=== PATIENT | male | born 1935 | race Caucasian/White ===

== ENCOUNTER 2016-03-24 11:12 | Inpatient (IN) | payer OTHER ==
[2016-03-24] VITALS (33 sets, daily range): BP systolic 100–160; BP diastolic 68–99; PULSE 50–93; TEMP 36.7–36.9; O2SAT 90–98; Ht 177.8 cm; Wt 81.5 kg
[~2016-03-24] VITALS: Ht 177.8 cm; Wt 81.5 kg
[~2016-03-24 11:12] MED LIST: CMD25 PO; CMD5 PO; DOXA2TAB PO; ESCI10TA17 PO; MULT-506 PO; PRAV40TA3 PO; PRLSR20 PO; TRAM-10 PO; [UNRECOGNIZED DRUG - CODE] OR
[2016-03-24] MEDS ORDERED: WARF2.5T8 PO ×2 (11:41)
[2016-03-24] MEDS ORDERED: MULTTAB58 PO (11:41)
[2016-03-24] MEDS ORDERED: ALEN70TA2 PO (11:41)
[2016-03-24] MEDS ORDERED: DULO60CA44 PO (11:41)
[2016-03-24] MEDS ORDERED: ASPCH81X PO (11:41)
[2016-03-24] MEDS ORDERED: PRAV40TA PO (11:41)
[2016-03-24] MEDS ORDERED: CRD4 PO (11:41)
[2016-03-24] MEDS ORDERED: FOLI1TAB7 PO (11:41)
[2016-03-24 11:55] LABS: HEMATOCRIT 43.6 % (42-52); MEAN CELL VOLUME 95.2 fL (80-100); MEAN CORPUSCULAR HEMOGLOBIN 31.9 pg (25-34); MEAN CORPUSCULAR HGB CONC 33.5 g/dl (32-36); MEAN PLATELET VOLUME 10.1 fL (7.4-10.4); PLATELET COUNT 179 K/uL (130-400); RED BLOOD COUNT 4.58 M/uL (4.7-6.1); WHITE BLOOD COUNT 5.68 K/uL (4.8-10.8)
[2016-03-24 12:02] LABS: BUN/CREATININE RATIO 22.6 (10-20); CALCIUM 9.3 mg/dl (8.5-10.1); POTASSIUM 4.4 mmol/L (3.5-5.1)
[2016-03-24 12:07] LABS: CKMB/CK RATIO 1.8 (0-3.0)
--- NOTE | 2016-03-24 12:09 | DIAGNOSTIC IMAGING REPORT ---
CHEST ONE VIEW PORTABLE HISTORY: Atypical chest pain. COMPARISON: Chest 06/24/2007. FINDINGS: There are low lung volumes. Small bilateral pleural effusions and bibasilar densities. The heart is enlarged. Mild mediastinal widening which could be due to the patient rotation. There is a tortuous thoracic aorta. There are low lung volumes. No pneumothorax. The upper lung zones are clear. No evidence for pulmonary edema. Old, healed right lower rib fractures. IMPRESSION: 1. Cardiomegaly. This appears to have progressed. 2. Low lung volumes. 3. Small bilateral pleural effusions. 4. Bibasilar patchy densities. This could represent atelectasis or pneumonia. 5. Progressive mediastinal widening. This may be due to the patient rotation. Electronically signed by: Jonathan Rosenthal M.D. 03/24/2016 12:07 PM Dictated Date/Time: 03/24/2016 12:04 PM
[2016-03-24 12:16] LABS: INR 2.2 (0.9-1.1); PARTIAL THROMBOPLASTIN RATIO 1.4; PROTHROMBIN TIME (PATIENT) 24.3 SECONDS (9.0-12.0)
[2016-03-24] MEDS ORDERED: SODIUM CHLORIDE 0.9% 1000ML 1,000 ML IV STA (13:15)
[2016-03-24] MEDS ORDERED: ONDANSETRON INJ 2 MG/ML 2 ML VIAL IV STA (13:15)
[2016-03-24] MEDS: MoRPHine SULFATE 4 MG/ML 1 ML CARP\\VIAL IV PRN ×2 (13:20→14:06)
--- NOTE | 2016-03-24 13:28 | EMERGENCY ROOM VISIT NOTE ---
History Report prepared by Radhika: Alberta Nolasco Under the Supervision of: Dr. Chase Patel M.D. First contact with patient: 13:10 Chief Complaint: CARDIAC ASSESSMENT Stated Complaint: chest pain History of Present Illness The patient is an 80 year old male who presents to the Emergency Room via ALS with complaints of persistent chest pain that began four hours ago. He currently rates his discomfort as an 8/10 in severity. Per EMS the patient was given 3 nitro, aspirin, and 100 of fentanyl that alleviated his initial chest pain. The patient states that at 0900 this morning he developed chest pain across his chest when he got up to answer the phone. He denies the pain radiating to his jaw or arm pain, and additionally denies any shortness of breath, diaphoresis, or nausea. The patient states that he called his PCP's office and was instructed to come to the emergency department for further work up. He states that prior to receiving his medications his pain was a 5-6/10 in severity. The patient states that since he has arrived to the emergency department, his pain has changed to radiating from his chest to his back. He denies ever having pain like this in the past. The patient denies any history of heart problems, but notes that he has had previous blood clots. He notes that he is on Coumadin. Source of History: patient Onset: four hours ago Position: chest Symptom Intensity: 8/10 Timing: other (persistent) Associated Symptoms: No SOB, No diaphoresis, No nausea Note: Associated Symptoms: chest pain radiating to his back. Review of Systems See HPI for pertinent positives & negatives. A total of 10 systems reviewed and were otherwise negative. Past Medical & Surgical Medical Problems: (1) BPH (benign prostatic hyperplasia) (2) DJD (degenerative joint disease) (3) DVT (deep venous thrombosis) (4) Hyperlipidemia Family History Cancer FH: heart disease Social History Smoking Status: Light Tobacco Smoker Alcohol Use: occasionally Marital Status: Housing Status: lives alone Occupation Status: retired Current/Historical Medications Scheduled Alendronate Sodium (Fosamax), 70 MG PO WK Aspirin (Aspirin Chewable), 81 MG PO DAILY Doxazosin Mesylate (Doxazosin Mesylate), 4 MG PO HS Duloxetine Hcl (Cymbalta), 60 MG PO DAILY Folic Acid (Folvite), 1 MG PO DAILY Multiple Vitamin (Multivitamin), 1 TAB PO DAILY Pravastatin Sodium (Pravachol), 40 MG PO DAILY Tramadol (Ultram), 50 MG PO Q6HR PRN Warfarin Sod (Jantoven), 5 MG PO 3XWK Warfarin Sod (Jantoven), 2.5 MG PO 4XWK Allergies Coded Allergies: Amoxicillin (Unverified Adverse Reaction, Unknown, UNKNOWN, 03/24/16) Clavulanic Acid (Unverified Adverse Reaction, Unknown, UNKNOWN, 03/24/16) Physical Exam Vital Signs Date Time Temp Pulse Resp B/P Pulse Ox O2 Delivery O2 Flow Rate FiO2 03/24/16 14:12 88 Room Air 03/24/16 13:55 70 03/24/16 13:21 59 18 163/110 93 Room Air 03/24/16 12:09 96 Nasal Cannula 2.0 03/24/16 11:30 96 Nasal Cannula 2.0 03/24/16 11:25 96 Room Air 2.0 03/24/16 11:21 82 03/24/16 11:19 37.0 81 18 152/90 92 Room Air Physical Exam GENERAL: Patient is in no acute distress. HEENT: No acute trauma, normocephalic atraumatic, mucous membranes moist, no nasal congestion, no scleral icterus. NECK: No stridor, no adenopathy, no meningismus, trachea is midline. LUNGS: Clear to auscultation bilaterally, no wheeze, no rhonchi, breath sounds equal. HEART: Without murmurs gallops or rubs, regular rate and rhythm. CHEST WALL: Nontender chest wall. ABDOMEN: Soft, nontender, bowel sounds positive, no hernias, no peritonitis. EXTREMITIES: No cyanosis or edema, full range of motion of all the joints without pain or difficulty, no signs for acute trauma. NEUROLOGIC: Oriented x 3, no acute motor or sensory deficits, no focal weakness. SKIN: No rash, no jaundice, no diaphoresis. Medical Decision & Procedures ER Provider Diagnostic Interpretation: X ray results and stated below per my interpretation and radiologist interpretation. Other radiology results and stated below per my review and radiologist interpretation: CHEST ONE VIEW PORTABLE HISTORY: Atypical chest pain. COMPARISON: Chest 06/24/2007. FINDINGS: There are low lung volumes. Small bilateral pleural effusions and bibasilar densities. The heart is enlarged. Mild mediastinal widening which could be due to the patient rotation. There is a tortuous thoracic aorta. There are low lung volumes. No pneumothorax. The upper lung zones are clear. No evidence for pulmonary edema. Old, healed right lower rib fractures. IMPRESSION: 1. Cardiomegaly. This appears to have progressed. 2. Low lung volumes. 3. Small bilateral pleural effusions. 4. Bibasilar patchy densities. This could represent atelectasis or pneumonia. 5. Progressive mediastinal widening. This may be due to the patient rotation. Electronically signed by: Jonathan Rosenthal M.D. 03/24/2016 12:07 PM Dictated Date/Time: 03/24/2016 12:04 PM CHEST, ABDOMEN, and PELVIS CTA for AORTIC DISSECTION CT DOSE: 2273.31 mGycm HISTORY: Atypical chest pain. TECHNIQUE: Multiaxial CT images of the chest, abdomen, and pelvis were performed both before and after the intravenous administration of contrast to evaluate the aorta. Maximal intensity projection images were also obtained. COMPARISON STUDY: None. FINDINGS: Noncontrast imaging demonstrates a hyperdense rind at the aortic arch originating at the level of the left subclavian artery. This hyperdense right and extends to the level of the right renal artery at the abdominal aorta. This is consistent with an intramural hematoma/partially thrombosed type B aortic dissection. This results in dilatation of the descending thoracic aorta which measures up to 5.1 cm in diameter. The major branches at the aortic arch, the celiac artery, superior mesenteric artery, inferior mesenteric artery, and renal arteries are patent without evidence for dissection. The heart is mildly enlarged. The trace pericardial and trace right pleural effusion. No evidence for mediastinal hematoma. The ascending thoracic aorta measures up to 4.7 cm in diameter. No pneumothorax. Groundglass densities within the left lower lobe likely represent mild dependent change. An 8 mm nodular density along the left major fissure is likely benign. There are few peripheral scarlike densities within the right lung. Old, healed bilateral rib fractures. A few small bilateral calcified pleural plaques. No suspicious lytic or blastic osseous lesions. No mediastinal or hilar lymphadenopathy. The central airways are patent. There is a 3.1 cm and 1.5 cm hypodense lesion within the liver. These may demonstrate discontinuous peripheral nodular enhancement. Therefore, these favor hemangiomas. The spleen, adrenal glands, pancreas, and gallbladder are unremarkable. There are few bilateral renal cysts. No hydronephrosis. Normal bladder. The prostate gland is enlarged. Left retroaortic renal vein. The abdominal aorta is normal in caliber with no evidence for dissection. The bilateral iliac arteries are patent but partially calcified. No bowel wall thickening or obstruction. IMPRESSION: 1. 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 2. The ascending thoracic aorta measures up to 4.7 cm diameter. 3. Additional findings as described above. 5. Findings were discussed with Dr. Patel at 2:10 PM on 03/24/2016 Electronically signed by: Jonathan Rosenthal M.D. 03/24/2016 2:20 PM Dictated Date/Time: 03/24/2016 1:57 PM Laboratory Results 03/24/16 11:10 03/24/16 11:10 Test 03/24/16 11:10 03/24/16 12:10 Red Blood Count 4.58 M/uL (4.7-6.1) Mean Corpuscular Volume 95.2 fL (80-100) Mean Corpuscular Hemoglobin 31.9 pg (25-34) Mean Corpuscular Hemoglobin Concent 33.5 g/dl (32-36) RDW Standard Deviation 49.8 fL (36.4-46.3) RDW Coefficient of Variation 14.3 % (11.5-14.5) Mean Platelet Volume 10.1 fL (7.4-10.4) Prothrombin Time 24.3 SECONDS (9.0-12.0) Prothromb Time International Ratio 2.2 (0.9-1.1) Activated Partial Thromboplast Time 35.5 SECONDS (21.0-31.0) Partial Thromboplastin Ratio 1.4 Anion Gap 9.0 mmol/L (3-11) Est Creatinine Clear Calc Drug Dose 58.8 ml/min Estimated GFR () 80.9 Estimated GFR (Non- 69.8 BUN/Creatinine Ratio 22.6 (10-20) Calcium Level 9.3 mg/dl (8.5-10.1) Total Bilirubin 0.6 mg/dl (0.2-1) Aspartate Amino Transf (AST/SGOT) 20 U/L (15-37) Alanine Aminotransferase (ALT/SGPT) 24 U/L (12-78) Alkaline Phosphatase 51 U/L (45-117) Total Creatine Kinase 45 U/L (39-308) Creatine Kinase MB 0.8 ng/ml (0.5-3.6) Creatine Kinase MB Ratio 1.8 (0-3.0) Total Protein 6.5 gm/dl (6.4-8.2) Albumin 3.3 gm/dl (3.4-5.0) Globulin 3.2 gm/dl (2.5-4.0) Albumin/Globulin Ratio 1.0 (0.9-2) Lipase 478 U/L (73-393) Bedside Troponin I 0.000 ng/ml (0-0.045) Laboratory results reviewed by me. Medications Administered Medications (Trade) Dose Ordered Sig/Charan Route Start Time Stop Time Status Last Admin Dose Admin Sodium Chloride (Nss 1000ml) 1,000 ml @ 125 mls/hr Q8H STAT IV 03/24/16 13:15 03/24/16 16:17 DC 03/24/16 13:15 125 MLS/HR Ondansetron HCl (Zofran Inj) 4 mg NOW STAT IV 03/24/16 13:15 03/24/16 13:17 DC 03/24/16 13:20 4 MG Morphine Sulfate (MoRPHine SULFATE INJ) 4 mg Q15M PRN IV 03/24/16 13:15 03/24/16 16:17 DC 03/24/16 14:06 4 MG Nitroglycerin (Nitroglycerin 2% Oint) 2 inch NOW STAT EXT 03/24/16 13:57 03/24/16 15:17 DC 03/24/16 14:06 2 INCH ECG Indication: chest pain Rate (beats per minute): 84 Rhythm: normal sinus Findings: no acute ischemic change, no ectopy Change: Repeat EKG: sinus bradycardia 58 beats per minute, no ischemia, no ectopy. ED Course 1310: The patient was evaluated in room A12A. A complete history and physical exam was performed. 1315: Ordered Morphine Sulfate 4 mg IV, Zofran Inj 4 mg IV, Sodium Chloride 1000 ml @ 125 mls/hr IV. 1357: Ordered Nitroglycerin 2 inch EXT. 1400: I reevaluated the patient and I discussed the CT findings. 1401: I discussed the patients case with Dr. Dugan, Vascular Surgeon. He states that the patient can stay here for further evaluation and treatment. 1418: I discussed the patients case with RAJIV Brown. She is going to evaluate the patient for further treatment. 1433: I discussed the patients case with Manuela Ulloa, Intensive Care [facility]. She will evaluate the patient in the unit. 1435: I reevaluated the patient and I updated him on the treatment plan. He verbalized complete understanding and agreement. He will be evaluated here for further treatment in the intensive care unit. Medical Decision The patient is an 80 year old male who presents to the ED with complaints of chest pain. Differential diagnoses considered include Cardiac ischemia, HI, aortic dissection, pneumothorax, pneumonia, musculoskeletal pain, pericarditis, pancreatitis. There is no leukocytosis or concerning anemia. No significant electrolyte abnormality, kidney failure or hepatitis. Pancreatic enzyme testing is slightly elevated but not high enough to diagnose pancreatitis. INR is therapeutic for someone using Coumadin. EKG shows a normal sinus rhythm, no acute ischemia. Repeat EKG showed the same findings. Cardiac enzyme testing 1 is not consistent with acute cardiac injury. Chest x-ray shows cardiomegaly and some mediastinal fullness. There was some lower lung atelectasis, no pneumothorax. Aortic CT demonstrates a type B aortic dissection stretching from the left subclavian to the superior mesenteric artery. The patient was hypertensive in the emergency room. He received IV morphine, IV Zofran and IV saline, he was placed on 2 inches of nitroglycerin paste. With this treatment, his blood pressure was better controlled. I discussed the case with the vascular surgeon reservoir engineering consultant, I talked with the flight tower dispatcher service here at the hospital. The patient's findings are nonoperable and the patient can be managed medically here at our hospital. I spoke with case management, I discussed things with the patient. The on-call hospitalist was consulted. Of note, I discussed reversing the patient's INR value with the vascular surgeon , he did not feel this was needed but suggested maybe holding the Coumadin for now. Consults Time Called: 1627 Consulting Physician: Dr. Dugan, Vascular Surgery Returned Call: [phone] I discussed the patients case with Dr. Dugan, Vascular Surgeon. He states that the patient can stay here for further evaluation and treatment. Additional Consults: Time Called: 1404 Consulted Physician: Hedy Brown Returned Call: 1410 Additional Comments: I discussed the patients case with RAJIV Brown. She is going to evaluate the patient for further treatment. Time Called: 1404 Consulted Physician: Manuela Ulloa [facility] Returned Call: [phone] Additional Comments: I discussed the patients case with Manuela Ulloa [facility]. She will evaluate the patient in the unit. Impression Primary Impression: Aortic dissection Critical Care I have personally spent greater than 35 minutes of critical care time in the direct management of this patient. This includes bedside care, interpretation of diagnostic studies, and testing, discussion with consultants, patient, and family members, and other required patient management activities. This 35 minutes is in excess of all separately billable procedures. Scribe Attestation The scribe's documentation has been prepared under my direction and personally reviewed by me in its entirety. I confirm that the note above accurately reflects all work, treatment, procedures, and medical decision making performed by me. Departure Information Dispostion Being Evaluated By Hospitalist Benjie Navarrete M.D. (PCP)
[2016-03-24] MEDS ORDERED: OPTIRAY 320 IV PRN (13:30)
[2016-03-24] MEDS ORDERED: NITROGLYCERIN OINT 2% 1GM PACKET EXT STA (13:57)
--- NOTE | 2016-03-24 14:22 | DIAGNOSTIC IMAGING REPORT ---
CHEST, ABDOMEN, and PELVIS CTA for AORTIC DISSECTION CT DOSE: 2273.31 mGycm HISTORY: Atypical chest pain. TECHNIQUE: Multiaxial CT images of the chest, abdomen, and pelvis were performed both before and after the intravenous administration of contrast to evaluate the aorta. Maximal intensity projection images were also obtained. COMPARISON STUDY: None. FINDINGS: Noncontrast imaging demonstrates a hyperdense rind at the aortic arch originating at the level of the left subclavian artery. This hyperdense right and extends to the level of the right renal artery at the abdominal aorta. This is consistent with an intramural hematoma/partially thrombosed type B aortic dissection. This results in dilatation of the descending thoracic aorta which measures up to 5.1 cm in diameter. The major branches at the aortic arch, the celiac artery, superior mesenteric artery, inferior mesenteric artery, and renal arteries are patent without evidence for dissection. The heart is mildly enlarged. The trace pericardial and trace right pleural effusion. No evidence for mediastinal hematoma. The ascending thoracic aorta measures up to 4.7 cm in diameter. No pneumothorax. Groundglass densities within the left lower lobe likely represent mild dependent change. An 8 mm nodular density along the left major fissure is likely benign. There are few peripheral scarlike densities within the right lung. Old, healed bilateral rib fractures. A few small bilateral calcified pleural plaques. No suspicious lytic or blastic osseous lesions. No mediastinal or hilar lymphadenopathy. The central airways are patent. There is a 3.1 cm and 1.5 cm hypodense lesion within the liver. These may demonstrate discontinuous peripheral nodular enhancement. Therefore, these favor hemangiomas. The spleen, adrenal glands, pancreas, and gallbladder are unremarkable. There are few bilateral renal cysts. No hydronephrosis. Normal bladder. The prostate gland is enlarged. Left retroaortic renal vein. The abdominal aorta is normal in caliber with no evidence for dissection. The bilateral iliac arteries are patent but partially calcified. No bowel wall thickening or obstruction. IMPRESSION: 1. 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 2. The ascending thoracic aorta measures up to 4.7 cm diameter. 3. Additional findings as described above. 5. Findings were discussed with Dr. Patel at 2:10 PM on 03/24/2016 Electronically signed by: Jonathan Rosenthal M.D. 03/24/2016 2:20 PM Dictated Date/Time: 03/24/2016 1:57 PM
[2016-03-24] MEDS ORDERED: ACETAMINOPHEN 325 MG TAB PO PRN (15:00)
[2016-03-24] MEDS ORDERED: ONDANSETRON INJ 2 MG/ML 2 ML VIAL IV PRN (15:00)
[2016-03-24] MEDS ORDERED: METOPROLOL TARTRATE 1 MG/ML VIAL IV STA (15:10)
[2016-03-24] MEDS ORDERED: NITROGLYCERIN/D5W 100 MCG/ML 250 ML IV PRN (15:15)
--- NOTE | 2016-03-24 15:21 | History and Physical ---
History & Physical Date & Time of Service: Mar 24, 2016 at 15:19 Chief Complaint: chest pain Primary Care Physician: Benjie Carey M.D. History of Present Illness Source: patient Patient is an 80 yd old male with PMH of BPH, DVT on anticoagulation, HLP, osteoporosis, DJD presents with history of chest pain. He states chest pain is sudden in onset, retrosternal in location, radiates to back, 5-8/10 intensity, initially dull but currently sharp in quality, constant, not associated with any aggravating/relieving factors. Denies similar symptoms in the past. Denies any associated SOB, nausea, vomiting, dizziness, headache, blurry vision, abd pain, change in bowel/bladder habits, fever, chills, cough, wheezing. Per EMS, patient was given 3 nitro, aspirin, and a dose of fentanyl that alleviated his initial chest pain. Past Medical/Surgical History Medical Problems: (1) BPH (benign prostatic hyperplasia) Status: Chronic (2) DJD (degenerative joint disease) Status: Chronic (3) DVT (deep venous thrombosis) Status: Chronic (4) Hyperlipidemia Status: Chronic Family History Cancer FH: heart disease Not relevant. Social History Smoking Status: Light Tobacco Smoker Alcohol Use: none Drug Use: none Marital Status: Occupational Status: retired Immunizations History of Influenza Vaccine: N/A History of Tetanus Vaccine?: Yes Tetanus Immunization Date: Jun 24, 2000 History of Pneumococcal: Yes Pneumococcal Date: Jan 24, 2007 History of Hepatitis B Vaccine: No Multi-Drug Resistant Organisms History of MDRO: No Allergies Coded Allergies: Amoxicillin (Unverified Adverse Reaction, Unknown, UNKNOWN, 03/24/16) Clavulanic Acid (Unverified Adverse Reaction, Unknown, UNKNOWN, 03/24/16) Home Medications Scheduled Alendronate Sodium (Fosamax), 70 MG PO WK Aspirin (Aspirin Chewable), 81 MG PO DAILY Doxazosin Mesylate (Doxazosin Mesylate), 4 MG PO HS Duloxetine Hcl (Cymbalta), 60 MG PO DAILY Folic Acid (Folvite), 1 MG PO DAILY Multiple Vitamin (Multivitamin), 1 TAB PO DAILY Pravastatin Sodium (Pravachol), 40 MG PO DAILY Tramadol (Ultram), 50 MG PO Q6HR PRN Warfarin Sod (Jantoven), 5 MG PO 3XWK Warfarin Sod (Jantoven), 2.5 MG PO 4XWK Review of Systems See HPI for pertinent positives & negatives. A total of 10 systems reviewed and were otherwise negative. Physical Exam Vital Signs Date Time Temp Pulse Resp B/P Pulse Ox O2 Delivery O2 Flow Rate FiO2 03/24/16 14:12 88 Room Air 03/24/16 13:55 70 03/24/16 13:21 59 18 163/110 93 Room Air 03/24/16 12:09 96 Nasal Cannula 2.0 03/24/16 11:30 96 Nasal Cannula 2.0 03/24/16 11:25 96 Room Air 2.0 03/24/16 11:21 82 03/24/16 11:19 37.0 81 18 152/90 92 Room Air General Appearance: WD/WN, no apparent distress Head: normocephalic, atraumatic Eyes: normal inspection, PERRL, EOMI, sclerae normal ENT: normal ENT inspection, TMs normal, pharynx normal, + pertinent finding ( Bilateral hearing loss) Neck: supple, no JVD, trachea midline Respiratory/Chest: chest non-tender, lungs clear, normal breath sounds, no respiratory distress Cardiovascular: regular rate, rhythm, no edema, no murmur Abdomen/GI: normal bowel sounds, non tender, soft, + pertinent finding ( Protuberant) Back: normal inspection Extremities/Musculoskelatal: normal inspection, no calf tenderness, no pedal edema Neurologic/Psych: 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 II-XII nml as tested, no motor/sensory deficits, alert, normal mood/affect, oriented x 3 Skin: normal color, warm/dry Lymphatic: no adenopathy Diagnostics Laboratory Results Results Past 24 Hours Test 03/24/16 11:10 03/24/16 12:10 Range/Units White Blood Count 5.68 4.8-10.8 K/uL Red Blood Count 4.58 4.7-6.1 M/uL Hemoglobin 14.6 14.0-18.0 g/dL Hematocrit 43.6 42-52 % Mean Corpuscular Volume 95.2 80-100 fL Mean Corpuscular Hemoglobin 31.9 25-34 pg Mean Corpuscular Hemoglobin Concent 33.5 32-36 g/dl RDW Standard Deviation 49.8 36.4-46.3 fL RDW Coefficient of Variation 14.3 11.5-14.5 % Platelet Count 179 130-400 K/uL Mean Platelet Volume 10.1 7.4-10.4 fL Prothrombin Time 24.3 9.0-12.0 SECONDS Prothromb Time International Ratio 2.2 0.9-1.1 Activated Partial Thromboplast Time 35.5 21.0-31.0 SECONDS Partial Thromboplastin Ratio 1.4 Sodium Level 140 136-145 mmol/L Potassium Level 4.4 3.5-5.1 mmol/L Chloride Level 104 98-107 mmol/L Carbon Dioxide Level 27 21-32 mmol/L Anion Gap 9.0 3-11 mmol/L Blood Urea Nitrogen 23 7-18 mg/dl Creatinine 1.00 0.60-1.40 mg/dl Est Creatinine Clear Calc Drug Dose 58.8 ml/min Estimated GFR () 80.9 Estimated GFR (Non- 69.8 BUN/Creatinine Ratio 22.6 10-20 Random Glucose 95 70-99 mg/dl Calcium Level 9.3 8.5-10.1 mg/dl Total Bilirubin 0.6 0.2-1 mg/dl Aspartate Amino Transf (AST/SGOT) 20 15-37 U/L Alanine Aminotransferase (ALT/SGPT) 24 12-78 U/L Alkaline Phosphatase 51 45-117 U/L Total Creatine Kinase 45 39-308 U/L Creatine Kinase MB 0.8 0.5-3.6 ng/ml Creatine Kinase MB Ratio 1.8 0-3.0 Total Protein 6.5 6.4-8.2 gm/dl Albumin 3.3 3.4-5.0 gm/dl Globulin 3.2 2.5-4.0 gm/dl Albumin/Globulin Ratio 1.0 0.9-2 Lipase 478 73-393 U/L Bedside Troponin I 0.000 0-0.045 ng/ml Diagnostic Radiology CXR: 1. Cardiomegaly. This appears to have progressed. 2. Low lung volumes. 3. Small bilateral pleural effusions. 4. Bibasilar patchy densities. This could represent atelectasis or pneumonia. 5. Progressive mediastinal widening. This may be due to the patient rotation. CTA: 1. 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 2. The ascending thoracic aorta measures up to 4.7 cm diameter. 3. Additional findings as described above. 5. Findings were discussed with Dr. Patel at 2:10 PM on 03/24/2016 EKG EKG: NSR, No signs of ischemia Impression Assessment and Plan 80 yr old male with PMH of BPH, DVT on anticoagulation, HLP, osteoporosis, DJD presents with sudden onset of chest pain radiating to back. Chest Pain: Secondary to type B aortic dissection Admit in ICU Bp currently uncontrolled On chronic anticoagulation for DVT Will start on nitro drip and Lopressor IV Q4H Discussed the case with (Poultry Culler) Monitor H&H Consult Vascular Hold all anticoagulation for now Trend cardiac enzymes, repeat EKG in AM CTA: 1. 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 2. The ascending thoracic aorta measures up to 4.7 cm diameter. BPH: Stable H/O DVT on chronic anticoagulation Hold anticoagulation Osteoporosis, DJD: Stable DVT Px: SCDs Code Status: Full code VTE Prophylaxis VTE Risk Assessment Done? Y/N: Yes Risk Level: Moderate
--- NOTE | 2016-03-24 17:50 | Critical Care Consultation ---
Critical Care Consultation Date of Consultation: Mar 24, 2016. Attending Physician: Dereck Don MD Reason for Consultation: aortic dissection type B History of Present Illness this is a 80 yo male with a hx of HLP, osteoporosis, DVT and maintained on coumadin. presented to the ED with sudden onset chest pain accompanied by mild sob, no abdominal pain or change ijn bowel movement reported, the pain was steady and lasted for over 30 minutes, he was doing well the night before according to him. in the ED work up revealed acute aortic dissection extending from the origin of the left subclav towards the diaphragm sparing the renal artery. no weakness or numbess in the lower ext , no pain in the lower ext. the pt is cigar smoker and denies cardiac hx nor PAD hx. Family History Cancer FH: heart disease Social History Smoking Status: Light Tobacco Smoker Smokeless Tobacco Use: Yes Alcohol Use: none Drug Use: none Marital Status: Housing Status: lives alone Occupation Status: retired Allergies Coded Allergies: Amoxicillin (Unverified Adverse Reaction, Unknown, UNKNOWN, 03/24/16) Clavulanic Acid (Unverified Adverse Reaction, Unknown, UNKNOWN, 03/24/16) Home Medications Scheduled Alendronate Sodium (Fosamax), 70 MG PO WK Aspirin (Aspirin Chewable), 81 MG PO DAILY Doxazosin Mesylate (Doxazosin Mesylate), 4 MG PO HS Duloxetine Hcl (Cymbalta), 60 MG PO DAILY Folic Acid (Folvite), 1 MG PO DAILY Multiple Vitamin (Multivitamin), 1 TAB PO DAILY Pravastatin Sodium (Pravachol), 40 MG PO DAILY Tramadol (Ultram), 50 MG PO Q6HR PRN Warfarin Sod (Jantoven), 5 MG PO 3XWK Warfarin Sod (Jantoven), 2.5 MG PO 4XWK Current Inpatient Medications Current Inpatient Medications Medications (Trade) Dose Ordered Sig/Charan Route Start Time Stop Time Status Last Admin Dose Admin Ioversol (Optiray 320) 100 ml UD PRN IV 03/24/16 13:30 03/28/16 13:29 Acetaminophen (Tylenol Tab) 650 mg Q4H PRN PO 03/24/16 15:00 04/23/16 14:59 Ondansetron HCl 4 mg 4 mg Q6H PRN IV 03/24/16 15:00 04/23/16 14:59 Nitroglycerin/ Dextrose (Nitroglycerin/ D5w 100 Mcg/Ml) 250 ml @ 0 mls/hr Q0M PRN IV 03/24/16 15:15 04/23/16 15:14 03/24/16 15:45 3 MLS/HR Metoprolol Tartrate (Lopressor Iv) 5 mg Q4 IV. 03/24/16 20:00 04/23/16 19:59 Duloxetine HCl (Cymbalta Cap) 60 mg DAILY PO 03/25/16 09:00 04/24/16 08:59 Review of Systems Respiratory: + shortness of breath Cardiovascular: + chest pain Physical Exam Date Time Temp Pulse Resp B/P Pulse Ox O2 Delivery O2 Flow Rate FiO2 03/24/16 15:48 68 19 138/90 94 Room Air 03/24/16 15:41 74 162/107 03/24/16 15:22 77 17 135/96 94 Room Air 03/24/16 14:12 88 Room Air 03/24/16 13:55 70 03/24/16 13:21 59 18 163/110 93 Room Air 03/24/16 12:09 96 Nasal Cannula 2.0 03/24/16 11:30 96 Nasal Cannula 2.0 03/24/16 11:25 96 Room Air 2.0 03/24/16 11:21 82 03/24/16 11:19 37.0 81 18 152/90 92 Room Air General Appearance: no apparent distress Head: normocephalic Eyes: normal inspection ENT: normal ENT inspection Neck: supple, no adenopathy, no carotid bruits Cardiovascular: regular rate, rhythm, no edema Abdomen/GI: normal bowel sounds, non tender, soft, no organomegaly Extremities/Musculoskelatal: normal inspection, no calf tenderness, normal capillary refill, no pedal edema Neurologic/Psych: slurry mixer II-XII nml as tested, no motor/sensory deficits Skin: normal color Lymphatic: no adenopathy Laboratory Results Last 24 Hours Test 03/24/16 11:10 03/24/16 12:10 White Blood Count 5.68 K/uL Red Blood Count 4.58 M/uL Hemoglobin 14.6 g/dL Hematocrit 43.6 % Mean Corpuscular Volume 95.2 fL Mean Corpuscular Hemoglobin 31.9 pg Mean Corpuscular Hemoglobin Concent 33.5 g/dl RDW Standard Deviation 49.8 fL RDW Coefficient of Variation 14.3 % Platelet Count 179 K/uL Mean Platelet Volume 10.1 fL Prothrombin Time 24.3 SECONDS Prothromb Time International Ratio 2.2 Activated Partial Thromboplast Time 35.5 SECONDS Partial Thromboplastin Ratio 1.4 Sodium Level 140 mmol/L Potassium Level 4.4 mmol/L Chloride Level 104 mmol/L Carbon Dioxide Level 27 mmol/L Anion Gap 9.0 mmol/L Blood Urea Nitrogen 23 mg/dl Creatinine 1.00 mg/dl Est Creatinine Clear Calc Drug Dose 58.8 ml/min Estimated GFR () 80.9 Estimated GFR (Non- 69.8 BUN/Creatinine Ratio 22.6 Random Glucose 95 mg/dl Calcium Level 9.3 mg/dl Total Bilirubin 0.6 mg/dl Aspartate Amino Transf (AST/SGOT) 20 U/L Alanine Aminotransferase (ALT/SGPT) 24 U/L Alkaline Phosphatase 51 U/L Total Creatine Kinase 45 U/L Creatine Kinase MB 0.8 ng/ml Creatine Kinase MB Ratio 1.8 Total Protein 6.5 gm/dl Albumin 3.3 gm/dl Globulin 3.2 gm/dl Albumin/Globulin Ratio 1.0 Lipase 478 U/L Bedside Troponin I 0.000 ng/ml Assessment & Plan #1 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 #2 HTN with BP 160. #3 no evidence of renal compromise , slight Lipase elevation. no melena. #4 coagulopathy , INR 2.2. #5 HLP. Plan: #1 continue B blockers, the pt HR is in the upper 50's. will hold off if the HR <50. #2 NTG drip to maintain SBP < 135. with respect to the MAP of 65. #3continue the rest of his meds except aspirin and coumadin. #4 no heparin sc. #5 unclear to me why the pt is on coumadin ( reported DVT 8 years ago, was it second incidence?). #6 vascular consult. #7add oxygen. minimal pleural effusion noted on the CXR, will decrease IVF. #8 Morphine for pain. #9 agree with medical management. oral intake. discussed with the pt and the staff in details. CCT 45 min.
[2016-03-24] MEDS ORDERED: SODIUM CHLORIDE 0.9% 1000ML 1,000 ML IV SCH (18:00)
[2016-03-24] MEDS ORDERED: MoRPHine SULFATE 4 MG/ML 1 ML CARP\\VIAL IV PRN (18:00)
[2016-03-24] MEDS: METOPROLOL TARTRATE 1 MG/ML VIAL IV. SCH (20:20)
[2016-03-25] VITALS (40 sets, daily range): BP systolic 91–140; BP diastolic 59–89; PULSE 51–85; TEMP 36.6–37.5; O2SAT 88–98
[2016-03-25] MEDS: METOPROLOL TARTRATE 1 MG/ML VIAL IV. SCH ×3 (03:49→08:03)
[2016-03-25 05:41] LABS: BASO % 0.1 %; BASO ABS # 0.01 K/uL (0-0.2); COMPLETE YES; EOS % 1.2 %; IG% 0.4 %; LYMPH % 15.6 %; MEAN CELL VOLUME 95.2 fL (80-100); MEAN CORPUSCULAR HEMOGLOBIN 30.8 pg (25-34); MEAN CORPUSCULAR HGB CONC 32.4 g/dl (32-36); MEAN PLATELET VOLUME 9.7 fL (7.4-10.4); NEUT % 69.7 %; PLATELET COUNT 140 K/uL (130-400); RED BLOOD COUNT 3.99 M/uL (4.7-6.1); WHITE BLOOD COUNT 7.71 K/uL (4.8-10.8)
[2016-03-25 06:06] LABS: INR 2.3 (0.9-1.1); PROTHROMBIN TIME (PATIENT) 25.5 SECONDS (9.0-12.0)
[2016-03-25 06:12] LABS: BUN/CREATININE RATIO 21.9 (10-20); CREATININE 0.8 mg/dl (0.60-1.40); POTASSIUM 4.2 mmol/L (3.5-5.1)
[2016-03-25 06:26] LABS: CALCIUM 7.9 mg/dl (8.5-10.1)
[2016-03-25] MEDS: DULOXETINE HCL 60 MG CAP PO SCH (07:58)
--- NOTE | 2016-03-25 09:46 | Surgery Consultation ---
Consultation Date of Service Mar 25, 2016. (Connie Alvarez, BRIGHT) Chief Complaint acute aortic dissection (Connie Alvarez, BRIGHT) History of Present Illness The patient is a 80 year old male with hx of HTN, HLP, DVT, seen in consultation today for acute aortic dissection noted on CT yesterday. Pt states he developed sudden onset chest pain/back pain which was excruciating and came to ED. No hx of recent trauma. BP elevated on admission. Pt states his BP at home usually in 110-120/60 range. States pain has subsided today, feeling much better. Denies MILLARD, fever, chills, chest pain presently, SOB, abd pain, N/V, rest pain, claudication, other complaints. No fam hx of aortic aneurysm or dissection. 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 (Connie Alvarez, BRIGHT) Vitals Vital Signs Past 12 Hours Date Time Temp Pulse Resp B/P Pulse Ox O2 Delivery O2 Flow Rate FiO2 03/25/16 08:03 82 106/67 03/25/16 07:40 Nasal Cannula 03/25/16 06:28 64 22 112/73 96 Nasal Cannula 3.0 03/25/16 05:58 63 21 104/71 94 Nasal Cannula 3.0 03/25/16 05:29 68 20 108/68 94 Nasal Cannula 3.0 03/25/16 04:33 65 21 109/63 89 Nasal Cannula 3.0 03/25/16 04:00 Nasal Cannula 3.0 03/25/16 03:58 36.9 63 22 116/73 95 Nasal Cannula 3.0 03/25/16 03:49 57 114/78 03/25/16 03:28 68 21 114/78 90 Nasal Cannula 3.0 03/25/16 02:58 66 20 116/72 94 Nasal Cannula 3.0 03/25/16 02:28 61 21 102/73 93 Nasal Cannula 3.0 03/25/16 01:58 63 23 104/75 94 Nasal Cannula 3.0 03/25/16 01:28 60 22 116/79 97 Nasal Cannula 3.0 03/25/16 00:58 56 21 111/74 95 Nasal Cannula 3.0 03/25/16 00:28 57 21 116/78 96 Nasal Cannula 3.0 03/25/16 00:01 Nasal Cannula 3.0 03/25/16 00:00 57 100/74 03/24/16 23:58 36.9 59 22 100/74 90 Nasal Cannula 2.0 03/24/16 23:29 67 22 131/76 92 Nasal Cannula 2.0 03/24/16 22:58 59 25 117/80 91 Nasal Cannula 2.0 03/24/16 22:28 59 26 114/77 90 Nasal Cannula 2.0 03/24/16 22:09 67 20 118/79 93 Nasal Cannula 2.0 03/24/16 22:04 62 27 101/81 98 Nasal Cannula 2.0 03/24/16 21:58 65 23 129/99 97 Nasal Cannula 2.0 03/24/16 21:54 59 22 110/76 91 Nasal Cannula 2.0 03/24/16 21:48 55 21 120/79 94 Nasal Cannula 2.0 03/24/16 21:43 57 20 118/81 93 Nasal Cannula 2.0 03/24/16 21:38 56 22 113/72 93 Nasal Cannula 2.0 03/24/16 21:33 58 22 114/71 94 Nasal Cannula 2.0 (Connie Alvaerz, RENALDOC) Allergies Coded Allergies: Amoxicillin (Unverified Adverse Reaction, Unknown, UNKNOWN, 03/24/16) Clavulanic Acid (Unverified Adverse Reaction, Unknown, UNKNOWN, 03/24/16) Home Medications Scheduled Alendronate Sodium (Fosamax), 70 MG PO WK Aspirin (Aspirin Chewable), 81 MG PO DAILY Doxazosin Mesylate (Doxazosin Mesylate), 4 MG PO HS Duloxetine Hcl (Cymbalta), 60 MG PO DAILY Folic Acid (Folvite), 1 MG PO DAILY Multiple Vitamin (Multivitamin), 1 TAB PO DAILY Pravastatin Sodium (Pravachol), 40 MG PO DAILY Tramadol (Ultram), 50 MG PO Q6HR PRN Warfarin Sod (Jantoven), 5 MG PO 3XWK Warfarin Sod (Jantoven), 2.5 MG PO 4XWK Problem List Medical Problems: (1) BPH (benign prostatic hyperplasia) (2) DJD (degenerative joint disease) (3) DVT (deep venous thrombosis) (4) Hyperlipidemia (Minarchick,Connie D., RENALDOC) Surgical / Medical History Hx Cardiac Surgery: No Hx Abdominal Surgery: No Hx Cancer Surgery: Yes (Benign neoplasm of colon removed ) Hx Thoracic Surgery: No Hx Orthopedic: No Hx Urinary Tract Surgery: No HX Other Surgery: No Past Medical/Surgical History: Hypertension (Connie Alvarez, RENALDOC) Family History Cancer FH: heart disease (Connie Alvarez PA-C) Cancer FH: heart disease (Dayton Dugan M.D.) Social History Smoking Status: Current Some Day Smoker Hx Tobacco Use In Past Year?: Yes (occasional cigar smoker ) Hx Alcohol Use - Type & Amnt: Yes (Wine 2 cups per month ) Hx Substance Use -Type & Amnt: No (Connie Alvarez, PANCHO-C) Review of Systems Constitutional: No chills, No fever, No malaise Skin: No change in color Eyes: No visual changes ENMT: No sore throat Respiratory: No SALGADO, No cough, No hemoptysis, No short of breath Cardiovascular: + chest pain, No diaphoresis, No edema, No intermittent claudication, No palpitations, No syncope Gastrointestinal: No abdominal pain, No diarrhea, No nausea, No vomiting Musculoskeletal: + back pain Neurologic: No dizziness, No headache, No lethargy, No numbness, No tingling ( Connie Alvarez, PA-C) Physical Exam Constitutional: General Apperance: heathly-appearing, well-nourished, well-developed Level of Distress: NAD Ambulation: ambulating normally Psychiatric: Mental Status: active & alert, normal mood, normal affect Orientation: oriented except where noted, to time, to place, to person Memory: recent memory normal, remote memory normal Head: normocephalic, atraumatic Eyes: EOM: EOMI ENMT: normal ENT inspection, hearing grossly normal Neck: supple, trachea midline Lungs: Respiratory effort: no dyspnea Auscultation: no wheezing, no rales/crackles, no rhonchi, decreased breath sounds Cardiovascular: Apical Impulse: not displaced Heart Auscultation: RRR, no rubs, no gallops Peripheral Pulses: Pulses: full and equal, in all extremities except if noted Bruits: none appreciated Carotid Pulse: normal on the left, normal on the right Brachial Pulses: normal on the left, normal on the right Radial Pulse: normal on the left, normal on the right Femoral Pulse: normal on the left, normal on the right Posterior Tibialis Pulse: decreased on the left, decreased on the right Dorsalis Pedis Pulse: decreased on the left, decreased on the right Abdomen: Bowel Sounds: normal Inspection & Palpation: soft, non-distended, no tenderness, guarding & rebound Musculoskeletal: normal strength (5/5 throughout), normal tone Extremities: Upper Right: no cyanosis, no edema Upper Left: no cyanosis, no edema, no varicosities Lower Right: no cyanosis, no edema, no varicosities Lower Left: no cyanosis, no edema, no varicosities Neurologic: Cranial Nerves: grossly intact Sensation: grossly intact (Connie Alvarez, PANCHO-C) Assessment and Plan ASSESSMENT and PLAN: Type B aneurysmal aortic dissection Pt appears stable presently, pain resolved. Recommend medical management with BP control. Recheck CT scan in 3 months with a participating vascular provider d/t insurance. Discussed with pt, he expresses understanding. (Connie Alvarez, PA-C) Patient was seen, examined, and chart reviewed. Agree with exam and treatment plan of the Vascular PA. Thank you very much for letting me participate in the care of this patient. (Dayton Dugan M.D.)
--- NOTE | 2016-03-25 10:53 | Critical Care Progress Note ---
Critical Care Progress Note Date of Service Mar 25, 2016. Attending Dr. Funez Subjective no complaints or acute events overnight Pain has subsided Objective General: Awake, alert and oriented x 3, no acute acute distress Heart: RRR, S1S2 present Lungs: CTAB, no wheezing, rales or ronchi abdomen: BS+'ve, soft, nontender, non distended Ext: Moves all extremities, DP pulses present Assessment & Plan Aneurysmal Aortic dissection type B - medically managed with HTN, but without evidence of organ involvement. Mild elevation in Lipase continue BB- switch to oral Continue Nitro- switch to nitro ointment Hold aspirin and coumadin(reportedly on it for DVT several years ago)- as per Vascular surgery HTN: Controlled with Nitro and beta blockers H/O of DVT INR at 2.2, hold anticoagulation Dispo: Patient stable for transfer later today. attending addendum, the p[t with type B Debakey aortic dissection, improving clinically, chest pain free today, BP controlled with meds. will stop NTG drip and start NTG paste 2 " q6hrs. will start lopressor po. stop lopressor IV. transfer to regular floor. discussed with vascular, will continue to hold coumadin, no reversal for now of the INR ( 2.3 ), no evidence of bleeding or end organ damage. discussed in details with the staff on rounds. CCt 35 min. Data Medications: Current Inpatient Medications Medications (Trade) Dose Ordered Sig/Charan Route Start Time Stop Time Status Last Admin Dose Admin Ioversol (Optiray 320) 100 ml UD PRN IV 03/24/16 13:30 03/28/16 13:29 Acetaminophen (Tylenol Tab) 650 mg Q4H PRN PO 03/24/16 15:00 04/23/16 14:59 Ondansetron HCl (Zofran Inj) 4 mg Q6H PRN IV 03/24/16 15:00 04/23/16 14:59 Duloxetine HCl (Cymbalta Cap) 60 mg DAILY PO 03/25/16 09:00 04/24/16 08:59 03/25/16 07:58 60 MG Morphine Sulfate (MoRPHine SULFATE INJ) 3 mg Q4 PRN IV 03/24/16 18:00 04/07/16 17:59 03/25/16 04:52 3 MG Metoprolol Tartrate (Lopressor Iv) 5 mg Q4 PRN IV. 1/24/17 12:00 04/24/16 11:59 UNV Nitroglycerin (Nitroglycerin 2% Oint) 2 inch Q6H EXT 03/25/16 10:30 04/24/16 10:29 UNV I & O: 24-Hour Column 03/25/16 08:00 Intake Total 1593 ml Output Total 1225 ml Balance 368 ml Vital Signs: Date Time Temp Pulse Resp B/P Pulse Ox O2 Delivery O2 Flow Rate FiO2 03/25/16 08:03 82 106/67 03/25/16 07:40 Nasal Cannula 03/25/16 06:28 64 22 112/73 96 Nasal Cannula 3.0 03/25/16 05:58 63 21 104/71 94 Nasal Cannula 3.0 03/25/16 05:29 68 20 108/68 94 Nasal Cannula 3.0 03/25/16 04:33 65 21 109/63 89 Nasal Cannula 3.0 03/25/16 04:00 Nasal Cannula 3.0 03/25/16 03:58 36.9 63 22 116/73 95 Nasal Cannula 3.0 03/25/16 03:49 57 114/78 03/25/16 03:28 68 21 114/78 90 Nasal Cannula 3.0 03/25/16 02:58 66 20 116/72 94 Nasal Cannula 3.0 03/25/16 02:28 61 21 102/73 93 Nasal Cannula 3.0 03/25/16 01:58 63 23 104/75 94 Nasal Cannula 3.0 03/25/16 01:28 60 22 116/79 97 Nasal Cannula 3.0 03/25/16 00:58 56 21 111/74 95 Nasal Cannula 3.0 03/25/16 00:28 57 21 116/78 96 Nasal Cannula 3.0 03/25/16 00:01 Nasal Cannula 3.0 03/25/16 00:00 57 100/74 03/24/16 23:58 36.9 59 22 100/74 90 Nasal Cannula 2.0 03/24/16 23:29 67 22 131/76 92 Nasal Cannula 2.0 03/24/16 22:58 59 25 117/80 91 Nasal Cannula 2.0 03/24/16 22:28 59 26 114/77 90 Nasal Cannula 2.0 03/24/16 22:09 67 20 118/79 93 Nasal Cannula 2.0 03/24/16 22:04 62 27 101/81 98 Nasal Cannula 2.0 03/24/16 21:58 65 23 129/99 97 Nasal Cannula 2.0 03/24/16 21:54 59 22 110/76 91 Nasal Cannula 2.0 03/24/16 21:48 55 21 120/79 94 Nasal Cannula 2.0 03/24/16 21:43 57 20 118/81 93 Nasal Cannula 2.0 03/24/16 21:38 56 22 113/72 93 Nasal Cannula 2.0 03/24/16 21:33 58 22 114/71 94 Nasal Cannula 2.0 03/24/16 21:24 56 21 112/80 93 Nasal Cannula 2.0 03/24/16 21:18 54 22 117/81 93 Nasal Cannula 2.0 03/24/16 21:13 56 22 117/81 93 Nasal Cannula 2.0 03/24/16 21:08 55 22 119/77 93 Nasal Cannula 2.0 03/24/16 21:03 54 21 115/76 94 Nasal Cannula 2.0 03/24/16 20:58 55 21 114/74 93 Nasal Cannula 2.0 03/24/16 20:53 58 20 116/70 93 Nasal Cannula 2.0 03/24/16 20:48 58 20 113/74 96 Nasal Cannula 2.0 03/24/16 20:44 62 14 110/71 97 Nasal Cannula 2.0 03/24/16 20:39 61 23 104/68 96 Nasal Cannula 2.0 03/24/16 20:33 50 23 105/72 95 Nasal Cannula 2.0 03/24/16 20:28 53 22 108/75 93 Nasal Cannula 2.0 03/24/16 20:26 58 22 107/74 92 Nasal Cannula 2.0 03/24/16 20:25 64 20 101/68 91 Nasal Cannula 2.0 03/24/16 20:24 69 23 109/70 92 Nasal Cannula 2.0 03/24/16 20:20 67 120/82 03/24/16 20:00 Nasal Cannula 2.0 03/24/16 20:00 36.7 74 23 120/82 95 Nasal Cannula 2.0 03/24/16 19:28 66 22 113/78 91 Nasal Cannula 2.0 03/24/16 18:00 71 22 107/75 92 Nasal Cannula 2.0 03/24/16 17:29 93 31 131/89 90 03/24/16 16:59 71 24 147/71 95 03/24/16 16:20 36.9 57 16 160/97 96 Nasal Cannula 2.0 03/24/16 15:48 68 19 138/90 94 Room Air 03/24/16 15:41 74 162/107 03/24/16 15:22 77 17 135/96 94 Room Air 03/24/16 14:12 88 Room Air 03/24/16 13:55 70 03/24/16 13:21 59 18 163/110 93 Room Air 03/24/16 12:09 96 Nasal Cannula 2.0 03/24/16 11:30 96 Nasal Cannula 2.0 03/24/16 11:25 96 Room Air 2.0 03/24/16 11:21 82 03/24/16 11:19 37.0 81 18 152/90 92 Room Air Laboratory Results: Last 24 Hours Test 03/24/16 11:10 03/24/16 12:10 03/24/16 17:55 03/25/16 00:00 White Blood Count 5.68 K/uL Red Blood Count 4.58 M/uL Hemoglobin 14.6 g/dL Hematocrit 43.6 % Mean Corpuscular Volume 95.2 fL Mean Corpuscular Hemoglobin 31.9 pg Mean Corpuscular Hemoglobin Concent 33.5 g/dl RDW Standard Deviation 49.8 fL RDW Coefficient of Variation 14.3 % Platelet Count 179 K/uL Mean Platelet Volume 10.1 fL Prothrombin Time 24.3 SECONDS Prothromb Time International Ratio 2.2 Activated Partial Thromboplast Time 35.5 SECONDS Partial Thromboplastin Ratio 1.4 Sodium Level 140 mmol/L Potassium Level 4.4 mmol/L Chloride Level 104 mmol/L Carbon Dioxide Level 27 mmol/L Anion Gap 9.0 mmol/L Blood Urea Nitrogen 23 mg/dl Creatinine 1.00 mg/dl Est Creatinine Clear Calc Drug Dose 58.8 ml/min Estimated GFR () 80.9 Estimated GFR (Non- 69.8 BUN/Creatinine Ratio 22.6 Random Glucose 95 mg/dl Calcium Level 9.3 mg/dl Total Bilirubin 0.6 mg/dl Aspartate Amino Transf (AST/SGOT) 20 U/L Alanine Aminotransferase (ALT/SGPT) 24 U/L Alkaline Phosphatase 51 U/L Total Creatine Kinase 45 U/L Creatine Kinase MB 0.8 ng/ml 0.8 ng/ml Creatine Kinase MB Ratio 1.8 Total Protein 6.5 gm/dl Albumin 3.3 gm/dl Globulin 3.2 gm/dl Albumin/Globulin Ratio 1.0 Lipase 478 U/L Bedside Troponin I 0.000 ng/ml Troponin I < 0.015 ng/ml Test 03/25/16 00:36 03/25/16 02:58 03/25/16 05:30 03/25/16 05:40 Creatine Kinase MB 0.5 ng/ml Troponin I < 0.015 ng/ml Bedside Glucose 129 mg/dl 117 mg/dl White Blood Count 7.71 K/uL Red Blood Count 3.99 M/uL Hemoglobin 12.3 g/dL Hematocrit 38.0 % Mean Corpuscular Volume 95.2 fL Mean Corpuscular Hemoglobin 30.8 pg Mean Corpuscular Hemoglobin Concent 32.4 g/dl Platelet Count 140 K/uL Mean Platelet Volume 9.7 fL Neutrophils (%) (Auto) 69.7 % Lymphocytes (%) (Auto) 15.6 % Monocytes (%) (Auto) 13.0 % Eosinophils (%) (Auto) 1.2 % Basophils (%) (Auto) 0.1 % Neutrophils # (Auto) 5.38 K/uL Lymphocytes # (Auto) 1.20 K/uL Monocytes # (Auto) 1.00 K/uL Eosinophils # (Auto) 0.09 K/uL Basophils # (Auto) 0.01 K/uL RDW Standard Deviation 49.9 fL RDW Coefficient of Variation 14.4 % Immature Granulocyte % (Auto) 0.4 % Immature Granulocyte # (Auto) 0.03 K/uL Prothrombin Time 25.5 SECONDS Prothromb Time International Ratio 2.3 Sodium Level 138 mmol/L Potassium Level 4.2 mmol/L Chloride Level 104 mmol/L Carbon Dioxide Level 27 mmol/L Anion Gap 7.0 mmol/L Blood Urea Nitrogen 18 mg/dl Creatinine 0.80 mg/dl Est Creatinine Clear Calc Drug Dose 73.5 ml/min Estimated GFR () 96.4 Estimated GFR (Non- 83.2 BUN/Creatinine Ratio 21.9 Random Glucose 124 mg/dl Calcium Level 7.9 mg/dl Total Bilirubin 0.8 mg/dl Aspartate Amino Transf (AST/SGOT) 15 U/L Alanine Aminotransferase (ALT/SGPT) 21 U/L Alkaline Phosphatase 43 U/L Total Protein 5.6 gm/dl Albumin 2.8 gm/dl Globulin 2.8 gm/dl Albumin/Globulin Ratio 1.0
[2016-03-25] MEDS: NITROGLYCERIN OINT 2% 1GM PACKET EXT SCH ×2 (11:44→17:30)
[2016-03-25] MEDS ORDERED: METOPROLOL TARTRATE 1 MG/ML VIAL IV PRN (12:00)
--- NOTE | 2016-03-25 18:11 | Progress Note ---
Medicine Progress Note Date & Time of Visit: Mar 25, 2016 at 17:58. Subjective 80 yoM with acute onset midback pain found to have a Type B Aortic dissection; medical management per vascular as he is stable and asymptomatic Pt feels well Tolerating PO Denies chest pain or back pain No shortness of breath Borderline need for oxygen via nasal canula today Objective Last 8 Hrs Date Time Temp Pulse Resp B/P Pulse Ox O2 Delivery O2 Flow Rate FiO2 03/25/16 17:29 80 142/95 03/25/16 15:45 Room Air 03/25/16 15:00 73 24 91 Room Air 03/25/16 14:58 72 23 140/89 92 03/25/16 14:00 82 26 91 03/25/16 13:58 85 25 115/77 89 03/25/16 13:00 71 31 92 03/25/16 12:14 Nasal Cannula 03/25/16 11:45 37.5 75 23 110/65 90 03/25/16 11:30 79 21 03/25/16 11:00 56 23 97 03/25/16 10:59 59 21 124/78 95 03/25/16 10:30 60 22 88 03/25/16 10:28 62 21 110/74 88 03/25/16 10:00 58 21 90 Physical Exam: GEN: WNWD, in no acute distress, alert and appropriate HEENT: NC/AT, PERRL, normal sclerae, mucous membranes are moist CARDIO: reg rate, S1/2 heard without m/g/r LUNGS: CTA bilaterally, no crackles, rales or wheezes, good diaphragmatic excursion ABD: soft, non-tender, non-distended, no rebound or guarding EXTREMITY: RP and DP palpable 2+ bilat, no LE swelling or edema, extremities are warm and well-perfused NEURO: CN 2-12 grossly intact, sensation intact throughout, no gross focal deficits MUSC: moves around bed with ease, good musculature SKIN: warm and dry Laboratory Results: Last 24 Hours Test 03/25/16 00:00 03/25/16 00:36 03/25/16 02:58 03/25/16 05:30 Creatine Kinase MB Ratio Creatine Kinase MB 0.5 ng/ml Troponin I < 0.015 ng/ml Bedside Glucose 129 mg/dl White Blood Count 7.71 K/uL Red Blood Count 3.99 M/uL Hemoglobin 12.3 g/dL Hematocrit 38.0 % Mean Corpuscular Volume 95.2 fL Mean Corpuscular Hemoglobin 30.8 pg Mean Corpuscular Hemoglobin Concent 32.4 g/dl Platelet Count 140 K/uL Mean Platelet Volume 9.7 fL Neutrophils (%) (Auto) 69.7 % Lymphocytes (%) (Auto) 15.6 % Monocytes (%) (Auto) 13.0 % Eosinophils (%) (Auto) 1.2 % Basophils (%) (Auto) 0.1 % Neutrophils # (Auto) 5.38 K/uL Lymphocytes # (Auto) 1.20 K/uL Monocytes # (Auto) 1.00 K/uL Eosinophils # (Auto) 0.09 K/uL Basophils # (Auto) 0.01 K/uL RDW Standard Deviation 49.9 fL RDW Coefficient of Variation 14.4 % Immature Granulocyte % (Auto) 0.4 % Immature Granulocyte # (Auto) 0.03 K/uL Prothrombin Time 25.5 SECONDS Prothromb Time International Ratio 2.3 Sodium Level 138 mmol/L Potassium Level 4.2 mmol/L Chloride Level 104 mmol/L Carbon Dioxide Level 27 mmol/L Anion Gap 7.0 mmol/L Blood Urea Nitrogen 18 mg/dl Creatinine 0.80 mg/dl Est Creatinine Clear Calc Drug Dose 73.5 ml/min Estimated GFR () 96.4 Estimated GFR (Non- 83.2 BUN/Creatinine Ratio 21.9 Random Glucose 124 mg/dl Calcium Level 7.9 mg/dl Total Bilirubin 0.8 mg/dl Aspartate Amino Transf (AST/SGOT) 15 U/L Alanine Aminotransferase (ALT/SGPT) 21 U/L Alkaline Phosphatase 43 U/L Total Protein 5.6 gm/dl Albumin 2.8 gm/dl Globulin 2.8 gm/dl Albumin/Globulin Ratio 1.0 Test 03/25/16 05:40 Bedside Glucose 117 mg/dl Assessment & Plan 80 yr old male with PMH of BPH, DVT on anticoagulation, HLP, osteoporosis, DJD presents with sudden onset of chest pain radiating to back. Chest Pain: Secondary to type B aortic dissection-resolved Admitted to ICU and placed on nitro drip for good BP control On chronic anticoagulation for recurrent DVT (poss mutation?) H/H slightly decreased but likely dilutional as 3L was given since admission Cont coumadin as not bleeding Medical management per Dr. Dugan (vascular surgeon) serial cardiac enzymes were negative overnight Switched Nitro paste and Lopressor to PO amlodipine and Imdur for goal SBP<140 Hypoxia?-intermittent need for O2 via nasal canula today. Pt is a smoker of cigars twice weekly. Uncertain cause of this-nurse reports he was satting 88% while sleeping but very responsive to oxygen at 2L via NC. Will monitor overnight and attempt to wean. Will investigate further if this continues tomorrow. 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 Receives regular outpatient steroid injections. DVT Prophy: coumadin Full code DO Hedy Powell Hospitalist Consultants: Vasc Surg, Rug Dyer Current Inpatient Medications: Current Inpatient Medications Medications (Trade) Dose Ordered Sig/Charan Route Start Time Stop Time Status Last Admin Dose Admin Ioversol (Optiray 320) 100 ml UD PRN IV 03/24/16 13:30 03/28/16 13:29 Acetaminophen (Tylenol Tab) 650 mg Q4H PRN PO 03/24/16 15:00 04/23/16 14:59 Ondansetron HCl (Zofran Inj) 4 mg Q6H PRN IV 03/24/16 15:00 04/23/16 14:59 Duloxetine HCl (Cymbalta Cap) 60 mg DAILY PO 03/25/16 09:00 04/24/16 08:59 03/25/16 07:58 60 MG Morphine Sulfate (MoRPHine SULFATE INJ) 3 mg Q4 PRN IV 03/24/16 18:00 04/07/16 17:59 03/25/16 04:52 3 MG Metoprolol Tartrate (Lopressor Iv) 5 mg Q4 PRN IV 03/25/16 12:00 04/24/16 11:59 03/25/16 17:29 5 MG Nitroglycerin (Nitroglycerin 2% Oint) 2 inch Q6 EXT 03/25/16 10:30 04/24/16 10:29 03/25/16 17:30 2 INCH Metoprolol Tartrate (Lopressor Tab) 25 mg BID PO 1/24/17 21:00 04/24/16 20:59 Isosorbide Mononitrate (Imdur Ext Rel Tab) 60 mg QAM PO 03/26/16 09:00 04/25/16 08:59 Amlodipine Besylate (Norvasc Tab) 5 mg QAM PO 03/26/16 09:00 04/25/16 08:59
[2016-03-25] MEDS: METOPROLOL TARTRATE 25 MG TAB PO SCH (19:58)
[2016-03-26] VITALS (17 sets, daily range): BP systolic 85–131; BP diastolic 50–83; PULSE 49–76; TEMP 36.6–37.2; O2SAT 91–98
[2016-03-26] MEDS: NITROGLYCERIN OINT 2% 1GM PACKET EXT SCH ×3 (00:53→11:45)
[2016-03-26 05:40] LABS: BASO % 0.2 %; BASO ABS # 0.02 K/uL (0-0.2); COMPLETE YES; EOS % 1.8 %; HEMATOCRIT 38.7 % (42-52); IG% 0.5 %; LYMPH % 15.4 %; LYMPH ABS # 1.29 K/uL (1.2-3.4); MEAN CELL VOLUME 95.1 fL (80-100); MEAN CORPUSCULAR HEMOGLOBIN 31.2 pg (25-34); MEAN CORPUSCULAR HGB CONC 32.8 g/dl (32-36); MEAN PLATELET VOLUME 10.1 fL (7.4-10.4); MONO % 20.1 %; PLATELET COUNT 121 K/uL (130-400); RED BLOOD COUNT 4.07 M/uL (4.7-6.1); WHITE BLOOD COUNT 8.36 K/uL (4.8-10.8)
[2016-03-26 05:54] LABS: INR 1.6 (0.9-1.1); PROTHROMBIN TIME (PATIENT) 17.8 SECONDS (9.0-12.0)
[2016-03-26 06:10] LABS: BUN/CREATININE RATIO 22.8 (10-20); CALCIUM 8.1 mg/dl (8.5-10.1); CREATININE 0.73 mg/dl (0.60-1.40); POTASSIUM 4.2 mmol/L (3.5-5.1)
[2016-03-26] MEDS: DULOXETINE HCL 60 MG CAP PO SCH (07:50)
[2016-03-26] MEDS: ISOSORBIDE MONONITRATE 60 MG TABCR PO SCH (07:51)
[2016-03-26] MEDS: AMLODIPINE BESYLATE 5 MG TAB PO SCH (07:51)
[2016-03-26] MEDS: METOPROLOL TARTRATE 25 MG TAB PO SCH ×2 (07:51→21:22)
[2016-03-26] MEDS ORDERED: NURSING VERBAL MED ORDER ONE (08:00)
[2016-03-26] MEDS: POLYETHYLENE (MIRALAX) 17 GM PACK PO PRN (08:41)
--- NOTE | 2016-03-26 09:46 | Critical Care Progress Note ---
Critical Care Progress Note Date of Service Mar 26, 2016. Attending Dr. Funez Subjective no events overnight. bp controlled. no evidence of end organ damage. Objective General: Awake, alert and oriented x 3, no acute acute distress Heart: RRR, S1S2 present Lungs: CTAB, no wheezing, rales or ronchi abdomen: BS+'ve, soft, nontender, non distended Ext: Moves all extremities, DP pulses present CC today on 03/26 is constipation. Assessment & Plan Aortic dissection type B. hx of DVT times two last in 2007. HTN . Constipation. Plan: 1- continue B blockers, Imdur and amlodipine . BP is well controlled. pt is asymptomatic. 2- add scheduled stool softener to avoid straining with BM. 3- keep coumadin on hold until ok by vascular. 4- follow up as op with vascular and his PCP. 5- disposition to regular floor. discussed in rounds, time spent coordinating the care for this pt was 35 min. Data Medications: Current Inpatient Medications Medications (Trade) Dose Ordered Sig/Charan Route Start Time Stop Time Status Last Admin Dose Admin Ioversol (Optiray 320) 100 ml UD PRN IV 03/24/16 13:30 03/28/16 13:29 Acetaminophen (Tylenol Tab) 650 mg Q4H PRN PO 03/24/16 15:00 04/23/16 14:59 Ondansetron HCl (Zofran Inj) 4 mg Q6H PRN IV 03/24/16 15:00 04/23/16 14:59 Duloxetine HCl (Cymbalta Cap) 60 mg DAILY PO 03/25/16 09:00 04/24/16 08:59 03/26/16 07:50 60 MG Morphine Sulfate (MoRPHine SULFATE INJ) 3 mg Q4 PRN IV 03/24/16 18:00 04/07/16 17:59 03/25/16 04:52 3 MG Metoprolol Tartrate (Lopressor Iv) 5 mg Q4 PRN IV 03/25/16 12:00 04/24/16 11:59 03/25/16 17:29 5 MG Nitroglycerin (Nitroglycerin 2% Oint) 2 inch Q6 EXT 03/25/16 10:30 04/24/16 10:29 03/26/16 06:35 2 INCH Metoprolol Tartrate (Lopressor Tab) 25 mg BID PO 03/25/16 21:00 04/24/16 20:59 03/26/16 07:51 25 MG Isosorbide Mononitrate (Imdur Ext Rel Tab) 60 mg QAM PO 03/26/16 09:00 04/25/16 08:59 03/26/16 07:51 60 MG Amlodipine Besylate (Norvasc Tab) 5 mg QAM PO 03/26/16 09:00 04/25/16 08:59 03/26/16 07:51 5 MG Polyethylene (Miralax Powder Packet) 17 gm DAILY PRN PO 03/26/16 08:15 04/25/16 08:14 03/26/16 08:41 17 GM I & O: 24-Hour Column 03/26/16 08:00 Intake Total 400 ml Output Total 1650 ml Balance -1250 ml Vital Signs: Date Time Temp Pulse Resp B/P Pulse Ox O2 Delivery O2 Flow Rate FiO2 03/26/16 08:00 94 Nasal Cannula 2.0 03/26/16 08:00 37.0 70 20 108/82 94 Nasal Cannula 2.0 03/26/16 04:48 59 23 124/82 96 03/26/16 04:28 55 22 131/78 97 03/26/16 04:00 98 Nasal Cannula 03/26/16 03:58 36.8 57 24 131/80 97 03/26/16 03:28 53 25 127/83 95 03/26/16 03:05 58 25 122/70 94 03/26/16 02:58 55 21 118/75 95 03/26/16 02:30 63 25 114/56 94 03/26/16 01:58 51 22 119/73 97 03/26/16 01:28 49 23 117/72 98 03/26/16 00:35 62 27 101/65 95 03/26/16 00:35 62 27 101/65 95 03/26/16 00:00 53 22 96 03/25/16 23:59 98 Nasal Cannula 03/25/16 23:59 51 22 96 03/25/16 21:34 36.6 58 16 128/80 97 Nasal Cannula 2.0 03/25/16 20:55 Nasal Cannula 2.0 03/25/16 20:00 36.7 57 23 97 Nasal Cannula 2.0 03/25/16 19:00 36.8 68 16 134/86 97 Nasal Cannula 2.0 03/25/16 17:29 80 142/95 03/25/16 15:45 Room Air 03/25/16 15:00 73 24 91 Room Air 03/25/16 14:58 72 23 140/89 92 03/25/16 14:00 82 26 91 03/25/16 13:58 85 25 115/77 89 03/25/16 13:00 71 31 92 03/25/16 12:14 Nasal Cannula 03/25/16 11:45 37.5 75 23 110/65 90 03/25/16 11:30 79 21 03/25/16 11:00 56 23 97 03/25/16 10:59 59 21 124/78 95 03/25/16 10:30 60 22 88 03/25/16 10:28 62 21 110/74 88 03/25/16 10:00 58 21 90 03/25/16 09:58 59 23 108/71 94 Nasal Cannula 2.0 clear lungs S1S2 RRR. abdomen is benign. peripheral pulses + . Laboratory Results: Last 24 Hours Test 03/26/16 05:18 White Blood Count 8.36 K/uL Red Blood Count 4.07 M/uL Hemoglobin 12.7 g/dL Hematocrit 38.7 % Mean Corpuscular Volume 95.1 fL Mean Corpuscular Hemoglobin 31.2 pg Mean Corpuscular Hemoglobin Concent 32.8 g/dl Platelet Count 121 K/uL Mean Platelet Volume 10.1 fL Neutrophils (%) (Auto) 62.0 % Lymphocytes (%) (Auto) 15.4 % Monocytes (%) (Auto) 20.1 % Eosinophils (%) (Auto) 1.8 % Basophils (%) (Auto) 0.2 % Neutrophils # (Auto) 5.18 K/uL Lymphocytes # (Auto) 1.29 K/uL Monocytes # (Auto) 1.68 K/uL Eosinophils # (Auto) 0.15 K/uL Basophils # (Auto) 0.02 K/uL RDW Standard Deviation 49.2 fL RDW Coefficient of Variation 14.3 % Immature Granulocyte % (Auto) 0.5 % Immature Granulocyte # (Auto) 0.04 K/uL Prothrombin Time 17.8 SECONDS Prothromb Time International Ratio 1.6 Sodium Level 139 mmol/L Potassium Level 4.2 mmol/L Chloride Level 105 mmol/L Carbon Dioxide Level 25 mmol/L Anion Gap 9.0 mmol/L Blood Urea Nitrogen 17 mg/dl Creatinine 0.73 mg/dl Est Creatinine Clear Calc Drug Dose 80.6 ml/min Estimated GFR () 100.1 Estimated GFR (Non- 86.4 BUN/Creatinine Ratio 22.8 Random Glucose 98 mg/dl Calcium Level 8.1 mg/dl
[2016-03-26] MEDS ORDERED: TRAMADOL HCL 50 MG TAB PO PRN (13:15)
--- NOTE | 2016-03-26 13:21 | Progress Note ---
Medicine Progress Note Date & Time of Visit: Mar 26, 2016 at 13:12. Subjective Tolerating PO Feels fatigued Nocturia overnight, kept him up Doxazosin was held at admission Denies back or chest pain overnight Denies any other symptoms at this time. Objective Last 8 Hrs Date Time Temp Pulse Resp B/P Pulse Ox O2 Delivery O2 Flow Rate FiO2 03/26/16 12:00 36.9 52 22 85/54 91 Room Air 03/26/16 12:00 91 Room Air 03/26/16 08:00 94 Nasal Cannula 2.0 03/26/16 08:00 37.0 70 20 108/82 94 Nasal Cannula 2.0 Physical Exam: GEN: WNWD, in no acute distress, alert and appropriate HEENT: NC/AT, normal sclerae, mucous membranes are moist CARDIO: reg rate, S1/2 heard without m/g/r LUNGS: CTA bilaterally, no crackles, rales or wheezes, good diaphragmatic excursion ABD: soft, non-tender, non-distended, no rebound or guarding EXTREMITY: RP and DP palpable 2+ bilat, no LE swelling or edema, extremities are warm and well-perfused NEURO: CN 2-12 grossly intact, sensation intact throughout, no gross focal deficits MUSC: moves around bed with ease, good musculature SKIN: warm and dry Laboratory Results: Last 24 Hours Test 03/26/16 05:18 White Blood Count 8.36 K/uL Red Blood Count 4.07 M/uL Hemoglobin 12.7 g/dL Hematocrit 38.7 % Mean Corpuscular Volume 95.1 fL Mean Corpuscular Hemoglobin 31.2 pg Mean Corpuscular Hemoglobin Concent 32.8 g/dl Platelet Count 121 K/uL Mean Platelet Volume 10.1 fL Neutrophils (%) (Auto) 62.0 % Lymphocytes (%) (Auto) 15.4 % Monocytes (%) (Auto) 20.1 % Eosinophils (%) (Auto) 1.8 % Basophils (%) (Auto) 0.2 % Neutrophils # (Auto) 5.18 K/uL Lymphocytes # (Auto) 1.29 K/uL Monocytes # (Auto) 1.68 K/uL Eosinophils # (Auto) 0.15 K/uL Basophils # (Auto) 0.02 K/uL RDW Standard Deviation 49.2 fL RDW Coefficient of Variation 14.3 % Immature Granulocyte % (Auto) 0.5 % Immature Granulocyte # (Auto) 0.04 K/uL Prothrombin Time 17.8 SECONDS Prothromb Time International Ratio 1.6 Sodium Level 139 mmol/L Potassium Level 4.2 mmol/L Chloride Level 105 mmol/L Carbon Dioxide Level 25 mmol/L Anion Gap 9.0 mmol/L Blood Urea Nitrogen 17 mg/dl Creatinine 0.73 mg/dl Est Creatinine Clear Calc Drug Dose 80.6 ml/min Estimated GFR () 100.1 Estimated GFR (Non- 86.4 BUN/Creatinine Ratio 22.8 Random Glucose 98 mg/dl Calcium Level 8.1 mg/dl Assessment & Plan 80 yr old male with PMH of BPH, DVT on anticoagulation, HLP, osteoporosis, DJD presents with sudden onset of chest pain radiating to back. Chest Pain: Secondary to type B aortic dissection-resolved Admitted to ICU and placed on nitro drip for good BP control On chronic anticoagulation for recurrent DVT (poss mutation?) Warfarin, ASA restarted today Medical management per Dr. 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 Receives regular outpatient steroid injections. DVT Prophy: coumadin Full code DO Hedy Powell Hospitalist Consultants: Vasc Surg, Office Auditor Current Inpatient Medications: Current Inpatient Medications Medications (Trade) Dose Ordered Sig/Charan Route Start Time Stop Time Status Last Admin Dose Admin Ioversol (Optiray 320) 100 ml UD PRN IV 03/24/16 13:30 03/28/16 13:29 Acetaminophen (Tylenol Tab) 650 mg Q4H PRN PO 03/24/16 15:00 04/23/16 14:59 Ondansetron HCl (Zofran Inj) 4 mg Q6H PRN IV 03/24/16 15:00 04/23/16 14:59 Duloxetine HCl (Cymbalta Cap) 60 mg DAILY PO 03/25/16 09:00 04/24/16 08:59 03/26/16 07:50 60 MG Morphine Sulfate (MoRPHine SULFATE INJ) 3 mg Q4 PRN IV 03/24/16 18:00 04/07/16 17:59 03/25/16 04:52 3 MG Metoprolol Tartrate (Lopressor Iv) 5 mg Q4 PRN IV 03/25/16 12:00 04/24/16 11:59 03/25/16 17:29 5 MG Nitroglycerin (Nitroglycerin 2% Oint) 2 inch Q6 EXT 03/25/16 10:30 04/24/16 10:29 03/26/16 06:35 2 INCH Metoprolol Tartrate (Lopressor Tab) 25 mg BID PO 03/25/16 21:00 04/24/16 20:59 03/26/16 07:51 25 MG Isosorbide Mononitrate (Imdur Ext Rel Tab) 60 mg QAM PO 03/26/16 09:00 04/25/16 08:59 03/26/16 07:51 60 MG Amlodipine Besylate (Norvasc Tab) 5 mg QAM PO 03/26/16 09:00 04/25/16 08:59 03/26/16 07:51 5 MG Polyethylene (Miralax Powder Packet) 17 gm DAILY PRN PO 03/26/16 08:15 04/25/16 08:14 03/26/16 08:41 17 GM Warfarin Sodium (Coumadin Tab) 2.5 mg MoWeFrSa@1600 PO 03/26/16 16:00 04/25/16 15:59 Warfarin Sodium (Coumadin Tab) 5 mg SuTuTh@1600 PO 03/27/16 16:00 04/26/16 15:59
[2016-03-26] MEDS ORDERED: WARFARIN SOD 2.5 MG TAB PO SCH (16:00)
[2016-03-26] MEDS ORDERED: DOXAZosin MESYLATE TAB 4 MG TAB PO SCH (21:00)
[2016-03-27] VITALS (8 sets, daily range): BP systolic 104–116; BP diastolic 55–75; PULSE 63–67; TEMP 36.8–37.3; O2SAT 91–93
[2016-03-27 07:18] LABS: INR 1.3 (0.9-1.1); PROTHROMBIN TIME (PATIENT) 13.7 SECONDS (9.0-12.0)
[2016-03-27] MEDS: METOPROLOL TARTRATE 25 MG TAB PO SCH (07:52)
[2016-03-27] MEDS: POLYETHYLENE (MIRALAX) 17 GM PACK PO PRN (07:52)
[2016-03-27] MEDS: AMLODIPINE BESYLATE 5 MG TAB PO SCH (07:53)
[2016-03-27] MEDS: ISOSORBIDE MONONITRATE 60 MG TABCR PO SCH (07:53)
[2016-03-27] MEDS: DULOXETINE HCL 60 MG CAP PO SCH (07:53)
[2016-03-27] MEDS ORDERED: PRAVASTATIN SOD 40 MG TAB PO SCH (09:00)
[2016-03-27] MEDS ORDERED: ASPIRIN 81 MG CHEW PO SCH (09:00)
[2016-03-27] MEDS ORDERED: MULTIVITAMIN TAB PO SCH (09:00)
[2016-03-27] MEDS ORDERED: IMDSR60 PO (11:54)
[2016-03-27] MEDS ORDERED: NRV5 PO (11:54)
[2016-03-27] MEDS ORDERED: LPR25 PO (11:54)
--- NOTE | 2016-03-27 12:31 | Discharge Instructions ---
Discharge Instructions Admission Reason for Admission: Aortic Dissection Discharge Discharge Diagnosis / Problem: Type B Aortic Dissection Discharge Goals Goal(s): Prevent Disease Progression Activity Recommendations Activity Limitations: as noted below Lifting Limitations: no more than 10 pounds (no straining) Driving or Machine Use: no limitations . Instructions / Follow-Up Instructions / Follow-Up Please take all medications as instructed. Your new medications have been electronically transmitted to your preferred pharmacy on file. Refills can happen through your primary care provider (PCP) at follow-up appointment Please cut down on caffeine intake by 50% as we discussed. You have a follow-up appointment with Dr. Carey on , 03/22 @ 1:10pm. Please bring all paperwork from this hospitalization. Per Dr. Dugan-Vascular Surgery, you will need repeat imaging of your aortic dissection in 3 months[address] Your PCP can place a referral for follow-up with this provider who can accommodate. It was a pleasure taking care of you! Call if you have any questions or problems. You can reach a [facility] hospitalist on duty at [facility] 24 hours a day by calling [phone]. Take care of yourself. Erica Amador, [facility] Hospitalist Current Hospital Diet Patient's current hospital diet: AHA Diet (Heart Healthy) Discharge Diet Recommended Diet: AHA Diet (Heart Healthy) Procedures Procedures Performed: None. Pending Studies Studies pending at discharge: no Medical Emergencies . Who to Call and When: Medical Emergencies: If at any time you feel your situation is an emergency, please call 911 immediately. . Non-Emergent Contact Non-Emergency issues call your: Primary Care Provider . . "Provider Documentation" section prepared by Erica Amador. VTE Core Measure Inpt VTE Proph given/why not?: Warfarin (Coumadin)
--- NOTE | 2016-03-27 12:35 | Discharge Summary ---
Discharge Summary Admission Date: Mar 24, 2016 at 14:59 Discharge Date: Mar 27, 2016 Discharge Disposition: Home Principal Diagnosis: Type B Aortic Dissection BPH Procedures: None. Vaccinations: None. Consultations: Vasc Surg, Punch Press Setter Pending Studies/Follow-Up: see below Medication Reconciliation New Medications: Amlodipine Besylate (Amlodipine Besylate) 5 Mg Tab 5 MG PO QAM for 30 Days, #30 TAB Isosorbide Mononitrate (Isosorbide Mononitrate ER) 60 Mg Tab 60 MG PO QAM for 30 Days, #30 TAB Metoprolol Tartrate (Lopressor) 25 Mg Tab 25 MG PO BID for 30 Days, #60 TAB Continued Medications: Alendronate Sodium (Fosamax) 70 Mg Tab 70 MG PO WK, TAB Aspirin (Aspirin Chewable) 81 Mg Chew 81 MG PO DAILY, TAB Doxazosin Mesylate (Doxazosin Mesylate) 4 Mg Tab 4 MG PO HS for 90 Days, TAB 3 Refills Duloxetine Hcl (Cymbalta) 60 Mg Cap 60 MG PO DAILY, CAP Folic Acid (Folvite) 1 Mg Tab 1 MG PO DAILY, TAB Multiple Vitamin (Multivitamin) 1 Tab Tab 1 TAB PO DAILY, TAB Pravastatin Sodium (Pravachol) 40 Mg Tab 40 MG PO DAILY for 90 Days, #90 TAB 3 Refills Tramadol (Ultram) 50 Mg Tab 50 MG PO Q6HR PRN, 0 Refills PRN PAIN Warfarin Sod (Jantoven) 2.5 Mg Tab 5 MG PO 3XWK, TAB Warfarin Sod (Jantoven) 2.5 Mg Tab 2.5 MG PO 4XWK, TAB Admission Information HPI (per Admitting provider): Patient is an 80 yd old male with PMH of BPH, DVT on anticoagulation, HLP, osteoporosis, DJD presents with history of chest pain. He states chest pain is sudden in onset, retrosternal in location, radiates to back, 5-8/10 intensity, initially dull but currently sharp in quality, constant, not associated with any aggravating/relieving factors. Denies similar symptoms in the past. Denies any associated SOB, nausea, vomiting, dizziness, headache, blurry vision, abd pain, change in bowel/bladder habits, fever, chills, cough, wheezing. Per EMS, patient was given 3 nitro, aspirin, and a dose of fentanyl that alleviated his initial chest pain. Physical Exam (per Admitting): General Appearance: WD/WN, no apparent distress Head: normocephalic, atraumatic Eyes: normal inspection, PERRL, EOMI, sclerae normal ENT: normal ENT inspection, TMs normal, pharynx normal, + pertinent finding (Bilateral hearing loss) Neck: supple, no JVD, trachea midline Respiratory/Chest: chest non-tender, lungs clear, normal breath sounds, no respiratory distress Cardiovascular: regular rate, rhythm, no edema, no murmur Abdomen/GI: normal bowel sounds, non tender, soft, + pertinent finding ( Protuberant) Back: normal inspection Extremities/Musculoskelatal: normal inspection, no calf tenderness, no pedal edema Neurologic/Psych: wreath machine operator II-XII nml as tested, no motor/sensory deficits, alert , normal mood/affect, oriented x 3 Skin: normal color, warm/dry Lymphatic: no adenopathy Hospital Course 80 yr old male with PMH of BPH, DVT on anticoagulation, HLP, osteoporosis, DJD presents with sudden onset of chest pain radiating to back. Chest Pain: Secondary to type B aortic dissection-chest pain resolved Admitted to ICU and placed on nitro drip for good BP control On chronic anticoagulation for recurrent DVT (poss mutation per history?) Warfarin, ASA restarted today Medical management per Dr. 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 Receives regular outpatient steroid injections. On day of discharge, he was afebrile and hemodynamically stable. Physical exam was unremarkable including 2+ bounding peripheral pulses in all extremities and patient denied any chest pain or trouble breathing. He was discharged in stable condition to home with recommendations for follow-up imaging per vascular surgery in 3 months. Total time spent on discharge = 60 minutes This includes examination of the patient, discharge planning, medication reconciliation, and communication with other providers. Discharge Instructions Discharge Instructions Admission Reason for Admission: Aortic Dissection Discharge Discharge Diagnosis / Problem: Type B Aortic Dissection Discharge Goals Goal(s): Prevent Disease Progression Activity Recommendations Activity Limitations: as noted below Lifting Limitations: no more than 10 pounds (no straining) Driving or Machine Use: no limitations . Instructions / Follow-Up Instructions / Follow-Up Please take all medications as instructed. Your new medications have been electronically transmitted to your preferred pharmacy on file. Refills can happen through your primary care provider (PCP) at follow-up appointment Please cut down on caffeine intake by 50% as we discussed. You have a follow-up appointment with Dr. Carey on , 03/22 @ 1:10pm. Please bring all paperwork from this hospitalization. Per Dr. Dugan-Vascular Surgery, you will need repeat imaging of your aortic dissection in 3 months[address] Your PCP can place a referral for follow-up with this provider who can accommodate. It was a pleasure taking care of you! Call if you have any questions or problems. You can reach a [facility] hospitalist on duty at [facility] 24 hours a day by calling [phone]. Take care of yourself. Erica Amador, DO [facility] Hospitalist Additional Copies To Benjie Carey M.D.
[2016-03-27] MEDS ORDERED: WARFARIN SOD 5 MG TAB PO SCH (16:00)
[2016-03-30] MEDS ORDERED: ALENDRONATE SODIUM 70 MG TAB PO SCH (07:00)
[2016-11-25] MEDS ORDERED: CLC6 PO (20:54)
== END 2016-03-27 14:15 | disposition home or self-care (01) | DRG 300 ==
LOC: ENRESERVTM → ENRESERVDT → EDBD 11:12 → C.EDA 11:12 → C.MSICU 14:59 → C.2T 03-26 19:13
PROVIDERS: ADMIT Internal Medicine; ATTEND Hospitalist
DX: I71.01 Dissection of thoracic aorta (principal); I74.11 Embolism and thrombosis of thoracic aorta; I95.9 Hypotension, unspecified; R09.02 Hypoxemia; K59.00 Constipation, unspecified; I10 Essential (primary) hypertension; N40.0 Benign prostatic hyperplasia without lower urinary tract symptoms; E78.5 Hyperlipidemia, unspecified; M81.0 Age-related osteoporosis without current pathological fracture; M15.9 Polyosteoarthritis, unspecified; F17.210 Nicotine dependence, cigarettes, uncomplicated; Z86.718 Personal history of other venous thrombosis and embolism; Z79.01 Long term (current) use of anticoagulants; Z79.82 Long term (current) use of aspirin; Z79.83 Long term (current) use of bisphosphonates; Z79.891 Long term (current) use of opiate analgesic; Z79.899 Other long term (current) drug therapy

== ENCOUNTER 2016-08-13 19:08 | Emergency (ER) | payer OTHER ==
[~2016-08-13] VITALS: Ht 170.2 cm; Wt 74.7 kg
[~2016-08-13 19:08] MED LIST changes: +ALEN70TA2 PO; +ASPCH81X PO; -CMD25 PO; -CMD5 PO; +CRD4 PO; -DOXA2TAB PO; +DULO60CA44 PO; -ESCI10TA17 PO; +FOLI1TAB7 PO; +IMDSR60 PO; +LPR25 PO; -MULT-506 PO; +MULTTAB58 PO; +NRV5 PO; +PRAV40TA PO; -PRAV40TA3 PO; -PRLSR20 PO; +WARF2.5T8 PO; -[UNRECOGNIZED DRUG - CODE] OR
[2016-08-13 19:12] VITALS: TEMP 36.6; Ht 170.2 cm; Wt 74.7 kg
[2016-08-13 20:45] LABS: BASO % 1.3 %; BASO ABS # 0.08 K/uL (0-0.2); COMPLETE YES; EOS % 7.2 %; HEMATOCRIT 40.9 % (42-52); IG% 0.3 %; LYMPH % 22.3 %; LYMPH ABS # 1.36 K/uL (1.2-3.4); MEAN CELL VOLUME 89.9 fL (80-100); MEAN CORPUSCULAR HEMOGLOBIN 28.8 pg (25-34); MEAN PLATELET VOLUME 8.8 fL (7.4-10.4); MONO % 14.7 %; NEUT % 54.2 %; PLATELET COUNT 164 K/uL (130-400); RED BLOOD COUNT 4.55 M/uL (4.7-6.1); WHITE BLOOD COUNT 6.11 K/uL (4.8-10.8)
[2016-08-13 21:03] LABS: BLOOD UREA NITROGEN 22 mg/dl (7-18); BUN/CREATININE RATIO 21.6 (10-20); CALCIUM 9.2 mg/dl (8.5-10.1); CARBON DIOXIDE 27 mmol/L (21-32); CHLORIDE 106 mmol/L (98-107); GLUCOSE 99 mg/dl (70-99); MAGNESIUM 2.4 mg/dl (1.8-2.4); POTASSIUM 4.6 mmol/L (3.5-5.1); SODIUM 140 mmol/L (136-145)
[2016-08-13 21:08] LABS: CKMB/CK RATIO 1.9 (0-3.0)
--- NOTE | 2016-08-13 21:21 | DIAGNOSTIC IMAGING REPORT ---
CHEST 2 VIEWS ROUTINE CLINICAL HISTORY: Shortness of breath dyspnea COMPARISON STUDY: 03/24/2016 FINDINGS: Aortic stent in good position. Chronic atelectasis left base. Trace pleural fluid right base unchanged. Lungs otherwise appear clear. IMPRESSION: Chronic and postoperative change. No acute process. Electronically signed by: Javi Byrd M.D. 08/13/2016 9:19 PM Dictated Date/Time: 08/13/2016 9:19 PM
--- NOTE | 2016-08-13 21:32 | EMERGENCY ROOM VISIT NOTE ---
History Report prepared by Radhika: Elizabeth Sosa Under the Supervision of: Dr. Elvin Tillman M.D. First contact with patient: 20:15 Chief Complaint: SHORTNESS OF BREATH Stated Complaint: SOB, DOESN'T FEEL RIGHT History of Present Illness The patient is an 80 year old male who presents to the Emergency Room with complaints of persistent SOB for the past 2 months. He had an AAA repair 2 months ago. Since then, he has been feeling SOB and weak. His symptoms have been steady since the surgery and not worsening. His SOB worsens when he walks. His feet feel heavy and he is unable to walk as fast as he would like. He has been coughing up some clear sputum recently. He denies any nausea, vomiting, chest pain, fever, black or bloody stools, or urinary symptoms. He has a history of DVT. He is currently on Coumadin. His INR has been ok. He denies any history of heart failure. Source of History: patient Onset: 2 months ago Position: other (global) Quality: other (SOB) Timing: other (persistent) Modifying Factors (Worsening): other (walking) Associated Symptoms: + cough, + weakness, No chest pain, No nausea, No vomiting, No melena, No hematochezia, No urinary symptoms Review of Systems See HPI for pertinent positives & negatives. A total of 10 systems reviewed and were otherwise negative. Past Medical & Surgical Medical Problems: (1) BPH (benign prostatic hyperplasia) (2) DJD (degenerative joint disease) (3) DVT (deep venous thrombosis) (4) Hyperlipidemia Surgical Problems: (1) S/P AAA repair Family History Cancer FH: heart disease Social History Smoking Status: Former Smoker Alcohol Use: occasionally Drug Use: none Marital Status: Housing Status: lives alone Occupation Status: retired Current/Historical Medications Scheduled Alendronate Sodium (Fosamax), 70 MG PO WK Amlodipine Besylate (Amlodipine Besylate), 5 MG PO QAM Aspirin (Aspirin Chewable), 81 MG PO DAILY Doxazosin Mesylate (Doxazosin Mesylate), 4 MG PO HS Duloxetine Hcl (Cymbalta), 60 MG PO DAILY Folic Acid (Folvite), 1 MG PO DAILY Isosorbide Mononitrate (Isosorbide Mononitrate ER), 60 MG PO QAM Metoprolol Tartrate (Lopressor), 25 MG PO BID Multiple Vitamin (Multivitamin), 1 TAB PO DAILY Pravastatin Sodium (Pravachol), 40 MG PO DAILY Tramadol (Ultram), 50 MG PO Q6HR PRN Warfarin Sod (Jantoven), 5 MG PO 3XWK Warfarin Sod (Jantoven), 2.5 MG PO 4XWK Allergies Coded Allergies: Amoxicillin (Unverified Adverse Reaction, Unknown, UNKNOWN, 03/24/16) Clavulanic Acid (Unverified Adverse Reaction, Unknown, UNKNOWN, 03/24/16) Physical Exam Vital Signs Date Time Temp Pulse Resp B/P (MAP) Pulse Ox O2 Delivery O2 Flow Rate FiO2 08/13/16 21:57 85 22 134/81 93 08/13/16 21:10 89 18 130/87 92 Room Air 08/13/16 20:45 93 20 94 Room Air 08/13/16 20:35 95 08/13/16 19:15 93 Room Air 08/13/16 19:12 36.6 97 18 135/99 93 Room Air Physical Exam GENERAL: Patient is well appearing and in no acute distress. HEENT: No acute trauma, normocephalic atraumatic, mucous membranes moist, no nasal congestion, no scleral icterus. NECK: No stridor, no adenopathy, no meningismus, trachea is midline. LUNGS: Decreased breath sounds to bilateral bases. No wheeze, no rhonchi. HEART: Regular rate and rhythm. No murmurs, rubs, gallops appreciated. ABDOMEN: Soft, nontender, bowel sounds positive, no masses appreciated, no peritonitis. BACK: No midline tenderness, no CVA tenderness EXTREMITIES: Normal motion all extremities, no cyanosis, no edema. NEUROLOGIC: Alert and oriented, no acute motor or sensory deficits, no focal weakness, cranial nerves grossly intact. SKIN: No rash, no jaundice, no diaphoresis. Medical Decision & Procedures ER Provider Diagnostic Interpretation: X ray results are stated below per my interpretation and the radiologist's interpretation. CHEST 2 VIEWS ROUTINE CLINICAL HISTORY: Shortness of breath dyspnea COMPARISON STUDY: 03/24/2016 FINDINGS: Aortic stent in good position. Chronic atelectasis left base. Trace pleural fluid right base unchanged. Lungs otherwise appear clear. IMPRESSION: Chronic and postoperative change. No acute process. Electronically signed by: Javi Byrd M.D. 08/13/2016 9:19 PM Dictated Date/Time: 08/13/2016 9:19 PM Laboratory Results 08/13/16 20:35 Red Blood Count 4.55, Mean Corpuscular Volume 89.9, Mean Corpuscular Hemoglobin 28.8, Mean Corpuscular Hemoglobin Concent 32.0, Mean Platelet Volume 8.8, Neutrophils (%) (Auto) 54.2, Lymphocytes (%) (Auto) 22.3, Monocytes (%) (Auto) 14.7, Eosinophils (%) (Auto) 7.2, Basophils (%) (Auto) 1.3, Neutrophils # (Auto ) 3.31, Lymphocytes # (Auto) 1.36, Monocytes # (Auto) 0.90, Eosinophils # (Auto ) 0.44, Basophils # (Auto) 0.08 08/13/16 20:35 Test 08/13/16 20:35 White Blood Count 6.11 K/uL (4.8-10.8) Red Blood Count 4.55 M/uL (4.7-6.1) Hemoglobin 13.1 g/dL (14.0-18.0) Hematocrit 40.9 % (42-52) Mean Corpuscular Volume 89.9 fL (80-100) Mean Corpuscular Hemoglobin 28.8 pg (25-34) Mean Corpuscular Hemoglobin Concent 32.0 g/dl (32-36) Platelet Count 164 K/uL (130-400) Mean Platelet Volume 8.8 fL (7.4-10.4) Neutrophils (%) (Auto) 54.2 % Lymphocytes (%) (Auto) 22.3 % Monocytes (%) (Auto) 14.7 % Eosinophils (%) (Auto) 7.2 % Basophils (%) (Auto) 1.3 % Neutrophils # (Auto) 3.31 K/uL (1.4-6.5) Lymphocytes # (Auto) 1.36 K/uL (1.2-3.4) Monocytes # (Auto) 0.90 K/uL (0.11-0.59) Eosinophils # (Auto) 0.44 K/uL (0-0.5) Basophils # (Auto) 0.08 K/uL (0-0.2) RDW Standard Deviation 52.8 fL (36.4-46.3) RDW Coefficient of Variation 16.1 % (11.5-14.5) Immature Granulocyte % (Auto) 0.3 % Immature Granulocyte # (Auto) 0.02 K/uL (0.00-0.02) Anion Gap 7.0 mmol/L (3-11) Est Creatinine Clear Calc Drug Dose 53.3 ml/min Estimated GFR () 80.9 Estimated GFR (Non- 69.8 BUN/Creatinine Ratio 21.6 (10-20) Calcium Level 9.2 mg/dl (8.5-10.1) Magnesium Level 2.4 mg/dl (1.8-2.4) Total Creatine Kinase 32 U/L (39-308) Creatine Kinase MB 0.6 ng/ml (0.5-3.6) Creatine Kinase MB Ratio 1.9 (0-3.0) Troponin I < 0.015 ng/ml (0-0.045) Pro-B-Type Natriuretic Peptide 300 pg/ml (0-1800) Laboratory results as reviewed by me. ECG Indication: SOB/dyspnea Rate (beats per minute): 94 Rhythm: normal sinus Findings: no acute ischemic change, no ectopy ED Course 2016: The patient was evaluated in room A2. A complete history and physical exam was performed. 2124: I reevaluated the patient. He is feeling well. I discussed results and discharge instructions: he verbalized understanding and agreement. The patient is ready for discharge. Medical Decision Differential: Infectious, Reactive Airway Disease, Pneumonia, Pneumothorax, COPD , CHF, ACS, Pulmonary Embolism, MSK, GI, Dissection, amongst other etiologies entertained. Medication Reconciliation: I attest that I have personally reviewed the patient 's current medication list. Blood Pressure Screening: Patient was found to have a slightly elevated blood pressure due to circumstances. I do not believe that the patient requires hypertension monitoring. 80 yr old male with recent aortic stenting who is on Coumadin arrives with complaint of shortness of breath after increased exertion today. Admits pretty sedentary last few weeks and that increased exertion is new. He feels this is cause of his SHOB. With stable cxr, normal labs and patient with good vitals I feel likely this is just post op exhaustion/deconditioning. Symptoms not consistent with PE nor further dissection. Lungs with some decreased sounds at bases consistent with imaging of chronic pleural effusion and elevated left pari -diaphragm. He is stable, no distress and breathing comfortably. He will discuss this further with his primary care provider. Impression Primary Impression: Shortness of breath Additional Impression: Fatigue Scribe Attestation The scribe's documentation has been prepared under my direction and personally reviewed by me in its entirety. I confirm that the note above accurately reflects all work, treatment, procedures, and medical decision making performed by me. Departure Information Dispostion Home / Self-Care Referrals Benjie Carey M.D. (PCP) Patient Instructions My [facility] Additional Instructions Return if worsening shortness of breath, fevers, chest pain, passing out, abdominal pain, or other concerns. We are always here to help. Follow up with your Primary Provider or surgeon for further evaluation. Problem Qualifiers
[2016-08-13 21:57] VITALS: BP 134/81; PULSE 85; O2SAT 93
[2016-11-25] MEDS ORDERED: CLC6 PO (20:54)
[2017-01-12] MEDS ORDERED: CLC6 PO (05:55)
[2017-01-13] MEDS ORDERED: PRT40 PO (09:54)
[2017-01-13] MEDS ORDERED: MTR600 PO ×2 (09:54→12:04)
[2017-01-13] MEDS ORDERED: CLC6 PO (12:04)
== END 2016-08-13 21:59 | disposition home or self-care (01) ==
LOC: C.EDB 19:09 → C.EDA 21:59
DX: R06.02 Shortness of breath (principal); R53.83 Other fatigue; R78.5 Finding of other psychotropic drug in blood; M19.90 Unspecified osteoarthritis, unspecified site; Z98.890 Other specified postprocedural states; Z87.891 Personal history of nicotine dependence; Z79.82 Long term (current) use of aspirin; Z79.01 Long term (current) use of anticoagulants; Z79.899 Other long term (current) drug therapy; Z88.1 Allergy status to other antibiotic agents; Z88.8 Allergy status to other drugs, medicaments and biological substances; Z80.9 Family history of malignant neoplasm, unspecified; Z82.49 Family history of ischemic heart disease and other diseases of the circulatory system

== ENCOUNTER 2016-11-12 10:42 | Emergency (ER) | payer OTHER ==
[~2016-11-12] VITALS: Ht 172.7 cm; Wt 77.0 kg
[2016-11-12 10:52] VITALS: TEMP 37; Ht 172.7 cm; Wt 77.0 kg
[2016-11-12] MEDS ORDERED: WARF5TAB7 PO (11:18)
[2016-11-12] MEDS ORDERED: WARF2.5T8 PO (11:18)
[2016-11-12] MEDS ORDERED: ISOS-11 PO (11:25)
[2016-11-12] MEDS ORDERED: OXYMETAZOLINE HCL 0.05% NA SPR 15 ML BTL ONE (12:15)
[2016-11-12] MEDS ORDERED: SILVER NITR/POTASSIUM NITRATE 10 APPLICATOR PACK ONE (12:17)
[2016-11-12 12:46] LABS: HEMATOCRIT 41.9 % (42-52); MEAN CELL VOLUME 88.2 fL (80-100); MEAN CORPUSCULAR HGB CONC 31.7 g/dl (32-36); MEAN PLATELET VOLUME 9.3 fL (7.4-10.4); PLATELET COUNT 128 K/uL (130-400); RED BLOOD COUNT 4.75 M/uL (4.7-6.1); WHITE BLOOD COUNT 6.76 K/uL (4.8-10.8)
[2016-11-12 12:57] LABS: PARTIAL THROMBOPLASTIN RATIO 1.7
[2016-11-12] MEDS ORDERED: LEVO-366 PO (14:36)
[2016-11-12] MEDS ORDERED: LEVOFLOXACIN 250 MG TAB PO ONE (14:45)
[2016-11-12 14:50] VITALS: BP 167/127; PULSE 84; O2SAT 94
--- NOTE | 2016-11-12 18:52 | EMERGENCY ROOM VISIT NOTE ---
History Report prepared by Radhika: Sridhar Bishop Under the Supervision of: Dr. Morales Rojas D.O. First contact with patient: 11:52 Chief Complaint: NOSE BLEED (MINOR) Stated Complaint: NOSE BLEED History of Present Illness The patient is a 81 year old male who presents to the Emergency Room with complaints of intermittent nose bleeds from his right nares starting around 0300 this morning while he was sleeping. The patient states that he currently is taking warfarin for blood clots in the past, though he has not had a clot recently. He states that his warfarin levels were checked a few days ago, and it was 2.4. Pt denies headache, change in vision, fevers, chest pain, shortness of breath, nausea, vomiting, diarrhea, pain with urination, and melena. Source of History: patient Onset: 0300 Position: nose (right nares) Quality: other (bleeding) Timing: intermittent Associated Symptoms: No fevers, No chest pain, No SOB, No nausea, No vomiting Review of Systems See HPI for pertinent positives & negatives. A total of 10 systems reviewed and were otherwise negative. Past Medical & Surgical Medical Problems: (1) BPH (benign prostatic hyperplasia) (2) DJD (degenerative joint disease) (3) DVT (deep venous thrombosis) (4) Hyperlipidemia Surgical Problems: (1) S/P AAA repair Family History Cancer FH: heart disease Social History Smoking Status: Never Smoker Alcohol Use: occasionally Drug Use: none Marital Status: Housing Status: lives alone Occupation Status: retired Current/Historical Medications Scheduled Aspirin (Aspirin Chewable), 81 MG PO QAM Duloxetine Hcl (Cymbalta), 60 MG PO HS Folic Acid (Folvite), 1 MG PO QAM Isosorbide Mononitrate (Isosorbide Mononitrate ER), 30 MG PO QAM Levofloxacin (Levaquin), 500 MG PO DAILY Multiple Vitamin (Multivitamin), 1 TAB PO QAM Pravastatin Sodium (Pravachol), 40 MG PO HS Tramadol (Ultram), 50 MG PO Q6HR PRN Warfarin Sod (Jantoven), 5 MG PO DAILY@1700 Warfarin Sod (Jantoven), 2.5 MG PO THURSDAY@1700 Allergies Coded Allergies: Amoxicillin (Unverified Adverse Reaction, Unknown, UNKNOWN, 11/12/16) Clavulanic Acid (Unverified Adverse Reaction, Unknown, UNKNOWN, 11/12/16) Physical Exam Vital Signs Date Time Temp Pulse Resp B/P (MAP) Pulse Ox O2 Delivery O2 Flow Rate FiO2 11/12/16 14:50 84 18 167/127 94 11/12/16 14:21 84 18 167/127 94 Room Air 11/12/16 12:23 84 18 141/107 93 Room Air 11/12/16 10:52 37.0 86 18 156/125 94 Room Air Physical Exam GENERAL: Sitting up in bed with a nasal clamp in place, no acute distress, non- toxic. EYE EXAM: normal conjunctiva OROPHARYNX: No blood dripping down the posterior oropharynx. NOSE: Several friable areas in the right nasal septal mucosa in the anterior portion. NECK: supple, no nuchal rigidity, no adenopathy, non-tender LUNGS: Clear to auscultation. Normal chest wall mechanics HEART: no murmurs, S1 normal and S2 normal ABDOMEN: abdomen soft, non-tender, normo-active bowel sounds, no masses, no rebound or guarding. UPPER EXTREMITIES: upper extremities are grossly normal. LOWER EXTREMITIES: No pitting edema. NEURO EXAM: Normal sensorium. Medical Decision & Procedures Laboratory Results 11/12/16 12:30 Test 11/12/16 12:30 Red Blood Count 4.75 M/uL (4.7-6.1) Mean Corpuscular Volume 88.2 fL (80-100) Mean Corpuscular Hemoglobin 28.0 pg (25-34) Mean Corpuscular Hemoglobin Concent 31.7 g/dl (32-36) RDW Standard Deviation 55.2 fL (36.4-46.3) RDW Coefficient of Variation 16.9 % (11.5-14.5) Mean Platelet Volume 9.3 fL (7.4-10.4) Activated Partial Thromboplast Time 43.0 SECONDS (21.0-31.0) Partial Thromboplastin Ratio 1.7 Laboratory results per my review. Medications Administered Medications (Trade) Dose Ordered Sig/Charan Route Start Time Stop Time Status Last Admin Dose Admin Levofloxacin (Levaquin Tab) 500 mg NOW ONCE PO 11/12/16 14:45 11/12/16 14:46 DC 11/12/16 14:45 500 MG Procedure Anterior Nasal Packing Indication: Nose bleed Verbal consent obtained. Risks and benefits were explained with the usual customary discussion. A time out was taken. Clots were removed with suction. The right naris was prepped with Afrin and lidocaine. A 5.5-cm nasal balloon was placed in a standard fashion. The patient tolerated this well. Hemostasis was achieved. No complications. ED Course ED COURSE: Vital signs were reviewed and showed situational hypertension The patients medical record was reviewed The above diagnostic studies were performed and reviewed. ED treatments and interventions as stated above. 1214: The patient was evaluated in room C3. A complete history and physical examination was performed. 1215: Afrin 0.05% Nasal [place] 1217: Silver Nitrate Applicators 2pkt 1309: I reevaluated the patient, and he was doing well with no bleeding. 1407: I switched out the 4.5cm Rhino Rocket with a 5.5 cm Rhino Rocket 1429: Upon reevaluation, the patient is feeling better, and the bleeding stopped.I discussed my findings with the patient and he understands and agrees with the treatment plan. Based on the patients age, coexisting illnesses, exam and lab findings the decision to treat as an outpatient was made. The patient remained stable while under my care. The patient appeared well at the time of discharge. 1445: Levaquin Tab 500mg PO Medical Decision Differential diagnosis: Etiologies such as anterior epistaxis, coagulopathy, traumatic injury, fracture , septal hematoma, posterior epistaxis as well as other pathologies were entertained. Patient is an 81-year-old male that presents to ER for epistaxis. He notes it started at 3 AM it has been intermittent throughout the day. Is on Coumadin for clots. Last INR was 2.5. Bleeding is only out of the right nostril. No trauma. Labs show hemoglobin of 13. INR was subtherapeutic at 1.7. Patient was initially cauterized. Then a 4.5 Rhino Rocket was placed which had to be removed and a 5.5 Rhino rocket was placed. Following the 5.5 cm Rhino rocket good hemostasis was obtained. Patient was discharged follow-up with PCP and updated in regards to his INR which was subtherapeutic. He was discharged on Levaquin as he had an allergy to Augmentin for prophylaxis of the packing. Discussed with Pt concerning signs and symptoms to watch out for. Pt was instructed to follow up with their PCP and discussed with the patient their option to return to the ED at anytime for persistent or worsening symptoms. The appropriate anticipatory guidance and out-patient management, including indications for return to the emergency department, were explained at length to the patient and understood. Medication Reconcilliation Current Medication List: was personally reviewed by me Blood Pressure Screening Patient's blood pressure: Elevated blood pressure Blood pressure disposition: Elevated BP felt to be situational Impression Primary Impression: Epistaxis Additional Impressions: Subtherapeutic international normalized ratio (INR) HTN (hypertension) Scribe Attestation The scribe's documentation has been prepared under my direction and personally reviewed by me in its entirety. I confirm that the note above accurately reflects all work, treatment, procedures, and medical decision making performed by me. Departure Information Dispostion Home / Self-Care Prescriptions Levofloxacin (Levaquin) 500 Mg Tab 500 MG PO DAILY for 3 Days, #3 TAB Prov: Morales Rojas, DO 11/12/16 Referrals Benjie Carey M.D. (PCP) Forms HOME CARE DOCUMENTATION FORM, IMPORTANT VISIT INFORMATION, WORK / SCHOOL INSTRUCTIONS Patient Instructions ED Nasal Packing Anterior Removable, My [facility] Additional Instructions Please follow up with your primary care doctor on Thursday or Thursday to have anterior packing removed. Any worsening of your symptoms, please return to the ED immediately. This includes any fevers greater than 100.4, worsening pain, persistent bleeding, or any other concerning signs or symptoms from your standpoint. Your INR was subtherapeutic at 1.7. Please discuss this with the physician managing your INR. Please take antibiotics as prescribed. Please follow up with ENT as listed below. You were found to have a blood pressure greater than 120 systolic over 90 diastolic. Due to the new Medicare guidelines, we are now recommending that you follow up with your primary care doctor in regards to this elevated blood pressure. Problem Qualifiers Additional Impressions: HTN (hypertension) Hypertension type: unspecified Qualified Codes: I10 - Essential (primary) hypertension
[2016-11-25] MEDS ORDERED: CLC6 PO (20:54)
== END 2016-11-12 14:54 | disposition home or self-care (01) ==
LOC: EDBD 10:42 → C.EDC 10:47
DX: R04.0 Epistaxis (principal); I10 Essential (primary) hypertension; R79.1 Abnormal coagulation profile; Z79.01 Long term (current) use of anticoagulants; E78.5 Hyperlipidemia, unspecified; N40.0 Benign prostatic hyperplasia without lower urinary tract symptoms; M19.90 Unspecified osteoarthritis, unspecified site; Z80.9 Family history of malignant neoplasm, unspecified; Z79.82 Long term (current) use of aspirin; Z79.899 Other long term (current) drug therapy; Z86.718 Personal history of other venous thrombosis and embolism

== ENCOUNTER 2016-11-25 09:33 | Observation (INO) | payer OTHER ==
[~2016-11-25] VITALS: Ht 175.3 cm; Wt 77.9 kg
[~2016-11-25 09:33] MED LIST changes: -ALEN70TA2 PO; -CRD4 PO; -IMDSR60 PO; +ISOS-11 PO; -LPR25 PO; -NRV5 PO; +WARF5TAB7 PO
[2016-11-25 09:53] LABS: BASO % 0.5 %; BASO ABS # 0.03 K/uL (0-0.2); COMPLETE YES; EOS % 3.3 %; HEMATOCRIT 35.5 % (42-52); IG% 0.3 %; LYMPH % 16.6 %; LYMPH ABS # 1.06 K/uL (1.2-3.4); MEAN CELL VOLUME 89.2 fL (80-100); MEAN CORPUSCULAR HEMOGLOBIN 27.9 pg (25-34); MEAN CORPUSCULAR HGB CONC 31.3 g/dl (32-36); MEAN PLATELET VOLUME 9.2 fL (7.4-10.4); MONO % 8.3 %; PLATELET COUNT 165 K/uL (130-400); RED BLOOD COUNT 3.98 M/uL (4.7-6.1); WHITE BLOOD COUNT 6.37 K/uL (4.8-10.8)
[2016-11-25] MEDS ORDERED: WARF5TAB7 PO (09:58)
[2016-11-25 10:12] LABS: ALT/SGPT 15 U/L (12-78); AST/SGOT 19 U/L (15-37); BLOOD UREA NITROGEN 20 mg/dl (7-18); BUN/CREATININE RATIO 24.6 (10-20); CALCIUM 8.2 mg/dl (8.5-10.1); CARBON DIOXIDE 27 mmol/L (21-32); CHLORIDE 108 mmol/L (98-107); CREATININE 0.83 mg/dl (0.60-1.40); GLUCOSE 144 mg/dl (70-99); POTASSIUM 4.1 mmol/L (3.5-5.1); SODIUM 140 mmol/L (136-145)
[2016-11-25 10:17] LABS: ALKALINE PHOSPHATASE 63 U/L (45-117)
--- NOTE | 2016-11-25 10:37 | DIAGNOSTIC IMAGING REPORT ---
CHEST ONE VIEW PORTABLE HISTORY: Atypical CHEST PAIN COMPARISON: Chest 08/13/2016. FINDINGS: Small bilateral pleural effusions and bibasilar densities persist. This favors atelectasis. A thoracic aortic stent within the ectatic thoracic aorta is again noted. The heart remains enlarged. No pneumothorax. A few linear scarlike densities within the periphery the right midlung zone. No new focal lung consolidations. No evidence for pulmonary edema. IMPRESSION: No change in the small bilateral pleural effusions and bibasilar densities suggesting atelectasis. Postoperative changes are again noted. Electronically signed by: Jonathan Rosenthal M.D. 11/25/2016 10:36 AM Dictated Date/Time: 11/25/2016 10:35 AM
[2016-11-25 12:45] VITALS: O2SAT 95; Ht 175.3 cm; Wt 77.9 kg
[2016-11-25] MEDS ORDERED: ONDANSETRON INJ 2 MG/ML 2 ML VIAL IV PRN (13:30)
[2016-11-25] MEDS ORDERED: TRAMADOL HCL 50 MG TAB PO PRN (13:30)
[2016-11-25] MEDS ORDERED: NITROGLYCERIN 0.4 MG SL PER TAB CHARGE SL PRN (13:30)
[2016-11-25] MEDS ORDERED: ACETAMINOPHEN 325 MG TAB PO PRN (13:30)
--- NOTE | 2016-11-25 14:08 | EMERGENCY ROOM VISIT NOTE ---
History Report prepared by Radhika: Sridhar Bishop Under the Supervision of: Dr. Matt Corey M.D. First contact with patient: 09:36 Chief Complaint: CHEST PAIN Stated Complaint: CHEST PAIN History of Present Illness The patient is a 81 year old male who presents to the Emergency Room with complaints of resolved precordial chest pain occurring prior to arrival after walking his dog. He additionally states that he got diaphoretic, shortness of breath, jaw pain, and nausea. He states that when he stopped walking the pain was better. He states that he has never had pain like this in the past. The patient states that he had a thoracic aortic aneurysm repaired in May, and he got it checked yesterday. They state that he has some sort of leak, and it will have to be repaired again. The patient additionally has a history of nose bleeds after being on warfarin for clots. He additionally states that he takes an aspirin daily. Pt denies LOC, headache, fevers, chills, visual changes, neck pain, vomiting, abdominal pain, back pain, melena, hematochezia, urinary symptoms, numbness, weakness, lymphadenopathy, rash, or other complaints. Source of History: patient Onset: prior to arrival Position: chest Timing: resolved Modifying Factors (Relieving): rest Associated Symptoms: + diaphoresis, + SOB, + nausea Review of Systems See HPI for pertinent positives and negatives. A total of ten systems were reviewed and were otherwise negative. Past Medical & Surgical Medical Problems: (1) BPH (benign prostatic hyperplasia) (2) Depression (3) DJD (degenerative joint disease) (4) DVT (deep venous thrombosis) (5) History of dissection of thoracic aorta (6) History of temporal arteritis (7) Hyperlipidemia (8) Hypertension (9) Mild reactive airways disease (10) Osteoporosis Surgical Problems: (1) Hx of repair of dissecting thoracic aortic aneurysm, Cow[place] type B (2) S/P AAA repair (3) S/P eye surgery (4) S/P knee surgery Family History Cancer FH: heart disease Social History Smoking Status: Current Every Day Smoker Alcohol Use: occasionally Drug Use: none Marital Status: Housing Status: lives alone Occupation Status: retired Current/Historical Medications Scheduled Aspirin (Aspirin Chewable), 81 MG PO QAM Duloxetine Hcl (Cymbalta), 60 MG PO DAILY Folic Acid (Folvite), 1 MG PO QAM Isosorbide Mononitrate (Isosorbide Mononitrate ER), 30 MG PO QAM Multiple Vitamin (Multivitamin), 1 TAB PO QAM Pravastatin Sodium (Pravachol), 80 MG PO HS Tramadol (Ultram), 50 MG PO Q6HR PRN Warfarin Sod (Jantoven), 5 MG PO 6XWK Warfarin Sod (Jantoven), 7.5 MG PO WK Allergies Coded Allergies: Amoxicillin (Verified Adverse Reaction, Unknown, UNKNOWN, 11/25/16) Clavulanic Acid (Verified Adverse Reaction, Unknown, UNKNOWN, 11/25/16) Physical Exam Vital Signs Date Time Temp Pulse Resp B/P (MAP) Pulse Ox O2 Delivery O2 Flow Rate FiO2 11/25/16 12:45 95 Room Air 11/25/16 12:00 81 20 123/90 95 Room Air 11/25/16 10:31 83 20 111/80 97 Room Air 11/25/16 09:44 83 11/25/16 09:40 96 Room Air 11/25/16 09:35 36.4 86 20 122/75 95 Room Air 11/25/16 09:35 96 Room Air Physical Exam GENERAL: Awake, alert, well-appearing, in no distress HENT: Normocephalic, atraumatic. Oropharynx unremarkable. EYES: Normal conjunctiva. Sclera non-icteric. NECK: Supple. No nuchal rigidity. FROM. No JVD. RESPIRATORY: Clear to auscultation. CARDIAC: Regular rate, normal rhythm. Extremities warm and well perfused. Pulses equal. ABDOMEN: Soft, non-distended. No tenderness to palpation. No rebound or guarding. No masses. RECTAL: Deferred. MUSCULOSKELETAL: Chest examination reveals no tenderness. The back is symmetrical on inspection without obvious abnormality. There is no CVA tenderness to palpation. No joint edema. LOWER EXTREMITIES: Trace pedal edema. Chronic venous discoloration. Calves are equal size bilaterally and non-tender. NEURO: Normal sensorium. No sensory or motor deficits noted. SKIN: No rash or jaundice noted. Medical Decision & Procedures ER Provider Diagnostic Interpretation: Radiology results as stated below per my review and radiologist interpretation: CHEST ONE VIEW PORTABLE HISTORY: Atypical CHEST PAIN COMPARISON: Chest 08/13/2016. FINDINGS: Small bilateral pleural effusions and bibasilar densities persist. This favors atelectasis. A thoracic aortic stent within the ectatic thoracic aorta is again noted. The heart remains enlarged. No pneumothorax. A few linear scarlike densities within the periphery the right midlung zone. No new focal lung consolidations. No evidence for pulmonary edema. IMPRESSION: No change in the small bilateral pleural effusions and bibasilar densities suggesting atelectasis. Postoperative changes are again noted. Electronically signed by: Jonathan Rosenthal M.D. 11/25/2016 10:36 AM Dictated Date/Time: 11/25/2016 10:35 AM Laboratory Results 11/25/16 09:20 Red Blood Count 3.98, Mean Corpuscular Volume 89.2, Mean Corpuscular Hemoglobin 27.9, Mean Corpuscular Hemoglobin Concent 31.3, Mean Platelet Volume 9.2, Neutrophils (%) (Auto) 71.0, Lymphocytes (%) (Auto) 16.6, Monocytes (%) (Auto) 8.3, Eosinophils (%) (Auto) 3.3, Basophils (%) (Auto) 0.5, Neutrophils # (Auto) 4.52, Lymphocytes # (Auto) 1.06, Monocytes # (Auto) 0.53, Eosinophils # (Auto) 0.21, Basophils # (Auto) 0.03 11/25/16 09:20 Test 11/25/16 09:20 White Blood Count 6.37 K/uL (4.8-10.8) Red Blood Count 3.98 M/uL (4.7-6.1) Hemoglobin 11.1 g/dL (14.0-18.0) Hematocrit 35.5 % (42-52) Mean Corpuscular Volume 89.2 fL (80-100) Mean Corpuscular Hemoglobin 27.9 pg (25-34) Mean Corpuscular Hemoglobin Concent 31.3 g/dl (32-36) Platelet Count 165 K/uL (130-400) Mean Platelet Volume 9.2 fL (7.4-10.4) Neutrophils (%) (Auto) 71.0 % Lymphocytes (%) (Auto) 16.6 % Monocytes (%) (Auto) 8.3 % Eosinophils (%) (Auto) 3.3 % Basophils (%) (Auto) 0.5 % Neutrophils # (Auto) 4.52 K/uL (1.4-6.5) Lymphocytes # (Auto) 1.06 K/uL (1.2-3.4) Monocytes # (Auto) 0.53 K/uL (0.11-0.59) Eosinophils # (Auto) 0.21 K/uL (0-0.5) Basophils # (Auto) 0.03 K/uL (0-0.2) RDW Standard Deviation 56.9 fL (36.4-46.3) RDW Coefficient of Variation 17.4 % (11.5-14.5) Immature Granulocyte % (Auto) 0.3 % Immature Granulocyte # (Auto) 0.02 K/uL (0.00-0.02) Anion Gap 5.0 mmol/L (3-11) Est Creatinine Clear Calc Drug Dose 67.5 ml/min Estimated GFR () 94.3 Estimated GFR (Non- 81.4 BUN/Creatinine Ratio 24.6 (10-20) Calcium Level 8.2 mg/dl (8.5-10.1) Total Bilirubin 0.8 mg/dl (0.2-1) Direct Bilirubin 0.1 mg/dl (0-0.2) Aspartate Amino Transf (AST/SGOT) 19 U/L (15-37) Alanine Aminotransferase (ALT/SGPT) 15 U/L (12-78) Alkaline Phosphatase 63 U/L (45-117) Total Protein 6.8 gm/dl (6.4-8.2) Albumin 2.7 gm/dl (3.4-5.0) Lipase 224 U/L (73-393) Laboratory results reviewed by me ECG Indication: chest pain Rate (beats per minute): 86 Rhythm: normal sinus Findings: LAFB, no acute ischemic change, no ectopy ED Course 0958: The patient was evaluated in room B6. A complete history and physical exam was performed. 1221: I reevaluated the patient, and I discussed the treatment plan with him. 1232: Discussed the patient's case with Nubia Riggs PA-C. The patient will be evaluated for further treatment and disposition. 1238: I reevaluated the patient and he was doing well. Medical Decision Triage Nursing notes reviewed. The patient's presentation and history were concerning for chest pain. Etiologies such as cardiac ischemia, aortic dissection, pulmonary embolism, pneumonia, pneumothorax, musculoskeletal, infections, gastrointestinal, as well as others were entertained. Patient was evaluated. His history was concerning for exertional chest pain. He was given aspirin by EMS. ECG was nonischemic. His pain was resolved with rest. The patient had an unremarkable CBC and chemistry panel. Cardiac markers negative. Chest x-ray as above. He will need further evaluation and management in the hospital given his symptoms. Consultation was made with internal medicine. The patient was evaluated in the Emergency Room for further management. Medication Reconcilliation Current Medication List: was personally reviewed by me Blood Pressure Screening Patient's blood pressure: Normal blood pressure Consults Time Called: 1223 Consulting Physician: Nubia Riggs PA-C Returned Call: 1232 Discussed the patient's case with Nubia Riggs. The patient will be evaluated for further treatment and disposition. Impression Primary Impression: Exertional chest pain Scribe Attestation The scribe's documentation has been prepared under my direction and personally reviewed by me in its entirety. I confirm that the note above accurately reflects all work, treatment, procedures, and medical decision making performed by me. Departure Information Dispostion Being Evaluated By Hospitalist Benjie Navarrete M.D. (PCP) Patient Instructions My [facility]
--- NOTE | 2016-11-25 14:35 | History and Physical ---
History & Physical Date & Time of Service: Nov 25, 2016 at 13:30 Chief Complaint: Chest Pain Primary Care Physician: Benjie Carey M.D. History of Present Illness Source: patient, clinic records, hospital records This is an 81 year old male with PMH of type B thoracic aortic dissection s/p TEVAR and left carotid to SCA bypass 06/23/[address] Boswell ([facility]) , s/p pseudoaneurysm injection of left brachial artery 06/27/[address] Boswell, hypertension per records, dyslipidemia, history of LLE DVT x 2 (10+ years ago) on Coumadin, and other problems listed below who presents to the ED with exertional chest pain. Patient states this morning while walking his dog uphill in his yard, he developed substernal pressure radiating to left jaw. He reports associated diaphoresis ("cold sweats") and mild shortness of breath. Patient stopped to rest and symptoms resolved within 1 minute. He then climbed stairs to his home and called 911. 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 Currently chest pain free. No radiation to his back. Patient states today's pain was different than his prior aortic dissection (felt back pain at that time). Typically he can climb 15 stairs without SALGADO. Pt admits to left calf tenderness he first noted yesterday. He is unsure if there is increased LE edema. He typically wears compression stockings. Pt reports episode of severe epistaxis approximately 2 weeks ago requiring packing removed by Dr. Epperson on 11/17/16. No further epistaxis. Has a f/u appointment with Dr. Epperson today. He denies dizziness, syncope, fever, chills, URI symptoms, cough, nausea, vomiting, acid reflux, bowel or bladder changes, GI bleeding, rash. No recent heavy lifting. Patient was seen yesterday 11/24/[address] [place] [facility] [address] 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 Patient was referred to IR (Dr. Franklin) for treatment. Pt states he is to be called for an appointment. CTA chest and abdomen/ pelvis were done yesterday- radiology read still pending. Carotid duplex yesterday 11/24/16 showed PEYMAN <50% stenosis, LICA <50% stenosis, left vertebral artery demonstrates abnormal to-fro flow, L common carotid artery to left subclavian artery bypass graft without significant stenosis. Denies hx of CAD. Had negative nuclear stress test for preop eval 06/11/2016. Past Medical/Surgical History Medical Problems: (1) BPH (benign prostatic hyperplasia) Status: Chronic (2) Depression Status: Chronic (3) DJD (degenerative joint disease) Status: Chronic (4) DVT (deep venous thrombosis) Status: Chronic (5) History of dissection of thoracic aorta Status: Chronic (6) History of temporal arteritis Status: Chronic (7) Hyperlipidemia Status: Chronic (8) Hypertension Status: Chronic (9) Mild reactive airways disease Status: Chronic (10) Osteoporosis Status: Chronic Surgical Problems: (1) Hx of repair of dissecting thoracic aortic aneurysm, Keven type B Permanent Comment: Left common carotid artery to left subclavian artery Dacron bypass graft 06/23/[address] Boswell Repair thoracic aortic aneurysm with aortic dissection using Medtronic Valiant thoracic aortic stent graft covering left subclavian artery and distal Medtronic Valiant thoracic aortic extension placement x2, -Main body graft: [id number]; Two distal extensions measuring 46 x 200 and 46 x 150, Amplanz plug of the left subclavian 06/24/[address] Boswell, Pseudoaneurysm injection of the left brachial artery 06/27/[address] Boswell Status: Chronic (2) S/P AAA repair Status: Resolved (3) S/P eye surgery Status: Chronic (4) S/P knee surgery Status: Chronic Family History Cancer FH: heart disease FATHER Hypertension FATHER MOTHER Stroke MOTHER Social History Smoking Status: Light Tobacco Smoker (occasional cigar smoker (1 cigar in past 9 months). advised cessation. ) Alcohol Use: occasionally (occasional glass of wine) Marital Status: Housing status: lives alone Occupational Status: retired Immunizations History of Influenza Vaccine: N/A History of Tetanus Vaccine?: Yes Tetanus Immunization Date: Jun 24, 2000 History of Pneumococcal: Yes Pneumococcal Date: Jan 24, 2007 History of Hepatitis B Vaccine: No Multi-Drug Resistant Organisms History of MDRO: No Allergies Coded Allergies: Amoxicillin (Verified Adverse Reaction, Unknown, UNKNOWN, 11/25/16) Clavulanic Acid (Verified Adverse Reaction, Unknown, UNKNOWN, 11/25/16) Home Medications Scheduled Aspirin (Aspirin Chewable), 81 MG PO QAM Colchicine (Colcrys), 0.6 MG PO BID Duloxetine Hcl (Cymbalta), 60 MG PO DAILY Folic Acid (Folvite), 1 MG PO QAM Isosorbide Mononitrate (Isosorbide Mononitrate ER), 30 MG PO QAM Multiple Vitamin (Multivitamin), 1 TAB PO QAM Pravastatin Sodium (Pravachol), 80 MG PO HS Tramadol (Ultram), 50 MG PO Q6HR PRN Warfarin Sod (Jantoven), 5 MG PO 6XWK Warfarin Sod (Jantoven), 7.5 MG PO WK Review of Systems Constitutional- no fever; no weight loss Eyes- no acute visual changes ENT- no sinus drainage; no pharyngitis Pulmonary- no cough, no wheezing, no shortness of breath Cardiac-(+) NOTED ABOVE GI- no nausea, no vomiting, no diarrhea, no melena, no hematochezia - no dysuria, no hematuria Musculoskeletal- no arthralgias, no myalgias Derm- no rashes, no new skin lesions, no changing skin lesions Hematologic- no unusual bruising, no unusual bleeding Lymphatics- no adenopathy Endocrine- no polyuria or polydipsia; no heat or cold intolerance Neuro- no headaches, no focal neurologic symptoms Psych- no anxiety, no depression Physical Exam Vital Signs Date Time Temp Pulse Resp B/P (MAP) Pulse Ox O2 Delivery O2 Flow Rate FiO2 11/25/16 12:45 95 Room Air 11/25/16 12:00 81 20 123/90 95 Room Air 11/25/16 10:31 83 20 111/80 97 Room Air 11/25/16 09:44 83 11/25/16 09:40 96 Room Air 11/25/16 09:35 36.4 86 20 122/75 95 Room Air 11/25/16 09:35 96 Room Air General Appearance: WD/WN, no apparent distress, + pertinent finding (pleasant alert elderly male) Head: normocephalic, atraumatic Eyes: normal inspection, sclerae normal ENT: pharynx normal, + pertinent finding (hard of hearing) Neck: supple, trachea midline Respiratory/Chest: chest non-tender, lungs clear, normal breath sounds, no respiratory distress, no accessory muscle use Cardiovascular: regular rate, rhythm, no murmur Abdomen/GI: normal bowel sounds, non tender, soft Extremities/Musculoskelatal: + calf tenderness (mild calf tenderness left mid calf), + pertinent finding (trace ankle swelling L>R) Neurologic/Psych: alert, normal mood/affect, oriented x 3 Skin: normal color, warm/dry, no rash (no rash on the chest) RUE BP 119/82, LUE BP 124/79 Diagnostics Laboratory Results Results Past 24 Hours Test 11/25/16 09:20 Range/Units White Blood Count 6.37 4.8-10.8 K/uL Red Blood Count 3.98 4.7-6.1 M/uL Hemoglobin 11.1 14.0-18.0 g/dL Hematocrit 35.5 42-52 % Mean Corpuscular Volume 89.2 80-100 fL Mean Corpuscular Hemoglobin 27.9 25-34 pg Mean Corpuscular Hemoglobin Concent 31.3 32-36 g/dl Platelet Count 165 130-400 K/uL Mean Platelet Volume 9.2 7.4-10.4 fL Neutrophils (%) (Auto) 71.0 % Lymphocytes (%) (Auto) 16.6 % Monocytes (%) (Auto) 8.3 % Eosinophils (%) (Auto) 3.3 % Basophils (%) (Auto) 0.5 % Neutrophils # (Auto) 4.52 1.4-6.5 K/uL Lymphocytes # (Auto) 1.06 1.2-3.4 K/uL Monocytes # (Auto) 0.53 0.11-0.59 K/uL Eosinophils # (Auto) 0.21 0-0.5 K/uL Basophils # (Auto) 0.03 0-0.2 K/uL RDW Standard Deviation 56.9 36.4-46.3 fL RDW Coefficient of Variation 17.4 11.5-14.5 % Immature Granulocyte % (Auto) 0.3 % Immature Granulocyte # (Auto) 0.02 0.00-0.02 K/uL Sodium Level 140 136-145 mmol/L Potassium Level 4.1 3.5-5.1 mmol/L Chloride Level 108 98-107 mmol/L Carbon Dioxide Level 27 21-32 mmol/L Anion Gap 5.0 3-11 mmol/L Blood Urea Nitrogen 20 7-18 mg/dl Creatinine 0.83 0.60-1.40 mg/dl Est Creatinine Clear Calc Drug Dose 67.5 ml/min Estimated GFR () 94.3 Estimated GFR (Non- 81.4 BUN/Creatinine Ratio 24.6 10-20 Random Glucose 144 70-99 mg/dl Calcium Level 8.2 8.5-10.1 mg/dl Total Bilirubin 0.8 0.2-1 mg/dl Direct Bilirubin 0.1 0-0.2 mg/dl Aspartate Amino Transf (AST/SGOT) 19 15-37 U/L Alanine Aminotransferase (ALT/SGPT) 15 12-78 U/L Alkaline Phosphatase 63 45-117 U/L Total Creatine Kinase 40 39-308 U/L Creatine Kinase MB 0.8 0.5-3.6 ng/ml Creatine Kinase MB Ratio 2.0 0-3.0 Troponin I < 0.015 0-0.045 ng/ml Total Protein 6.8 6.4-8.2 gm/dl Albumin 2.7 3.4-5.0 gm/dl Lipase 224 73-393 U/L Diagnostic Radiology CHEST ONE VIEW PORTABLE HISTORY: Atypical CHEST PAIN COMPARISON: Chest 08/13/2016. FINDINGS: Small bilateral pleural effusions and bibasilar densities persist. This favors atelectasis. A thoracic aortic stent within the ectatic thoracic aorta is again noted. The heart remains enlarged. No pneumothorax. A few linear scarlike densities within the periphery the right midlung zone. No new focal lung consolidations. No evidence for pulmonary edema. IMPRESSION: No change in the small bilateral pleural effusions and bibasilar densities suggesting atelectasis. Postoperative changes are again noted. EKG NSR with sinus arrhythmia, 86 bpm, nonspecific T wave abnormality in III and aVF (chronic- improved from prior EKG), ST abnormality Impression Assessment and Plan EXERTIONAL CHEST PAIN R/o ACS; risk factors include hypertension, dyslipidemia, age No hx of CAD; prior stress test 05/2016 negative Initial troponin negative EKG-no acute ischemic findings CXR- unchanged small bilateral pleural effusions and bibasilar densities suggesting atelectasis, postop changes again noted Incentive spirometry Trend serial cardiac enzymes Check echo Repeat EKG in am Continue aspirin, Imdur, statin Consult cardiology HISTORY OF DVT Hx LLE DVT x 2, 10+ years ago INR= 2.3 H/O TYPE B THORACIC AORTIC DISSECTION S/p TEVAR and left carotid to SCA bypass 06/23/[address] Boswell ([facility]), s/p pseudoaneurysm injection of left brachial artery 06/27/[address] Boswell Seen by Dr. 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 Franklin) for treatment, patient told he would be called for appointment CTA chest and a/p 11/24/16- results not viewable in [facility], called [facility] [facility]- images were not read by radiologist yet, will be available in [facility] once read H/O HYPERTENSION Per [facility] records, however patient states BP is well controlled, not on antihypertensives BP is stable DYSLIPIDEMIA Continue statin DEPRESSION Continue Cymbalta DVT PROPHYLAXIS Coumadin CODE STATUS Full code per my discussion with the patient DISPOSITION Observation telemetry Follows with Dr. Carey for primary care Patient seen in collaboration with Dr. Don. Please see his addendum. ATTENDING ADDENDUM delayed entry date of service as noted above care coordinated with PANCHO Riggs please refer to her notes for full details, I agree with her notes patient seen and examined, records reviewed by myself as well on exam, patient seen resting in bed, comfortable, in good spirits chest pain has resolved no other symptoms VS noted and reviewed oriented x 3, not in distress, speaks in sentences with no effort nor accessory muscle use normal rate, regular rhythm, no murmurs clear breath sounds bilaterally non distended, soft, nontender no bipedal edema, erythema, warmth no neuro deficits troponin negative INR 2.3 EKG no signs of ischemia ASSESSMENT/PLAN> CHEST PAIN - called by Dr. Greer as patient has possible hemopericardium coordinated care with [facility] [employer] Analyst Dr. Venus Bell, arranged for transfer after CT angio to r/o aortic dissection CHRONIC ANTICOAGULATION WITH COUMADIN FOR REMOTE DVT - INR 2.3 vitamin K ordered please refer to dc summary for further details other diagnoses and plan of care as per PANCHO Riggs's notes Dereck Don MD Advanced Directives Existing Living Will: No Existing Power of Methods Analyst: No VTE Prophylaxis VTE Risk Assessment Done? Y/N: Yes Risk Level: Moderate Given or contraindicated: Warfarin (Coumadin)
[2016-11-25] MEDS ORDERED: IV FLUIDS COMPLETED PRN (15:00)
[2016-11-25 15:56] LABS: INR 2.3 (0.9-1.1); PARTIAL THROMBOPLASTIN RATIO 1.5; PROTHROMBIN TIME (PATIENT) 25.4 SECONDS (9.0-12.0)
[2016-11-25 15:58] VITALS: O2SAT 95
[2016-11-25 16:00] VITALS: BP 123/90; PULSE 81; TEMP 36.4; O2SAT 95
[2016-11-25] MEDS ORDERED: WARFARIN SOD 5 MG TAB PO SCH (16:00)
[2016-11-25 16:02] LABS: CKMB/CK RATIO 2.4 (0-3.0)
[2016-11-25] MEDS ORDERED: COLCHICINE 0.6 MG TAB PO ONE (16:21)
[2016-11-25] MEDS ORDERED: PHYTONADIONE 5 MG TAB PO STA (16:21)
--- NOTE | 2016-11-25 16:51 | ECHOCARDIOGRAM REPORT ---
*NOTICE TO RECEIVING [employer] This information is strictly Confidential and protected under [place] law. [place] law prohibits you from making any further disclosure of this information unless further disclosure is expressly permitted by the written consent of the person to whom it pertains or is authorized by law. A general authorization for the release of medical or other information is not sufficient for this purpose. Hospital accepts no responsibility if the information is made available to any other person, INCLUDING THE PATIENT. Interpretation Summary * Name: BOBBI GIBBONS Study Date: 11/25/2016 02:11 PM BP: 120/86 mmHg * Patient Location: C.2E\S\E212\S\1 HR: 83 * : 1935 (M/d/yyyy) Gender: Male Height: 69 in * Age: 81 yrs Ethnicity: CA Weight: 171 lb * Ordering Physician: Nubia Riggs * Referring Physician: Self, Referred * Performed By: Bria Cortes RCS * * Reason For Study: CHEST PAIN * BSA: 1.9 m2 * The study was technically limited. * There is no comparison study available. * -- Conclusions -- * Small to moderate apical, anterior, and left lateral loculated pericardial effusion. * There are no echocardiographic indications of cardiac tamponade. * Normal inferior vena cava size and collapsability with sniff indicates a normal right atrial pressure of 3 mmHg * Ejection Fraction = >70 %. * There is moderate concentric left ventricular hypertrophy. Procedure Details * A complete two-dimensional transthoracic echocardiogram was performed (2D, M-mode, Doppler and color flow Doppler). Left Ventricle * The left ventricle is normal in size. * There is no thrombus. * There is moderate concentric left ventricular hypertrophy. * Ejection Fraction = >70 %. * No regional wall motion abnormalities noted. Right Ventricle * The right ventricle is normal size. * The right ventricular systolic function is normal as assessed by tricuspid annular plane systolic excursion (TAPSE) (normal >1.5 cm). Atria * The left atrial size is normal. * Right atrial size is normal. * There is no evidence of atrial septal defect, but resolution does not allow assessment for a patent foramen ovale. Mitral Valve * The mitral valve is normal. * There is no mitral valve stenosis. * Significant mitral regurgitation is absent. Tricuspid Valve * The tricuspid valve is not well visualized. * There is no tricuspid stenosis. * There is trace tricuspid regurgitation. Aortic Valve * The aortic valve is trileaflet. * Aortic stenosis is absent. * There is no significant aortic regurgitation. Pulmonic Valve * The pulmonary valve is not well seen, but the Doppler examination is normal without significant regurgitation or stenosis. Great Vessels * The aortic root is normal size. Pericardium/Pleural * Small to moderate apical, anterior, and left lateral loculated pericardial effusion. * There are no echocardiographic indications of cardiac tamponade. Great Vessels * Normal inferior vena cava size and collapsability with sniff indicates a normal right atrial pressure of 3 mmHg Left Ventricular Diastolic Function * Grade I diastolic dysfunction, (abnormal relaxation pattern). MMode 2D Measurements and Calculations IVSd 1.5 cm IVSs 1.8 cm LVIDd 3.2 cm LVIDs 2.4 cm LVPWd 1.5 cm LVPWs 1.4 cm IVS/LVPW 1.0 FS 25.2 % EDV(Teich) 42.2 ml ESV(Teich) 20.6 ml EF(Teich) 51.0 % EDV(cubed) 34.0 ml ESV(cubed) 14.2 ml EF(cubed) 58.1 % % IVS thick 20.9 % % LVPW thick -4.72 % LV mass(C)d 175.9 grams LV mass(C)dI 91.0 grams/m\S\2 LV mass(C)s 141.8 grams LV mass(C)sI 73.4 grams/m\S\2 SV(Teich) 21.5 ml SI(Teich) 11.1 ml/m\S\2 SV(cubed) 19.7 ml SI(cubed) 10.2 ml/m\S\2 LVOT diam 2.0 cm LVOT area 3.2 cm\S\2 Doppler Measurements and Calculations Ao V2 max 107.8 cm/sec Ao max PG 4.7 mmHg Ao max PG (full) 1.9 mmHg DOROTA(V,A) 2.5 cm\S\2 D[place]OTA(V,D) 2.5 cm\S\2 LV V1 max PG 2.8 mmHg LV V1 max 83.0 cm/sec PA V2 max 118.1 cm/sec PA max PG 5.6 mmHg
--- NOTE | 2016-11-25 18:21 | CARDIOLOGY CONSULTATION ---
DATE OF CONSULTATION: 11/25/2016 REFERRING PHYSICIAN: Dereck Don MD REASON FOR CONSULTATION: Chest pain. HISTORY OF PRESENT ILLNESS: Mr. Arredondo is an 81-year-old gentleman with a complex vascular history as listed below. The patient was walking his dog around his yard earlier today. The patient developed substernal chest tightness and heaviness with associated diaphoresis, shortness of breath as well as lightheadedness. These symptoms lasted for nearly 20 minutes and slowly resolved. He denies overt syncope. Currently, he is chest pain free. His first 2 sets of cardiac enzymes are negative. A 2D transthoracic echo was performed at the bedside, demonstrating small to moderate loculated apical, anterior, left lateral pericardial effusion without evidence of tamponade. There are no regional wall motion abnormalities. The patient was seen by vascular surgery at [place] yesterday, where a CT scan demonstrated a type 2 endoleak. The patient's blood pressure is stable and within normal limits. His INR is 2.3. He denies any recent change in functional capacity, orthopnea, PND, or lower extremity edema. His recent cardiac history is significant for Lexiscan nuclear stress test, which was negative for inducible ischemia in May 2016. REVIEW OF SYSTEMS: The pertinent positives noted above. Also significant for numbness and tingling of his left first, second, and third digits, which has been present for more than 1 month. Comprehensive 10-system review is otherwise negative. PAST MEDICAL HISTORY: 1. Asymptomatic 6-cm type B thoracic aortic dissection. 2. DVT. 3. Blood clotting disorder -- unspecified. 4. BPH. 5. Dyslipidemia. 6. Osteoporosis. 7. Actinic keratoses. 8. Hemangioma of the liver. 9. Osteoarthritis bilateral knees. 10. Abdominal aortic dissection. 11. Reactive airways disease. 12. Epistaxis. 13. Benign neoplasm of the duodenum. 14. Carpal tunnel. 15. Fractured radius. 16. Pneumonia. 17. Type [address] scan, 07/24/2016. PAST SURGICAL HISTORY: 1. Repair of asymptomatic 6-cm type B thoracic dissection with Medtronic thoracic aortic stent graft covering the left subclavian artery and distal Medtronic thoracic aortic extension placement x2. 2. Pseudoaneurysm injection of left brachial artery, 06/27/2016. 3. Left carotid to left subclavian artery bypass. 4. Carpal tunnel surgery. 5. Colonoscopy. FAMILY HISTORY: Negative for premature CAD or sudden cardiac . SOCIAL HISTORY: He is a light tobacco user. He smokes cigars occasionally. He is and lives alone. ALLERGIES: LISTED TO AMOXICILLIN AND CLAVULANIC ACID. HOME MEDICATIONS: 1. Aspirin 81 mg daily. 2. Cymbalta 60 mg daily. 3. Folic acid daily. 4. Imdur 30 mg daily. 5. Multivitamin daily. 6. Pravastatin 80 mg at bedtime. 7. Ultram 50 mg every 6 hours as needed. 8. Warfarin 5 mg 6 days per week and 7.5 mg 1 day per week. ECG on admission demonstrates normal sinus rhythm with left anterior fascicular block and poor R-wave progression. Resting 2D transthoracic echo demonstrates moderate concentric LVH with normal left ventricular systolic function, no regional wall motion abnormalities, small to moderate loculated effusion. No evidence of tamponade. LABORATORY DATA: Initial troponin is less than 0.015 and repeat troponin is 0.028. Sodium 140, potassium 4.1, chloride 108, CO2 is 28, BUN is 20, and creatinine is 0.83. White blood cell count 6.37, hemoglobin is 11.1, and platelet count is 165. Telemetry demonstrates sinus rhythm. PHYSICAL EXAMINATION: VITAL SIGNS: Temperature is 36.4 degrees centigrade, pulse 81 beats per minute and regular, respiratory rate is 20 breaths per minute, blood pressure 123/90 and SaO2 is 95% on room air. GENERAL: NAD, awake, alert and oriented x3. THROAT: His mucous membranes are moist. No scleral icterus. Conjunctivae pink. NECK: Supple. There is no JVD in upright position. No HJR. HEART: Regular with a normal S1 and S2. No murmur, rub or gallop is appreciated. There are no carotid bruits. LUNGS: Clear without rales, rhonchi or wheeze. ABDOMEN: Soft and nontender. There is no rebound or guarding. Normal bowel sounds. EXTREMITIES: Warm and dry. There is trace bilateral pedal edema. There are positive stasis changes. NEUROLOGIC: Demonstrates no focal motor deficit. The patient reports mild paresthesias and numbness of his first 3 digits of the left hand. FINAL IMPRESSION: 1. An 81-year-old gentleman with complex vascular history and known endoleak discovered on CT scan performed yesterday, presents today with an episode of chest discomfort, diaphoresis, and possible near syncope. Echocardiogram demonstrates small to moderate pericardial effusion without tamponade. Findings concerning for acute pericarditis (possibly hemorrhagic in setting of chronic anticoagulation) vs. aortic dissection. Patient currently pain free and hemodynamically stable. 2. Chronic anticoagulation due to remote history of deep venous thrombosis. 3. History of type B thoracic aortic dissection and 6-cm aneurysm, status post endovascular repair and known endoleak on CT scan performed at [facility] yesterday (11/24). 4. Hypertension -- controlled. 5. History of normal Lexiscan nuclear stress test performed earlier this year. PLAN AND RECOMMENDATIONS: The patient's anticoagulation will be reversed at this time due to presence of pericardial effusion. I have added colchicine 0.6 mg twice daily. I will also assess ESR, although the patient currently is chest pain free without ECG evidence of pericarditis. Case was discussed with the patient's vascular surgeon regarding concerns related to pericardial effusion and his known endoleak. Vascular surgery did not wish to evaluate the patient further at this time. The patient will be monitored in the medical ICU currently. Will transfer to [facility] for further evaluation and/or repeat CT angiogram of chest at this time. Addendum: CT of chest reviewed demonstrating hemopericardium. No report of acute dissection, however, findings consistent with hemopericardium. INR will be reversed with FFP. Will iniate treatment with NSAIDs and colchicine. Patient will be transferred to [facility] in [place] for further evaluation and treatment. 65 minutes of critical care time spent evaluating patient, formulating / coordinating plan of care, and discussion with consulting physicians. DOUG
[2016-11-25] MEDS ORDERED: OPTIRAY 320 IV PRN (18:30)
--- NOTE | 2016-11-25 20:01 | DIAGNOSTIC IMAGING REPORT ---
CHEST COMBO ANGIO DISSECTION CLINICAL HISTORY: 81 years-old Male presenting with chest pain earlier today. TECHNIQUE: Multidetector CT angiography of the chest was performed before and after the administration of intravenous contrast. 3-D volumetric and/or maximum intensity projection (MIP) images were subsequently reconstructed for review. IV contrast: 116 mL of Optiray 320. A dose lowering technique was used consistent with the principles of ALARA (as low as reasonably achievable). COMPARISON: CT from 03/24/2016. CT DOSE (mGy.cm): The estimated cumulative dose is 760.49 mGycm. FINDINGS: Tamper Operator topogram: Aortic endograft. There has been interval placement of an aortic endograft stent extending along the aortic arch immediately distal to the origin of the left common carotid artery. No evidence of an intramural hematoma or acute aortic injury on the current exam. Extensive thickening of the proximal descending thoracic aorta indicates occluded dissection flap. The aortic endograft stent extends to the aortic hiatus. Innominate and left common carotid arteries patent. The origin of the left subclavian artery demonstrates aneurysmal dilatation and partial opacification (series 5 image 22). An occlusion devices noted immediately distal to this. There is reconstitution of flow in the left subclavian beyond the occlusion device suggesting collateral flow, possibly from the left vertebral artery. Celiac and superior mesenteric arteries patent. Allowing for nongated technique, the ascending aorta measures 4.8 cm in diameter. The most dilated portion of the proximal descending thoracic aorta measures 6.7 cm. On soft tissue windows, thyroid and thoracic inlet normal. Scattered subcentimeter mediastinal lymph nodes. Mild multichamber enlargement of the heart. Small pericardial effusion is relatively higher density than simple fluid. Upper abdomen demonstrates few hypodensities, indeterminate but possibly hepatic cysts. On lung windows, extensive bandlike opacities noted bilaterally, most significantly along the paramediastinal left lower lobe, likely scarring and atelectasis. No other focal infiltrate. Airways patent. On bone windows, mild degenerative changes of the thoracic spine noted. IMPRESSION: 1. Postsurgical changes of aortic endograft stent placement along the distal arch and descending thoracic aorta occluding the type B dissection flap. Partial opacification of the origin of the left subclavian artery, which contains an occlusion device. Remaining branch vessels patent. 2. Small high density pericardial effusion. This raises concern for hemopericardium. This was not present on prior exam on 03/24/2016. 3. Ectasia of the ascending aorta measuring 4.8 cm, unchanged. Allowing for nongated technique, no evidence of a dissection flap involving the ascending aorta. 4. Extensive atelectasis or scarring. Electronically signed by: Ollie Van M.D. 11/25/2016 8:00 PM Dictated Date/Time: 11/25/2016 7:47 PM
[2016-11-25 20:20] VITALS: O2SAT 93
[2016-11-25 20:21] VITALS: BP 119/86; PULSE 85; TEMP 37; O2SAT 93
[2016-11-25] MEDS ORDERED: CLC6 PO (20:54)
[2016-11-25] MEDS ORDERED: PRAVASTATIN SOD 40 MG TAB PO SCH (21:00)
[2016-11-25] MEDS ORDERED: COLCHICINE 0.6 MG TAB PO SCH (21:00)
--- NOTE | 2016-11-25 21:02 | Discharge Instructions ---
Discharge Instructions Date of Service Nov 25, 2016. Admission Reason for Admission: Chest Pain Discharge Discharge Diagnosis / Problem: HEMOPERICARDIUM Discharge Goals Goal(s): Diagnostic testing, Therapeutic intervention Activity Recommendations Activity Level: Assistance Required . Additional Information Patient informed of condition: Yes Advance Directives: No DNR: No (PATIENT IS A FULL CODE) Level of Care: Other ([facility]) Communicable Disease: No Prognosis: Other (GUARDED) Instructions / Follow-Up Instructions / Follow-Up PLEASE REFER TO HOSPITAL DISCHARGE SUMMARY. Current Hospital Diet Patient's current hospital diet: AHA Diet (Heart Healthy) Discharge Diet Recommended Diet: AHA Diet (Heart Healthy) Procedures Procedures Performed: 2D ECHO, CT ANGIO Pending Studies Studies pending at discharge: yes List of pending studies: PER [facility] Medical Emergencies . Who to Call and When: Medical Emergencies: If at any time you feel your situation is an emergency, please call 911 immediately. . Non-Emergent Contact Non-Emergency issues call your: Primary Care Provider . . "Provider Documentation" section prepared by Dereck Don. . Core Measure Problem Core Measures: None
--- NOTE | 2016-11-25 21:29 | Discharge Summary ---
Discharge Summary Date of Service Nov 25, 2016. Discharge Summary Admission Date: Nov 25, 2016 at 13:21 Discharge Date: Nov 25, 2016 Discharge Disposition: Acute care facility Principal Diagnosis: POSSIBLE HEMOPERICARDIUM Secondary Diagnoses/Problems: PLEASE REFER TO HOSPITAL COURSE BELOW. Procedures: 2D ECHO: * -- Conclusions -- * Small to moderate apical, anterior, and left lateral loculated pericardial effusion. * There are no echocardiographic indications of cardiac tamponade. * Normal inferior vena cava size and collapsability with sniff indicates a normal right atrial pressure of 3 mmHg * Ejection Fraction = >70 %. * There is moderate concentric left ventricular hypertrophy. CHEST COMBO ANGIO DISSECTION CLINICAL HISTORY: 81 years-old Male presenting with chest pain earlier today. TECHNIQUE: Multidetector CT angiography of the chest was performed before and after the administration of intravenous contrast. 3-D volumetric and/or maximum intensity projection (MIP) images were subsequently reconstructed for review. IV contrast: 116 mL of Optiray 320. A dose lowering technique was used consistent with the principles of ALARA (as low as reasonably achievable). COMPARISON: CT from 03/24/2016. CT DOSE (mGy.cm): The estimated cumulative dose is 760.49 mGycm. FINDINGS: Glost Kiln Placer topogram: Aortic endograft. There has been interval placement of an aortic endograft stent extending along the aortic arch immediately distal to the origin of the left common carotid artery. No evidence of an intramural hematoma or acute aortic injury on the current exam. Extensive thickening of the proximal descending thoracic aorta indicates occluded dissection flap. The aortic endograft stent extends to the aortic hiatus. Innominate and left common carotid arteries patent. The origin of the left subclavian artery demonstrates aneurysmal dilatation and partial opacification (series 5 image 22). An occlusion devices noted immediately distal to this. There is reconstitution of flow in the left subclavian beyond the occlusion device suggesting collateral flow, possibly from the left vertebral artery. Celiac and superior mesenteric arteries patent. Allowing for nongated technique, the ascending aorta measures 4.8 cm in diameter. The most dilated portion of the proximal descending thoracic aorta measures 6.7 cm. On soft tissue windows, thyroid and thoracic inlet normal. Scattered subcentimeter mediastinal lymph nodes. Mild multichamber enlargement of the heart. Small pericardial effusion is relatively higher density than simple fluid. Upper abdomen demonstrates few hypodensities, indeterminate but possibly hepatic cysts. On lung windows, extensive bandlike opacities noted bilaterally, most significantly along the paramediastinal left lower lobe, likely scarring and atelectasis. No other focal infiltrate. Airways patent. On bone windows, mild degenerative changes of the thoracic spine noted. IMPRESSION: 1. Postsurgical changes of aortic endograft stent placement along the distal arch and descending thoracic aorta occluding the type B dissection flap. Partial opacification of the origin of the left subclavian artery, which contains an occlusion device. Remaining branch vessels patent. 2. Small high density pericardial effusion. This raises concern for hemopericardium. This was not present on prior exam on 03/24/2016. 3. Ectasia of the ascending aorta measuring 4.8 cm, unchanged. Allowing for nongated technique, no evidence of a dissection flap involving the ascending aorta. 4. Extensive atelectasis or scarring. Consultations: FUEL CELL DESIGNER DR. VILLALOBOS Pending Studies/Follow-Up: Please refer to hospital course below. 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 Boswell ([facility]) , s/p pseudoaneurysm injection of left brachial artery 06/27/[address] Boswell, hypertension per records, dyslipidemia, history of LLE DVT x 2 (10+ years ago) on Coumadin, and other problems listed below who presents to the ED with exertional chest pain. Patient states this morning while walking his dog uphill in his yard, he developed substernal pressure radiating to left jaw. He reports associated diaphoresis ("cold sweats") and mild shortness of breath. Patient stopped to rest and symptoms resolved within 1 minute. He then climbed stairs to his home and called 911. 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 Currently chest pain free. No radiation to his back. Patient states today's pain was different than his prior aortic dissection (felt back pain at that time). Typically he can climb 15 stairs without SALGADO. Pt admits to left calf tenderness he first noted yesterday. He is unsure if there is increased LE edema. He typically wears compression stockings. Pt reports episode of severe epistaxis approximately 2 weeks ago requiring packing removed by Dr. Epperson on 11/17/16. No further epistaxis. Has a f/u appointment with Dr. Epperson today. He denies dizziness, syncope, fever, chills, URI symptoms, cough, nausea, vomiting, acid reflux, bowel or bladder changes, GI bleeding, rash. No recent heavy lifting. Patient was seen yesterday 11/24/[address] [facility] [address] 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 Patient was referred to IR (Dr. Franklin) for treatment. Pt states he is to be called for an appointment. CTA chest and abdomen/ pelvis were done yesterday- radiology read still pending. Carotid duplex yesterday 11/24/16 showed PEYMAN <50% stenosis, LICA <50% stenosis, left vertebral artery demonstrates abnormal to-fro flow, L common carotid artery to left subclavian artery bypass graft without significant stenosis. Denies hx of CAD. Had negative nuclear stress test for preop eval 06/11/2016. Physical Exam (per Admitting): General Appearance: WD/WN, no apparent distress, + pertinent finding ( pleasant alert elderly male) Head: normocephalic, atraumatic Eyes: normal inspection, sclerae normal ENT: pharynx normal, + pertinent finding (hard of hearing) Neck: supple, trachea midline Respiratory/Chest: chest non-tender, lungs clear, normal breath sounds, no respiratory distress, no accessory muscle use Cardiovascular: regular rate, rhythm, no murmur Abdomen/GI: normal bowel sounds, non tender, soft Extremities/Musculoskelatal: + calf tenderness (mild calf tenderness left mid calf), + pertinent finding (trace ankle swelling L>R) Neurologic/Psych: alert, normal mood/affect, oriented x 3 Skin: normal color, warm/dry, no rash (no rash on the chest) Physical Exam (per Admitting): RUE BP 119/82, LUE BP 124/79 Hospital Course POSSIBLE HEMOPERICARDIUM - seen on Echo and CT angio - INR 2.3, given Vitamin K 5mg po and Colchicine - Dr. Villalobos discussed case with Dr. Pablo Bell in [facility]- Cardiology patient was accepted for transfer - discussed plan of care with patient at length and is comfortable/agreeable with plan of care EXERTIONAL CHEST PAIN R/o ACS; risk factors include hypertension, dyslipidemia, age No hx of CAD; prior stress test 05/2016 negative Initial troponin negative EKG-no acute ischemic findings CXR- unchanged small bilateral pleural effusions and bibasilar densities suggesting atelectasis, postop changes again noted -- possibly from hemopericardium? management as noted above HISTORY OF DVT Hx LLE DVT x 2, 10+ years ago INR= 2.3 given Vitamin K 5mg po H/O TYPE B THORACIC AORTIC DISSECTION S/p TEVAR and left carotid to SCA bypass 06/23/[address] Boswell ([facility]), s/p pseudoaneurysm injection of left brachial artery 06/27/[address] Boswell Seen by Dr. 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 Franklin) for treatment, patient told he would be called for appointment -- CTA chest as noted in procedure section H/O HYPERTENSION Per Epic records, however patient states BP is well controlled, not on antihypertensives BP is stable DYSLIPIDEMIA Continue statin DEPRESSION Continue Cymbalta CODE STATUS Full code per my discussion with the patient DISPOSITION transfer to [facility] Total time spent on discharge = This includes examination of the patient, discharge planning, medication reconciliation, and communication with other providers. Discharge Instructions Discharge Instructions Date of Service Nov 25, 2016. Admission Reason for Admission: Chest Pain Discharge Discharge Diagnosis / Problem: HEMOPERICARDIUM Discharge Goals Goal(s): Diagnostic testing, Therapeutic intervention Activity Recommendations Activity Level: Assistance Required . Additional Information Patient informed of condition: Yes Advance Directives: No DNR: No (PATIENT IS A FULL CODE) Level of Care: Other ([facility]) Communicable Disease: No Prognosis: Other ([facility]ARDED) Instructions / Follow-Up Instructions / Follow-Up PLEASE REFER TO HOSPITAL DISCHARGE SUMMARY. Current Hospital Diet Patient's current hospital diet: AHA Diet (Heart Healthy) Discharge Diet Recommended Diet: AHA Diet (Heart Healthy) Procedures Procedures Performed: 2D ECHO, CT ANGIO Pending Studies Studies pending at discharge: yes List of pending studies: PER [facility] Medical Emergencies . Who to Call and When: Medical Emergencies: If at any time you feel your situation is an emergency, please call 911 immediately. . Non-Emergent Contact Non-Emergency issues call your: Primary Care Provider . . "Provider Documentation" section prepared by Dereck Don. . Core Measure Problem Core Measures: None
[2016-11-26] MEDS ORDERED: ASPIRIN 81 MG ECTAB PO SCH (09:00)
[2016-11-26] MEDS ORDERED: MULTIVITAMIN TAB PO SCH (09:00)
[2016-11-26] MEDS ORDERED: DULOXETINE HCL 60 MG CAP PO SCH (09:00)
[2016-11-26] MEDS ORDERED: ISOSORBIDE MONONITRATE 30 MG TABCR PO SCH (09:00)
[2016-11-28] MEDS ORDERED: WARFARIN SOD 7.5 MG TAB PO SCH (16:00)
== END 2016-11-25 21:28 | disposition short-term general hospital (02) ==
LOC: EDBD 09:33 → C.EDB 09:34 → C.2E 13:21 → ENRESERV 13:41
PROVIDERS: ADMIT Internal Medicine; ATTEND Internal Medicine
DX: R07.9 Chest pain, unspecified (principal); T82.898A Other specified complication of vascular prosthetic devices, implants and grafts, initial encounter; Y83.2 Surgical operation with anastomosis, bypass or graft as the cause of abnormal reaction of the patient, or of later complication, without mention of misadventure at the time of the procedure; I10 Essential (primary) hypertension; E78.5 Hyperlipidemia, unspecified; F17.290 Nicotine dependence, other tobacco product, uncomplicated; M81.0 Age-related osteoporosis without current pathological fracture; M17.0 Bilateral primary osteoarthritis of knee; Z98.62 Peripheral vascular angioplasty status; F32.9 Major depressive disorder, single episode, unspecified; N40.0 Benign prostatic hyperplasia without lower urinary tract symptoms; Z86.718 Personal history of other venous thrombosis and embolism; Z79.01 Long term (current) use of anticoagulants; Z79.82 Long term (current) use of aspirin; Z82.49 Family history of ischemic heart disease and other diseases of the circulatory system; Z82.3 Family history of stroke

== ENCOUNTER 2017-01-12 01:49 | Observation (INO) | payer OTHER ==
[~2017-01-12] VITALS: Ht 175.3 cm; Wt 75.1 kg
[2017-01-12] VITALS (11 sets, daily range): BP systolic 99–125; BP diastolic 53–85; PULSE 71–83; TEMP 36.4–37.5; O2SAT 90–95; Ht 175.3 cm; Wt 75.1 kg
[~2017-01-12 01:49] MED LIST changes: +CLC6 PO; -WARF2.5T8 PO
--- NOTE | 2017-01-12 02:42 | EMERGENCY ROOM VISIT NOTE ---
History Report prepared by Radhika: Madina Kimbrough Under the Supervision of: Dr. Ashleigh Neri D.O. First contact with patient: 01:55 Chief Complaint: CHEST PAIN Stated Complaint: CHEST PAIN Nursing Triage Summary: c/o chest pain that started at 1700. pain worsens with deep breathing. denies N/V or SOB. hx HTN. pt took 4 asa prior to arrival. History of Present Illness The patient is a 81 year old male who presents to the Emergency Room with complaints of sudden central chest pain that began about 12 hours ago. He rates his pain as a 4/10. The patient states he wasn't doing anything when his pain began. He denies any sweating, nausea, vomiting, shortness of breath, or abdominal pain. He denies doing any strenuous activity yesterday. The patient has a history of Type B thoracic aortic dissection and surgery repair in May 2016. The patient came to the ED on October and was life flighted to [place] for hemopericardium. He has been following up with Dr. Boswell- cardiothoracic surgery and Dr. Guerra- cardiothoracic surgeon. The patient may have further elective repair surgery in April 2017. Source of History: patient Onset: 12 hours ago Position: chest Symptom Intensity: 4/10 Timing: other (sudden) Associated Symptoms: No diaphoresis, No SOB, No nausea, No vomiting, No abdominal pain Review of Systems See HPI for pertinent positives & negatives. A total of 10 systems reviewed and were otherwise negative. 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 (11) Osteoporosis Surgical Problems: (1) Hx of repair of dissecting thoracic aortic aneurysm, Keven type B (2) S/P AAA repair (3) S/P eye surgery (4) S/P knee surgery Family History Cancer FH: heart disease FATHER Hypertension FATHER MOTHER Stroke MOTHER Social History Smoking Status: Current Every Day Smoker Alcohol Use: occasionally Marital Status: Housing Status: lives alone Occupation Status: retired Current/Historical Medications Scheduled Aspirin (Aspirin Chewable), 81 MG PO QAM Colchicine (Colcrys), 0.6 MG PO DAILY Duloxetine Hcl (Cymbalta), 60 MG PO DAILY Folic Acid (Folvite), 1 MG PO QAM Ibuprofen (Ibuprofen), 600 MG PO TID Isosorbide Mononitrate (Isosorbide Mononitrate ER), 30 MG PO QAM Metoprolol Succinate (Toprol Xl), 12.5 MG PO DAILY Multiple Vitamin (Multivitamin), 1 TAB PO QAM Pantoprazole (Pantoprazole Sodium), 40 MG PO QAM Pravastatin Sodium (Pravachol), 80 MG PO HS Tramadol (Ultram), 50 MG PO Q6HR PRN Allergies Coded Allergies: Amoxicillin (Verified Adverse Reaction, Unknown, UNKNOWN, 01/12/17) Clavulanic Acid (Verified Adverse Reaction, Unknown, UNKNOWN, 01/12/17) Physical Exam Vital Signs Date Time Temp Pulse Resp B/P (MAP) Pulse Ox O2 Delivery O2 Flow Rate FiO2 01/12/17 05:49 78 20 120/85 98 01/12/17 05:11 77 01/12/17 04:43 84 20 103/69 94 Room Air 01/12/17 03:16 72 20 124/84 94 Room Air 01/12/17 01:59 76 01/12/17 01:50 Room Air 01/12/17 01:50 36.8 76 28 130/85 94 Room Air Physical Exam HEENT: Head - normocephalic and atraumatic Pupils are equal, round, and reactive to light. Extraocular eye muscles are intact, and sclera are anicteric. Nose - moist nasal mucosa without discharge. Mouth - moist buccal mucosa. Oropharynx is nonerythematous and there is no tonsillar exudate or edema noted. Neck: Supple; no JVD, nuchal rigidity, cervical lymphadenopathy, or auscultated bruits. Heart: Regular rate and rhythm. There is a normal S1 and S2 with no murmurs, clicks, or gallops appreciated. Lungs: Clear to auscultation bilaterally with no wheezes, rales, or rhonchi. Abdomen: Soft, completely nontender, nondistended, with good bowel sounds. There are no palpable pulsatile masses or hepatosplenomegaly. There is no guarding, rigidity, or rebound noted. Extremities: No evidence of cyanosis, clubbing, or edema. There are easily palpable peripheral pulses. Skin: warm and dry with good turgor and no rashes. Medical Decision & Procedures ER Provider Diagnostic Interpretation: Radiology results as stated below per my review and the radiologist's interpretation: CTA CHEST: Comparison 11/25/2016 Again seen is an aortic endograft extending along the aortic arch distal to the origin of the left common card artery. There is a mural thrombus noted within the proximal descending thoracic aorta likely excluded portion of the remote dissection. No significant change as compared to the prior. Stable mild amount of hyperdense fluid noted within the pericardium. Coronary artery calcifications. Trace bilateral pleural effusion. Dependant atelectasis. No definite parenchymal abnormality to suggest an inflammatory or infectious process. Upper abdomen demonstrates cysts within the left kidney and probable liver. No acute osseous abnormality. Radiologist: Morales Amor Laboratory Results 01/12/17 02:20 Red Blood Count 4.60, Mean Corpuscular Volume 88.3, Mean Corpuscular Hemoglobin 27.8, Mean Corpuscular Hemoglobin Concent 31.5, Mean Platelet Volume 10.4, Neutrophils (%) (Auto) 64.6, Lymphocytes (%) (Auto) 18.6, Monocytes (%) (Auto) 15.8, Eosinophils (%) (Auto) 0.4, Basophils (%) (Auto) 0.5, Neutrophils # (Auto ) 4.87, Lymphocytes # (Auto) 1.40, Monocytes # (Auto) 1.19, Eosinophils # (Auto ) 0.03, Basophils # (Auto) 0.04 01/12/17 02:20 Test 01/12/17 02:20 White Blood Count 7.54 K/uL (4.8-10.8) Red Blood Count 4.60 M/uL (4.7-6.1) Hemoglobin 12.8 g/dL (14.0-18.0) Hematocrit 40.6 % (42-52) Mean Corpuscular Volume 88.3 fL (80-100) Mean Corpuscular Hemoglobin 27.8 pg (25-34) Mean Corpuscular Hemoglobin Concent 31.5 g/dl (32-36) Platelet Count 138 K/uL (130-400) Mean Platelet Volume 10.4 fL (7.4-10.4) Neutrophils (%) (Auto) 64.6 % Lymphocytes (%) (Auto) 18.6 % Monocytes (%) (Auto) 15.8 % Eosinophils (%) (Auto) 0.4 % Basophils (%) (Auto) 0.5 % Neutrophils # (Auto) 4.87 K/uL (1.4-6.5) Lymphocytes # (Auto) 1.40 K/uL (1.2-3.4) Monocytes # (Auto) 1.19 K/uL (0.11-0.59) Eosinophils # (Auto) 0.03 K/uL (0-0.5) Basophils # (Auto) 0.04 K/uL (0-0.2) RDW Standard Deviation 49.1 fL (36.4-46.3) RDW Coefficient of Variation 15.2 % (11.5-14.5) Immature Granulocyte % (Auto) 0.1 % Immature Granulocyte # (Auto) 0.01 K/uL (0.00-0.02) Prothrombin Time 11.7 SECONDS (9.0-12.0) Prothromb Time International Ratio 1.1 (0.9-1.1) Activated Partial Thromboplast Time 30.4 SECONDS (21.0-31.0) Partial Thromboplastin Ratio 1.2 Anion Gap 11.0 mmol/L (3-11) Est Creatinine Clear Calc Drug Dose 51.1 ml/min Estimated GFR () 74.9 Estimated GFR (Non- 64.6 BUN/Creatinine Ratio 25.3 (10-20) Calcium Level 9.0 mg/dl (8.5-10.1) Total Creatine Kinase 43 U/L (39-308) Pro-B-Type Natriuretic Peptide 727 pg/ml (0-1800) Laboratory results per my review. ECG Indication: chest pain Rate (beats per minute): 78 Rhythm: normal sinus Findings: no acute ischemic change, no ectopy Comparison ECG Date: 11/25/16 Change: no significant change ED Course 0221: Past medical records reviewed. The patient was evaluated in room A10. A complete history and physical exam was performed. A twelve-lead EKG was obtained. An IV lock was initiated and labs are drawn as above. The patient was observed on the stamping operator and pulse oximeter. 0405: The patient states that his pain has some was completely resolved at this time. We did discuss further review of his past history with regards to the aortic dissection. I reviewed laboratory tests with the patient. 0500: The patient's pain is almost resolved. 0511: Discussed the patient's case with Dr. Andujar. The patient will be evaluated for further management. Medical Decision The patient is a 81 year old male who presents to the Emergency Room with complaints of sudden central chest pain that began about 12 hours ago. Differential diagnosis includes: worsening aortic dissection, recurrent hemopericardium, acute coronary syndrome, NSTEMI Lab results show: normal white count, slightly low hemoglobin at 12.8, BUN 27, creatinine 1, glucose 113, negative cardiac enzymes, BNP 727, normal coags. This is an 81-year-old male patient with history of type B aortic dissection with previous repair complicated by hemopericardium. The patient was feeling well over the past couple weeks but suddenly developed chest discomfort this evening. The patient does have a cardiac history. He denies any other associated symptoms. He has negative cardiac enzymes are normal EKG. In light of his complicated history, I felt he would require a complete rule out of acute coronary syndrome. I discussed the case with the [facility] Hospitalist and they will violate for further management. Medication Reconcilliation Current Medication List: was personally reviewed by me Blood Pressure Screening Patient's blood pressure: Normal blood pressure Blood pressure disposition: Referred to PCP (will be evaluated by hospitalist) Consults Time Called: 050 Consulting Physician: Dr. Andujar Returned Call: [id number] Discussed the patient's case. The patient will be evaluated for further management. Impression Primary Impression: Substernal chest pain Scribe Attestation The scribe's documentation has been prepared under my direction and personally reviewed by me in its entirety. I confirm that the note above accurately reflects all work, treatment, procedures, and medical decision making performed by me. Departure Information Dispostion Being Evaluated By Hospitalist Prescriptions Ibuprofen (Ibuprofen) 600 Mg Tab 600 MG PO TID for 30 Days, #90 TAB TAKE WITH FOOD Prov: Magdalene Moya M.D. 01/13/17 Colchicine (Colcrys) 0.6 Mg Tab 0.6 MG PO DAILY for 30 Days, #30 TAB 3 Refills Prov: Magdalene Moya M.D. 01/13/17 Pantoprazole (Pantoprazole Sodium) 40 Mg Tab 40 MG PO QAM for 30 Days, #30 TAB Prov: Magdalene Moya M.D. 01/13/17 Referrals Benjie Carey M.D. (PCP) Patient Instructions My [facility]
[2017-01-12] MEDS ORDERED: OPTIRAY 320 IV PRN (02:45)
[2017-01-12 02:50] LABS: BASO % 0.5 %; BASO ABS # 0.04 K/uL (0-0.2); COMPLETE YES; EOS % 0.4 %; HEMATOCRIT 40.6 % (42-52); IG% 0.1 %; LYMPH % 18.6 %; MEAN CELL VOLUME 88.3 fL (80-100); MEAN CORPUSCULAR HEMOGLOBIN 27.8 pg (25-34); MEAN CORPUSCULAR HGB CONC 31.5 g/dl (32-36); MEAN PLATELET VOLUME 10.4 fL (7.4-10.4); MONO % 15.8 %; NEUT % 64.6 %; PLATELET COUNT 138 K/uL (130-400); WHITE BLOOD COUNT 7.54 K/uL (4.8-10.8)
[2017-01-12 02:56] LABS: INR 1.1 (0.9-1.1); PARTIAL THROMBOPLASTIN RATIO 1.2; PROTHROMBIN TIME (PATIENT) 11.7 SECONDS (9.0-12.0)
[2017-01-12 02:57] LABS: BLOOD UREA NITROGEN 27 mg/dl (7-18); BUN/CREATININE RATIO 25.3 (10-20); CARBON DIOXIDE 25 mmol/L (21-32); CHLORIDE 104 mmol/L (98-107); CREATININE 1.06 mg/dl (0.60-1.40); GLUCOSE 113 mg/dl (70-99); POTASSIUM 4.3 mmol/L (3.5-5.1); SODIUM 140 mmol/L (136-145)
[2017-01-12 03:02] LABS: CKMB/CK RATIO 2.3 (0-3.0)
[2017-01-12] MEDS ORDERED: CLC6 PO (05:55)
[2017-01-12] MEDS ORDERED: METO-478 PO (05:55)
--- NOTE | 2017-01-12 06:50 | History and Physical ---
History & Physical Date & Time of Service: Jan 12, 2017 at 06:00 Chief Complaint: Chest Pain Primary Care Physician: Benjie Carey M.D. History of Present Illness Source: patient, clinic records, hospital records 81 yo Male with PMH DVT, hypercoagulable state (MTHFR) off Coumadin due to concern for hemopericardium, OA, pericarditis, pericardial effusion, Dyslipidemia, type B thoracoabdominal aortic aneurysm, s/p TEVAR covering left subclavian and left carotid to SCA bypass and left subclavian amplatz plug on by Dr. Boswell. Also underwent pseudoaneurysm injection of left brachial artery with thrombin on 06/27/16, and type 2 Endovascular leak present to the ER for pressure like chest pain. Pt was admitted back in 11/16 he was found to have pericardial effusion on echo. Due to concern for hemopericardium at that time he was life flighted to [facility]. He was treated there for acute pericarditis with high dose aspirin and colchicine. His coumadin has been on hold since then. Pt said that chest pain woke him up in the middle of the night. Describes it as pressure like chest pain, very severe, non radiated, worsening with deep breathing. Pt said that this chest pain is different compare to the previous chest pain he had back in Oct because this one is more severe in intensity. He said that he has been doing well since discharge from [place] back in October. Denies any diaphoresis, palpitation, dizziness, SOB , chills and fever. Past Medical/Surgical History Medical Problems: (1) BPH (benign prostatic hyperplasia) Status: Chronic (2) Depression Status: Chronic (3) DJD (degenerative joint disease) Status: Chronic (4) DVT (deep venous thrombosis) Status: Chronic (5) History of dissection of thoracic aorta Status: Chronic (6) History of temporal arteritis Status: Chronic (7) Hyperlipidemia Status: Chronic (8) Hypertension Status: Chronic (9) Mild reactive airways disease Status: Chronic (10) Osteoporosis Status: Chronic Surgical Problems: (1) Hx of repair of dissecting thoracic aortic aneurysm, Keven type B Permanent Comment: Left common carotid artery to left subclavian artery Dacron bypass graft 06/23/[address] Boswell Repair thoracic aortic aneurysm with aortic dissection using Medtronic Valiant thoracic aortic stent graft covering left subclavian artery and distal Medtronic Valiant thoracic aortic extension placement x2, -Main body graft: [id number]; Two distal extensions measuring 46 x 200 and 46 x 150, Amplanz plug of the left subclavian 06/24/[address] Boswell, Pseudoaneurysm injection of the left brachial artery 06/27/[address] Boswell Status: Chronic (2) S/P AAA repair Status: Resolved (3) S/P eye surgery Status: Chronic (4) S/P knee surgery Status: Chronic Family History Cancer FH: heart disease FATHER Hypertension FATHER MOTHER Stroke MOTHER Social History Smoking Status: Current Every Day Smoker Marital Status: Housing status: lives alone Occupational Status: retired Immunizations History of Influenza Vaccine: N/A History of Tetanus Vaccine?: Yes Tetanus Immunization Date: Jun 24, 2000 History of Pneumococcal: Yes Pneumococcal Date: Jan 24, 2007 History of Hepatitis B Vaccine: No Multi-Drug Resistant Organisms History of MDRO: No Allergies Coded Allergies: Amoxicillin (Verified Adverse Reaction, Unknown, UNKNOWN, 01/12/17) Clavulanic Acid (Verified Adverse Reaction, Unknown, UNKNOWN, 01/12/17) Home Medications Scheduled Aspirin (Aspirin Chewable), 81 MG PO QAM Colchicine (Colcrys), 0.6 MG PO DAILY Duloxetine Hcl (Cymbalta), 60 MG PO DAILY Folic Acid (Folvite), 1 MG PO QAM Isosorbide Mononitrate (Isosorbide Mononitrate ER), 30 MG PO QAM Metoprolol Succinate (Toprol Xl), 12.5 MG PO DAILY Multiple Vitamin (Multivitamin), 1 TAB PO QAM Pravastatin Sodium (Pravachol), 80 MG PO HS Tramadol (Ultram), 50 MG PO Q6HR PRN Review of Systems Constitutional: No fever, No chills ENT: No nasal symptoms, No sore throat Respiratory: No cough, No sputum, No shortness of breath Cardiovascular: + chest pain, No claudication, No palpitations Abdomen: No pain, No nausea, No vomiting Musculoskeletal: No swelling, No calf pain Genitourinary - Male: No hematuria, No dysuria Neurologic: No memory loss, No paralysis Psychiatric: No substance abuse Endocrine: No excessive thirst Hematologic / Lymphatic: No abnormal bleeding/bruising Integumentary: No rash, No itch Physical Exam Vital Signs Date Time Temp Pulse Resp B/P (MAP) Pulse Ox O2 Delivery O2 Flow Rate FiO2 01/12/17 05:11 77 01/12/17 04:43 84 20 103/69 94 Room Air 01/12/17 03:16 72 20 124/84 94 Room Air 01/12/17 01:59 76 01/12/17 01:50 Room Air 01/12/17 01:50 36.8 76 28 130/85 94 Room Air General Appearance: WD/WN, no apparent distress Head: normocephalic, atraumatic Eyes: PERRL, EOMI ENT: + pertinent finding (hearing aids ) Neck: no JVD, trachea midline Respiratory/Chest: normal breath sounds, no respiratory distress, no accessory muscle use Cardiovascular: regular rate, rhythm, no edema, no JVD Abdomen/GI: normal bowel sounds, non tender, soft Back: no CVA tenderness Extremities/Musculoskelatal: no calf tenderness Neurologic/Psych: no motor/sensory deficits, alert, oriented x 3 Skin: warm/dry, no rash Diagnostics Laboratory Results Results Past 24 Hours Test 01/12/17 02:20 Range/Units White Blood Count 7.54 4.8-10.8 K/uL Red Blood Count 4.60 4.7-6.1 M/uL Hemoglobin 12.8 14.0-18.0 g/dL Hematocrit 40.6 42-52 % Mean Corpuscular Volume 88.3 80-100 fL Mean Corpuscular Hemoglobin 27.8 25-34 pg Mean Corpuscular Hemoglobin Concent 31.5 32-36 g/dl Platelet Count 138 130-400 K/uL Mean Platelet Volume 10.4 7.4-10.4 fL Neutrophils (%) (Auto) 64.6 % Lymphocytes (%) (Auto) 18.6 % Monocytes (%) (Auto) 15.8 % Eosinophils (%) (Auto) 0.4 % Basophils (%) (Auto) 0.5 % Neutrophils # (Auto) 4.87 1.4-6.5 K/uL Lymphocytes # (Auto) 1.40 1.2-3.4 K/uL Monocytes # (Auto) 1.19 0.11-0.59 K/uL Eosinophils # (Auto) 0.03 0-0.5 K/uL Basophils # (Auto) 0.04 0-0.2 K/uL RDW Standard Deviation 49.1 36.4-46.3 fL RDW Coefficient of Variation 15.2 11.5-14.5 % Immature Granulocyte % (Auto) 0.1 % Immature Granulocyte # (Auto) 0.01 0.00-0.02 K/uL Prothrombin Time 11.7 9.0-12.0 SECONDS Prothromb Time International Ratio 1.1 0.9-1.1 Activated Partial Thromboplast Time 30.4 21.0-31.0 SECONDS Partial Thromboplastin Ratio 1.2 Sodium Level 140 136-145 mmol/L Potassium Level 4.3 3.5-5.1 mmol/L Chloride Level 104 98-107 mmol/L Carbon Dioxide Level 25 21-32 mmol/L Anion Gap 11.0 3-11 mmol/L Blood Urea Nitrogen 27 7-18 mg/dl Creatinine 1.06 0.60-1.40 mg/dl Est Creatinine Clear Calc Drug Dose 51.1 ml/min Estimated GFR () 74.9 Estimated GFR (Non- 64.6 BUN/Creatinine Ratio 25.3 10-20 Random Glucose 113 70-99 mg/dl Calcium Level 9.0 8.5-10.1 mg/dl Total Creatine Kinase 43 39-308 U/L Creatine Kinase MB 1.0 0.5-3.6 ng/ml Creatine Kinase MB Ratio 2.3 0-3.0 Troponin I < 0.015 0-0.045 ng/ml Pro-B-Type Natriuretic Peptide 727 0-1800 pg/ml Diagnostic Radiology CTA CHEST: Comparison 11/25/2016 Again seen is an aortic endograft extending along the aortic arch distal to the origin of the left common card artery. There is a mural thrombus noted within the proximal descending thoracic aorta likely excluded portion of the remote dissection. No significant change as compared to the prior. Stable mild amount of hyperdense fluid noted within the pericardium. Coronary artery calcifications. Trace bilateral pleural effusion. Dependant atelectasis. No definite parenchymal abnormality to suggest an inflammatory or infectious process. Upper abdomen demonstrates cysts within the left kidney and probable liver. No acute osseous abnormality. Radiologist: Morales Amor Impression Assessment and Plan Pleuritic Chest pain Possible related to Pericarditis Need to R/O cardiac Tamponade and ACS 1st troponin negative EKG showed no significant ST changes Preliminary CTA chest report There is a mural thrombus noted within the proximal descending thoracic aorta likely excluded portion of the remote dissection. No significant change as compared to the prior. Stable mild amount of hyperdense fluid noted within the pericardium. Coronary artery calcifications. Trace bilateral pleural effusion. Limited Echo on 01/16 showed Small apical,anterior and left loculated pericardial effusion with no echocardiographic indications of cardiac tamponade. Lexiscan nuclear cardiac stress test negative for ischemia on 06/16 Will consult cardiology Repeat echo Continue asa and colchicine and metoprolol and statin Follow cardiac marker Continue monitor in telemetry Hx DVT Hypercoagulable state Coumadin was discontinue due to concern of hemopericardium Pericarditis Continue colchicine/asa OA has been stable since starting on colchicine as per pt has not been taking tramadol Type B Thoracoabdominal Aortic Aneurysm Has been follow with vascular in [place] Stable DVT px high risk due to MTHFR mutation SCDs for now will start on heparin subq if Echo showed no tamponade CODE status Full No Mech Ventilation as per patient Level of Care Telemetry Resuscitation Status FULL NO MECH VENTILATION VTE Prophylaxis VTE Risk Assessment Done? Y/N: Yes Risk Level: High
--- NOTE | 2017-01-12 07:12 | DIAGNOSTIC IMAGING REPORT ---
CT CHEST COMBO ANGIO DISSECTION CLINICAL HISTORY: Chest pain with history of aortic dissection and repair. COMPARISON STUDY: 11/25/2016 FINDINGS: Unenhanced images were obtained through the thorax. The patient was then scanned in a dynamic helical fashion during intravenous administration of 92 cc of Optiray 320. MIP imaging was performed. Noncontrast images reveal no evidence of acute aortic hematoma. Postcontrast images reveal a thoracic aortic stent graft extending from the proximal aortic arch to the upper abdominal aorta. Again evident is a small endoleak posterior to the arch. The innominate and left common carotid arteries are patent. There is an apparent occlusion device at the left subclavian origin. There is reconstitution of this vessel immediately distal to the occlusion device. At the distal aspect of the stent graft, a dissection flap is again visualized. There is thrombus external to the stent graft, likely secondary to a thrombosed false lumen. The ascending thoracic aorta measures 5 cm. No dissection flap is visualized within the ascending thoracic aorta. There are coronary artery calcifications. There is an equivocal 1 cm left lobe thyroid nodule. Mediastinal lymph nodes are the upper limits of normal in size. There is no pathologic axillary or hilar adenopathy. There is a small to moderate pericardial effusion similar to the preceding study. There are persistent right-sided pleural calcifications. There are areas of pleural thickening. There is no pneumothorax. There are left lower lobe atelectatic changes. IMPRESSION: 1. Again evident is a thoracic aortic stent graft. 2. Dilatation of the ascending thoracic aorta which measures 5 cm 3. Persistent mild to moderate pericardial effusion 4. Persistent small endoleak 5. Pleural calcifications and areas of atelectasis Electronically signed by: Raoul Carr M.D. 01/12/2017 7:11 AM Dictated Date/Time: 01/12/2017 6:59 AM
[2017-01-12] MEDS: COLCHICINE 0.6 MG TAB PO SCH (07:39)
[2017-01-12] MEDS: ISOSORBIDE MONONITRATE 30 MG TABCR PO SCH (07:39)
[2017-01-12] MEDS: METOPROLOL SUCC 25MG EXT REL TAB PO SCH (07:39)
[2017-01-12] MEDS: ASPIRIN 81 MG ECTAB PO SCH (07:40)
[2017-01-12] MEDS: DULOXETINE HCL 60 MG CAP PO SCH (07:40)
[2017-01-12] MEDS ORDERED: IV FLUIDS COMPLETED PRN (09:00)
--- NOTE | 2017-01-12 09:30 | ECHOCARDIOGRAM REPORT ---
*NOTICE TO RECEIVING CONSTITUTION PARTY AGENCY This information is strictly Confidential and protected under [place] law. [place] law prohibits you from making any further disclosure of this information unless further disclosure is expressly permitted by the written consent of the person to whom it pertains or is authorized by law. A general authorization for the release of medical or other information is not sufficient for this purpose. Hospital accepts no responsibility if the information is made available to any other person, INCLUDING THE PATIENT. Interpretation Summary * Name: BOBBI GIBBONS Study Date: 01/12/2017 08:19 AM BP: 122/80 mmHg * Patient Location: C.2T\S\S240\S\2 HR: 74 * : 1935 (M/d/yyyy) Gender: Male Height: 69 in * Age: 81 yrs Ethnicity: CA Weight: 166 lb * Ordering Physician: Alex Cormier * Referring Physician: ZHEN * Performed By: Alberta Tavares RDCS * * Reason For Study: R/O TAMPONADE * BSA: 1.9 m2 * -- Conclusions -- * Small apical, anterior, and left lateral loculated pericardial effusion. Not significantly changed compared to previous study of 11/25/16 * Normal LV chamber size and wall thickness. * Normal LV systolic function, EF 55-60%. * No segmental left ventricular wall motion abnormalities are noted. * Grade I diastolic dysfunction. * No significant valvular pathology. * . Procedure Details * A contrast injection of Definity was performed to improve assessment of LV function. * Contrast was injected into an intravenous site in the left arm. * One vial of Definity ultrasound contrast was diluted in normal saline to a total volume of 10 ml. A total of '2' ml of solution was administered during imaging. * Lot # [id number] of Definity utilized for procedure. * Expiration date FEB 16. * The attending nurse who injected the contrast agent was TACHO RODRIGUEZ RN. Left Ventricle * The left ventricle is normal in size. * There is normal left ventricular wall thickness. * Ejection Fraction = 65-70%. * Left ventricular systolic function is normal. * No segmental left ventricular wall motion abnormalities are noted. * The left ventricular wall motion is normal. Right Ventricle * The right ventricular cavity size is normal (basal dimension <4.2 cm in right ventricular apical 4-chamber view). * The right ventricular systolic function is normal as assessed by tricuspid annular plane systolic excursion (TAPSE) (normal >1.5 cm). Atria * The left atrial size is normal. * Right atrial size is normal. * No ASD detected; PFO is not assessed. Mitral Valve * The mitral valve is normal in structure and function. Tricuspid Valve * The tricuspid valve is normal in structure and function. Aortic Valve * The aortic valve is not well visualized. * No hemodynamically significant valvular aortic stenosis. * There is no significant aortic regurgitation. Pulmonic Valve * The pulmonary valve is not well seen, but the Doppler examination is normal without significant regurgitation or stenosis. Great Vessels * The aortic root is not well visualized. Pericardium/Pleural * Small pericardial effusion. * Small apical, anterior, and left lateral loculated pericardial effusion. Not significantly changed compared to previous study of 11/25/16. Left Ventricular Diastolic Function * Grade I diastolic dysfunction, (abnormal relaxation pattern). MMode 2D Measurements and Calculations IVSd 0.98 cm IVSs 1.2 cm LVIDd 3.6 cm LVIDs 2.3 cm LVPWd 1.1 cm LVPWs 1.5 cm IVS/LVPW 0.89 FS 37.0 % EDV(Teich) 56.2 ml ESV(Teich) 18.1 ml EF(Teich) 67.8 % EDV(cubed) 48.6 ml ESV(cubed) 12.1 ml EF(cubed) 75.0 % % IVS thick 27.1 % % LVPW thick 40.5 % LV mass(C)d 116.3 grams LV mass(C)dI 61.0 grams/m\S\2 LV mass(C)s 99.9 grams LV mass(C)sI 52.3 grams/m\S\2 SV(Teich) 38.2 ml SI(Teich) 20.0 ml/m\S\2 SV(cubed) 36.5 ml SI(cubed) 19.1 ml/m\S\2 LVAd ap4 20.0 cm\S\2 LVLd ap4 7.4 cm EDV(MOD-sp4) 45.7 ml EDV(sp4-el) 46.2 ml LVAs ap4 10.7 cm\S\2 LVLs ap4 6.8 cm ESV(MOD-sp4) 17.4 ml ESV(sp4-el) 14.3 ml EF(MOD-sp4) 61.9 % EF(sp4-el) 69.1 % LVAd ap2 19.6 cm\S\2 LVLd ap2 7.7 cm EDV(MOD-sp2) 42.0 ml EDV(sp2-el) 42.4 ml LVAs ap2 11.3 cm\S\2 LVLs ap2 6.9 cm ESV(MOD-sp2) 19.2 ml ESV(sp2-el) 15.9 ml EF(MOD-sp2) 54.2 % EF(sp2-el) 62.6 % LVLd %diff 3.7 % EDV(MOD-bp) 44.9 ml LVLs %diff 1.5 % ESV(MOD-bp) 18.3 ml EF(MOD-bp) 59.2 % SV(MOD-sp4) 28.3 ml SI(MOD-sp4) 14.8 ml/m\S\2 SV(MOD-sp2) 22.7 ml SI(MOD-sp2) 11.9 ml/m\S\2 SV(MOD-bp) 26.6 ml SI(MOD-bp) 13.9 ml/m\S\2 SV(sp4-el) 31.9 ml SI(sp4-el) 16.7 ml/m\S\2 SV(sp2-el) 26.5 ml SI(sp2-el) 13.9 ml/m\S\2 Doppler Measurements and Calculations MV E max jasmyne 72.3 cm/sec MV A max jasmyne 94.1 cm/sec MV E/A 0.77 MV dec time 0.32 sec Ao V2 max 122.6 cm/sec Ao max PG 6.0 mmHg Ao max PG (full) 1.6 mmHg LV V1 max PG 4.4 mmHg LV V1 max 105.1 cm/sec
[2017-01-12] MEDS ORDERED: MoRPHine SULFATE 2 MG/ML CARP IV PRN (12:15)
[2017-01-12] MEDS ORDERED: NITROGLYCERIN 0.4 MG SL PER TAB CHARGE SL PRN (12:15)
--- NOTE | 2017-01-12 12:16 | Progress Note ---
Internal Med Progress Note Date of Service: Jan 12, 2017. Provider Documentation: SUBJECTIVE: pt seen in room 240-2 lying in bed , no sign of discomfort , mentions chest pain still persists but much better than yesterday experiencing chest heaviness in mid chest /mid sternum ; minimum at rest , gets worse when sitting up or attempt to take deep breath no evidence of hypoxia, adequate oxygenation in RA no complain of palpitation or dizzy spell no fever or chills, no SOB or cough no arrhythmia noted on Tele OBJECTIVE: Vital Signs-as noted below Exam: General-very pleasant , no sign of distress, conversing Eyes-sclera non icteric , PERRLA, EOMI ENT-Ear -normal inspection , no deformity or scar noted , normal hearing Nose : normal exam , Oropharynx : normal finding, no erythema or exudate Neck-normal exam -no mass or lymphadenopathy , trachea midline, no thyromegaly Lungs-clear to auscultate , no wheeze or rales Heart-regular S1/S2 Abdomen-soft, non tender , no organomegaly , bowel sound active Extremities-no lower ext edema, no cyanosis , no clubbing , no rash or deformity Neuro-AAo x3 , no focal neurological deficit Lab data as noted below. ASSESSMENT & PLAN: PLEURITIC CHEST PAIN /DUE TO PERICARDITIS : not suggestive of any acute coronary event chest pain pleuritic in nature /associated with change in position symptom has improved but still persisting at a moderate rate 6-8/10 at worst EKG no ischemic , serial cardiac markers negative appreciate input form Cardiology -possible due to pericarditis ECHO shows small apical , anterior , and left lateral loculated pericardial effusion , not significantly changed compared to previous study of 11/25/16 normal LV chamber size and wall thickness , normal LV systolic function EF 55- 60 % no segmental wall motion abnormality noted Pt already been on Colchicine added Motrin 600 mg TID to be given after meal no further cardiac testing or intervention needed TYPE 2 THORACIC AORTIC DISSECTION : Follows with Vascular surgery in [facility] s/p TEVAR repair of asymptomatic 6 cm Type thoracic aortic dissection with Dacron bypass graft on 06/23/[address] Boswell pt developed 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 -possibly via intercostal or lumber artery pt has been followed with Vascular surgery in [place] closely CTA of chest on 11/24/16 showed : descending thoracic aorta measures 7.3 Cm in greatest transverse dimension with type II endoleak , AAA measures 5 cm at Celiac artery pt was scheduled for repair of Endoleak on 12/30/16 ,was cancelled by [facility] as serial CTA of aneurysm showed no increase in size of aneurysm sac pt was scheduled for a 6 months follow up and possible endo leak repair on 2017 CTA of thoracic aneurysm done this admission on 01/12/17 ( compared with study on 11/25/16 ) shows : stable dilatation of ascending thoracic aorta measures 5 cm persisted small endoleak posterior to the arch persisted mild to moderate pericardial effusion given pt's chest pain and known hx of AAA and endoleak Contacted [facility], Vascular surgery Dr Boswell updated regarding pt's current clinical symptom and and CTA of chest finding Dr Boswell does not feel the AAA sac has gotten bigger due to progression of the Endoleak from CTA size of the sac appears to be stable as pt does not have any hemodynamic instability-active dissection highly unlikely recommend to continued pain management with NSAID's /Colchicine for pericarditis -triggering the pleuritic chest pain no indication for tx to [facility] pt will be followed with Vascular surgery as out 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 Dr Wright updated regarding Vascular surgery recommendation , in agreement with the plan HX OF MTHFR MUTATION /HX OF DVT : has been off form Coumadin since last admission with concern for endoleak and possible hemopericardium INR remains sub therapeutic cont to hold anticoagulation avoid active anticoagulation with Coumadin till Endoleak is repaired , cardiac pleural effusion resolved FULL CODE DVT PROPHYLAXIS low to moderate risk sub q heparin pt is encouraged to ambulate DISPOSITION expected to be discharged home in next 1-2 days as chest pain improves / resolves no further cardiac imaging or testing needed Medicine follow up with Dr Carey vascular surgery follow up at [facility] with Dr Boswell Vital Signs: Date Time Temp Pulse Resp B/P (MAP) Pulse Ox O2 Delivery O2 Flow Rate FiO2 01/12/17 12:25 36.8 83 18 99/53 (68) 92 Room Air 01/12/17 12:00 92 Room Air 01/12/17 08:00 92 Room Air 01/12/17 07:54 37.5 74 16 122/80 (94) 92 Room Air 01/12/17 06:05 36.7 76 16 125/85 95 Room Air 01/12/17 05:49 78 20 120/85 98 01/12/17 05:11 77 01/12/17 04:43 84 20 103/69 94 Room Air 01/12/17 03:16 72 20 124/84 94 Room Air 01/12/17 01:59 76 01/12/17 01:50 Room Air 01/12/17 01:50 36.8 76 28 130/85 94 Room Air Lab Results: Results Past 24 Hours Test 01/12/17 02:20 01/12/17 08:19 Range/Units White Blood Count 7.54 4.8-10.8 K/uL Red Blood Count 4.60 4.7-6.1 M/uL Hemoglobin 12.8 14.0-18.0 g/dL Hematocrit 40.6 42-52 % Mean Corpuscular Volume 88.3 80-100 fL Mean Corpuscular Hemoglobin 27.8 25-34 pg Mean Corpuscular Hemoglobin Concent 31.5 32-36 g/dl Platelet Count 138 130-400 K/uL Mean Platelet Volume 10.4 7.4-10.4 fL Neutrophils (%) (Auto) 64.6 % Lymphocytes (%) (Auto) 18.6 % Monocytes (%) (Auto) 15.8 % Eosinophils (%) (Auto) 0.4 % Basophils (%) (Auto) 0.5 % Neutrophils # (Auto) 4.87 1.4-6.5 K/uL Lymphocytes # (Auto) 1.40 1.2-3.4 K/uL Monocytes # (Auto) 1.19 0.11-0.59 K/uL Eosinophils # (Auto) 0.03 0-0.5 K/uL Basophils # (Auto) 0.04 0-0.2 K/uL RDW Standard Deviation 49.1 36.4-46.3 fL RDW Coefficient of Variation 15.2 11.5-14.5 % Immature Granulocyte % (Auto) 0.1 % Immature Granulocyte # (Auto) 0.01 0.00-0.02 K/uL Prothrombin Time 11.7 9.0-12.0 SECONDS Prothromb Time International Ratio 1.1 0.9-1.1 Activated Partial Thromboplast Time 30.4 21.0-31.0 SECONDS Partial Thromboplastin Ratio 1.2 Sodium Level 140 136-145 mmol/L Potassium Level 4.3 3.5-5.1 mmol/L Chloride Level 104 98-107 mmol/L Carbon Dioxide Level 25 21-32 mmol/L Anion Gap 11.0 3-11 mmol/L Blood Urea Nitrogen 27 7-18 mg/dl Creatinine 1.06 0.60-1.40 mg/dl Est Creatinine Clear Calc Drug Dose 51.1 ml/min Estimated GFR () 74.9 Estimated GFR (Non- 64.6 BUN/Creatinine Ratio 25.3 10-20 Random Glucose 113 70-99 mg/dl Calcium Level 9.0 8.5-10.1 mg/dl Total Creatine Kinase 43 39-308 U/L Creatine Kinase MB 1.0 0.8 0.5-3.6 ng/ml Creatine Kinase MB Ratio 2.3 0-3.0 Troponin I < 0.015 < 0.015 0-0.045 ng/ml Pro-B-Type Natriuretic Peptide 727 0-1800 pg/ml
[2017-01-12] MEDS ORDERED: PANTOprazole SOD 40 MG TAB PO STA (12:20)
--- NOTE | 2017-01-12 12:32 | CARDIOLOGY CONSULTATION ---
DATE OF CONSULTATION: 01/12/2017 CONSULTATION REQUESTED BY: Alex Cormier MD. REASON FOR CONSULTATION: Chest pain. HISTORY OF PRESENT ILLNESS: Mr. Arredondo is a very pleasant 81-year-old gentleman who presented to [facility] Emergency Department on 01/12/2017 with a complaint of chest pain. The patient states that he was simply riding his car yesterday with his dog when he suddenly developed chest discomfort. He described it as a substernal pressure sensation that occurred in the center of his chest, it did not radiate anywhere and there were no associated symptoms. He specifically denied any associated shortness of breath, diaphoresis, nausea, palpitations, lightheadedness, dizziness or syncope. He states the pain was very severe, he ranked it as 10/10 and states that it was different than the pain he had first hospital admission in October. The pain lasted about an hour, EMS was called and he was given medication in the rig. He is not sure what he was given, but he states that it seemed to resolve the discomfort. He has not had any since. Currently, he is without complaint at rest and feeling back to normal. Of note, the patient had a recent significant history for possible endovascular leak resulting in a pericardial effusion around an endovascularly repaired aorta. He was admitted to [facility] in October for this where this was originally found. He was then emergently transported to [facility] [place] where his INR was reversed and he was scheduled for outpatient interventional radiology procedure. Unfortunately, the patient was scheduled on 12/30/2016 for the procedure and that visit was canceled and he has not been seen in followup by interventional radiology or vascular surgery since. PAST SURGICAL HISTORY: 1. TEVAR for type B aortic dissection May 2016. 2. Subclavian artery embolization. 3. Left carotid artery subclavian artery bypass. 4. Pseudoaneurysm injection left brachial artery. 5. Carpal tunnel surgery. 6. Colonoscopy. MEDICAL ILLNESSES: 1. Asymptomatic 6 cm type B thoracic aortic dissection. 2. History of DVT, previously on chronic Coumadin therapy. 3. Blood clotting disorder, unspecified. 4. Dyslipidemia. 5. Hemangioma of the liver. 6. Osteoarthritis. 7. Abdominal aortic dissection. 8. Reactive airway disease. 9. 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 FAMILY HISTORY: Denies any premature coronary artery disease or sudden cardiac . SOCIAL HISTORY: The patient smokes cigars. Denies cigarette use. Denies any alcohol or recreational drug use. He is . He lives at home by himself. REVIEW OF SYSTEMS: As per HPI, all other review of systems reviewed and negative at this time. ALLERGIES: AUGMENTIN. MEDICATIONS AN OUTPATIENT: 1. Aspirin 81 mg daily. 2. Pravastatin 80 mg at bedtime. 3. Imdur 30 mg daily. 4. Metoprolol succinate 12.5 mg daily. 5. Colchicine 0.6 mg daily. PHYSICAL EXAMINATION: VITALS: Temperature 37.5, pulse 74, respiratory rate 12, blood pressure 122/80. GENERAL: Awake, alert, oriented x3 in no acute distress. HEENT: Normocephalic, atraumatic. Pupils equal, round, and reactive to light and accommodation. Extraocular muscles intact. Anicteric sclerae. Moist mucous membranes. NECK: No JVD, no bruit. CARDIOVASCULAR: Regular. Positive S4. Normal S1 and S2. No S3. Systolic rub is present. PULMONARY: Clear to auscultation bilaterally. No rales, rhonchi, or wheezing. ABDOMEN: Bowel sounds x4, soft. No rebound, guarding, tenderness. No organomegaly. EXTREMITIES: No clubbing, cyanosis or edema. +2 pedal pulses bilaterally. SKIN: Warm and dry. TEST RESULTS: 2D echocardiogram performed 11/25/2016 showed a 1 cm pericardial effusion encompassing the apical anterior and left lateral position that was loculated. Followup echocardiograms as an outpatient showed near resolution of the pericardial effusion. Repeat echocardiogram performed 01/12/2017 shows pericardial effusion is again present, unchanged compared to the study of 11/25/2016. IMPRESSION: 1. Chest pain likely secondary to pericarditis. 2. 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 3. Asymptomatic type B aortic dissection status post thoracic endovascular aortic repair. 4. Peripheral arterial disease. RECOMMENDATIONS: It was my pleasure to see Mr. Arredondo in consultation today. From a cardiac standpoint, I believe the chest discomfort is coming from his pericardial effusion and my concern is the fact that it is now reaccumulated despite being off anticoagulation, so we will contact the vascular surgeon, Dr. Boswell to determine further treatment. No other cardiac testing or intervention will be necessary at this time. Consideration can be given to adding ibuprofen 600 mg 3 times a day on top of the colchicine for his pericardial pain but again I would prefer the patient be evaluated by vascular surgery first. Thank you very much for allowing me to participate in the care of your patient.
[2017-01-12] MEDS: IBUPROFEN 600 MG TAB PO SCH ×2 (13:19→20:24)
[2017-01-12] MEDS: HEPARIN SOD 5000 UNIT/0.5 ML CARP SQ SCH (20:25)
[2017-01-12] MEDS ORDERED: PRAVASTATIN SOD 40 MG TAB PO SCH (21:00)
[2017-01-13 03:30] VITALS: BP 120/78; PULSE 73; TEMP 36.5; O2SAT 93
[2017-01-13 08:00] VITALS: O2SAT 96
[2017-01-13 08:11] VITALS: BP 142/89; PULSE 81; TEMP 37; O2SAT 96
[2017-01-13] MEDS: IBUPROFEN 600 MG TAB PO SCH ×2 (08:17→12:38)
[2017-01-13] MEDS: ASPIRIN 81 MG ECTAB PO SCH (08:18)
[2017-01-13] MEDS: ISOSORBIDE MONONITRATE 30 MG TABCR PO SCH (08:18)
[2017-01-13] MEDS: DULOXETINE HCL 60 MG CAP PO SCH (08:18)
[2017-01-13] MEDS: COLCHICINE 0.6 MG TAB PO SCH (08:19)
[2017-01-13] MEDS: METOPROLOL SUCC 25MG EXT REL TAB PO SCH (08:19)
[2017-01-13] MEDS: HEPARIN SOD 5000 UNIT/0.5 ML CARP SQ SCH (08:23)
[2017-01-13] MEDS ORDERED: PANTOprazole SOD 40 MG TAB PO SCH (09:00)
--- NOTE | 2017-01-13 09:11 | Cardiology Follow-Up ---
Subjective Subjective Date of Service: Jan 13, 2017. Pt evaluation today including: conversation w/ patient, physical exam, chart review, lab review, review of studies, review of inpatient medication list Additional Details: Pt seen and examined, states that he feels great. No further chest pain since receiving first dose of ibuprofen. Denies cp, sob, palpitations, lightheadedness or dizziness. Tele reviewed: sinus rhythm without arrhythmia or significant ectopy Problem List Medical Problems: (1) Aortic dissection Status: Acute (2) Epistaxis Status: Acute (3) Exertional chest pain Status: Acute (4) Fatigue Status: Acute (5) HTN (hypertension) Status: Acute (6) Shortness of breath Status: Acute (7) Substernal chest pain Status: Acute (8) Subtherapeutic international normalized ratio (INR) Status: Acute Review of Systems Respiratory: No see HPI, No cough, No sputum, No wheezing, No shortness of breath, No dyspnea on exertion, No dyspnea at rest, No hemoptysis, No problem reported Cardiac: + chest pain, No see HPI, No orthopnea, No PND, No edema, No claudication, No palpitations, No problem reported Objective Vital Signs Last Vital Signs Documentation Date Time Temp Pulse Resp B/P (MAP) Pulse Ox O2 Delivery O2 Flow Rate FiO2 01/13/17 08:11 37.0 81 18 142/89 (106) 96 01/13/17 04:00 Room Air Physical Exam: General Appearance: WD/WN, no apparent distress Eyes: bilateral eyes normal inspection, bilateral eyes PERRL, bilateral eyes EOMI ENT: normal ENT inspection, hearing grossly normal, pharynx normal Neck: supple, no adenopathy, thyroid normal, no JVD, no carotid bruits, trachea midline Respiratory/Chest: chest non-tender, lungs clear, normal breath sounds, no respiratory distress, no accessory muscle use Cardiovascular: regular rate, rhythm, no murmur, + gallop/S4 Abdomen: normal bowel sounds, non tender, soft, no organomegaly Extremities: normal range of motion, non-tender, normal inspection, no pedal edema, no calf tenderness Neurologic/Psychiatric: bench hand machine II-XII nml as tested, no motor/sensory deficits, alert, normal mood/affect, oriented x 3 Skin: normal color, warm/dry, no rash Lymphatic: no adenopathy Assessment and Plan 1. pericarditis now symptom free with addition of ibuprofen will cont ibuprofen 600mg tid and colchicine 0.6mg daily recommend taking ibuprofen with food to prevent pud may also consider further GI protection with PPI or H2 cesia 2. Type B aortic dissection s/p TEVAR questionable leak f/u with vascular surgery/Interventional radiology as recommended ok to d/c to home from cardiac standpoint.
[2017-01-13] MEDS ORDERED: MTR600 PO ×2 (09:54→12:04)
[2017-01-13] MEDS ORDERED: PRT40 PO (09:54)
--- NOTE | 2017-01-13 09:58 | Discharge Instructions ---
Discharge Instructions Date of Service Jan 13, 2017. Admission Reason for Admission: Chest Pain Discharge Discharge Diagnosis / Problem: PLURITIC CHEST PAIN /PERICARDITIS/TYPE 2THORACIC AORTIC DISSECTION/ENDOLEAK Discharge Goals Goal(s): Decrease discomfort, Improve disease control, Diagnostic testing, Therapeutic intervention Activity Recommendations Activity Limitations: resume your previous activity . Instructions / Follow-Up Instructions / Follow-Up HOSPITAL FOLLOW UP : 01/20/2017 1:00 PM Benjie Carey MD Internal Medicine [facility] CARDIOLOGY FOLLOW UP : 01/19/2017 11:05 AM Everton Greer DO Cardiology, [facility] TAKE MOTRIN 600 MG THREE TIMES DAILY FOR 30 DAYS COLCHICINE 0.6 MG DAILY FOR TOTAL 3 MONTHS PLEASE HAVE FOOD /MEALS BEFORE TAKING THE MOTRIN AVOID TAKING IT IN EMPTY STOMACH -CAN CAUSE SEVERE GASTRITIS /INFLAMMATION IN STOMACH /RISK FOR BLEEDING PLEASE NOTIFY YOUR PHYSICIAN IF YOU NOTICE DARK /TARRY STOOL -SIGN OF BLEEDING IN STOMACH Current Hospital Diet Patient's current hospital diet: AHA Diet (Heart Healthy) Discharge Diet Recommended Diet: AHA Diet (Heart Healthy) Pending Studies Studies pending at discharge: no Medical Emergencies . Who to Call and When: Medical Emergencies: If at any time you feel your situation is an emergency, please call 911 immediately. . Non-Emergent Contact Non-Emergency issues call your: Primary Care Provider . . "Provider Documentation" section prepared by Magdalene Moya. . VTE Core Measure Inpt VTE Proph given/why not?: Unfractionated heparin SQ
[2017-01-13 11:53] VITALS: BP_SYST 142; BP_SYST 146; BP_DIAS 79; BP_DIAS 89; PULSE 80; TEMP 37; O2SAT 98
[2017-01-13] MEDS ORDERED: CLC6 PO (12:04)
[2017-01-13 12:53] VITALS: BP 146/79; PULSE 80; TEMP 37; O2SAT 98
--- NOTE | 2017-01-13 14:26 | Progress Note ---
Internal Med Progress Note Date of Service: Jan 13, 2017. Provider Documentation: SUBJECTIVE: no complain of chest pain or SOB symptom resolved after starting on Motrin 600 mg since yesterday feels fine stable to be discharged home today OBJECTIVE: Vital Signs-as noted below Exam: General-very pleasant , no sign of distress, conversing Eyes-sclera non icteric , PERRLA, EOMI ENT-Ear -normal inspection , no deformity or scar noted , normal hearing Nose : normal exam , Oropharynx : normal finding, no erythema or exudate Neck-normal exam -no mass or lymphadenopathy , trachea midline, no thyromegaly Lungs-clear to auscultate , no wheeze or rales Heart-regular S1/S2 Abdomen-soft, non tender , no organomegaly , bowel sound active Extremities-no lower ext edema, no cyanosis , no clubbing , no rash or deformity Neuro-AAo x3 , no focal neurological deficit Lab data as noted below. ASSESSMENT & PLAN: PLEURITIC CHEST PAIN /DUE TO PERICARDITIS : symptom resolved after starting on Motrin 600 mg TID chest pain pleuritic in nature /associated with change in position evaluated by Cardiology recommend cont NSAID -Mortin 600 mg TID for 1 months pt will continue with Colchicine for 6 weeks out pt follow up with Cardiology in 2 weeks ECHO shows small apical , anterior , and left lateral loculated pericardial effusion , not significantly changed compared to previous study of 11/25/16 normal LV chamber size and wall thickness , normal LV systolic function EF 55- 60 % no segmental wall motion abnormality noted as pt shows significant improvement of his symptom today will be discharged home with above regimen of NSAID's and Colchicine TYPE 2 THORACIC AORTIC DISSECTION : Follows with Vascular surgery in [facility] s/p TEVAR repair of asymptomatic 6 cm Type thoracic aortic dissection with Dacron bypass graft on 06/23/[address] Boswell pt developed 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 -possibly via intercostal or lumber artery pt has been followed with Vascular surgery in [place] closely CTA of chest on 11/24/16 showed : descending thoracic aorta measures 7.3 Cm in greatest transverse dimension with type II endoleak , AAA measures 5 cm at Celiac artery pt was scheduled for repair of Endoleak on 12/30/16 ,[place] [facility] [place]A of aneurysm showed no increase in size of aneurysm sac pt was scheduled for a 6 months follow up and possible endo leak repair on 2017 CTA of thoracic aneurysm done this admission on 01/12/17 ( compared with study on 11/25/16 ) shows : stable dilatation of ascending thoracic aorta measures 5 cm persisted small endoleak posterior to the arch persisted mild to moderate pericardial effusion case D[place] [facility] V[place] surgery Dr Boswell updated regarding pt's current clinical symptom and and CTA of chest finding Dr Boswell does not feel the AAA sac has gotten bigger due to progression of the Endoleak from CTA size of the sac appears to be stable recommend to continued pain management with NSAID's /Colchicine for pericarditis -triggering the pleuritic chest pain pt will be followed with Vascular surgery as out pt as per scheduled HX OF MTHFR MUTATION /HX OF DVT : has been off form Coumadin since last admission with concern for endoleak and possible hemopericardium INR remains sub therapeutic cont to hold anticoagulation avoid active anticoagulation with Coumadin till Endoleak is repaired , cardiac pleural effusion resolved FULL CODE DVT PROPHYLAXIS low to moderate risk sub q heparin pt is encouraged to ambulate DISPOSITION discharged home today Medicine follow up with Dr Carey vascular surgery follow [place] [facility] [place] with Dr Boswell Vital Signs: Date Time Temp Pulse Resp B/P (MAP) Pulse Ox O2 Delivery O2 Flow Rate FiO2 01/13/17 12:53 37.0 80 18 98 Room Air 01/13/17 11:53 37.0 80 18 146/79 (101) 98 01/13/17 08:11 37.0 81 18 142/89 (106) 96 01/13/17 08:00 96 Room Air 01/13/17 04:00 Room Air 01/13/17 03:30 36.5 73 20 120/78 (92) 93 Room Air 01/13/17 00:01 Room Air 01/12/17 23:24 36.4 71 18 118/72 (87) 92 Room Air 01/12/17 20:05 Room Air 01/12/17 19:30 36.6 78 18 120/76 (91) 90 Room Air 01/12/17 18:12 93 Room Air 01/12/17 18:08 36.5 18 115/67 (83) 93 Room Air 01/12/17 16:00 92 Room Air 01/12/17 15:46 36.6 81 20 109/78 (12) 69 Room Air
--- NOTE | 2017-01-13 14:27 | Discharge Summary ---
Discharge Summary Date of Service Jan 13, 2017. Discharge Summary Admission Date: Jan 12, 2017 at 05:50 Discharge Date: Jan 13, 2017 Discharge Disposition: Home Principal Diagnosis: PLEURITIC CHEST PAIN /PERICARDITIS/TYPE 2THORACIC AORTIC DISSECTION/ENDOLEAK Procedures: CTA OF CHEST : IMPRESSION: 1. Again evident is a thoracic aortic stent graft. 2. Dilatation of the ascending thoracic aorta which measures 5 cm 3. Persistent mild to moderate pericardial effusion 4. Persistent small endoleak 5. Pleural calcifications and areas of atelectasis ECHO : Small apical, anterior, and left lateral loculated pericardial effusion. Not significantly changed compared to previous study of 11/25/16 Normal LV chamber size and wall thickness. Normal LV systolic function, EF 55-60%. No segmental left ventricular wall motion abnormalities are noted. Grade I diastolic dysfunction. No significant valvular pathology. Consultations: [facility] CARDIOLOGY Medication Reconciliation New Medications: Ibuprofen (Ibuprofen) 600 Mg Tab 600 MG PO TID for 30 Days, #90 TAB TAKE WITH FOOD Pantoprazole (Pantoprazole Sodium) 40 Mg Tab 40 MG PO QAM for 30 Days, #30 TAB Continued Medications: Aspirin (Aspirin Chewable) 81 Mg Chew 81 MG PO QAM Colchicine (Colcrys) 0.6 Mg Tab 0.6 MG PO DAILY for 30 Days, #30 TAB 3 Refills (This prescription has been renewed) Duloxetine Hcl (Cymbalta) 60 Mg Cap 60 MG PO DAILY Folic Acid (Folvite) 1 Mg Tab 1 MG PO QAM Isosorbide Mononitrate (Isosorbide Mononitrate ER) 30 Mg Tabcr 30 MG PO QAM Metoprolol Succinate (Toprol Xl) 25 Mg Tab 12.5 MG PO DAILY, TAB Multiple Vitamin (Multivitamin) 1 Tab Tab 1 TAB PO QAM Pravastatin Sodium (Pravachol) 40 Mg Tab 80 MG PO HS Tramadol (Ultram) 50 Mg Tab 50 MG PO Q6HR PRN, 0 Refills PRN PAIN Referrals At Discharge Follow up Referrals: Doll Surgeon Referral - 01/19/17 with Everton Greer DO Physician Referral - 01/20/17 with Benjie Caery M.D. Admission Information HPI (per Admitting provider): 81 yo Male with PMH DVT, hypercoagulable state (MTHFR) off Coumadin due to concern for hemopericardium, OA, pericarditis, pericardial effusion, Dyslipidemia, type B thoracoabdominal aortic aneurysm, s/p TEVAR covering left subclavian and left carotid to SCA bypass and left subclavian amplatz plug on by Dr. Boswell. Also underwent pseudoaneurysm injection of left brachial artery with thrombin on 06/27/16, and type 2 Endovascular leak present to the ER for pressure like chest pain. Pt was admitted back in 11/16 he was found to have pericardial effusion on echo. Due to concern for hemopericardium at that time he was life flighted to [facility]. He was treated there for acute pericarditis with high dose aspirin and colchicine. His coumadin has been on hold since then. Pt said that chest pain woke him up in the middle of the night. Describes it as pressure like chest pain, very severe, non radiated, worsening with deep breathing. Pt said that this chest pain is different compare to the previous chest pain he had back in Oct because this one is more severe in intensity. He said that he has been doing well since discharge from [place] back in October. Denies any diaphoresis, palpitation, dizziness, SOB , chills and fever. Physical Exam (per Admitting): General Appearance: WD/WN, no apparent distress Head: normocephalic, atraumatic Eyes: PERRL, EOMI ENT: + pertinent finding (hearing aids ) Neck: no JVD, trachea midline Respiratory/Chest: normal breath sounds, no respiratory distress, no accessory muscle use Cardiovascular: regular rate, rhythm, no edema, no JVD Abdomen/GI: normal bowel sounds, non tender, soft Back: no CVA tenderness Extremities/Musculoskelatal: no calf tenderness Neurologic/Psych: no motor/sensory deficits, alert, oriented x 3 Skin: warm/dry, no rash Hospital Course PLEURITIC CHEST PAIN /DUE TO PERICARDITIS : symptom resolved after starting on Motrin 600 mg TID chest pain pleuritic in nature /associated with change in position evaluated by Cardiology recommend cont NSAID -Mortin 600 mg TID for 1 months pt will continue with Colchicine for 6 weeks out pt follow up with Cardiology in 2 weeks ECHO shows small apical , anterior , and left lateral loculated pericardial effusion , not significantly changed compared to previous study of 11/25/16 normal LV chamber size and wall thickness , normal LV systolic function EF 55- 60 % no segmental wall motion abnormality noted as pt shows significant improvement of his symptom today will be discharged home with above regimen of NSAID's and Colchicine TYPE 2 THORACIC AORTIC DISSECTION : Follows with Vascular surgery in [facility] s/p TEVAR repair of asymptomatic 6 cm Type thoracic aortic dissection with Dacron bypass graft on 06/23/[address] Boswell pt developed 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 -possibly via intercostal or lumber artery pt has been followed with Vascular surgery in [place] closely CTA of chest on 11/24/16 showed : descending thoracic aorta measures 7.3 Cm in greatest transverse dimension with type II endoleak , AAA measures 5 cm at Celiac artery pt was scheduled for repair of Endoleak on 12/30/16 ,[place] [facility] [place]A of aneurysm showed no increase in size of aneurysm sac pt was scheduled for a 6 months follow up and possible endo leak repair on 2017 CTA of thoracic aneurysm done this admission on 01/12/17 ( compared with study on 11/25/16 ) shows : stable dilatation of ascending thoracic aorta measures 5 cm persisted small endoleak posterior to the arch persisted mild to moderate pericardial effusion case D/w [facility], Vascular surgery Dr Boswell updated regarding pt's current clinical symptom and and CTA of chest finding Dr Boswell does not feel the AAA sac has gotten bigger due to progression of the Endoleak from CTA size of the sac appears to be stable recommend to continued pain management with NSAID's /Colchicine for pericarditis -triggering the pleuritic chest pain pt will be followed with Vascular surgery as out pt as per scheduled HX OF MTHFR MUTATION /HX OF DVT : has been off form Coumadin since last admission with concern for endoleak and possible hemopericardium INR remains sub therapeutic cont to hold anticoagulation avoid active anticoagulation with Coumadin till Endoleak is repaired , cardiac pleural effusion resolved FULL CODE DVT PROPHYLAXIS low to moderate risk sub q heparin pt is encouraged to ambulate DISPOSITION discharged home today Medicine follow up with Dr Carey vascular surgery follow up at [facility] with Dr Boswell Discharge Instructions Discharge Instructions Date of Service Jan 13, 2017. Admission Reason for Admission: Chest Pain Discharge Discharge Diagnosis / Problem: PLEURITIC CHEST PAIN /PERICARDITIS/TYPE 2THORACIC AORTIC DISSECTION/ENDOLEAK Discharge Goals Goal(s): Decrease discomfort, Improve disease control, Diagnostic testing, Therapeutic intervention Activity Recommendations Activity Limitations: resume your previous activity . Instructions / Follow-Up Instructions / Follow-Up HOSPITAL FOLLOW UP : 01/20/2017 1:00 PM Benjie Carey MD Internal Medicine [facility] CARDIOLOGY FOLLOW UP : 01/19/2017 11:05 AM Everton Greer DO Cardiology, [facility] TAKE MOTRIN 600 MG THREE TIMES DAILY FOR 30 DAYS COLCHICINE 0.6 MG DAILY FOR TOTAL 3 MONTHS PLEASE HAVE FOOD /MEALS BEFORE TAKING THE MOTRIN AVOID TAKING IT IN EMPTY STOMACH -CAN CAUSE SEVERE GASTRITIS /INFLAMMATION IN STOMACH /RISK FOR BLEEDING PLEASE NOTIFY YOUR PHYSICIAN IF YOU NOTICE DARK /TARRY STOOL -SIGN OF BLEEDING IN STOMACH Current Hospital Diet Patient's current hospital diet: AHA Diet (Heart Healthy) Discharge Diet Recommended Diet: AHA Diet (Heart Healthy) Pending Studies Studies pending at discharge: no Medical Emergencies . Who to Call and When: Medical Emergencies: If at any time you feel your situation is an emergency, please call 911 immediately. . Non-Emergent Contact Non-Emergency issues call your: Primary Care Provider . . "Provider Documentation" section prepared by Magdalene Moya. . VTE Core Measure Inpt VTE Proph given/why not?: Unfractionated heparin SQ Additional Copies To Everton Greer, Benjie Armstrong M.D.
== END 2017-01-13 13:00 | disposition home or self-care (01) ==
LOC: EDBD 01:49 → C.EDA 01:49 → ENRESERV 05:36 → C.2T 05:50
PROVIDERS: ADMIT Internal Medicine; ATTEND Hospitalist
DX: R07.9 Chest pain, unspecified (principal); T82.898A Other specified complication of vascular prosthetic devices, implants and grafts, initial encounter; Y83.2 Surgical operation with anastomosis, bypass or graft as the cause of abnormal reaction of the patient, or of later complication, without mention of misadventure at the time of the procedure; I31.3 Pericardial effusion (noninflammatory); F32.9 Major depressive disorder, single episode, unspecified; Z79.82 Long term (current) use of aspirin; N40.0 Benign prostatic hyperplasia without lower urinary tract symptoms; Z79.899 Other long term (current) drug therapy; F17.200 Nicotine dependence, unspecified, uncomplicated; Z82.49 Family history of ischemic heart disease and other diseases of the circulatory system

== ENCOUNTER 2017-05-02 14:33 | Emergency (ER) | payer OTHER ==
[~2017-05-02] VITALS: Ht 172.7 cm; Wt 75.4 kg
[~2017-05-02 14:33] MED LIST changes: -FOLI1TAB7 PO; +FOLI1TAB8 PO; +METO-478 PO; +MTR600 PO; +PRT40 PO; -WARF5TAB7 PO
[2017-05-02 14:34] VITALS: TEMP 36.3; Ht 172.7 cm; Wt 75.4 kg
[2017-05-02] MEDS ORDERED: GELATIN SPONGE 12-7MM EXT ONE (15:00)
[2017-05-02] MEDS ORDERED: CLIN150C PO (16:08)
[2017-05-02] MEDS ORDERED: IBUP-1450 PO (16:08)
[2017-05-02 16:43] VITALS: BP 150/90; PULSE 83; O2SAT 96
--- NOTE | 2017-05-02 16:48 | EMERGENCY ROOM VISIT NOTE ---
History First contact with patient: 14:41 Chief Complaint: BLEEDING Stated Complaint: BLEDING TOOTH, WONT STOP BLEEDING Nursing Triage Summary: Pt states had a right upper tooth extracted on . and has a bleeding socket. Pt states previously on blood thinners, has not taken any in a couple months. Called dentist and sent here. History of Present Illness The patient is a 81 year old male who presents to the Emergency Room with complaints of persistent bleeding from a dental extraction site. The patient reports that the tooth was extracted morning by Dr. Malave. By evening, he reported that it started to ooze. The patient reports that should have come in yesterday, but waited until this morning to call Dr. Malave who suggested that he come to the emergency department for further reevaluation. The patient takes a baby aspirin daily. He denies any pain, dizziness or lightheadedness. The patient has not swallowed a significant amount of blood, and has tried to spit out as much of the blood as possible. Review of Systems 6 system review was performed and was negative except for pertinent positives and negatives as indicated in history of present illness Past Medical/Surgical History Medical Problems: (1) BPH (benign prostatic hyperplasia) (2) Chest pain (3) Depression (4) DJD (degenerative joint disease) (5) DVT (deep venous thrombosis) (6) History of dissection of thoracic aorta (7) History of temporal arteritis (8) Hyperlipidemia (9) Hypertension (10) Mild reactive airways disease (11) Osteoporosis Surgical Problems: (1) Hx of repair of dissecting thoracic aortic aneurysm, K[place] type B (2) S/P AAA repair (3) S/P eye surgery (4) S/P knee surgery Family History Cancer FH: heart disease FATHER Hypertension FATHER MOTHER Stroke MOTHER Social History Smoking Status: Never Smoker Alcohol Use: occasionally Marital Status: Housing Status: lives alone Occupation Status: retired Current/Historical Medications Scheduled Aspirin (Aspirin Chewable), 81 MG PO QAM Clindamycin Hcl (Cleocin), 1 CAP PO QID Duloxetine Hcl (Cymbalta), 60 MG PO DAILY Folic Acid (Folvite), 1 MG PO QAM Isosorbide Mononitrate (Isosorbide Mononitrate ER), 30 MG PO QAM Metoprolol Succinate (Toprol Xl), 12.5 MG PO DAILY Multiple Vitamin (Multivitamin), 1 TAB PO QAM Pravastatin Sodium (Pravachol), 80 MG PO HS Tramadol (Ultram), 50 MG PO Q6HR PRN Scheduled PRN Ibuprofen (Motrin), 600 MG PO TID PRN for Pain Physical Exam Vital Signs Date Time Temp Pulse Resp B/P (MAP) Pulse Ox O2 Delivery O2 Flow Rate FiO2 05/02/17 14:34 36.3 68 18 176/112 96 Room Air Physical Exam CONSTITUTIONAL: Healthy and well nourished. Alert and oriented X 3 with positive affect. HEENT: Normocephalic, atraumatic. Pupils equal, round and reactive. OROPHARYNX: Examination shows a right maxillary molar extraction site with a large blood clot and mild bleeding. No gingival erythema noted. NECK: Full active range of motion without discomfort. RESPIRATORY: Clear to auscultation bilaterally with no wheezing, crackles, rhonchi or stridor. CARDIOVASCULAR: Regular rate and rhythm with no murmurs, rubs or gallops. GASTROINTESTINAL: Bowel sounds present in all quadrants. No epigastric tenderness to palpation. NEUROLOGIC: No focal neurologic deficits noted. Medical Decision & Procedures Procedure Gelfoam was inserted into the pocket with overlying pressure utilizing a 2 x 2 gauze pad. The patient was observed for 30 minutes. When I went back to check for hemostasis, the patient reports that it fell out when he spit blood out of his mouth. At this point, I then switched to hemostatic fibrillar, which is also placed into the socket with a pressure dressing. The patient was observed for an additional 30 minutes. With reassessment, the patient had no active bleeding. ED Course Patient history and physical exam were performed. Nurse's notes were reviewed. Vital signs were reviewed, showing a blood pressure of 176/112. The patient does not appear in any acute distress. Gelatin foam was first placed in the socket, and direct pressure with a 4 x 4 gauze was applied by having the patient clenched down on the dressing. The patient was left in place for 20-30 minutes. Recheck showed that the patient spit the gauze out while spitting blood from the mouth. At this point, hemostatic fibrillar was utilized with good hemostasis. The patient was provided additional 4 x 4 gauze, and encouraged to try to keep as much direct pressure on the site as tolerated. He may return to the emergency department with any further active bleeding, or if the fibrillar falls out. He was also given instructions on a soft/liquid diet for now. He was instructed to follow-up with his dentist on Thursday for recheck. The patient was happy with plan of care, denied any pain, and discharged with his son. Recheck of the patient's blood pressure at the time of discharge was 150/ 90. The patient was encouraged to follow-up with his PCP for blood pressure recheck. Case was also discussed with Dr. Baldwin, attending physician. Medical Decision Blood Pressure Screening Patient's blood pressure: Elevated blood pressure Blood pressure disposition: Referred to PCP Impression Primary Impression: Post extraction dental bleed Additional Impression: Elevated blood pressure reading Departure Information Referrals Benjie Carey M.D. (PCP) Patient Instructions [facility] Problem Qualifiers
== END 2017-05-02 16:45 | disposition home or self-care (01) ==
LOC: C.EDB 14:34 → C.EDD 16:45
DX: K91.840 Postprocedural hemorrhage of a digestive system organ or structure following a digestive system procedure (principal); I10 Essential (primary) hypertension; N40.0 Benign prostatic hyperplasia without lower urinary tract symptoms; F32.9 Major depressive disorder, single episode, unspecified; E78.5 Hyperlipidemia, unspecified; J45.909 Unspecified asthma, uncomplicated; M81.0 Age-related osteoporosis without current pathological fracture; Z86.718 Personal history of other venous thrombosis and embolism; Z80.9 Family history of malignant neoplasm, unspecified; Z82.49 Family history of ischemic heart disease and other diseases of the circulatory system; Z82.3 Family history of stroke; Z79.82 Long term (current) use of aspirin; Z79.899 Other long term (current) drug therapy

== ENCOUNTER 2018-03-24 11:38 | Observation (INO) ==
[2018-03-24] MEDS ORDERED: SODIUM CHLORIDE 0.9% 1000ML 1,000 ML IV ONE (12:36)
--- NOTE | 2018-03-24 12:41 | XRay Report ---
XR chest 1V portable CLINICAL HISTORY: 82 years-old Male presenting with Chest Pain. TECHNIQUE: Portable upright AP view of the chest was obtained. COMPARISON: 11/25/2016 and CTA from 01/12/2017. FINDINGS: Median sternotomy wires and mediastinal surgical clips. Thoracic aortic endograft stent unchanged in appearance. Tortuosity of the descending thoracic aorta, which is mildly dilated as on prior exam. Ca rdiac silhouette mildly enlarged. Persistent bandlike opacity at the left lung base. Persistent small right pleural effusion. Persistent bandlike opacity in the periphery of the right midlung. No new fo koby lung opacity. Osseous structures normal. Upper abdomen normal. IMPRESSION: 1. Stable postsurgical and postprocedural findings of the thoracic aortic aneurysm with endograft. 2. Chronic small right pleural effusion. Electronically signed by: Ollie Van M.D. 03/24/2018 12:40 PM
[2018-03-24 12:48] LABS: Basophils # (auto) 0.03 K/uL (0-0.2); Basophils % (auto) 0.5 %; Eosinophils # (auto) 0.01 K/uL (0-0.5); Eosinophils % (auto) 0.2 %; Hematocrit (blood only) 34.5 % (42-52); Hemoglobin 10.7 g/dL (14.0-18.0); Immature Granulocytes # (auto) 0.02 K/uL (0.00-0.02); Immature Granulocytes % (auto) 0.3 %; Lymphocytes # (auto) 0.95 K/uL (1.2-3.4); Lymphocytes % (auto) 15.9 %; Mean Corpuscular Volume 97.7 fL (80-100); Mean Platelet Volume 9.3 fL (7.4-10.4); Monocytes # (auto) 0.85 K/uL (0.11-0.59); Monocytes % (auto) 14.2 %; Neutrophils # (auto) 4.13 K/uL (1.4-6.5); Neutrophils % (auto) 68.9 %; Platelet Count 104 K/uL (130-400); RDW Coefficient of Variation 15.6 % (11.5-14.5); RDW Standard Deviation 53.8 fL (36.4-46.3); Red Blood Count 3.53 M/uL (4.7-6.1); White Blood Count 5.99 K/uL (4.8-10.8)
[2018-03-24 13:05] LABS: Alanine Aminotransferase 17 U/L (12-78); Albumin Level 3.2 gm/dl (3.4-5.0); Aspartate Aminotransferase 20 U/L (15-37); BUN Creatinine Ratio 19.8 (10-20); Blood Urea Nitrogen 26 mg/dl (7-18); Calcium 8.6 mg/dl (8.5-10.1); Carbon Dioxide 24 mmol/L (21-32); Chloride 103 mmol/L (98-107); Creatinine Clr Calc Pharmacy 40.9 ml/min; Est GFR (African American) 58.1; Est GFR (Non-African American) 50.1; Glucose 121 mg/dl (70-99); Magnesium 2.4 mg/dl (1.8-2.4); Potassium 4.6 mmol/L (3.5-5.1); Sodium 136 mmol/L (136-145)
[2018-03-24 13:10] LABS: Albumin Globulin Ratio 0.9 (0.9-2); Alkaline Phosphatase 59 U/L (45-117); Globulin 3.6 gm/dl (2.5-4.0); Total Protein 6.8 gm/dl (6.4-8.2); Troponin I < 0.015 ng/ml (0-0.045)
--- NOTE | 2018-03-24 13:14 | XRay Report ---
XR elbow LT min 3V routine CLINICAL HISTORY: Left elbow pain and swelling COMPARISON: None. DISCUSSION: The fat pads are not displaced. No fractures are visualized. There are no erosive or dest ructive changes. There is mild soft tissue swelling, most pronounced posterior medially. IMPRESSION: 1. Soft tissue swelling 2. No evidence of fracture 3. No destructive lesions identified Electronically signed by: Raoul Carr M.D. 03/24/2018 1:12 PM
--- NOTE | 2018-03-24 13:15 | XRay Report ---
XR forearm LT 2V CLINICAL HISTORY: 82 years-old Male presenting with pain swelling. TECHNIQUE: Frontal and lateral views of the left forearm are obtained. COMPARISON: None. FINDINGS: Irregularity of the distal metaphysis of the left femur may be posttraumatic in etiology. Osteopenia. No convincing evidence of acute fracture or malalignment. Joint space loss at the radiocarpal articu lations with additional degenerative changes evident at the first and second carpometacarpal articula tions. Soft tissue swelling suggested along the proximal forearm and at the level of the elbow. No gr oss evidence of osteolysis or periosteal erosion. IMPRESSION: 1. Significant soft tissue swelling may suggest cellulitis. 2. Allowing for osteopenia, no acute osseous injury. 3. 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 4. Degenerative changes of the first and second CMC joints as well as the radiocarpal joints. Electronically signed by: Ollie Van M.D. 03/24/2018 1:13 PM
[2018-03-24] MEDS ORDERED: OPTIRAY 320 125ml IV PRN (13:34)
[2018-03-24 13:37] LABS: Influenza A virus by PCR Neg for Influ A (Neg); Influenza B virus by PCR Neg for Influ B (Neg)
--- NOTE | 2018-03-24 13:51 | CT Scan Report ---
CT OF THE CHEST WITH IV CONTRAST CLINICAL HISTORY: Syncope, hypotension. History of aortic dissection repair. COMPARISON STUDY: 01/12/2017 TECHNIQUE: Unenhanced images were obtained to the thorax. Following the IV administration of 121 mL of Optiray-320, CT of the thorax was performed from the thoracic inlet to the lung bases. Images are reviewed in the axial, sagittal, and coronal planes. IV contrast was administered without complicatio n. MIP images were acquired A dose lowering technique was utilized adhering to the principles of MARQUITA Arguelles. CT DOSE: 1082.57 mGy.cm FINDINGS: Thyroid: Imaged portions of the thyroid gland are normal in appearance. Thoracic aorta: Precontrast images reveal no evidence of acute aortic hematoma. The patient is status post a stent graft repair of a prior aortic dissection. There is no evidence of recurrent dissection . The [place] aneurysmal sac measures 6.5 cm. There is evidence for reimplantation of the left and rig ht brachiocephalic arteries. Pulmonary vasculature: The pulmonary trunk is normal in caliber. There are no central filling defects identified to suggest pulmonary embolus. Note that this examination was not protocoled for the evalu ation of pulmonary emboli. HEART: There are coronary artery calcifications present. There is no significant pericardial effusion Lungs and pleural spaces: There are dependent atelectatic changes. Right upper lobe nodularity is fel t to be secondary to rounded atelectasis. This remain similar to the prior study. There are no areas of parenchymal consolidation to indicate a pneumonia. There are no significant pleural effusions. The re are persistent right-sided pleural calcifications. Mediastinum: There is no evidence of pathologic mediastinal lymphadenopathy Carmen: There is no evidence of pathologic hilar lymphadenopathy Axilla: There is no evidence of pathologic axillary lymphadenopathy Upper abdomen: There is a 15 mm left lobe hepatic cyst. There is a very subtle 16mm right lobe hepat ic lesion which remains unchanged from the prior study. Skeletal structures: There are no lytic or blastic osseous lesions. IMPRESSION: 1. Postsurgical changes of a thoracic aortic endograft repair of a prior type B dissection. 2. No evidence of a ascending thoracic aortic dissection 3. No evidence of pneumonia. 4. Persistent areas of rounded atelectasis. Electronically signed by: Raoul Carr M.D. 03/24/2018 1:49 PM
--- NOTE | 2018-03-24 14:06 | CT Scan Report ---
CT angio abd pelvis wo/w con CLINICAL HISTORY: 82 years-old Male presenting with syncope, hypotension, s/p ao dissection repair. TECHNIQUE: Multidetector CT angiography of the abdomen and pelvis was performed before and after the administration of intravenous contrast. 3-D volumetric and/or maximum intensity projection (MIP) imag es were subsequently reconstructed for review. IV contrast: 121 mL of Optiray 320. A dose lowering te chnique was used consistent with the principles of ALARA (as low as reasonably achievable). Stenosis measurements were based on NASCET-like criteria. COMPARISON: 03/24/2016. CT DOSE (mGy.cm): The estimated cumulative dose is 1082.57. 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 Vasculature: Thoracic aortic endograft stent for the thoracic aortic dissection. The stent extends to the level of the aortic hiatus. Postcontrast imaging demonstrates patency of the visualized portion of the stent. There is contrast noted along the external portion of the stent at the distal margin along the poste rior left lateral aspect. This does not significantly result in rupture of filling of the false lumen . Interval increase in tortuosity and ectasia of the abdominal aorta with new prominent mural thrombus along the right lateral aspect. Maximal aortic diameter measures 4 cm at the level of the superior me senteric artery and maximal tortuosity and aneurysmal morphology and the infrarenal portion though th e diameter only measures 3.5 cm at this level. Bilateral external and internal iliac arteries patent. Major branch vessels of the abdominal aorta including the celiac, superior mesenteric, right renal, and intramesenteric arteries patent. Atherosclerosis with less than 25% stenosis of the origin of the single left renal artery. Remaining abdomen and pelvis: Lung bases: Extensive dependent bandlike opacities in the lung bases greater on the right. There is o verlying pleural thickening. Finding is unchanged from prior and consistent with scarring. Calcified pleural plaque also noted on the right. Multichamber enlargement of the heart. No pericardial or pleu ral effusion. Liver: Normal morphology. Few well-defined hypodensities indeterminate though likely hepatic cysts. R eplaced right hepatic artery arising from the superior mesenteric artery. Biliary: No intrahepatic or extrahepatic biliary ductal dilatation. Biliary sludge suggested. Pancreas: Moderate parenchymal atrophy. Spleen: Normal. Adrenal glands: Normal. Kidneys and ureters: Few well-defined hypodensities in the kidneys likely simple cyst. Parenchymal at rophy is suggested. No hydronephrosis or nephrolithiasis. Ureters nondistended. Retroaortic left marilou l vein. Bladder: Incompletely evaluated secondary to underdistention. Pelvic organs: Prostate enlargement likely secondary to benign prostatic hyperplasia. Bowel: Moderate stool burden in the right colon. The appendix is normal. No bowel obstruction. Peritoneal cavity: No free fluid or intraperitoneal gas. Lymph nodes: No enlarged lymph nodes in the abdomen or pelvis. Abdominal wall: Normal. Musculoskeletal: Degenerative changes of the spine. IMPRESSION: 1. Interval development of an abdominal aortic aneurysm in the infrarenal portion with significant m ural thrombus/noncalcified atherosclerotic plaque. The aorta measures 3.5 cm at this level. Greater e ctasia is noted at the level of the renal arteries, where the aorta measures 4 cm, also new from prio r. 2. Evidence of minimal opacification of the thoracic aorta at the level of the aortic hiatus externa l to the distal portion of the stent suggesting a minimal endoleak. 3. Posttreatment changes of thoracic aortic endograft stent placement for the thoracic aortic dissec tion. 4. Cardiomegaly. Electronically signed by: Ollie Van M.D. 03/24/2018 2:05 PM
[2018-03-24 14:23] LABS: Appearance Urine Clear (Clear); Bacteria Urine Automated Negative (Negative); Bilirubin Urine Negative (Negative); Color Urine Yellow; Glucose Urine UA Negative (Negative); Ketones Urine Negative (Negative); Leukocyte Esterase Urine Negative (Negative); Nitrite Urine Negative (Negative); Protein Urine Negative (Negative); Specific Gravity Urine > 1.045 (1.000-1.030); Urobilinogen Urine Negative (Negative)
--- NOTE | 2018-03-24 18:05 | History & Physical Report ---
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 -Initially hypotensive at 64/47 but resolved with IV fluids. BP now 133/80 -In setting of poor PO intake, LUE wound with hematoma, antihypertensives -Has complex history of aortic disease s/p multiple repairs. Sent today's CTA abd/pelvis to [facility] vascular service to review -Hgb of 10.31 (baseline fluctuates from 10-14, per review) -Continue Lopressor at 25mg Lopressor BID with hold parameters -Hold Imdur -Monitor on telemetry (3) Wound of left upper extremity: S/p fall last week -LUE with diffuse ecchymosis and significant soft tissue swelling on XR -Monitor H/H for blood loss -Wound care for skin tear (4) Herpes zoster: Rash present in T11-T12 dermatomal distribution on R side from umbilicus wrapping around to spine -Minimal burning pain on palpation -Valtrex 1000 mg BID -Contact precautions (5) Aortic disease: (6) Hx of repair of dissecting thoracic aortic aneurysm, [place] type B: (7) Hx of ascending aortic replacement: Follows closely with vascular service in [place] -S/p multiple interventions by Dr. Boswell -Was recently seen on 03/09/[address] Jacob in clinic for monitoring of aneurysmal repairs and they were determined to be stable. Patient was instructed to follow up for repeat CTA chest/abd/pelvis in 6 months -Today's CTA abd/pelvis with * 1. Interval development of an abdominal aortic aneurysm in the infrarenal portion with significant mural thrombus/noncalcified atherosclerotic plaque. The aorta measures 3.5 cm at this level. Greater ectasia is noted at the level of the renal arteries, where the aorta measures 4 cm, also new from prior. * 2. Evidence of minimal opacification of the thoracic aorta at the level of the aortic hiatus external to the distal portion of the stent suggesting a minimal endoleak. -ED physician discussed with vascular service over the phone and they feel that findings are stable but requested that imaging be sent over for further evaluation -Continue baby aspirin, statin DVT Ppx: SCDs for now Code status: DNR per discussion with patient PCP: Aurelio Dispo: Observation telemetry. Patient seen in collaboration with Dr. Pinzon. Please see addendum. 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 Patient has been feeling lightheaded, fatigued and dizzy over the past week. States he has been eating and drinking slightly less than usual but taking medications regularly, including Imdur and Lopressor. Had a fall a week ago today when he lost his balance walking down his front stairs and injured his left upper extremity. Was seen at [facility] urgent care 03/17- for evaluation of bruising and swelling of arm as well as skin tear. Received wound care and was instructed to keep arm elevated. Went to see PCP today due to feeling lightheaded and generally weak and was found to have a BP of 64/47 and was brought to ED by EMS for further evaluation. After receiving IV fluids, BP improved to 134/87 and symptoms resolved. Allergies Allergy/AdvReac Type Severity Reaction Status Date / Time amoxicillin AdvReac Unknown UNKNOWN Verified 03/24/18 12:36 clavulanic acid AdvReac Unknown UNKNOWN Verified 03/24/18 12:36 Home Medications Home Medications Medication Instructions Recorded Confirmed Type aspirin [Aspir-81] 81 mg PO QAM 01/17/18 03/24/18 History duloxetine 60 mg PO HS 01/17/18 03/24/18 History folic acid 1 mg PO QAM 01/17/18 03/24/18 History isosorbide mononitrate 30 mg PO QAM 01/17/18 03/24/18 History metoprolol tartrate 50 mg PO BID 01/17/18 03/24/18 History multivitamin 1 tab PO QAM 01/17/18 03/24/18 History pravastatin 80 mg PO HS 01/17/18 03/24/18 History acetaminophen [Tylenol Arthritis 650 mg PO Q12H PRN 03/24/18 03/24/18 History Pain] Past Med/Surg History Medical History BPH (benign prostatic hyperplasia) (Chronic) Hyperlipidemia (Chronic) DJD (degenerative joint disease) (Chronic) Depression (Chronic) Osteoporosis (Chronic) Mild reactive airways disease (Chronic) History of temporal arteritis (Chronic) Hypertension (Chronic) Surgical History Hx of ascending aortic replacement (Chronic) On 06/10/17 at [facility] Dr. Boswell Hx of repair of dissecting thoracic aortic aneurysm, [place] type B (Chronic) "Left common carotid artery to left subclavian artery Dacron bypass graft by Dr. Boswell Repair thoracic aortic aneurysm with aortic dissection using Medtronic Valiant thoracic aortic stent graft covering left subclavian artery and distal Medtronic Valiant thoracic aortic extension placement x2, -Main body graft: [id number]; Two distal extensions measuring 46 x 200 and 46 x 150, Amplanz plug of the left subclavian 06/24/[address] Boswell, Pseudoaneurysm injection of the left brachial artery 06/27/[address] Boswell" S/P eye surgery (Chronic) S/P knee surgery (Chronic) Family History Father Stroke HTN (hypertension) Heart disease Social History Current Living Situation: Alone Current Living Situation Comment: Patient Lives alone with his dog Other Information That Helps Us Care for You: No Feels Safe at Home: Yes Safety Concerns: Feels Safe At This Time Smoking Status: Light tobacco smoker Tobacco Type: cigars Cigarettes per Day: Patient reports Do You Dip or Chew Tobacco: No Hx Alcohol Use: Yes Alcohol type: wine Alcohol Intake Frequency: a few times a week Hx Substance Use: No Beliefs That Will Affect Care: None Preferred Language: [place] Islander Communication Ability: Effective Inner Layer Scrubber Tender Required: No Review of Systems Constitutional: no fever, no chills and no weakness Eyes: no diplopia and no worsening vision Ear, Nose, Mouth, Throat: no nasal congestion and no sore throat Respiratory: no cough, no dyspnea and no dyspnea on exertion Cardiovascular: + lightheadedness; no chest pain, no radiating jaw, neck or arm pain, no dyspnea on exertion, no palpitations, no syncope and no edema Gastrointestinal: no abdominal pain, no nausea, no vomiting and no change in stools Genitourinary (Male): no dysuria Musculoskeletal: no joint pain and no stiffness Integumentary: + rash (Right abdomen and back, present x 1 week ) and + problem reported Left extremity with ecchymosis, edema. Neurologic: + unsteadiness, + falls (last week ) and + generalized weakness; no loss of sensation, no numbness, no syncope, no headache(s) and no confusion Physical Exam 2 Vital Signs (Past 24 Hours): Last Vital Signs Temp 37.2 C 03/24/18 11:31 Pulse 69 03/24/18 14:06 Resp 22 03/24/18 14:06 BP 134/87 03/24/18 14:06 Pulse Ox 95 03/24/18 14:06 Physical Exam: General Appearance: WD/WN, no apparent distress, resting comfortably Head: normocephalic, atraumatic Eyes: normal inspection, PERRL, EOMI ENT: hearing grossly normal, pharynx normal (moist mucous membranes) Neck: supple, no JVD, no adenopathy Respiratory/Chest: lungs clear to auscultation. No wheezes, rales or rhonci. No respiratory distress or accessory muscle use Cardiovascular: regular rate, rhythm, systolic murmur, normal peripheral pulses Abdomen/GI: normal bowel sounds, soft, non-tender to palpation Extremities/Musculoskelatal: + LUE with ecchymosis and edema. Skin tear on lateral forearm with bandage in place. No drainage normal inspection, no calf tenderness, normal capillary refill, no pedal edema Neurologic/Psych: alert, normal mood/affect, oriented x 3 Skin: Maculopapular vesicular rash on an erythematous base in right T11-12 dermatomal distribution wrapping from umbilicus to spine Results & Data Laboratory Results Short CBC 03/24/18 Range/Units 12:40 WBC 5.99 (4.8-10.8) K/uL Hgb 10.7 L (14.0-18.0) g/dL Hct 34.5 L (42-52) % Plt Count 104 L (130-400) K/uL BMP 03/24/18 12:40 Sodium 136 Potassium 4.6 Chloride 103 Carbon Dioxide 24 BUN 26 H Creatinine 1.30 Glucose 121 H Calcium 8.6 Cardiac Enzymes 03/24/18 Range/Units 12:40 Troponin I < 0.015 (0-0.045) ng/ml Liver Function 03/24/18 Range/Units 12:40 Total Bilirubin 1.0 (0.2-1) mg/dl AST 20 (15-37) U/L ALT 17 (12-78) U/L Alkaline Phosphatase 59 (45-117) U/L Albumin 3.2 L (3.4-5.0) gm/dl Urine 03/24/18 Range/Units 14:00 Urine Color Yellow Urine Appearance Clear (Clear) Urine pH 7.0 (4.5-7.5) Ur Specific [place] > 1.045 H (1.000-1.030) Urine Protein Negative (Negative) Urine Glucose (UA) Negative (Negative) Code Status & VTE Plan Code Status DNR Supervising Physician Co-Signing Physician Notes HISTORY: Record reviewed. Patient interviewed and examined. Care coordinated with Pretty Ochoa PA-C. Please refer to her documentation for patient's history. Briefly, 82 YO male who fell a few days ago and injured his left arm. Near-syncope this morning; found to have a blood pressure of 64/47. Received fluid resuscitation with improvement of his hemodynamics. EXAM: General- no distress Lungs- clear to auscultation; no respiratory distress Cardiovascular- RRR; no murmur; no gallop; no JVD; no pretibial edema Abdomen- + bowel sounds, soft, nontender Extremities- ecchymoses and swelling LUE; no cyanosis; no calf tenderness Neuro- alert, oriented Skin- vesicular rash radiating from right low back to right lower abdomen DATA: Hemoglobin 10.7. White count 5990. BUN 26, creatinine 1.3. Other lab studies as noted. Chest x-ray demonstrated postsurgical changes, no acute findings. CTA chest showed postsurgical changes of thoracic aortic endograft repair, no acute dissection. CTA abdomen and pelvis demonstrated an infrarenal abdominal aortic aneurysm measuring 4 cm in greatest diameter. ASSESSMENT AND PLAN: Near syncope associated with hypotension. Does not appear to be septic. LUE injury with significant ecchymoses and swelling- probable hematoma. ? hypovolemia / orthostasis secondary to blood loss. Extensive history of vascular disease. CTA findings as noted. Doubt acute vascular event. Images sent to [facility] for review by Vascular Surgery. Rash right back / flank / abdomen consistent with Varicella zoster. Rx with valacyclovir. Please refer to PANCHO Ochoa's documentation for discussion of other issues. _ (1) Hypotension Hypotension type: unspecified hypotension type Trimester: Qualified Code(s) : I95.9 - Hypotension, unspecified
--- NOTE | 2018-03-24 20:00 | Emergency Department Note ---
Entered by Michael Jama acting as a scribe for Jose J Chambers MD History of Present Illness General Chief complaint: Hypotension Time Seen by Provider: 03/24/18 12:09 Source: patient History of Present Illness Onset (ago): hour(s) (prior to arrival) Location: head (global) Pain Consistency: + other (currently feels fine aside from fatigue) Quality: + other (hypotension) Associated symptoms: + other (lightheadedness); no cough, no fever/chills and no nausea/vomiting The patient is an 82 year old male who presents to the Emergency Room via EMS after being sent from his PCP�s office for hypotension prior to arrival. The patient reports that he drove himself to the office today for lightheadedness. He states that he was given over a bag of fluid in the ambulance. He states that he currently feels fine aside from fatigue, which is normal for him at this time of day at baseline. He notes that he has been drinking plenty of fluids. He denies fevers, chills, cough, congestion, nausea, vomiting, or diarrhea. He reports that for the past week he has felt �fair,� noting general weakness and loss of appetite, although he also states �I didn�t feel like cooking.� He reports a mechanical fall one week ago when he injured his left arm , noting some current discomfort with movement and stating that he was not evaluated for this. He reports that he has had three surgeries in the past two years for aortic dissection repair performed by Dr. Boswell � Vascular Surgery. He states that he is on baby aspirin, and he used to take Plavix six months ago for his surgeries. Home Medications Home Medications Medication Instructions Recorded Confirmed Type aspirin [Aspir-81] 81 mg PO QAM 01/17/18 03/24/18 History duloxetine 60 mg PO HS 01/17/18 03/24/18 History folic acid 1 mg PO QAM 01/17/18 03/24/18 History isosorbide mononitrate 30 mg PO QAM 01/17/18 03/24/18 History metoprolol tartrate 50 mg PO BID 01/17/18 03/24/18 History multivitamin 1 tab PO QAM 01/17/18 03/24/18 History pravastatin 80 mg PO HS 11/18/18 01/23/19 History acetaminophen [Tylenol Arthritis 650 mg PO Q12H PRN 03/24/18 03/24/18 History Pain] Allergies Allergy/AdvReac Type Severity Reaction Status Date / Time amoxicillin AdvReac Unknown UNKNOWN Verified 03/24/18 12:36 clavulanic acid AdvReac Unknown UNKNOWN Verified 03/24/18 12:36 Past Med/Surg History Medical History BPH (benign prostatic hyperplasia) (Chronic) Hyperlipidemia (Chronic) DJD (degenerative joint disease) (Chronic) Depression (Chronic) Osteoporosis (Chronic) 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 Hx of repair of dissecting thoracic aortic aneurysm, Keven type B (Chronic) "Left common carotid artery to left subclavian artery Dacron bypass graft by Dr. Boswell Repair thoracic aortic aneurysm with aortic dissection using Medtronic Valiant thoracic aortic stent graft covering left subclavian artery and distal Medtronic Valiant thoracic aortic extension placement x2, -Main body graft: [id number]; Two distal extensions measuring 46 x 200 and 46 x 150, Amplanz plug of the left subclavian 06/24/[address] Boswell, Pseudoaneurysm injection of the left brachial artery 06/27/[address] Boswell" S/P eye surgery (Chronic) S/P knee surgery (Chronic) Family History Father Stroke HTN (hypertension) Heart disease Social History Current Living Situation: Alone Current Living Situation Comment: Patient Lives alone with his dog Other Information That Helps Us Care for You: No Feels Safe at Home: Yes Safety Concerns: Feels Safe At This Time Smoking Status: Light tobacco smoker Tobacco Type: cigars Cigarettes per Day: Patient reports Do You Dip or Chew Tobacco: No Hx Alcohol Use: Yes Alcohol type: wine Alcohol Intake Frequency: a few times a week Hx Substance Use: No Beliefs That Will Affect Care: None Communication Ability: Effective Review of Systems See HPI for pertinent positives & negatives. and A total of 10 systems reviewed and were otherwise negative Physical Exam Vital Signs Vital Signs - 24 hr 03/24/18 19:21 03/24/18 20:23 03/24/18 20:44 Temperature 37.3 C Temperature Source Oral Pulse Rate - Lying Pulse Rate - Sitting Pulse Rate - Standing Pulse Rate 80 Pulse Rate [Finger] 74 74 Respiratory Rate 27 H 20 Blood Pressure - Lying Blood Pressure - Sitting Blood Pressure- Standing Blood Pressure [Right Arm] 124/86 133/80 Blood Pressure Mean [Right Arm] 98 97 Blood Pressure Position [Right Arm] Sitting Pulse Oximetry 95 97 Oxygen Delivery Method Room Air Room Air 03/24/18 23:20 03/25/18 00:00 03/25/18 05:05 Temperature 37.4 C 37.7 C H Temperature Source Oral Oral Pulse Rate - Lying Pulse Rate - Sitting Pulse Rate - Standing Pulse Rate 80 Pulse Rate [Finger] 75 75 Respiratory Rate 19 17 Blood Pressure - Lying Blood Pressure - Sitting Blood Pressure- Standing Blood Pressure [Right Arm] 115/70 126/73 Blood Pressure Mean [Right Arm] 85 90 Blood Pressure Position [Right Arm] Lying Lying Pulse Oximetry 94 94 Oxygen Delivery Method Room Air Room Air 03/25/18 07:03 03/25/18 11:28 03/25/18 14:44 Temperature 36.6 C 37.0 C Temperature Source Oral Oral Pulse Rate - Lying 73 Pulse Rate - Sitting 81 Pulse Rate - Standing 84 Pulse Rate Pulse Rate [Finger] 82 67 Respiratory Rate 16 20 Blood Pressure - Lying 112/74 Blood Pressure - Sitting 105/70 Blood Pressure- Standing 109/73 Blood Pressure [Right Arm] 125/74 119/70 Blood Pressure Mean [Right Arm] 91 86 Blood Pressure Position [Right Arm] Lying Pulse Oximetry 94 97 Oxygen Delivery Method Room Air Room Air 03/25/18 15:25 Temperature 36.5 C Temperature Source Oral Pulse Rate - Lying Pulse Rate - Sitting Pulse Rate - Standing Pulse Rate Pulse Rate [Finger] 73 Respiratory Rate 18 Blood Pressure - Lying Blood Pressure - Sitting Blood Pressure- Standing Blood Pressure [Right Arm] 109/73 Blood Pressure Mean [Right Arm] 85 Blood Pressure Position [Right Arm] Lying Pulse Oximetry 96 Oxygen Delivery Method Room Air GENERAL: Awake, alert, well-appearing, in no distress HENT: Normocephalic, atraumatic. Oropharynx with dry mucous membranes and otherwise unremarkable. EYES: Normal conjunctiva. Sclera non-icteric. NECK: Supple. No nuchal rigidity. FROM. No JVD. RESPIRATORY: Clear to auscultation. CARDIAC: Regular rate, normal rhythm. Extremities warm and well perfused. Pulses equal. ABDOMEN: Soft, non-distended. No tenderness to palpation. No rebound or guarding. No masses. RECTAL: Deferred. MUSCULOSKELETAL: Chest examination reveals no tenderness. The back is symmetrical on inspection without obvious abnormality. There is no CVA tenderness to palpation. Resolving ecchymosis, swelling, and skin tear to his right elbow and forearm. FROM at shoulder, elbow, and wrist. LOWER EXTREMITIES: Calves are equal size bilaterally and non-tender. No discoloration. NEURO: Normal sensorium. No sensory or motor deficits noted. 5/5 strength and SILT in all four extremities. Normal cerebellar function, including finger to nose, alternating palms, and heel to linares. SKIN:Warm,dry. No jaundice noted. Raised erythematous vessicular rash extending from right lumbar region to right lower abdomen in dermatomal distribution. Nontender. Course 1226: Past medical records reviewed. The patient was evaluated in room C1B, and a complete history and physical examination were performed. 1556: I consulted Dr. Lawson - Vascular Surgery, who recommended hospitalization. 1614: I consulted Pretty Ochoa PA-C: [facility] Hospitalist. She will reevaluate the patient for hospitalization. Consultations Time: 15:56 Consultation #2: I consulted Pretty Ochoa PA-C: [facility] Hospitalist. She will reevaluate the patient for hospitalization. Time: 16:14 Administered Medications Aspirin (Ecotrin Ectab) 81 mg PO QAM [facility] Stop: 04/24/18 08:59 Last Admin: 03/25/18 07:25 Dose: 81 mg Duloxetine HCl (Cymbalta) 60 mg PO HS [facility] Stop: 04/23/18 21:30 Last Admin: 03/24/18 22:46 Dose: 60 mg Folic Acid (Folvite) 1 mg PO QAM [facility] Stop: 04/24/18 08:59 Last Admin: 03/25/18 07:25 Dose: 1 mg Metoprolol Tartrate (Lopressor) 25 mg PO BID [facility] Stop: 04/23/18 21:30 Last Admin: 03/25/18 07:24 Dose: 25 mg Admin: 03/24/18 22:46 Dose: 25 mg Multivitamins (Multivitamin Tab) 1 tab PO QAM CANDACE Stop: 04/24/18 08:59 Last Admin: 03/25/18 07:25 Dose: 1 tab Polyethylene Glycol (Miralax Powder Packet) 17 gm PO DAILY PRN PRN Reason: Constipation Stop: 04/23/18 21:30 Last Admin: 03/25/18 07:30 Dose: 17 gm Pravastatin Sodium (Pravachol) 80 mg PO HS CANDACE Stop: 04/23/18 21:30 Last Admin: 03/24/18 22:48 Dose: 80 mg Valacyclovir HCl (Valtrex) 1,000 mg PO BID CANDACE Stop: 04/03/18 21:30 Last Admin: 03/25/18 07:24 Dose: 1,000 mg Admin: 03/24/18 22:47 Dose: 1,000 mg Discontinued Medications Sodium Chloride (Nss 1000ml) 1,000 mls @ 999 mls/hr IV .Q1H1M ONE Stop: 03/24/18 13:36 Last Infusion: 03/24/18 14:08 Dose: 0 mls/hr Admin: 03/24/18 13:00 Dose: 999 mls/hr Ioversol (Optiray 320 125ml) 121 ml IV ONCE PRN PRN Reason: Interaction Checking Stop: 03/28/18 13:33 Last Admin: 03/24/18 13:34 Dose: 121 ml Medical Decision Making Differential Diagnosis Differential diagnosis: Etiologies such as vasovagal event, infection, hypoglycemia, electrolyte abnormalities, cardiac sources, intracerebral event, toxicologic, neurologic, as well as others were entertained. Medical Records Attestation: I reviewed the patient's medical records. Home Medications Current Medication List: was personally reviewed by me Laboratory Data Attestation: I reviewed the patient's lab results. Result diagrams: 03/25/18 06:29 03/25/18 06:29 Lab Results 03/24/18 03/24/18 03/24/18 Range/Units 12:40 12:40 12:55 WBC 5.99 (4.8-10.8) K/uL RBC 3.53 L (4.7-6.1) M/uL Hgb 10.7 L (14.0-18.0) g/dL Hct 34.5 L (42-52) % MCV 97.7 (80-100) fL MCH 30.3 (25-34) pg MCHC 31.0 L (32-36) g/dL RDW Std Deviation 53.8 H (36.4-46.3) fL RDW Coeff of Antonio 15.6 H (11.5-14.5) % Plt Count 104 L (130-400) K/uL MPV 9.3 (7.4-10.4) fL Immature Gran % (Auto) 0.3 % Neut % (Auto) 68.9 % Lymph % (Auto) 15.9 % Blair % (Auto) 14.2 % Eos % (Auto) 0.2 % Baso % (Auto) 0.5 % Immature Gran # (Auto) 0.02 (0.00-0.02) K/uL Neut # (Auto) 4.13 (1.4-6.5) K/uL Lymph # (Auto) 0.95 L (1.2-3.4) K/uL Blair # (Auto) 0.85 H (0.11-0.59) K/uL Eos # (Auto) 0.01 (0-0.5) K/uL Baso # (Auto) 0.03 (0-0.2) K/uL Sodium 136 (136-145) mmol/L Potassium 4.6 (3.5-5.1) mmol/L Chloride 103 (98-107) mmol/L Carbon Dioxide 24 (21-32) mmol/L Anion Gap 8.0 (3-11) BUN 26 H (7-18) mg/dl Creatinine 1.30 (0.6-1.4) mg/dl Est Cr Clr Drug Dosing 40.9 ml/min Est GFR ( Amer) 58.1 Est GFR (Non-Af Amer) 50.1 BUN/Creatinine Ratio 19.8 (10-20) Glucose 121 H (70-99) mg/dl Calcium 8.6 (8.5-10.1) mg/dl Phosphorus 3.0 (2.5-4.9) mg/dl Magnesium 2.4 (1.8-2.4) mg/dl Total Bilirubin 1.0 (0.2-1) mg/dl AST 20 (15-37) U/L ALT 17 (12-78) U/L Alkaline Phosphatase 59 (45-117) U/L Troponin I < 0.015 (0-0.045) ng/ml Total Protein 6.8 (6.4-8.2) gm/dl Albumin 3.2 L (3.4-5.0) gm/dl Globulin 3.6 (2.5-4.0) gm/dl Albumin/Globulin Ratio 0.9 (0.9-2) Lipase 60 L (73-393) U/L Urine Color Urine Appearance (Clear) Urine pH (4.5-7.5) Ur Specific Linwood (1.000-1.030) Urine Protein (Negative) Urine Glucose (UA) (Negative) Urine Ketones (Negative) Urine Blood (Negative) Urine Nitrite (Negative) Urine Bilirubin (Negative) Urine Urobilinogen (Negative) Ur Leukocyte Esterase (Negative) Urine WBC (Auto) (0-5) /hpf Urine RBC (Auto) (0-4) /hpf U Hyaline Cast (Auto) (0-5) /lpf U Epithel Cells (Auto) (0-5) /lpf Urine Bacteria (Auto) (Negative) Influenza Type A (PCR) Neg for Influ A (Neg) Influenza Type B (PCR) Neg for Influ B (Neg) 03/24/18 03/25/18 03/25/18 Range/Units 14:00 06:29 06:29 WBC 5.02 (4.8-10.8) K/uL RBC 3.41 L (4.7-6.1) M/uL Hgb 10.3 L (14.0-18.0) g/dL Hct 33.1 L (42-52) % MCV 97.1 (80-100) fL MCH 30.2 (25-34) pg MCHC 31.1 L (32-36) g/dL RDW Std Deviation 54.5 H (36.4-46.3) fL RDW Coeff of Antonio 15.7 H (11.5-14.5) % Plt Count 116 L (130-400) K/uL MPV 9.4 (7.4-10.4) fL Immature Gran % (Auto) % Neut % (Auto) % Lymph % (Auto) % Blair % (Auto) % Eos % (Auto) % Baso % (Auto) % Immature Gran # (Auto) (0.00-0.02) K/uL Neut # (Auto) (1.4-6.5) K/uL Lymph # (Auto) (1.2-3.4) K/uL Blair # (Auto) (0.11-0.59) K/uL Eos # (Auto) (0-0.5) K/uL Baso # (Auto) (0-0.2) K/uL Sodium 135 L (136-145) mmol/L Potassium 4.3 (3.5-5.1) mmol/L Chloride 108 H (98-107) mmol/L Carbon Dioxide 23 (21-32) mmol/L Anion Gap 4.0 (3-11) BUN 22 H (7-18) mg/dl Creatinine 0.93 D (0.6-1.4) mg/dl Est Cr Clr Drug Dosing 57.2 ml/min Est GFR ( Amer) 87.1 Est GFR (Non-Af Amer) 75.1 BUN/Creatinine Ratio 23.5 H (10-20) Glucose 105 H (70-99) mg/dl Calcium 8.3 L (8.5-10.1) mg/dl Phosphorus (2.5-4.9) mg/dl Magnesium (1.8-2.4) mg/dl Total Bilirubin (0.2-1) mg/dl AST (15-37) U/L ALT (12-78) U/L Alkaline Phosphatase (45-117) U/L Troponin I (0-0.045) ng/ml Total Protein (6.4-8.2) gm/dl Albumin (3.4-5.0) gm/dl Globulin (2.5-4.0) gm/dl Albumin/Globulin Ratio (0.9-2) Lipase (73-393) U/L Urine Color Yellow Urine Appearance Clear (Clear) Urine pH 7.0 (4.5-7.5) Ur Specific Linwood > 1.045 H (1.000-1.030) Urine Protein Negative (Negative) Urine Glucose (UA) Negative (Negative) Urine Ketones Negative (Negative) Urine Blood 2+ H (Negative) Urine Nitrite Negative (Negative) Urine Bilirubin Negative (Negative) Urine Urobilinogen Negative (Negative) Ur Leukocyte Esterase Negative (Negative) Urine WBC (Auto) 1-5 (0-5) /hpf Urine RBC (Auto) 10-30 H (0-4) /hpf U Hyaline Cast (Auto) 1-5 (0-5) /lpf U Epithel Cells (Auto) 5-10 H (0-5) /lpf Urine Bacteria (Auto) Negative (Negative) Influenza Type A (PCR) (Neg) Influenza Type B (PCR) (Neg) Imaging Data Radiologist's Impression: Radiology results as stated below per my review and the radiologist's interpretation: CT angio abd pelvis wo/w con CLINICAL HISTORY: 82 years-old Male presenting with syncope, hypotension, s/p ao dissection repair. TECHNIQUE: Multidetector CT angiography of the abdomen and pelvis was performed before and after the administration of intravenous contrast. 3-D volumetric and/ or maximum intensity projection (MIP) images were subsequently reconstructed for review. IV contrast: 121 mL of Optiray 320. A dose lowering technique was used consistent with the principles of ALARA (as low as reasonably achievable). Stenosis measurements were based on NASCET-like criteria. COMPARISON: 03/24/2016. CT DOSE (mGy.cm): The estimated cumulative dose is 1082.57. FINDINGS: Customer Program Manager topogram: Median sternotomy wires and extensive thoracic endograft stent. Vasculature: Thoracic aortic endograft stent for the thoracic aortic dissection. The stent extends to the level of the aortic hiatus. Postcontrast imaging demonstrates patency of the visualized portion of the stent. There is contrast noted along the external portion of the stent at the distal margin along the posterior left lateral aspect. This does not significantly result in rupture of filling of the false lumen. Interval increase in tortuosity and ectasia of the abdominal aorta with new prominent mural thrombus along the right lateral aspect. Maximal aortic diameter measures 4 cm at the level of the superior mesenteric artery and maximal tortuosity and aneurysmal morphology and the infrarenal portion though the diameter only measures 3.5 cm at this level. Bilateral external and internal iliac arteries patent. Major branch vessels of the abdominal aorta including the celiac, superior mesenteric, right renal, and intramesenteric arteries patent. Atherosclerosis with less than 25% stenosis of the origin of the single left renal artery. Remaining abdomen and pelvis: Lung bases: Extensive dependent bandlike opacities in the lung bases greater on the right. There is overlying pleural thickening. Finding is unchanged from prior and consistent with scarring. Calcified pleural plaque also noted on the right. Multichamber enlargement of the heart. No pericardial or pleural effusion. Liver: Normal morphology. Few well-defined hypodensities indeterminate though likely hepatic cysts. Replaced right hepatic artery arising from the superior mesenteric artery. Biliary: No intrahepatic or extrahepatic biliary ductal dilatation. Biliary sludge suggested. Pancreas: Moderate parenchymal atrophy. Spleen: Normal. Adrenal glands: Normal. Kidneys and ureters: Few well-defined hypodensities in the kidneys likely simple cyst. Parenchymal atrophy is suggested. No hydronephrosis or nephrolithiasis. Ureters nondistended. Retroaortic left renal vein. Bladder: Incompletely evaluated secondary to underdistention. Pelvic organs: Prostate enlargement likely secondary to benign prostatic hyperplasia. Bowel: Moderate stool burden in the right colon. The appendix is normal. No bowel obstruction. Peritoneal cavity: No free fluid or intraperitoneal gas. Lymph nodes: No enlarged lymph nodes in the abdomen or pelvis. Abdominal wall: Normal. Musculoskeletal: Degenerative changes of the spine. IMPRESSION: 1. Interval development of an abdominal aortic aneurysm in the infrarenal portion with significant mural thrombus/noncalcified atherosclerotic plaque. The aorta measures 3.5 cm at this level. Greater ectasia is noted at the level of the renal arteries, where the aorta measures 4 cm, also new from prior. 2. Evidence of minimal opacification of the thoracic aorta at the level of the aortic hiatus external to the distal portion of the stent suggesting a minimal endoleak. 3. Posttreatment changes of thoracic aortic endograft stent placement for the thoracic aortic dissection. 4. Cardiomegaly. Electronically signed by: Ollie Van M.D. 03/24/2018 2:[address] OF THE CHEST WITH IV CONTRAST CLINICAL HISTORY: Syncope, hypotension. History of aortic dissection repair. COMPARISON STUDY: 01/12/2017 TECHNIQUE: Unenhanced images were obtained to the thorax. Following the IV administration of 121 mL of Optiray-320, CT of the thorax was performed from the thoracic inlet to the lung bases. Images are reviewed in the axial, sagittal , and coronal planes. IV contrast was administered without complication. MIP images were acquired A dose lowering technique was utilized adhering to the principles of ALARA. CT DOSE: 1082.57 mGy.cm FINDINGS: Thyroid: Imaged portions of the thyroid gland are normal in appearance. Thoracic aorta: Precontrast images reveal no evidence of acute aortic hematoma. The patient is status post a stent graft repair of a prior aortic dissection. There is no evidence of recurrent dissection. The [place] aneurysmal sac measures 6.5 cm. There is evidence for reimplantation of the left and right brachiocephalic arteries. Pulmonary vasculature: The pulmonary trunk is normal in caliber. There are no central filling defects identified to suggest pulmonary embolus. Note that this examination was not protocoled for the evaluation of pulmonary emboli. HEART: There are coronary artery calcifications present. There is no significant pericardial effusion Lungs and pleural spaces: There are dependent atelectatic changes. Right upper lobe nodularity is felt to be secondary to rounded atelectasis. This remain similar to the prior study. There are no areas of parenchymal consolidation to indicate a pneumonia. There are no significant pleural effusions. There are persistent right-sided pleural calcifications. Mediastinum: There is no evidence of pathologic mediastinal lymphadenopathy Carmen: There is no evidence of pathologic hilar lymphadenopathy Axilla: There is no evidence of pathologic axillary lymphadenopathy Upper abdomen: There is a 15 mm left lobe hepatic cyst. There is a very subtle 16mm right lobe hepatic lesion which remains unchanged from the prior study. Skeletal structures: There are no lytic or blastic osseous lesions. IMPRESSION: 1. Postsurgical changes of a thoracic aortic endograft repair of a prior type B dissection. 2. No evidence of a ascending thoracic aortic dissection 3. No evidence of pneumonia. 4. Persistent areas of rounded atelectasis. Electronically signed by: Raoul Carr M.D. 03/24/2018 1:49 PM XR chest 1V portable CLINICAL HISTORY: 82 years-old Male presenting with Chest Pain. TECHNIQUE: Portable upright AP view of the chest was obtained. COMPARISON: 11/25/2016 and CTA from 01/12/2017. FINDINGS: Median sternotomy wires and mediastinal surgical clips. Thoracic aortic endograft stent unchanged in appearance. Tortuosity of the descending thoracic aorta, which is mildly dilated as on prior exam. Cardiac silhouette mildly enlarged. Persistent bandlike opacity at the left lung base. Persistent small right pleural effusion. Persistent bandlike opacity in the periphery of the right midlung. No new focal lung opacity. Osseous structures normal. Upper abdomen normal. IMPRESSION: 1. Stable postsurgical and postprocedural findings of the thoracic aortic aneurysm with endograft. 2. Chronic small right pleural effusion. Electronically signed by: Ollie Van M.D. 03/24/2018 12:40 PM XR elbow LT min 3V routine CLINICAL HISTORY: Left elbow pain and swelling COMPARISON: None. DISCUSSION: The fat pads are not displaced. No fractures are visualized. There are no erosive or destructive changes. There is mild soft tissue swelling, most pronounced posterior medially. IMPRESSION: 1. Soft tissue swelling 2. No evidence of fracture 3. No destructive lesions identified Electronically signed by: Raoul Carr M.D. 03/24/2018 1:12 PM XR forearm LT 2V CLINICAL HISTORY: 82 years-old Male presenting with pain swelling. TECHNIQUE: Frontal and lateral views of the left forearm are obtained. COMPARISON: None. FINDINGS: Irregularity of the distal metaphysis of the left femur may be posttraumatic in etiology. Osteopenia. No convincing evidence of acute fracture or malalignment. Joint space loss at the radiocarpal articulations with additional degenerative changes evident at the first and second carpometacarpal articulations. Soft tissue swelling suggested along the proximal forearm and at the level of the elbow. No gross evidence of osteolysis or periosteal erosion. IMPRESSION: 1. Significant soft tissue swelling may suggest cellulitis. 2. Allowing for osteopenia, no acute osseous injury. 3. 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 4. Degenerative changes of the first and second CMC joints as well as the radiocarpal joints. Electronically signed by: Ollie Van M.D. 03/24/2018 1:13 PM ECG Data Attestation: I personally reviewed and interpreted this ECG as follows: Indication: other (hypotension, lightheaded) Rate (beats per minute): 59 Rhythm: sinus bradycardia Findings: + nonspecific-ST abn (inferiorly) and + left axis deviation Blood Pressure Blood Pressure Findings: Low blood pressure (prior to arrival, normal in the ER) Blood Pressure Disposition: further management by hospitalist TARYN Narrative The patient is a pleasant 82-year-old gentleman with a comp gated past medical history of aortic disease status post endograft for dissection who presents emergency department with near syncopal episode with hypotension upon presentation to his PCPs office per hpi. The patient began to feel lightheaded today and so obtained a PCP appointment where he drove himself to the office and was found to have hypotension with systolic blood pressure in the 60s. EMS was subsequently called and the patient was given IV fluid hydration with improvement in his blood pressure and resolution of his symptoms. On arrival the patient is in no acute distress, afebrile stable vital signs. On exam the patient appears clinically dry. On exam the patient has a raised erythematous vesicular rash extending from his right lumbar region extending to his right lower abdomen which he says has been evolving over the past week but only reports minimal discomfort when it is touched. Additionally he has resolving ecchymosis and skin tear to his right elbow and forearm after having a mechanical fall last week. Patient is otherwise neurologically intact. EKG without evidence of acute ischemia. WBC within normal limits. H/H 10.7/34.5 decreased from 12.5 in December. Chemistry without acidosis. BUN/creatinine ~ 20 consistent with the patient's clinically dry appearance. Troponin negative. Flu negative. CTA of the chest and abdomen performed to evaluate the patient' s aorta which demonstrates infrarenal aortic aneurysm as well as question of a mild endoleak at the distal portion of the patient's thoracic endograft. However, a CTA report of the patient's recent study on 03/09 in the [facility] system suggest these findings are likely stable. I did review the patient's case with Dr. Daniels, [facility] vascular surgery on-call, who reviewed the patient's 03/09 images and report and agree that these findings appear unchanged. Therefore no indication for transfer at this time however patient should follow-up earlier than his next scheduled appointment for reevaluation. Requests electronic transmission of imaging if possible. Patient continued to appear asymptomatic in the emergency department after IV fluid hydration. Given the patient's near syncopal episode with hypotension in the setting of his comorbidities it is reasonable to admit for further observation and trending of his H/H. [facility], who will evaluate the patient for admission. Impression & Plan Near syncope, Hypotension, Dehydration Discharge Plan Visit Data *Final* Discharge Date/Time: 03/24/18 19:26 Chief Complaint: Hypotension Other Complaint: Shortness of Breath/Dyspnea ED Provider: Jose J Chambers Discharge Problem: Near syncope, Hypotension, Dehydration Patient Disposition: Admitted As Inpatient Discharge Instructions Interventions: ED Discharge Assessment Last Done: 03/24/18 19:26 The scribe's documentation has been prepared under my direction and personally reviewed by me in its entirety. I confirm that the note above accurately reflects all work, treatment, procedures, and medical decision making performed by me.
[2018-03-24] MEDS ORDERED: POLYETHYLENE (MIRALAX) 17 GM PACK PO PRN (21:31)
[2018-03-24] MEDS ORDERED: NON-FORMULARY MEDICATION (Acetaminophen [Tylenol Arthritis Pain] 650 MG) PO PRN (21:31)
[2018-03-24] MEDS ORDERED: ACETAMINOPHEN 325 MG TAB PO PRN (21:31)
[2018-03-24] MEDS: DULOXETINE HCL 60 MG CAP PO SCH (22:46)
[2018-03-24] MEDS: METOPROLOL TARTRATE 25 MG TAB PO SCH (22:46)
[2018-03-24] MEDS: VALACYCLOVIR HCL 500 MG TABLET PO SCH (22:47)
[2018-03-24] MEDS: PRAVASTATIN SOD 40 MG TAB PO SCH (22:48)
[2018-03-25 06:44] LABS: Hematocrit (blood only) 33.1 % (42-52); Hemoglobin 10.3 g/dL (14.0-18.0); Mean Corpuscular Hgb Conc 31.1 g/dL (32-36); Mean Corpuscular Volume 97.1 fL (80-100); Mean Platelet Volume 9.4 fL (7.4-10.4); Platelet Count 116 K/uL (130-400); RDW Coefficient of Variation 15.7 % (11.5-14.5); RDW Standard Deviation 54.5 fL (36.4-46.3); Red Blood Count 3.41 M/uL (4.7-6.1); White Blood Count 5.02 K/uL (4.8-10.8)
[2018-03-25 07:14] LABS: BUN Creatinine Ratio 23.5 (10-20); Calcium 8.3 mg/dl (8.5-10.1); Creatinine Clr Calc Pharmacy 57.2 ml/min; Est GFR (African American) 87.1; Est GFR (Non-African American) 75.1; Potassium 4.3 mmol/L (3.5-5.1)
[2018-03-25] MEDS: METOPROLOL TARTRATE 25 MG TAB PO SCH ×2 (07:24→20:41)
[2018-03-25] MEDS: VALACYCLOVIR HCL 500 MG TABLET PO SCH ×2 (07:24→20:42)
[2018-03-25] MEDS: MULTIVITAMIN TAB PO SCH (07:25)
[2018-03-25] MEDS: ASPIRIN 81 MG ECTAB PO SCH (07:25)
[2018-03-25] MEDS: FOLIC ACID 1 MG TAB PO SCH (07:25)
[2018-03-25] MEDS ORDERED: NURSING DECISION MEDICATION ONE (12:17)
[2018-03-25] MEDS ORDERED: SODIUM CHLORIDE 0.65% NA SOLN 45 ML (OCEAN) PRN (12:28)
--- NOTE | 2018-03-25 20:13 | Hospitalist Progress Note ---
Date of Service March 25, 2018 Assessment & Plan (1) Hypotension: BP in clinic was 64/47. Received fluid resuscitation with improvement of hemodynamics. Etiology of hypotension uncertain. Does not appear to be septic. Extensive hematoma of left upper extremity. Hypotension may have been secondary to acute blood loss. Hemoglobin was 14.1 on 01/17/18. Hemoglobin at time of admission was 10.7. Hemoglobin today = 10.3. Follow vital signs, including orthostatic vital signs. Follow H/H. (2) Near syncope: Near syncope probably secondary to hypotension. (3) Acute blood loss anemia: As discussed above. (4) Hypertension: BP meds reduced due to hypotension. Follow and titrate therapy. (5) Herpes zoster: Continue treatment with valacyclovir. (6) Aortic disease: CTA findings as noted-status post repair of ascending aortic dissection, questionable endoleak, infrarenal AAA. Images forwarded [place] [facility] [place]. Discussed with Vascular Surgery. No apparent acute changes of thoracic or abdominal aorta. Follow-up with Vascular Surgery. (7) DVT prophylaxis: No anticoagulants due to LUE hematoma. SCD's. Ambulate. (8) Discharge planning issues: Anticipated discharge to home. Family Medicine follow-up with Dr. Craey. Subjective Recheck for near syncope, hypotension, and other problems. Patient was seen in his room around 1999. Feels better. No further episodes of near syncope. No fever. No cough or shortness of breath. No chest pain. No nausea or vomiting. No diarrhea. No urinary symptoms. Minimal discomfort from zoster. Physical Exam 2 Vital Signs (Past 24 Hours): Last Vital Signs Temp 36.5 C 03/25/18 15:25 Pulse 70 03/25/18 16:00 Resp 18 03/25/18 15:25 BP 109/73 03/25/18 15:25 Pulse Ox 96 03/25/18 15:25 Constitutional: no acute distress Respiratory: no respiratory distress Auscultation: lungs clear to auscultation bilaterally Cardiovascular: Rate/Rhythm: regular rate and regular rhythm Heart Sounds: no gallop Vessels: no JVD Extremities: no calf tenderness and no edema Gastrointestinal (Abdomen): normal bowel sounds, soft, nontender, no hepatosplenomegaly Musculoskeletal: Extremities: + upper extremity abnormal to inspection ( swelling and ecchymosis LUE) Skin: + rash (vesicular rash extending from right lower back to right lower abdomen) Psychiatric: Orientation: alert and oriented x 3 Results & Data Laboratory Results Short CBC 03/25/18 Range/Units 06:29 WBC 5.02 (4.8-10.8) K/uL Hgb 10.3 L (14.0-18.0) g/dL Hct 33.1 L (42-52) % Plt Count 116 L (130-400) K/uL BMP 03/25/18 06:29 Sodium 135 L Potassium 4.3 Chloride 108 H Carbon Dioxide 23 BUN 22 H Creatinine 0.93 D Glucose 105 H Calcium 8.3 L _ (1) Hypotension Hypotension type: unspecified hypotension type Trimester: Qualified Code(s) : I95.9 - Hypotension, unspecified
[2018-03-25] MEDS: DULOXETINE HCL 60 MG CAP PO SCH (20:41)
[2018-03-25] MEDS: PRAVASTATIN SOD 40 MG TAB PO SCH (20:41)
[2018-03-26 06:07] LABS: Hemoglobin 10.5 g/dL (14.0-18.0); Mean Corpuscular Hgb Conc 32.8 g/dL (32-36); Mean Platelet Volume 9.3 fL (7.4-10.4); Platelet Count 124 K/uL (130-400); RDW Coefficient of Variation 15.4 % (11.5-14.5); RDW Standard Deviation 54.2 fL (36.4-46.3); White Blood Count 4.98 K/uL (4.8-10.8)
[2018-03-26 06:35] LABS: BUN Creatinine Ratio 30.1 (10-20); Calcium 7.9 mg/dl (8.5-10.1); Creatinine Clr Calc Pharmacy 60.5 ml/min; Est GFR (African American) 91.4; Est GFR (Non-African American) 78.9; Potassium 4.1 mmol/L (3.5-5.1)
[2018-03-26] MEDS: FOLIC ACID 1 MG TAB PO SCH (09:47)
[2018-03-26] MEDS: MULTIVITAMIN TAB PO SCH (09:47)
[2018-03-26] MEDS: ASPIRIN 81 MG ECTAB PO SCH (09:47)
[2018-03-26] MEDS: METOPROLOL TARTRATE 25 MG TAB PO SCH (09:47)
[2018-03-26] MEDS: VALACYCLOVIR HCL 500 MG TABLET PO SCH (09:47)
--- NOTE | 2018-03-26 17:53 | Hospitalist Progress Note ---
Date of Service March 26, 2018 Assessment & Plan (1) Hypotension: BP in clinic was 64/47. Received fluid resuscitation with improvement of hemodynamics. Etiology of hypotension uncertain. Does not appear to be septic. Extensive hematoma of left upper extremity. Hypotension may have been secondary to acute blood loss. Hemoglobin was 14.1 on 01/17/18. Hemoglobin at time of admission was 10.7. Hemoglobin today = 10.35 Vital signs now stable, not orthostatic. (2) Near syncope: Near syncope probably secondary to hypotension. (3) Acute blood loss anemia: As discussed above. (4) Swelling of left upper extremity: Fell on ice and injured left arm. Extensive swelling and ecchymoses consistent with hematoma. No evidence of compartment syndrome. Best not to pursue drainage / evacuation unless symptoms worsen. Elevated LUE. (5) Skin tear of forearm without complication: Secondary to fall. Seen by Wound Care Nursing. Dressings with Vaseline gauze / gauze wrap recommended. Home health nursing to assist with dresssing changes. (6) Hypertension: BP meds reduced due to hypotension. Continue to hold isosorbide until BP rechecked in clinic. Discharge on usual dose of metoprolol tartrate- 50 mg BID. (7) Herpes zoster: Continue treatment with valacyclovir to complete 7 day course of therapy. Consider vaccination with Shingrix. (8) Aortic disease: CTA findings as noted-status post repair of ascending aortic dissection, questionable endoleak, infrarenal AAA. Images forwarded to [facility] electronically. Discussed with Vascular Surgery. No apparent acute changes of thoracic or abdominal aorta. Follow-up with Vascular Surgery. (9) DVT prophylaxis: No anticoagulants due to LUE hematoma. SCD's. Ambulate. (10) Discharge planning issues: Discharge to home with home health nursing. Family Medicine follow-up with Dr. Carey. Subjective Recheck for near syncope, hypotension, and other problems. Patient was seen in his room around 1745. Feels better, anxious to go home No further episodes of near syncope. Persistent swelling of LUE, trying to keep it elevated. No fever. No cough or shortness of breath. No chest pain. No nausea or vomiting. No diarrhea. No urinary symptoms. No discomfort from zoster. Ambulating in hallway with cane without difficulty. Physical Exam 2 Vital Signs (Past 24 Hours): Last Vital Signs Temp 37.0 C 01/25/19 15:24 Pulse 66 03/26/18 15:24 Resp 21 03/26/18 15:24 BP 134/70 03/26/18 15:24 Pulse Ox 93 03/26/18 15:24 Constitutional: no acute distress Respiratory: no respiratory distress Auscultation: lungs clear to auscultation bilaterally Cardiovascular: Rate/Rhythm: regular rate and regular rhythm Heart Sounds: no gallop Vessels: no JVD Extremities: no calf tenderness and no edema left radial pulse intact; capillary refill left fingers 1-2 sec Gastrointestinal (Abdomen): normal bowel sounds, soft, nontender, no hepatosplenomegaly Musculoskeletal: Extremities: + upper extremity abnormal to inspection ( swelling and ecchymosis LUE) Skin: + rash (vesicular rash extending from right lower back to right lower abdomen) Psychiatric: Orientation: alert and oriented x 3 Results & Data Laboratory Results Short CBC 03/26/18 Range/Units 05:42 WBC 4.98 (4.8-10.8) K/uL Hgb 10.5 L (14.0-18.0) g/dL Hct 32.0 L (42-52) % Plt Count 124 L (130-400) K/uL BMP 03/26/18 05:42 Sodium 134 L Potassium 4.1 Chloride 105 Carbon Dioxide 24 BUN 26 H Creatinine 0.88 Glucose 99 Calcium 7.9 L _ (1) Hypotension Hypotension type: unspecified hypotension type Trimester: Qualified Code(s) : I95.9 - Hypotension, unspecified (2) Hypertension Hypertension type: essential hypertension Qualified Code(s): I10 - Essential (primary) hypertension (3) Herpes zoster Herpes zoster complications: without complications Qualified Code(s): B02.9 - Zoster without complications
[2018-03-26] MEDS ORDERED: VALACYCLOVIR HCL 500 MG TABLET PO ONE (17:54)
--- NOTE | 2018-03-26 22:49 | Discharge Summary ---
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 Patient has been feeling lightheaded, fatigued and dizzy over the past week. States he has been eating and drinking slightly less than usual but taking medications regularly, including Imdur and Lopressor. Had a fall a week ago today when he lost his balance walking down his front stairs and injured his left upper extremity. Was seen at [facility] urgent care 03/17- for evaluation of bruising and swelling of arm as well as skin tear. Received wound care and was instructed to keep arm elevated. Went to see PCP today due to feeling lightheaded and generally weak and was found to have a BP of 64/47 and was brought to ED by EMS for further evaluation. After receiving IV fluids, BP improved to 134/87 and symptoms resolved. Admission Exam Per Admitting Provider General Appearance: WD/WN, no apparent distress, resting comfortably Head: normocephalic, atraumatic Eyes: normal inspection, PERRL, EOMI ENT: hearing grossly normal, pharynx normal (moist mucous membranes) Neck: supple, no JVD, no adenopathy Respiratory/Chest: lungs clear to auscultation. No wheezes, rales or rhonci. No respiratory distress or accessory muscle use Cardiovascular: regular rate, rhythm, systolic murmur, normal peripheral pulses Abdomen/GI: normal bowel sounds, soft, non-tender to palpation Extremities/Musculoskelatal: + LUE with ecchymosis and edema. Skin tear on lateral forearm with bandage in place. No drainage normal inspection, no calf tenderness, normal capillary refill, no pedal edema Neurologic/Psych: alert, normal mood/affect, oriented x 3 Skin: Maculopapular vesicular rash on an erythematous base in right T11-12 dermatomal distribution wrapping from umbilicus to spine Principal Diagnosis hypotension near-syncope acute blood loss anemia hematoma LUE skin tear LUE Herpes zoster Discharge Data Allergies Allergy/AdvReac Type Severity Reaction Status Date / Time amoxicillin AdvReac Unknown UNKNOWN Verified 03/24/18 12:36 clavulanic acid AdvReac Unknown UNKNOWN Verified 03/24/18 12:36 Consultations 03/24/18 16:02 ED Decision to Admit Stat 03/26/18 18:04 Consult Case Management - Discharge Planning Routine Ordered Studies 03/24/18 12:32 CT angio abd pelvis wo/w con Stat CT angio chest dissec wo/w con Stat Hospital Course (1) Hypotension: BP in clinic was 64/47. Received fluid resuscitation with improvement of hemodynamics. Etiology of hypotension uncertain. Does not appear to be septic. Extensive hematoma of left upper extremity. Hypotension may have been secondary to acute blood loss. Hemoglobin was 14.1 on 01/17/18. Hemoglobin at time of admission was 10.7. Hemoglobin day of discharge was 10.5. Remained hemodynamically stable, no orthostasis. (2) Near syncope: Near syncope probably secondary to hypotension. (3) Acute blood loss anemia: As discussed above. (4) Swelling of left upper extremity: Fell on ice and injured left arm. Extensive swelling and ecchymoses consistent with hematoma. No evidence of compartment syndrome. Best not to pursue drainage / evacuation unless symptoms worsen. Elevated LUE. (5) Skin tear of forearm without complication: Secondary to fall. Seen by Wound Care Nursing. Dressings with Vaseline gauze / gauze wrap recommended. Home health nursing to assist with dresssing changes. (6) Hypertension: BP meds reduced due to hypotension. Continue to hold isosorbide until BP rechecked in clinic. Discharged on usual dose of metoprolol tartrate- 50 mg BID. (7) Herpes zoster: Continue treatment with valacyclovir to complete 7 day course of therapy. Consider vaccination with Shingrix. (8) Aortic disease: CTA findings as noted-status post repair of ascending aortic dissection, questionable endoleak, infrarenal AAA. Images forwarded to [facility] electronically. Discussed with Vascular Surgery. No apparent acute changes of thoracic or abdominal aorta. Follow-up with Vascular Surgery. (9) DVT prophylaxis: No anticoagulants due to LUE hematoma. SCD's. Ambulate. (10) Discharge planning issues: Discharged to home with home health nursing. Family Medicine follow-up with Dr. Carey. 03/30/18 at 2:20 PM Total Time Total Time Spent Total Time Spent (In Minutes): 40 Discharge Plan Discharge Items Patient Disposition: Home - Home Health Services Reason For Visit: low blood pressure, weakness Discharge Diagnosis: low blood pressure bruise / hematoma left arm Discharge Goals: Decrease discomfort and Improve disease control Activity: As commented below Driving/Machine Use: Resume 3 days after discharge Non-emergency contact: Primary Care Provider, Hospitalist and Surgeon Call non-emergency contact if: you have any medication questions and your symptoms worsen Follow-up/Referrals: Benjie Carey MD [Primary Care Provider] - (Office will call you with appointment.) Diet: Heart Healthy Addtl Provider Instructions: APPOINTMENTS: FAMILY MEDICINE Dr. Carey next week. Office will contact you with appointment. OTHER INSTRUCTIONS: Keep your left arm elevated on pillow whenever possible. Dressing changes left arm daily: Vaseline gauze wrap with sterile gauze wrap Continue metoprolol tartrate as before (50 mg twice a day). Hold isosorbide mononitrate until your blood pressure is rechecked in clinic. Seek medical attention if you have: * temperature above 101 * chest pain or trouble breathing * abdominal pain, nausea, vomiting * diarrhea, dark stools or bloody stools * worsening pain or swelling of arm. * any unanswered questions or concerns Call 911 if symptoms are severe. Call if you have any questions or problems. My cell # is [phone]. You can also reach a [facility] hospitalist on duty at [facility] 24 hours a day by calling [phone]. Prescriptions: New valacyclovir 1 gram tablet 1,000 mg PO BID Qty: 9 RF: 0 Continue multivitamin Tablet 1 tab PO QAM RF: 0 pravastatin 40 mg tablet 80 mg PO HS RF: 0 metoprolol tartrate 100 mg tablet 50 mg PO BID RF: 0 aspirin [Aspir-81] 81 mg Tablet,Delayed Release (Dr/Ec) 81 mg PO QAM RF: 0 folic acid 1 mg tablet 1 mg PO QAM RF: 0 duloxetine 60 mg capsule,delayed release(DR/EC) 60 mg PO HS RF: 0 acetaminophen [Tylenol Arthritis Pain] 650 mg Tablet Extended Release 650 mg PO Q12H PRN (Reason: Pain) RF: 0 Discontinued isosorbide mononitrate 30 mg tablet extended release 24 hr 30 mg PO QAM RF: 0 Stand-Alone Forms: My [facility] Discharge Orders: Discharge Order (Routine); Ordered 03/26/18 Ordered By: Matt Pinzon Admission Data Admit Date/Time: 03/24/18 18:03 Attending Provider: Matt Pinzon Admit Provider: Matt Pinzon Primary Care Provider: Benjie Carey Other Providers: Matt Pinzon Service: Telemetry Other Interventions: Discharge Summary Assessment (RN) Last Done: 03/26/18 18:09 DC Date/Time DO NOT enter until pt leaves facility: 03/26/18 18:57
== END 2018-03-26 18:57 | disposition home health service (06) ==
LOC: 2S 11:38 → ED 11:38 → 2E 19:26

== ENCOUNTER 2020-05-20 05:17 | Inpatient (IN) ==
--- NOTE | 2020-05-20 05:36 | Emergency Department Note ---
Impression & Plan Acute blood loss anemia, Hematoma of left thigh ED Provider Note Name: BOBBI GIBBONS Age: 84 Sex: M Arrives Via: Ambulance Informant: Patient ED Provider: Elvin Tillman MD Chief Complaint: left thigh pain Impression: Acute Blood Loss Anemia Hematoma of left thigh Medical Decision Makin yr old male with extensive vascular history and thrombocytopenia on ASA 81mg daily, in addition to multiple DVTs and bleeding episodes. Notes worsening left thigh discomfort then developing hematoma over the last week. Associated with increasing weakness and shortness of breath with exertion the last few days as well. Exam with large left lateral thigh/hip hematoma without compartment syndrome nor evidence infection. Left leg distal mild swelling good pulses, warm and no evidence of decreased blood flow. Vitals OK though does drop his sats with talking. Labs with drop in hemoglobin below < with acute bleeding and vascular history, I feel transfusion acceptable and he was consented accordingly. He will be brought in given extensive history, requiring transfusion and is having issues with ambulation as it is. I do not feel the hypoxia with talking is PE given he is without hypoxia nor is he tachy, chest pain, nor sob with rest. He would not be candidate for anticoagulation at this time given his history as it is. Hospitalist given heads up and he US left thigh and doppler left leg pending. Of note, rectal exam for bleeding not done given clear source/reason for anemia. Prior Medical Record and Triage/Nursing Notes reviewed by Me Additional history obtained from chart Differentials:Anemia, Active bleeding, electrolyte issue, infections, cardiac ischemia, pulmonary embolism, musculoskeletal, gastrointestinal, as well as other pathologies. Vital Signs: reviewed and remarkable for no significant abnormalities Interventions: saline lock, acetaminophen IV, PRBC ordered Labs:Reviewed and remarkable for acute anemia Imaging:X ray results are stated below per my interpretation: Chest: 1 view: No infiltrate, no effusion, normal cardiac border. EKG:Per My Interpretation: Indication SOB with exertion: NSR 60 bpm, qtc 452. No Ectopy. No Ischemia. Compared to EKG 04/13/19, no significant changes. Cardiac/Tele Monitoring: Cardiac Monitoring: An Order was placed for continuous cardiac monitoring. The monitor shows a rate of 60 with a normal sinus rhythm. Consults:Dr Perry Knott Hospitalist Plan: Disposition:Hospitalization. Condition: Good History of Present Illness:84 yr old male arrives for evaluation of left leg swelling. Patient notes that he has long history of bleeding/bruising issues as well as blood clots. Was at [facility] [place] [place] last year where he had a IVC filter placed due to inability to tolerate blood thinners with his bleeding issues. He admits that at that time he had a large hematoma of his left thigh. He notes doing well the last few weeks and then last week he noted some left thigh bruising returning. Moderately uncomfortable though only with exertion. As the last few days went on he noted increasing shortness of breath with exertion. Associated with increasing swelling of the rest of his left leg. Admits chronically with bruising over extremities but adamant no falls nor injuries. He does take an aspirin daily but no other anticoagulants. Denies current chest pain, sob, fevers, chills, cough, syncope, abdominal pain, back pain, headache, neck pain, urinary/bowel symptoms, nor other symptoms. No medications taken prior to arrival. ROS: See above HPI for pertinent positives & negatives. A total of 10 systems reviewed and were otherwise negative. Past Medical History:See Below Past Surgical History:See Below Family History:See Below Social History:See Below Home Medications:See Below Allergies:Augmentin Vitals:Blood Pressure: 131/78, Pulse 56, RR 16, T 36.8C, O2 96% on RA Physical Exam: GENERAL: Patient is chronically unwell appearing and in minimal distress. EYES: No scleral icterus, unremarkable pupils. Pale conjunctiva ENT: Mucous membranes moist, no nasal congestion. NECK: No masses appreciated, nomeningismus, trachea is midline. RESPIRATORY: No dyspnea. Clear to auscultation and equal bilaterally. No wheeze, no rhonchi. CARDIOVASCULAR: Regular rate and rhythm.No murmurs, rubs, gallops appreciated. GASTROINTESTINAL: Abdomen soft, non-tender, no peritonitis.Bowel sounds positive.No masses appreciated. BACK: No midline tenderness, no CVA tenderness EXTREMITIES: Mild pain with ROM left hip secondary to bruising. There is some mild increased swelling left lower leg compared to right without pitting edema. Normal motion all extremities, no cyanosis, no edema. NEUROLOGIC: Alert and oriented, no acute motor or sensory deficits, no focal weakness, cranial nerves grossly intact. SKIN: Diffuse bruising of extremities, with very large and swollen bruise entire left lateral thigh from iliac crest to just above left knee. No crepitus and not consistent with compartment syndrome. No rash, no jaundice, no diaphoresis. PSYCH: Appropriate GCS: 15 ED Course: Times/Reassessments: Stable, some hip discomfort thus Tylenol IV, agrees to transfusion and hospitalization Critical Care: I have personally spent 30 minutes of critical care time in the direct management of this patient. Acute blood loss anemia requiring transfusion. This was a life/limb threatening event. This 30 minutes is in excess of all separately billable procedures. Elvin Tillman MD Past Med/Surg History Medical History (Updated 05/20/20 @ 06:55 by Elvin Tillman MD) BPH (benign prostatic hyperplasia) Depression DJD (degenerative joint disease) DVT (deep venous thrombosis) History of temporal arteritis Hyperlipidemia Hypertension Mild reactive airways disease Osteoporosis Surgical History (Updated 02/03/20 @ 11:08 by Mago Dupree LPN) History of carpal tunnel surgery Hx of ascending aortic replacement On 06/10/17 at [facility] [place] [place] Dr. Boswell Hx of repair of dissecting thoracic aortic aneurysm, [place] type B "Left common carotid artery to left subclavian artery Dacron bypass graft 06/23/[address] Boswell Repair thoracic aortic aneurysm with aortic dissection using Medtronic Valiant thoracic aortic stent graft covering left subclavian artery and distal Medtronic Valiant thoracic aortic extension placement x2, -Main body graft: [id number]; Two distal extensions measuring 46 x 200 and 46 x 150, Amplanz plug of the left subclavian 06/24/[address] Boswell, Pseudoaneurysm injection of the left brachial artery 06/27/[address] Boswell" S/P eye surgery S/P knee surgery Family History (Updated 02/03/20 @ 11:09 by Mago Dupree LPN) Father Stroke Hypertension Heart disease Sister Cancer Kidney Social History (Updated 02/03/20 @ 11:10 by Mago Dupree LPN) Smoking Status: Never smoker Tobacco Type: Cigars Cigarettes Per Day: Patient reports; Hx Alcohol Use: Yes Alcohol type: wine Hx Substance Use: No Preferred Language: Belgian Communication Ability: Effective Dip Guider Stoves Required: No Beliefs That Will Affect Care: None marital status: / Current Living Situation: Alone Current Living Situation Comment: Patient Lives alone with his dog current occupational status: retired Feels Safe at Home: Yes Assistive Devices: Cane, Glasses and Walker Allergies Allergies Allergy/AdvReac Type Severity Reaction Status Date / Time amoxicillin AdvReac Unknown UNKNOWN Verified 05/20/20 06:02 clavulanic acid AdvReac Unknown UNKNOWN Verified 05/20/20 06:02 Home Meds Home Medications Medication Instructions Recorded Confirmed folic acid 1 mg PO QAM 01/17/18 05/20/20 multivitamin 1 tab PO QAM 01/17/18 05/20/20 pravastatin [Pravachol] 80 mg PO HS 01/17/18 05/20/20 aspirin [Aspirin Low Dose] 81 mg PO DAILY 05/20/20 05/20/20 metoprolol tartrate 50 mg PO BID 05/20/20 05/20/20 sennosides [senna] 8.6 mg PO BID PRN 05/20/20 05/20/20 Results & Data (ED) Vital Signs Vital Signs - 24 hr 05/20/20 05:20 05/20/20 05:29 Temperature 36.8 C Temperature Source Oral Pulse Rate 56 L Pulse Rhythm Regular Pulse Strength Normal Respiratory Rate 16 16 Respiratory Effort / Characteristics Non-Labored Spontaneous Non-Labored Spontaneous Respiratory Depth Normal Normal Respiratory Pattern Regular Regular Blood Pressure 131/78 Blood Pressure Mean 95 Blood Pressure Position Sitting Pulse Oximetry 100 96 Oxygen Delivery Method Room Air Room Air Sepsis Recent Fever Within 48 Hours No Sepsis New/Unexplained Change in Mental Status No Sepsis Action Taken by Nursing No Action Required Laboratory Data Result diagrams: 05/20/20 05:33 05/20/20 05:33 Lab Results 05/20/20 05/20/20 05/20/20 Range/Units 05:33 05:33 05:33 WBC 5.14 (4.8-10.8) K/uL RBC 2.49 L (4.7-6.1) M/uL Hgb 7.9 L (14.0-18.0) g/dL Hct 25.0 L (42-52) % MCV 100.4 H (80-100) fL MCH 31.7 (25-34) pg MCHC 31.6 L (32-36) g/dL RDW Std Deviation 59.4 H (36.4-46.3) fL RDW Coeff of Antonio 17.0 H (11.5-14.5) % Plt Count 87 L (130-400) K/uL MPV 9.3 (7.4-10.4) fL Immature Gran % (Auto) 0.2 % Neut % (Auto) 67.4 % Lymph % (Auto) 19.8 % [place] % (Auto) 9.5 % Eos % (Auto) 2.5 % Baso % (Auto) 0.6 % Neut # (Auto) 3.46 (1.4-6.5) K/uL Lymph # (Auto) 1.02 L (1.2-3.4) K/uL [place] # (Auto) 0.49 (0.11-0.59) K/uL Eos # (Auto) 0.13 (0-0.5) K/uL Baso # (Auto) 0.03 (0-0.2) K/uL Immature Gran # (Auto) 0.01 (0.00-0.02) K/uL Ovalocytes 1+ PT 13.0 H (9.0-12.0) Seconds INR 1.3 H (0.9-1.1) APTT 27.9 (21.0-31.0) Seconds PTT Ratio 1.1 Sodium 141 (136-145) mmol/L Potassium 4.6 (3.5-5.1) mmol/L Chloride 110 H (98-107) mmol/L Carbon Dioxide 26 (21-32) mmol/L Anion Gap 5.0 (3-11) BUN 40 H (7-18) mg/dl Creatinine 1.12 (0.6-1.4) mg/dl Est Cr Clr Drug Dosing Not Reportable Est GFR ( Amer) 68.6 Est GFR (Non-Af Amer) 59.2 BUN/Creatinine Ratio 35.5 H (10-20) Glucose 92 (70-99) mg/dl Calcium 8.2 L (8.5-10.1) mg/dl Magnesium 2.4 (1.8-2.4) mg/dl Total Bilirubin 1.1 H (0.2-1) mg/dl Direct Bilirubin 0.3 H (0-0.2) mg/dl AST 20 (15-37) U/L ALT 16 (12-78) U/L Alkaline Phosphatase 48 (45-117) U/L Total Creatine Kinase 55 (39-308) U/L Troponin I < 0.015 (0-0.045) ng/ml Total Protein 6.6 (6.4-8.2) gm/dl Albumin 3.2 L (3.4-5.0) gm/dl Urine Color Urine Appearance (Clear) Urine pH (4.5-7.5) Ur Specific [place] (1.000-1.030) Urine Protein (Negative) Urine Glucose (UA) (Negative) Urine Ketones (Negative) Urine Blood (Negative) Urine Nitrite (Negative) Urine Bilirubin (Negative) Urine Urobilinogen (Negative) Ur Leukocyte Esterase (Negative) Urine WBC (Auto) (0-5) /hpf Urine RBC (Auto) (0-4) /hpf U Hyaline Cast (Auto) (0-5) /lpf U Epithel Cells (Auto) (0-5) /lpf Urine Bacteria (Auto) (Negative) COVID-19 Eval Order Crossmatch 05/20/20 05/20/20 05/20/20 Range/Units 05:48 06:11 06:11 WBC (4.8-10.8) K/uL RBC (4.7-6.1) M/uL Hgb (14.0-18.0) g/dL Hct (42-52) % MCV (80-100) fL MCH (25-34) pg MCHC (32-36) g/dL RDW Std Deviation (36.4-46.3) fL RDW Coeff of Antonio (11.5-14.5) % Plt Count (130-400) K/uL MPV (7.4-10.4) fL Immature Gran % (Auto) % Neut % (Auto) % Lymph % (Auto) % [place] % (Auto) % Eos % (Auto) % Baso % (Auto) % Neut # (Auto) (1.4-6.5) K/uL Lymph # (Auto) (1.2-3.4) K/uL [place] # (Auto) (0.11-0.59) K/uL Eos # (Auto) (0-0.5) K/uL Baso # (Auto) (0-0.2) K/uL Immature Gran # (Auto) (0.00-0.02) K/uL Ovalocytes PT (9.0-12.0) Seconds INR (0.9-1.1) APTT (21.0-31.0) Seconds PTT Ratio Sodium (136-145) mmol/L Potassium (3.5-5.1) mmol/L Chloride (98-107) mmol/L Carbon Dioxide (21-32) mmol/L Anion Gap (3-11) BUN (7-18) mg/dl Creatinine (0.6-1.4) mg/dl Est Cr Clr Drug Dosing Est GFR ( Amer) Est GFR (Non-Af Amer) BUN/Creatinine Ratio (10-20) Glucose (70-99) mg/dl Calcium (8.5-10.1) mg/dl Magnesium (1.8-2.4) mg/dl Total Bilirubin (0.2-1) mg/dl Direct Bilirubin (0-0.2) mg/dl AST (15-37) U/L ALT (12-78) U/L Alkaline Phosphatase (45-117) U/L Total Creatine Kinase (39-308) U/L Troponin I (0-0.045) ng/ml Total Protein (6.4-8.2) gm/dl Albumin (3.4-5.0) gm/dl Urine Color Yellow Urine Appearance Clear (Clear) Urine pH 5.0 (4.5-7.5) Ur Specific [place] 1.024 (1.000-1.030) Urine Protein 1+ H (Negative) Urine Glucose (UA) Negative (Negative) Urine Ketones Negative (Negative) Urine Blood 2+ H (Negative) Urine Nitrite Negative (Negative) Urine Bilirubin Negative (Negative) Urine Urobilinogen Negative (Negative) Ur Leukocyte Esterase Negative (Negative) Urine WBC (Auto) 1-5 (0-5) /hpf Urine RBC (Auto) 10-30 H (0-4) /hpf U Hyaline Cast (Auto) 1-5 (0-5) /lpf U Epithel Cells (Auto) 5-10 H (0-5) /lpf Urine Bacteria (Auto) Negative (Negative) COVID-19 Eval Order Covid19 [facility]Now [facility] Crossmatch See Detail Administered Medications Acetaminophen (Ofirmev) 1,000 mg in 100 mls @ 400 mls/hr IV NOW STA Stop: 05/20/20 06:56 Last Admin: 05/20/20 06:48 Dose: 400 mls/hr Documented by: [id number] Discharge Plan Visit Data Chief Complaint: Leg Injury/Pain Stated Complaint: POSSIBLE LEG CLOT ED Provider: Elvin Tillman Discharge Problem: Acute blood loss anemia, Hematoma of left thigh Forms Stand Alone Forms: My [facility] Prescriptions Prescriptions: No Action multivitamin Tablet 1 tab PO QAM RF: 0 pravastatin [Pravachol] 40 mg tablet 80 mg PO HS RF: 0 folic acid 1 mg tablet 1 mg PO QAM RF: 0 metoprolol tartrate 100 mg tablet 50 mg PO BID RF: 0 sennosides [senna] 8.6 mg tablet 8.6 mg PO BID PRN (Reason: Constipation) RF: 0 aspirin [Aspirin Low Dose] 81 mg Tablet,Delayed Release (Dr/Ec) 81 mg PO DAILY RF: 0 Discharge Problem: Hematoma of left thigh Qualifiers: Encounter type: initial encounter Qualified Code(s): S70.12XA - Contusion of left thigh, initial encounter
[2020-05-20 06:01] LABS: INR 1.3 (0.9-1.1); Partial Thromboplastin Ratio 1.1; Partial Thromboplastin Time 27.9 Seconds (21.0-31.0)
[2020-05-20 06:06] LABS: Alanine Aminotransferase 16 U/L (12-78); Albumin Level 3.2 gm/dl (3.4-5.0); Aspartate Aminotransferase 20 U/L (15-37); BUN Creatinine Ratio 35.5 (10-20); Bilirubin Direct 0.3 mg/dl (0-0.2); Blood Urea Nitrogen 40 mg/dl (7-18); Calcium 8.2 mg/dl (8.5-10.1); Carbon Dioxide 26 mmol/L (21-32); Chloride 110 mmol/L (98-107); Est GFR (African American) 68.6; Est GFR (Non-African American) 59.2; Glucose 92 mg/dl (70-99); Magnesium 2.4 mg/dl (1.8-2.4); Potassium 4.6 mmol/L (3.5-5.1); Sodium 141 mmol/L (136-145)
[2020-05-20 06:11] LABS: Alkaline Phosphatase 48 U/L (45-117); Bilirubin,Total 1.1 mg/dl (0.2-1); Creatine Kinase 55 U/L (39-308); Total Protein 6.6 gm/dl (6.4-8.2); Troponin I < 0.015 ng/ml (0-0.045)
[2020-05-20 06:20] LABS: Hemoglobin 7.9 g/dL (14.0-18.0); Mean Corpuscular Hemoglobin 31.7 pg (25-34); Mean Corpuscular Hgb Conc 31.6 g/dL (32-36); Mean Corpuscular Volume 100.4 fL (80-100); Mean Platelet Volume 9.3 fL (7.4-10.4); Platelet Count 87 K/uL (130-400); RDW Standard Deviation 59.4 fL (36.4-46.3); Red Blood Count 2.49 M/uL (4.7-6.1); White Blood Count 5.14 K/uL (4.8-10.8)
[2020-05-20 06:24] LABS: Basophils # (auto) 0.03 K/uL (0-0.2); Basophils % (auto) 0.6 %; Eosinophils # (auto) 0.13 K/uL (0-0.5); Eosinophils % (auto) 2.5 %; Immature Granulocytes # (auto) 0.01 K/uL (0.00-0.02); Immature Granulocytes % (auto) 0.2 %; Lymphocytes # (auto) 1.02 K/uL (1.2-3.4); Lymphocytes % (auto) 19.8 %; Monocytes # (auto) 0.49 K/uL (0.11-0.59); Monocytes % (auto) 9.5 %; Neutrophils # (auto) 3.46 K/uL (1.4-6.5); Neutrophils % (auto) 67.4 %; Ovalocytes 1+
[2020-05-20 06:36] LABS: Appearance Urine Clear (Clear); Bacteria Urine Automated Negative (Negative); Bilirubin Urine Negative (Negative); Blood Urine 2+ (Negative); Color Urine Yellow; Glucose Urine UA Negative (Negative); Ketones Urine Negative (Negative); Leukocyte Esterase Urine Negative (Negative); Nitrite Urine Negative (Negative); Protein Urine 1+ (Negative); Specific Gravity Urine 1.024 (1.000-1.030); Urobilinogen Urine Negative (Negative)
[2020-05-20] MEDS ORDERED: SODIUM CHLORIDE 0.9% 250 ML IV PRN (06:37)
[2020-05-20] MEDS ORDERED: ACETAMINOPHEN 1,000 MG/100 ML VIAL IV STA (06:42)
--- NOTE | 2020-05-20 08:35 | History & Physical Report ---
Date of Service May 20, 2020 Assessment & Plan (1) Acute blood loss anemia: Acute on chronic spontaneous blood loss anemia Secondary to thrombocytopenia and is complicated by use of aspirin Hemoglobin is 7.9 as of 05/20/2020 Will get 1 unit of PRBC and monitor H&H in the medical telemetry unit Will hold aspirin for now but will restart as soon as symptomatically better (2) Hematoma of left thigh: Spontaneous left lateral upper thigh hematoma With associated widespread bruising We will hold of aspirin Cord compression Pain medicine as needed Ortho evaluation if the condition is deteriorated (3) MTHFR gene mutation: History of MTHFR gene mutation with history of deep venous thrombosis in legs Cannot tolerate any anticoagulation due to extensive bleeding history Status post IVC filter placement Has been on aspirin and will need aspirin to prevent cardiac and cerebral events (4) DVT (deep venous thrombosis): As above Status post IVC filter placement last year in [place] (5) History of ascending aortic replacement: Recent imaging studies as of December of last year did not show any significant abnormalities involving the repair DVT prophylaxis SCDs CODE STATUS Full resuscitation Mechanical ventilation History of Present Illness Chief Complaint: Shortness of breath with minimal exertion and increasing bruising involving the left lateral upper thigh and buttock Primary Care Provider: Benjie Carey MD He is an 84 years old male with significant complicated past medical history including 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 She was seen by [facility] at home and underwent x-ray of the left leg that did not show any osseous abnormality and also ultrasound of the left lower extremity that was done on sixth of this month did not show any evidence of DVT. He has been complaining of increasing shortness of breath for the last day or 2 and noticed to have increasing bruising involving the left upper lateral thigh and buttock area with associated severe pain specially while sitting on a chair or on commode. Denies any chest pain and/or palpitation, any abdominal pain nausea and or vomiting, any hematemesis and or melena, any fever and/or chills. He was hemodynamically stable in the emergency room and his hemoglobin was noted to be 7.9. He was started with 1 unit of blood transfusion given the symptomatic anemia and was advised for admission observation due to increasing nature of the hematoma. Allergies Allergy/AdvReac Type Severity Reaction Status Date / Time amoxicillin AdvReac Unknown UNKNOWN Verified 05/20/20 06:02 clavulanic acid AdvReac Unknown UNKNOWN Verified 05/20/20 06:02 Home Medications Medication Instructions Recorded Confirmed Type folic acid 1 mg PO QAM 01/17/18 05/20/20 History multivitamin 1 tab PO QAM 01/17/18 05/20/20 History pravastatin [Pravachol] 80 mg PO HS 01/17/18 05/20/20 History aspirin [Aspirin Low Dose] 81 mg PO DAILY 05/20/20 05/20/20 History metoprolol tartrate 50 mg PO BID 05/20/20 05/20/20 History sennosides [senna] 8.6 mg PO BID PRN 05/20/20 05/20/20 History Past Med/Surg History Medical History (Updated 05/20/20 @ 08:47 by Abigail Alston MD) BPH (benign prostatic hyperplasia) Depression DJD (degenerative joint disease) DVT (deep venous thrombosis) History of temporal arteritis Hyperlipidemia Hypertension Mild reactive airways disease Osteoporosis Surgical History (Updated 02/03/20 @ 11:08 by Mago Dupree LPN) History of carpal tunnel surgery Hx of ascending aortic replacement On 06/10/17 at [facility] [place] Boswell Hx of repair of dissecting thoracic aortic aneurysm, [place] type B "Left common carotid artery to left subclavian artery Dacron bypass graft 06/23/[address] Boswell Repair thoracic aortic aneurysm with aortic dissection using Medtronic Valiant thoracic aortic stent graft covering left subclavian artery and distal Medtronic Valiant thoracic aortic extension placement x2, -Main body graft: [id number]; Two distal extensions measuring 46 x 200 and 46 x 150, Amplanz plug of the left subclavian 06/24/[address] Boswell, Pseudoaneurysm injection of the left brachial artery 06/27/[address] Boswell" S/P eye surgery S/P knee surgery Family History (Updated 02/03/20 @ 11:09 by Mago Dupree LPN) Father Stroke Hypertension Heart disease Sister Cancer Kidney Social History (Updated 02/03/20 @ 11:10 by Mago Dupree LPN) Smoking Status: Never smoker Tobacco Type: Cigars Cigarettes Per Day: Patient reports; Hx Alcohol Use: Yes Alcohol type: wine Hx Substance Use: No Preferred Language: Romanian Communication Ability: Effective Table Lever Operator Required: No Beliefs That Will Affect Care: None marital status: / Current Living Situation: Alone Current Living Situation Comment: Patient Lives alone with his dog current occupational status: retired Feels Safe at Home: Yes Assistive Devices: Cane, Glasses and Walker Review of Systems Review of Systems: All systems reviewed & are unremarkable except as noted in HPI & below Physical Exam Physical Exam: Lying in bed comfortably Constitutional: average body habitus; not ill appearing Eyes: PERRL, conjunctivae normal, anicteric sclerae ENMT: external ear and nose normal, oropharynx normal Neck: trachea midline, no thyromegaly Respiratory: no respiratory distress Auscultation: lungs clear to auscultation bilaterally; no crackles Cardiovascular: Rate/Rhythm: regular rate and regular rhythm Heart Sounds: + murmur (2/6 ejection systolic murmur over precordium) Extremities: + edema (Trace edema on right. 1+ edema on the left.) Skin: Trauma: + hematoma (Huge hematoma over left lateral upper thigh and buttock area with exten) Extensive bruising involving the left lateral upper thigh and buttock area with moderate to severe tenderness on palpation Neurologic: Alert, awake and oriented x3 Results & Data Results & Data ([facility]) Vital Signs (Past 12 Hours) Vital Signs Temp Pulse Resp BP Pulse Ox 05/20/20 08:20 37.0 C 62 20 115/70 05/20/20 08:09 36.8 C 63 18 114/71 100 05/20/20 07:19 67 20 103/65 05/20/20 07:01 62 27 H 100 05/20/20 07:00 60 27 H 107/68 100 05/20/20 06:31 62 22 110/67 100 05/20/20 06:30 59 L 25 H 100 05/20/20 06:01 66 20 157/96 H 100 05/20/20 06:00 63 98 05/20/20 05:31 59 L 24 117/66 100 05/20/20 05:30 58 L 21 97 05/20/20 05:29 16 96 05/20/20 05:26 61 22 05/20/20 05:25 62 23 131/78 05/20/20 05:20 36.8 C 56 L 16 131/78 100 Laboratory Results Short CBC 05/20/20 Range/Units 05:33 WBC 5.14 (4.8-10.8) K/uL Hgb 7.9 L (14.0-18.0) g/dL Hct 25.0 L (42-52) % Plt Count 87 L (130-400) K/uL BMP 05/20/20 05:33 Sodium 141 Potassium 4.6 Chloride 110 H Carbon Dioxide 26 BUN 40 H Creatinine 1.12 Glucose 92 Calcium 8.2 L Cardiac Enzymes 05/20/20 Range/Units 05:33 Total Creatine Kinase 55 (39-308) U/L Troponin I < 0.015 (0-0.045) ng/ml Liver Function 05/20/20 Range/Units 05:33 Total Bilirubin 1.1 H (0.2-1) mg/dl Direct Bilirubin 0.3 H (0-0.2) mg/dl AST 20 (15-37) U/L ALT 16 (12-78) U/L Alkaline Phosphatase 48 (45-117) U/L Albumin 3.2 L (3.4-5.0) gm/dl Urine 05/20/20 Range/Units 06:11 Urine Color Yellow Urine Appearance Clear (Clear) Urine pH 5.0 (4.5-7.5) Ur Specific [place] 1.024 (1.000-1.030) Urine Protein 1+ H (Negative) Urine Glucose (UA) Negative (Negative) Diagnostic Findings CT angiogram of the thorax, abdomen and pelvis on showed: Interval deployment of additional thoracic aortic endograft with improved apposition along the all of the descending thoracic aorta. No evidence of endoleak. No significant interval change in the remainder of thoracic aortic aneurysm status post aortic replacement and a stent graft repair. Stable size of excluded aneurysm sac measuring up to 84 mm. Recent ultrasound of the left lower extremity on 05/05/2020: No evidence of DVT Ultrasound left lower extremity on 05/20/2020 showed: 9.2 x 5.7 x 4.5 cm complex fluid collection within the left proximal thigh. This appears to be intramuscular and therefore favors a hematoma Left lower extremity venous Doppler on 05/20/2020 showed: Linear echogenic nonocclusive stranding within the common femoral, superficial femoral and left popliteal veins.. This suggests chronic DVT Medications Administered Current Inpatient Medications Sodium Chloride (Nss) 250 mls @ 15 mls/hr IV .[id number] PRN PRN Reason: For Transfusion Stop: 05/20/20 16:37 Code Status & VTE Plan VTE Prophylaxis Plan VTE Prophylaxis will be ordered: Yes (1) Hematoma of left thigh Encounter type: initial encounter Qualified Code(s): S70.12XA - Contusion of left thigh, initial encounter
--- NOTE | 2020-05-20 08:43 | Ultrasound Report ---
LEFT LOWER EXTREMITY VENOUS DOPPLER HISTORY: increasing left lower leg swelling COMPARISON STUDY: None. FINDINGS: There is linear echogenic stranding seen within the common femoral, superficial femoral, po pliteal veins. This suggests chronic DVT. The left calf vessels are now well-visualized but likely pa tent. IMPRESSION: Linear echogenic nonocclusive stranding within the common femoral, superficial femoral, and left popl iteal veins. This suggests chronic DVT. ACT 112: Negative or not required by law. Electronically signed by: Jonathan Rosenthal M.D. 05/20/2020 8:42 AM
--- NOTE | 2020-05-20 08:45 | Ultrasound Report ---
US extremity non-vascular ltd CLINICAL HISTORY: left thigh hematoma COMPARISON STUDY: None. FINDINGS: Real-time sonographic imaging of the left gluteal/proximal thigh was performed with represe ntative images submitted. There is a complex avascular fluid collection measuring 9.2 x 5.7 x 4.5 cm. No internal color flow identified. Therefore, this favors a hematoma. This appears to be intramuscul ar. IMPRESSION: A 9.2 x 5.7 x 4.5 cm complex fluid collection within the left proximal thigh. This appea rs to be intramuscular and therefore favors a hematoma. ACT 112: Negative or not required by law. Electronically signed by: Jonathan Rosenthal M.D. 05/20/2020 8:44 AM
--- NOTE | 2020-05-20 08:50 | XRay Report ---
XR chest 1V portable CLINICAL HISTORY: Exertional shortness of breath COMPARISON STUDY: April 13, 2019 FINDINGS: There are postsurgical changes of a midline sternotomy. There is a thoracic aortic aneurysm status post aortic stent grafting. There is a persistent right pleural effusion with improving right basilar airspace opacities. IMPRESSION: 1. Persistent right pleural effusion with improving right basilar opacities 2. Thoracic aortic aneurysm status post aortic stent grafting. ACT 112: Negative or not required by law. Electronically signed by: Raoul Carr M.D. 05/20/2020 8:49 AM
[2020-05-20] MEDS ORDERED: HYDROmorphone INJ 0.5 MG/0.5 ML SYR IV PRN (09:00)
[2020-05-20] MEDS ORDERED: SENNA 8.6 MG TAB PO PRN (10:10)
--- NOTE | 2020-05-20 10:37 | Electrocardiogram Report ---
Test Reason : Blood Pressure : / mmHG Vent. Rate : 060 BPM Atrial Rate : 060 BPM P-R Int : 184 ms QRS Dur : 084 ms QT Int : 452 ms P-R-T Axes : 023 -15 045 degrees QTc Int : 452 ms Normal sinus rhythm Low voltage QRS Borderline ECG When compared with ECG of 13-APR-2019 15:05, No significant change was found Confirmed by Stef Edmonds ([id number]) on 05/20/2020 10:37:38 AM Referred By: REFERRED SELF Confirmed By:Stef Edmonds
[2020-05-20] MEDS: METOPROLOL TARTRATE 50 MG TAB PO SCH ×2 (10:55→20:18)
[2020-05-20] MEDS: MULTIVITAMIN TAB PO SCH (10:55)
[2020-05-20] MEDS: FOLIC ACID 1 MG TAB PO SCH (10:55)
[2020-05-20 16:23] LABS: Hematocrit (blood only) 26.8 % (42-52); Hemoglobin 8.5 g/dL (14.0-18.0)
[2020-05-20] MEDS: PRAVASTATIN SOD 40 MG TAB PO SCH (20:17)
[2020-05-20] MEDS ORDERED: SODIUM CHLORIDE 0.65% NA SOLN 45 ML (OCEAN) PRN (20:27)
[2020-05-20] MEDS ORDERED: SODIUM CHLORIDE 0.65% NA SOLN 45 ML (OCEAN) ONE (20:31)
[2020-05-21 06:41] LABS: Hematocrit (blood only) 26.9 % (42-52); Hemoglobin 8.5 g/dL (14.0-18.0); Mean Corpuscular Hgb Conc 31.6 g/dL (32-36); Mean Corpuscular Volume 98.2 fL (80-100); RDW Standard Deviation 68.9 fL (36.4-46.3); Red Blood Count 2.74 M/uL (4.7-6.1)
[2020-05-21 06:46] LABS: Mean Platelet Volume 9.1 fL (7.4-10.4); Platelet Count 87 K/uL (130-400)
[2020-05-21 07:06] LABS: Anisocytosis Present; Basophils # (auto) 0.02 K/uL (0-0.2); Basophils % (auto) 0.4 %; Eosinophils # (auto) 0.15 K/uL (0-0.5); Eosinophils % (auto) 3.2 %; Immature Granulocytes # (auto) 0.04 K/uL (0.00-0.02); Immature Granulocytes % (auto) 0.9 %; Lymphocytes # (auto) 1.06 K/uL (1.2-3.4); Lymphocytes % (auto) 22.6 %; Monocytes # (auto) 0.52 K/uL (0.11-0.59); Monocytes % (auto) 11.1 %; Neutrophils # (auto) 2.91 K/uL (1.4-6.5); Neutrophils % (auto) 61.8 %; Polychromasia 1+
[2020-05-21 07:12] LABS: BUN Creatinine Ratio 31.6 (10-20); Calcium 7.8 mg/dl (8.5-10.1); Creatinine Clr Calc Pharmacy 41.3 ml/min; Est GFR (African American) 63.1; Est GFR (Non-African American) 54.4; Potassium 4.4 mmol/L (3.5-5.1)
[2020-05-21] MEDS: MULTIVITAMIN TAB PO SCH (08:36)
[2020-05-21] MEDS: METOPROLOL TARTRATE 50 MG TAB PO SCH ×2 (08:36→21:01)
[2020-05-21] MEDS: FOLIC ACID 1 MG TAB PO SCH (08:36)
--- NOTE | 2020-05-21 10:56 | Hospitalist Progress Note ---
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 Secondary to thrombocytopenia and is complicated by use of aspirin Hemoglobin is 7.9 as of 05/20/2020 Will get 1 unit of PRBC and monitor H&H in the medical telemetry unit Will hold aspirin for now but will restart as soon as symptomatically better Hemoglobin remains stable at 8.5 after blood transfusion We will monitor CBC for another 24 hours before discharging him (2) Hematoma of left thigh: Spontaneous left lateral upper thigh hematoma With associated widespread bruising We will hold of aspirin Cord compression Pain medicine as needed Ortho evaluation if the condition is deteriorated Condition remains stable We will get PT and OT evaluation and possible discharge tomorrow (3) MTHFR gene mutation: History of MTHFR gene mutation with history of deep venous thrombosis in legs Cannot tolerate any anticoagulation due to extensive bleeding history Status post IVC filter placement Has been on aspirin and will need aspirin to prevent cardiac and cerebral events We will start aspirin as soon as possible (4) DVT (deep venous thrombosis): As above Status post IVC filter placement last year in [place] (5) History of ascending aortic replacement: Recent imaging studies as of December of last year did not show any significant abnormalities involving the repair DVT prophylaxis SCDs CODE STATUS Full resuscitation No mechanical ventilation-corrected by Dr. Alston Admission and Anticipated Discharge Date Admission Date: May 20, 2020 Subjective 05/21/2020 The patient was seen and examined in medical telemetry unit He complains of pain in the left gluteal area which is worse with activity Denies any other symptoms Review of Systems Review of Systems: All systems reviewed and are unremarkable except as noted below Musculoskeletal: + joint pain (Pain in the left leg) and + problem reported (Pain in the left gluteal area especially with movement) Physical Exam Physical Exam: Lying in bed comfortably Constitutional: average body habitus; not ill appearing Eyes: PERRL, conjunctivae normal, anicteric sclerae ENMT: external ear and nose normal, oropharynx normal Neck: trachea midline, no thyromegaly Respiratory: no respiratory distress Auscultation: lungs clear to auscultation bilaterally; no crackles Cardiovascular: Rate/Rhythm: regular rate and regular rhythm Heart Sounds: + murmur (2/6 ejection systolic murmur over precordium) Extremities: + edema (Trace edema on right. 1+ edema on the left.) Gastrointestinal (Abdomen): Inspection/Auscultation: normal bowel sounds; abdomen not distended Percussion/Palpation: abdomen soft; abdomen nontender Musculoskeletal: Extensive bruising involving the left upper lateral lateral thigh and gluteal area. Tenderness over left gluteal area Skin: Trauma: + hematoma (Huge hematoma over left lateral upper thigh and buttock area with exten) Neurologic: Alert, awake and oriented x3. No focal sensory and/or motor deficit appreciated Results & Data Results & Data ([facility]) Vital Signs (Past 12 Hours) Vital Signs Temp Pulse Pulse Resp BP Pulse Ox 05/21/20 08:02 36.5 C 67 16 127/68 95 05/21/20 08:00 65 05/21/20 02:50 36.7 C 73 18 116/68 96 05/20/20 23:11 36.8 C 65 18 121/70 95 05/20/20 23:00 67 Laboratory Results Short CBC 05/20/20 05/21/20 Range/Units 15:58 06:24 WBC 4.70 L (4.8-10.8) K/uL Hgb 8.5 L 8.5 L (14.0-18.0) g/dL Hct 26.8 L 26.9 L (42-52) % Plt Count 87 L (130-400) K/uL BMP 05/21/20 06:24 Sodium 139 Potassium 4.4 Chloride 109 H Carbon Dioxide 25 BUN 38 H Creatinine 1.20 Glucose 93 Calcium 7.8 L Medications Administered Current Inpatient Medications Folic Acid (Folic Acid 1 Mg Tab) 1 mg PO QAM [facility] Stop: 06/19/20 10:09 Last Admin: 05/21/20 08:36 Dose: 1 mg Documented by: Hydromorphone HCl (Hydromorphone Inj 0.5 Mg/0.5 Ml Syr) 0.5 mg IV Q4H PRN PRN Reason: Pain Stop: 06/03/20 08:59 Metoprolol Tartrate (Metoprolol Tartrate 50 Mg Tab) 50 mg PO BID [facility] Stop: 06/19/20 10:09 Last Admin: 05/21/20 08:36 Dose: 50 mg Documented by: Multivitamins (Multivitamin Tab) 1 tab PO QAM [facility] Stop: 06/19/20 10:09 Last Admin: 05/21/20 08:36 Dose: 1 tab Documented by: Pravastatin Sodium (Pravastatin Sod 40 Mg Tab) 80 mg PO HS [facility] Stop: 06/19/20 20:59 Last Admin: 05/20/20 20:17 Dose: 80 mg Documented by: Sennosides (Senna 8.6 Mg Tab) 8.6 mg PO BID PRN PRN Reason: Constipation Stop: 06/19/20 10:09 Sodium Chloride (Sodium Chloride 0.65% Na Soln 45 Ml ([place])) 1 sprays NA DAILY PRN PRN Reason: dry nasal passages Stop: 06/19/20 20:26 Last Admin: 05/21/20 08:46 Dose: 1 sprays Documented by: (1) Hematoma of left thigh Encounter type: initial encounter Qualified Code(s): S70.12XA - Contusion of left thigh, initial encounter
[2020-05-21] MEDS ORDERED: traMADol HCL 50 MG TABLET PO PRN (15:49)
[2020-05-21] MEDS: PRAVASTATIN SOD 40 MG TAB PO SCH (21:01)
[2020-05-21] MEDS: POLYETHYLENE (MIRALAX) 17 GM PACK PO PRN (21:01)
[2020-05-22 06:58] LABS: Hematocrit (blood only) 26.8 % (42-52); Hemoglobin 8.6 g/dL (14.0-18.0); Mean Corpuscular Hemoglobin 31.4 pg (25-34); Mean Corpuscular Hgb Conc 32.1 g/dL (32-36); Mean Corpuscular Volume 97.8 fL (80-100); RDW Coefficient of Variation 19.7 % (11.5-14.5); RDW Standard Deviation 66.4 fL (36.4-46.3); Red Blood Count 2.74 M/uL (4.7-6.1); White Blood Count 4.64 K/uL (4.8-10.8)
[2020-05-22 07:01] LABS: Mean Platelet Volume 9.6 fL (7.4-10.4); Platelet Count 96 K/uL (130-400)
[2020-05-22 07:32] LABS: Basophils # (auto) 0.03 K/uL (0-0.2); Basophils % (auto) 0.6 %; Eosinophils # (auto) 0.12 K/uL (0-0.5); Eosinophils % (auto) 2.6 %; Immature Granulocytes # (auto) 0.02 K/uL (0.00-0.02); Immature Granulocytes % (auto) 0.4 %; Lymphocytes # (auto) 1.07 K/uL (1.2-3.4); Lymphocytes % (auto) 23.1 %; Monocytes # (auto) 0.63 K/uL (0.11-0.59); Monocytes % (auto) 13.6 %; Neutrophils # (auto) 2.77 K/uL (1.4-6.5); Neutrophils % (auto) 59.7 %
[2020-05-22 07:37] LABS: BUN Creatinine Ratio 34.6 (10-20); Creatinine Clr Calc Pharmacy 48.6 ml/min; Est GFR (African American) 76.8; Est GFR (Non-African American) 66.2; Potassium 4.3 mmol/L (3.5-5.1)
[2020-05-22] MEDS: FOLIC ACID 1 MG TAB PO SCH (08:06)
[2020-05-22] MEDS: MULTIVITAMIN TAB PO SCH (08:06)
[2020-05-22] MEDS: METOPROLOL TARTRATE 50 MG TAB PO SCH ×2 (08:06→20:05)
--- NOTE | 2020-05-22 09:22 | Hospitalist Progress Note ---
Date of Service May 22, 2020 Assessment & Plan (1) Acute blood loss anemia: Acute on chronic spontaneous blood loss anemia Secondary to thrombocytopenia and is complicated by use of aspirin Hemoglobin is 7.9 as of 05/20/2020 Will get 1 unit of PRBC and monitor H&H in the medical telemetry unit Will hold aspirin for now but will restart as soon as symptomatically better Hemoglobin remains stable at 8.5 after blood transfusion We will monitor CBC for another 24 hours before discharging him (2) Hematoma of left thigh: Spontaneous left lateral upper thigh hematoma With associated widespread bruising We will hold of aspirin Cord compression Pain medicine as needed Ortho evaluation if the condition is deteriorated Condition remains stable We will get PT and OT evaluation and possible discharge tomorrow (3) MTHFR gene mutation: History of MTHFR gene mutation with history of deep venous thrombosis in legs Cannot tolerate any anticoagulation due to extensive bleeding history Status post IVC filter placement Has been on aspirin and will need aspirin to prevent cardiac and cerebral events We will start aspirin as soon as possible (4) DVT (deep venous thrombosis): As above Status post IVC filter placement last year in [place] Chronic DVTs of left common femoral, superficial femoral and popliteal veins (5) History of ascending aortic replacement: Recent imaging studies as of December of last year did not show any significant abnormalities involving the repair DVT prophylaxis SCDs CODE STATUS Full resuscitation No mechanical ventilation-corrected by Dr. Alston Admission and Anticipated Discharge Date Admission Date: May 20, 2020 Subjective 05/21/2020 The patient was seen and examined in medical telemetry unit He complains of pain in the left gluteal area which is worse with activity Denies any other symptoms Physical Exam Physical Exam: Lying in bed comfortably Constitutional: average body habitus; not ill appearing Eyes: PERRL, conjunctivae normal, anicteric sclerae ENMT: external ear and nose normal, oropharynx normal Neck: trachea midline, no thyromegaly Respiratory: no respiratory distress Auscultation: lungs clear to auscultation bilaterally; no crackles Cardiovascular: Rate/Rhythm: regular rate and regular rhythm Heart Sounds: + murmur (2/6 ejection systolic murmur over precordium) Extremities: + edema (Trace edema on right. 1+ edema on the left.) Gastrointestinal (Abdomen): Inspection/Auscultation: normal bowel sounds; abdomen not distended Percussion/Palpation: abdomen soft; abdomen nontender Skin: Trauma: + hematoma (Huge hematoma over left lateral upper thigh and buttock area with exten) Results & Data Results & Data ([facility]) Vital Signs (Past 12 Hours) Vital Signs Temp Pulse Pulse Resp BP Pulse Ox 05/22/20 07:55 36.6 C 69 18 112/71 95 05/22/20 02:43 36.8 C 65 18 111/67 98 05/22/20 01:21 68 (1) Hematoma of left thigh Encounter type: initial encounter Qualified Code(s): S70.12XA - Contusion of left thigh, initial encounter
[2020-05-22] MEDS: oxyCODONE/ACETAMINOPHEN 5mg/325mg TAB PO PRN (09:43)
[2020-05-22] MEDS: PRAVASTATIN SOD 40 MG TAB PO SCH (20:04)
[2020-05-23 07:15] LABS: Basophils # (auto) 0.01 K/uL (0-0.2); Basophils % (auto) 0.2 %; Hematocrit (blood only) 26.6 % (42-52); Hemoglobin 8.5 g/dL (14.0-18.0); Immature Granulocytes # (auto) 0.03 K/uL (0.00-0.02); Immature Granulocytes % (auto) 0.6 %; Lymphocytes # (auto) 1.09 K/uL (1.2-3.4); Lymphocytes % (auto) 21.7 %; Mean Corpuscular Hemoglobin 31.3 pg (25-34); Mean Corpuscular Volume 97.8 fL (80-100); Mean Platelet Volume 9.7 fL (7.4-10.4); Monocytes # (auto) 0.69 K/uL (0.11-0.59); Monocytes % (auto) 13.7 %; Neutrophils % (auto) 59.8 %; Platelet Count 105 K/uL (130-400); RDW Coefficient of Variation 19.4 % (11.5-14.5); RDW Standard Deviation 67.5 fL (36.4-46.3); Red Blood Count 2.72 M/uL (4.7-6.1); White Blood Count 5.02 K/uL (4.8-10.8)
[2020-05-23] MEDS: MULTIVITAMIN TAB PO SCH (08:52)
[2020-05-23] MEDS: FOLIC ACID 1 MG TAB PO SCH (08:52)
[2020-05-23] MEDS: oxyCODONE/ACETAMINOPHEN 5mg/325mg TAB PO PRN (10:05)
[2020-05-23] MEDS: METOPROLOL TARTRATE 50 MG TAB PO SCH ×2 (10:05→20:51)
--- NOTE | 2020-05-23 13:29 | Hospitalist Progress Note ---
Date of Service May 23, 2020 Assessment & Plan (1) Acute blood loss anemia: Acute on chronic spontaneous blood loss anemia Secondary to thrombocytopenia and is complicated by use of aspirin Hemoglobin is 7.9 as of 05/20/2020 Will get 1 unit of PRBC and monitor H&H in the medical telemetry unit Will hold aspirin for now but will restart as soon as symptomatically better Hemoglobin remains stable at 8.5 after blood transfusion We will monitor CBC for another 24 hours before discharging him Hemoglobin remains stable at 8.5 for the last 3 days We will check CBC again tomorrow (2) Hematoma of left thigh: Spontaneous left lateral upper thigh hematoma With associated widespread bruising We will hold of aspirin Cord compression Pain medicine as needed Ortho evaluation if the condition is deteriorated Condition remains stable We will get PT and OT evaluation and possible discharge tomorrow Pain in the left hip and also left knee is worse today We will continue current management and continue with PT and OT (3) MTHFR gene mutation: History of MTHFR gene mutation with history of deep venous thrombosis in legs Cannot tolerate any anticoagulation due to extensive bleeding history Status post IVC filter placement Has been on aspirin and will need aspirin to prevent cardiac and cerebral events We will start aspirin as soon as possible Prior to contact vascular surgery at [place] for further advice on aspirin (4) DVT (deep venous thrombosis): As above Status post IVC filter placement last year in [place] Chronic DVTs of left common femoral, superficial femoral and popliteal veins (5) History of ascending aortic replacement: Recent imaging studies as of December of last year did not show any significant abnormalities involving the repair DVT prophylaxis SCDs CODE STATUS Full resuscitation No mechanical ventilation-corrected by Dr. Alston Admission and Anticipated Discharge Date Admission Date: May 20, 2020 Subjective 05/22/2020 The patient was seen and examined in medical telemetry unit He complains of pain in the left gluteal area which is worse with activity Denies any other symptoms 05/23/2020 The patient was seen and examined in medical telemetry unit He complains of more pain in the left gluteal area and also new pain in the left knee Not yet ready to be discharged Denies any other symptoms Review of Systems Review of Systems: All systems reviewed and are unremarkable except as noted below Musculoskeletal: + joint pain (Pain in the left leg and left knee) and + problem reported (Pain in the left gluteal area especially with movement) Physical Exam Physical Exam: Sitting on a chair without any distress but very anxious Constitutional: average body habitus; not ill appearing Eyes: PERRL, conjunctivae normal, anicteric sclerae ENMT: external ear and nose normal, oropharynx normal Neck: trachea midline, no thyromegaly Respiratory: no respiratory distress Auscultation: lungs clear to auscultation bilaterally; no crackles Cardiovascular: Rate/Rhythm: regular rate and regular rhythm Heart Sounds: + murmur (2/6 ejection systolic murmur over precordium) Extremities: + edema (Trace edema on right. 1+ edema on the left.) Gastrointestinal (Abdomen): Inspection/Auscultation: normal bowel sounds; abdomen not distended Percussion/Palpation: abdomen soft; abdomen nontender Musculoskeletal: Knee: + knee abnormal to inspection (Left knee is minimally swollen likely secondary to osteoarthritis.); no skin erythema Skin: Trauma: + hematoma (Huge hematoma over left lateral upper thigh and buttock area with exten) Neurologic: Alert, awake and oriented x3 Results & Data Results & Data ([facility]) Vital Signs (Past 12 Hours) Vital Signs Temp Pulse Pulse Pulse Resp BP Pulse Ox 05/23/20 11:26 36.8 C 63 16 111/69 95 05/23/20 07:37 66 05/23/20 06:48 36.9 C 70 18 110/64 93 05/23/20 03:28 62 05/23/20 03:09 36.6 C 66 18 115/75 95 Laboratory Results Short CBC 05/23/20 Range/Units 06:29 WBC 5.02 (4.8-10.8) K/uL Hgb 8.5 L (14.0-18.0) g/dL Hct 26.6 L (42-52) % Plt Count 105 L (130-400) K/uL Medications Administered Current Inpatient Medications Folic Acid (Folic Acid 1 Mg Tab) 1 mg PO QAM [facility] Stop: 06/19/20 10:09 Last Admin: 05/23/20 08:52 Dose: 1 mg Documented by: Hydromorphone HCl (Hydromorphone Inj 0.5 Mg/0.5 Ml Syr) 0.5 mg IV Q4H PRN PRN Reason: Pain Stop: 06/03/20 08:59 Metoprolol Tartrate (Metoprolol Tartrate 50 Mg Tab) 50 mg PO BID [facility] Stop: 06/19/20 10:09 Last Admin: 05/23/20 10:05 Dose: 50 mg Documented by: Multivitamins (Multivitamin Tab) 1 tab PO QAM [facility] Stop: 06/19/20 10:09 Last Admin: 05/23/20 08:52 Dose: 1 tab Documented by: Oxycodone/Acetaminophen (Oxycodone/Acetaminophen 5mg/325mg Tab) 1 tab PO Q4H PRN PRN Reason: Pain Stop: 06/04/20 17:27 Last Admin: 05/23/20 10:05 Dose: 1 tab Documented by: Polyethylene Glycol (Polyethylene (Miralax) 17 Gm Pack) 17 gm PO DAILY PRN PRN Reason: Constipation Stop: 06/20/20 17:27 Last Admin: 05/21/20 21:01 Dose: 17 gm Documented by: Pravastatin Sodium (Pravastatin Sod 40 Mg Tab) 80 mg PO HS [facility] Stop: 06/19/20 20:59 Last Admin: 05/22/20 20:04 Dose: 80 mg Documented by: Sennosides (Senna 8.6 Mg Tab) 8.6 mg PO BID PRN PRN Reason: Constipation Stop: 06/19/20 10:09 Sodium Chloride (Sodium Chloride 0.65% Na Soln 45 Ml ([place])) 1 sprays NA DAILY PRN PRN Reason: dry nasal passages Stop: 06/19/20 20:26 Last Admin: 05/21/20 08:46 Dose: 1 sprays Documented by: Tramadol HCl (Tramadol Hcl 50 Mg Tablet) 50 mg PO Q4H PRN PRN Reason: Pain Stop: 06/20/20 15:48 (1) Hematoma of left thigh Encounter type: initial encounter Qualified Code(s): S70.12XA - Contusion of left thigh, initial encounter
[2020-05-23] MEDS: PRAVASTATIN SOD 40 MG TAB PO SCH (20:51)
[2020-05-24 06:22] LABS: Basophils # (auto) 0.01 K/uL (0-0.2); Basophils % (auto) 0.2 %; Eosinophils # (auto) 0.16 K/uL (0-0.5); Eosinophils % (auto) 3.3 %; Hematocrit (blood only) 26.5 % (42-52); Hemoglobin 8.4 g/dL (14.0-18.0); Immature Granulocytes # (auto) 0.02 K/uL (0.00-0.02); Immature Granulocytes % (auto) 0.4 %; Lymphocytes # (auto) 0.97 K/uL (1.2-3.4); Mean Corpuscular Hgb Conc 31.7 g/dL (32-36); Mean Corpuscular Volume 97.8 fL (80-100); Mean Platelet Volume 9.3 fL (7.4-10.4); Monocytes % (auto) 10.3 %; Neutrophils # (auto) 3.18 K/uL (1.4-6.5); Neutrophils % (auto) 65.8 %; Platelet Count 115 K/uL (130-400); RDW Coefficient of Variation 19.1 % (11.5-14.5); RDW Standard Deviation 67.9 fL (36.4-46.3); Red Blood Count 2.71 M/uL (4.7-6.1); White Blood Count 4.84 K/uL (4.8-10.8)
[2020-05-24] MEDS: FOLIC ACID 1 MG TAB PO SCH (08:31)
[2020-05-24] MEDS: METOPROLOL TARTRATE 50 MG TAB PO SCH (08:31)
[2020-05-24] MEDS: MULTIVITAMIN TAB PO SCH (08:32)
[2020-05-24] MEDS: POLYETHYLENE (MIRALAX) 17 GM PACK PO PRN (08:35)
[2020-05-24] MEDS ORDERED: ASPIRIN 81 MG ECTAB PO SCH (09:00)
--- NOTE | 2020-05-24 13:06 | Hospitalist Progress Note ---
Date of Service May 24, 2020 Assessment & Plan (1) Acute blood loss anemia: Acute on chronic spontaneous blood loss anemia Secondary to thrombocytopenia and is complicated by use of aspirin Hemoglobin is 7.9 as of 05/20/2020 Will get 1 unit of PRBC and monitor H&H in the medical telemetry unit Will hold aspirin for now but will restart as soon as symptomatically better Hemoglobin remains stable at 8.5 after blood transfusion We will monitor CBC for another 24 hours before discharging him Hemoglobin remains stable at 8.5 for the last 4 days Discussed with his vascular surgeon at [place] and his aspirin was restarted (2) Hematoma of left thigh: Spontaneous left lateral upper thigh hematoma With associated widespread bruising We will hold of aspirin Cord compression Pain medicine as needed Ortho evaluation if the condition is deteriorated Condition remains stable We will get PT and OT evaluation and possible discharge tomorrow Pain in the left hip and also left knee is worse today We will continue current management and continue with PT and OT There is no increase in the bruising over the left upper thigh and buttock area Pain in the left knee Secondary to osteoarthritis No evidence of any acute inflamed arthritis on examination (3) MTHFR gene mutation: History of MTHFR gene mutation with history of deep venous thrombosis in legs Cannot tolerate any anticoagulation due to extensive bleeding history Status post IVC filter placement Has been on aspirin and will need aspirin to prevent cardiac and cerebral events We will start aspirin as soon as possible Prior to contact vascular surgery at [place] for further advice on aspirin Aspirin has been restarted (4) DVT (deep venous thrombosis): As above Status post IVC filter placement last year in [place] Chronic DVTs of left common femoral, superficial femoral and popliteal veins (5) History of ascending aortic replacement: Recent imaging studies as of December of last year did not show any significant abnormalities involving the repair DVT prophylaxis SCDs CODE STATUS Full resuscitation No mechanical ventilation-corrected by Dr. Alston Admission and Anticipated Discharge Date Admission Date: May 20, 2020 Subjective 05/22/2020 The patient was seen and examined in medical telemetry unit He complains of pain in the left gluteal area which is worse with activity Denies any other symptoms 05/23/2020 The patient was seen and examined in medical telemetry unit He complains of more pain in the left gluteal area and also new pain in the left knee Not yet ready to be discharged Denies any other symptoms 05/24/2020 The patient was seen and examined in medical telemetry unit Still complains of pain in the left knee and left gluteal area Has been getting physical therapy He does not want to take any narcotics pain medication He denies any other symptoms and will be sent home this afternoon Review of Systems Review of Systems: All systems reviewed and are unremarkable except as noted below Musculoskeletal: + joint pain (Pain in the left leg and left knee) and + problem reported (Pain in the left gluteal area especially with movement) Physical Exam Physical Exam: Sitting on a chair without any distress but very anxious Constitutional: average body habitus; not ill appearing Eyes: PERRL, conjunctivae normal, anicteric sclerae ENMT: external ear and nose normal, oropharynx normal Neck: trachea midline, no thyromegaly Respiratory: no respiratory distress Auscultation: lungs clear to auscultation bilaterally; no crackles Cardiovascular: Rate/Rhythm: regular rate and regular rhythm Heart Sounds: + murmur (2/6 ejection systolic murmur over precordium) Extremities: + edema (Trace edema on right. 1+ edema on the left.) Gastrointestinal (Abdomen): Inspection/Auscultation: normal bowel sounds; abdomen not distended Percussion/Palpation: abdomen soft; abdomen nontender Musculoskeletal: Knee: + knee abnormal to inspection (Left knee is minimally swollen likely secondary to osteoarthritis.); no skin erythema Skin: Trauma: + hematoma (Huge hematoma over left lateral upper thigh and buttock area with exten) Neurologic: Alert, awake and oriented x3. No focal sensory or motor deficit appreciated Psychiatric: A+Ox3, euthymic affect Results & Data Results & Data ([facility]) Vital Signs (Past 12 Hours) Vital Signs Temp Pulse Pulse Resp BP Pulse Ox 05/24/20 11:46 36.5 C 66 18 115/77 95 05/24/20 07:29 36.4 C L 70 18 116/70 97 05/24/20 07:12 72 Laboratory Results Short CBC 05/24/20 Range/Units 05:50 WBC 4.84 (4.8-10.8) K/uL Hgb 8.4 L (14.0-18.0) g/dL Hct 26.5 L (42-52) % Plt Count 115 L (130-400) K/uL Medications Administered Current Inpatient Medications Aspirin (Aspirin 81 Mg Ectab) 81 mg PO DAILY [facility] Stop: 06/23/20 08:59 Last Admin: 05/24/20 09:57 Dose: 81 mg Documented by: Folic Acid (Folic Acid 1 Mg Tab) 1 mg PO QAM [facility] Stop: 06/19/20 10:09 Last Admin: 05/24/20 08:31 Dose: 1 mg Documented by: Hydromorphone HCl (Hydromorphone Inj 0.5 Mg/0.5 Ml Syr) 0.5 mg IV Q4H PRN PRN Reason: Pain Stop: 06/03/20 08:59 Metoprolol Tartrate (Metoprolol Tartrate 50 Mg Tab) 50 mg PO BID [facility] Stop: 06/19/20 10:09 Last Admin: 05/24/20 08:31 Dose: 50 mg Documented by: Multivitamins (Multivitamin Tab) 1 tab PO QAM [facility] Stop: 06/19/20 10:09 Last Admin: 05/24/20 08:32 Dose: 1 tab Documented by: Oxycodone/Acetaminophen (Oxycodone/Acetaminophen 5mg/325mg Tab) 1 tab PO Q4H PRN PRN Reason: Pain Stop: 06/04/20 17:27 Last Admin: 05/23/20 10:05 Dose: 1 tab Documented by: Polyethylene Glycol (Polyethylene (Miralax) 17 Gm Pack) 17 gm PO DAILY PRN PRN Reason: Constipation Stop: 06/20/20 17:27 Last Admin: 05/24/20 08:35 Dose: 17 gm Documented by: Pravastatin Sodium (Pravastatin Sod 40 Mg Tab) 80 mg PO [facility] Stop: 06/19/20 20:59 Last Admin: 05/23/20 20:51 Dose: 80 mg Documented by: Sennosides (Senna 8.6 Mg Tab) 8.6 mg PO BID PRN PRN Reason: Constipation Stop: 06/19/20 10:09 Sodium Chloride (Sodium Chloride 0.65% Na Soln 45 Ml ([place])) 1 sprays NA DAILY PRN PRN Reason: dry nasal passages Stop: 06/19/20 20:26 Last Admin: 05/21/20 08:46 Dose: 1 sprays Documented by: Tramadol HCl (Tramadol Hcl 50 Mg Tablet) 50 mg PO Q4H PRN PRN Reason: Pain Stop: 06/20/20 15:48 Last Admin: 05/24/20 10:06 Dose: 50 mg Documented by: (1) Hematoma of left thigh Encounter type: initial encounter Qualified Code(s): S70.12XA - Contusion of left thigh, initial encounter
--- NOTE | 2020-05-25 09:08 | Discharge Summary ---
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 She was seen by [facility] at home and underwent x-ray of the left leg that did not show any osseous abnormality and also ultrasound of the left lower extremity that was done on sixth of this month did not show any evidence of DVT. He has been complaining of increasing shortness of breath for the last day or 2 and noticed to have increasing bruising involving the left upper lateral thigh and buttock area with associated severe pain specially while sitting on a chair or on commode. Denies any chest pain and/or palpitation, any abdominal pain nausea and or vomiting, any hematemesis and or melena, any fever and/or chills. He was hemodynamically stable in the emergency room and his hemoglobin was noted to be 7.9. He was started with 1 unit of blood transfusion given the symptomatic anemia and was advised for admission observation due to increasing nature of the hematoma. Admission Exam Per Admitting Provider Physical Exam: Lying in bed comfortably Constitutional: average body habitus; not ill appearing Eyes: PERRL, conjunctivae normal, anicteric sclerae ENMT: external ear and nose normal, oropharynx normal Neck: trachea midline, no thyromegaly Respiratory: no respiratory distress Auscultation: lungs clear to auscultation bilaterally; no crackles Cardiovascular: Rate/Rhythm: regular rate and regular rhythm Heart Sounds: + murmur (2/6 ejection systolic murmur over precordium) Extremities: + edema (Trace edema on right. 1+ edema on the left.) Skin: Trauma: + hematoma (Huge hematoma over left lateral upper thigh and buttock area with exten) Extensive bruising involving the left lateral upper thigh and buttock area with moderate to severe tenderness on palpation Neurologic: Alert, awake and oriented x3 Principal Diagnosis Acute blood loss anemia, spontaneous hematoma of the left upper thigh and gluteal area, MTHFR mutation, history of DVT status post IVC filter Discharge Exam Constitutional average body habitus; not ill appearing Eyes PERRL, conjunctivae normal, anicteric sclerae ENMT external ear and nose normal, oropharynx normal Neck trachea midline, no thyromegaly Respiratory no respiratory distress Auscultation: lungs clear to auscultation bilaterally; no crackles Cardiovascular Rate/Rhythm: regular rate and regular rhythm Heart Sounds: + murmur (2/6 ejection systolic murmur over precordium) Extremities: + edema (Trace edema on right. 1+ edema on the left.) Gastrointestinal (Abdomen) Inspection/Auscultation: normal bowel sounds; abdomen not distended Percussion/Palpation: abdomen soft; abdomen nontender Musculoskeletal Knee: + knee abnormal to inspection (Left knee is minimally swollen likely secondary to osteoarthritis.); no skin erythema Skin Trauma: + hematoma (Huge hematoma over left lateral upper thigh and buttock area with exten) Psychiatric A+Ox3, euthymic affect Discharge Data Allergies Allergy/AdvReac Type Severity Reaction Status Date / Time amoxicillin AdvReac Unknown UNKNOWN Verified 05/20/20 06:02 clavulanic acid AdvReac Unknown UNKNOWN Verified 05/20/20 06:02 Consultations 05/20/20 06:52 ED Decision to Admit Stat Ordered Studies 05/20/20 05:29 US extremity non-vascular ltd Stat US venous doppler LE LT Stat Hospital Course (1) Acute blood loss anemia: Acute on chronic spontaneous blood loss anemia Secondary to thrombocytopenia and is complicated by use of aspirin Hemoglobin is 7.9 as of 05/20/2020 Will get 1 unit of PRBC and monitor H&H in the medical telemetry unit Will hold aspirin for now but will restart as soon as symptomatically better Hemoglobin remains stable at 8.5 after blood transfusion We will monitor CBC for another 24 hours before discharging him Hemoglobin remains stable at 8.5 for the last 4 days Discussed with his vascular surgeon at [place] and his aspirin was restarted (2) Hematoma of left thigh: Spontaneous left lateral upper thigh hematoma With associated widespread bruising We will hold of aspirin Cord compression Pain medicine as needed Ortho evaluation if the condition is deteriorated Condition remains stable We will get PT and OT evaluation and possible discharge tomorrow Pain in the left hip and also left knee is worse today We will continue current management and continue with PT and OT There is no increase in the bruising over the left upper thigh and buttock area Pain in the left knee Secondary to osteoarthritis No evidence of any acute inflamed arthritis on examination (3) MTHFR gene mutation: History of MTHFR gene mutation with history of deep venous thrombosis in legs Cannot tolerate any anticoagulation due to extensive bleeding history Status post IVC filter placement Has been on aspirin and will need aspirin to prevent cardiac and cerebral events We will start aspirin as soon as possible Prior to contact vascular surgery at [place] for further advice on aspirin Aspirin has been restarted (4) DVT (deep venous thrombosis): As above Status post IVC filter placement last year in [place] Chronic DVTs of left common femoral, superficial femoral and popliteal veins (5) History of ascending aortic replacement: Recent imaging studies as of December of last year did not show any significant abnormalities involving the repair DVT prophylaxis SCDs CODE STATUS Full resuscitation No mechanical ventilation-corrected by Dr. Alston Total Time Total Time Spent Total Time Spent (In Minutes): 35 minutes Total Time Includes: Examination of the Patient, Discharge Planning, Medication Reconciliation and Communication With Other Providers Discharge Plan Discharge Items Patient Disposition: Home - Home Health Services Reason For Visit: SYMPTOMATIC ANEMIA, SPONTANEOUS HEMATOMA Discharge Diagnosis: Acute blood loss anemia, spontaneous hematoma of the left upper thigh and gluteal area, MTHFR mutation, history of DVT status post IVC filter Condition on Discharge: Fair Activity: Resume your previous activity Non-emergency contact: Primary Care Provider Call non-emergency contact if: you have any medication questions and your symptoms worsen Follow-up/Referrals: Benjie Carey MD [Primary Care Provider] - 06/01/20 11:00 am ( Date & Time 06/01/2020 11:00 AM Provider Benjie Carey MD Department Internal Medicine [facility] ) Diet: Heart Healthy Add Attending Provider Instructions: Please take precaution to avoid falls Do not take any NSAID use other than aspirin that you have been taking Pending Studies at Discharge: No Stand-Alone Forms: My [employer] Smoking Cessation Medications and DC Order Prescriptions: Continued multivitamin Tablet 1 tab PO QAM RF: 0 pravastatin [Pravachol] 40 mg tablet 80 mg PO HS RF: 0 folic acid 1 mg tablet 1 mg PO QAM RF: 0 metoprolol tartrate 100 mg tablet 50 mg PO BID RF: 0 sennosides [senna] 8.6 mg tablet 8.6 mg PO BID PRN (Reason: Constipation) RF: 0 aspirin [Aspirin Low Dose] 81 mg Tablet,Delayed Release (Dr/Ec) 81 mg PO DAILY RF: 0 Discharge Orders: Discharge Order (Routine); Ordered 05/24/20 Ordered By: Abigail Alston Admission Data Admit Date/Time: 05/20/20 08:19 Attending Provider: Abigail Alston Admit Provider: Abigail Alston Primary Care Provider: Benjie Carey Other Providers: Erica Amador Other Interventions: Discharge Summary Assessment (RN) Last Done: 05/24/20 13:27
== END 2020-05-24 17:47 | disposition home health service (06) | DRG 812 ==
LOC: ED 05:17 → 2N 08:19

== ENCOUNTER 2020-09-06 11:28 | Inpatient (IN) ==
--- NOTE | 2020-09-06 12:08 | Emergency Department Note ---
Impression & Plan DVT (deep venous thrombosis), Acute hypotension, High serum chloride ED Provider Note NAME: BOBBI GIBBONS AGE: 84 SEX: M : 1935 ARRIVES VIA: Ambulance INFORMANT: Patient ED PROVIDER(S): Morales Rojas DO CHIEF COMPLAINT: Left leg pain HPI: Patient is an 84-year-old male who presents to the ER for left leg pain. This started yesterday and has been gradually getting worse. Is located in his left upper thigh. He notes swelling. He does have a history of previous DVTs but nothing recently. Does not take any blood thinners. Denies any headache or change in vision. No chest pain or shortness of breath. No nausea, vomiting, or diarrhea. No dysuria, urgency, or frequency. No weakness or numbness. No trauma or falls. No other exacerbating or remitting factors other than pain is significant improved with rest and significantly worsened with up moving around. ROS: See above HPI for pertinent positives & negatives. A total of 10 systems reviewed and were otherwise negative. PAST MEDICAL HISTORY:See Below PAST SURGICAL HISTORY:See Below FAMILY HISTORY:See Below SOCIAL HISTORY:See Below HOME MEDICATIONS:See Below ALLERGIES:See Below VITALS:See Below PHYSICAL EXAMINATION: GENERAL: Sitting up in bed, alert, chronically ill-appearing, disheveled, nontoxic EYE EXAM: normal conjunctiva. OROPHARYNX: no exudate, no erythema, lips, buccal mucosa, and tongue normal and mucous membranes are moist NECK: supple, no nuchal rigidity, no adenopathy, non-tender LUNGS: Clear to auscultation. Normal chest wall mechanics HEART: no murmurs, S1 normal and S2 normal ABDOMEN: abdomen soft, non-tender, normo-active bowel sounds, no masses, no rebound or guarding. UPPER EXTREMITIES: upper extremities are grossly normal. LOWER EXTREMITIES: No pitting edema. Left calf larger than right. Left thigh larger than right with fullness and severe tenderness NEURO EXAM: Normal sensorium, cranial nerves II-XII grossly intact, normal speech, no gross weakness of arms, no gross weakness of legs. MEDICAL DECISION MAKING: Patient is an 84-year-old male who presents the ER for weakness and left leg pain. IV was established blood work was obtained. Labs show no significant leukocytosis and mild anemia 10.6. Platelets were slightly low at 79. Patient generally does have a thrombocytopenia which is slightly higher than 80. INR was 1.5. BMP with a chloride of 110. Bilirubin LFTs were unremarkable. Troponin was negative. Lipase was normal. UA was contaminated with multiple epithelial cells. He has no respiratory complaints. Is no belly pain. Covid was negative. Ultrasound of left lower extremity shows acute on chronic DVT. CT angio of the chest was consequently performed due to the hypotension DVT which showed no acute PE but likely chronic PE. X-ray of the femur shows no acute fracture. Previous presentations were reviewed and unable to find a clear cause for why this gentleman is not on a blood thinner. It does show that he had bleeding on one admission without any clear source. Discussed with the hospitalist at length. He notes he had previous surgery as a case here. Will defer to them to get into epic and see where the clear source of bleeding was we will hold for anticoagulation defer to them. Patient was given IV fluids. Updated bedside. Triage Nursing notes reviewed. Limited review of prior medical records performed Vital Signs: reviewed and remarkable for hypotension Differential diagnosis: DVT, musculoskeletal, infection, joint effusion, trauma, lymphedema, idiopathic, CHF, as well as other pathologies. ER treatment provided: See below Diagnostics interpreted by me: ECG: Sinus rhythm rate 69 Normal axis No PVCs QTC 467 Cardiac Monitoring: An order was placed for continuous cardiac monitoring. The monitor shows a rate of 61 with sinus rhythm. Laboratory studies: As stated above and show below. Imaging studies: CT angio of the chest was unremarkable Venous Doppler left lower extremity shows DVT X-ray shows no acute fracture Consultation(s): Discussed with Kayli from [facility] service for further evaluation. Procedures: none Critical Care: None Past Med/Surg History Medical History BPH (benign prostatic hyperplasia) Depression DJD (degenerative joint disease) DVT (deep venous thrombosis) History of temporal arteritis Hyperlipidemia Hypertension Mild reactive airways disease Osteoporosis Surgical History History of carpal tunnel surgery Hx of ascending aortic replacement On 06/10/17 at [facility] Dr. Boswell Hx of repair of dissecting thoracic aortic aneurysm, [place] type B "Left common carotid artery to left subclavian artery Dacron bypass graft 06/23/[address] Boswell Repair thoracic aortic aneurysm with aortic dissection using Medtronic Valiant thoracic aortic stent graft covering left subclavian artery and distal Medtronic Valiant thoracic aortic extension placement x2, -Main body graft: [id number]; Two distal extensions measuring 46 x 200 and 46 x 150, Amplanz plug of the left subclavian 06/24/[address] Boswell, Pseudoaneurysm injection of the left brachial artery 06/27/[address] 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 Beliefs That Will Affect Care: None marital status: / Current Living Situation: Alone Current Living Situation Comment: patient stated he has home health current occupational status: retired Feels Safe at Home: Yes Assistive Devices: Walker Allergies Allergies Allergy/AdvReac Type Severity Reaction Status Date / Time amoxicillin AdvReac Unknown UNKNOWN Verified 09/06/20 14:59 clavulanic acid AdvReac Unknown UNKNOWN Verified 09/06/20 14:59 Home Meds Home Medications Medication Instructions Recorded Confirmed folic acid 1 mg PO QAM 01/17/18 09/06/20 multivitamin 1 tab PO QAM 01/17/18 09/06/20 pravastatin [Pravachol] 80 mg PO HS 01/17/18 09/06/20 aspirin [Aspirin Low Dose] 81 mg PO QAM 05/20/20 09/06/20 metoprolol tartrate 50 mg PO BID 05/20/20 09/06/20 sennosides [senna] 8.6 mg PO BID PRN 05/20/20 09/06/20 iron,carbonyl-vitamin C [Vitron-C] 1 tab PO DAILY 09/06/20 09/06/20 lisinopril 20 mg PO QAM 09/06/20 09/06/20 Results & Data (ED) Vital Signs Vital Signs - 24 hr 09/06/20 11:35 09/06/20 11:43 09/06/20 15:30 Temperature 36.5 C Temperature Source Oral Pulse Rate 71 70 Pulse Rate [Left] Pulse Rhythm Regular Pulse Strength Normal Respiratory Rate 17 23 18 Respiratory Effort / Characteristics Non-Labored Spontaneous Respiratory Depth Normal Respiratory Pattern Regular Blood Pressure 92/63 L 92/63 L Blood Pressure [Left Arm] 106/70 Blood Pressure Mean 72 72 Blood Pressure Mean [Left Arm] 82 Blood Pressure Position Lying Pulse Oximetry 93 96 Oxygen Delivery Method Room Air Sepsis Recent Fever Within 48 Hours No Sepsis New/Unexplained Change in Mental Status N/A Sepsis Action Taken by Nursing No Action Required 09/06/20 16:39 Temperature Temperature Source Pulse Rate Pulse Rate [Left] 70 Pulse Rhythm Pulse Strength Respiratory Rate 18 Respiratory Effort / Characteristics Non-Labored Respiratory Depth Normal Respiratory Pattern Regular Blood Pressure Blood Pressure [Left Arm] 95/62 L Blood Pressure Mean Blood Pressure Mean [Left Arm] 73 Blood Pressure Position Pulse Oximetry 96 Oxygen Delivery Method Room Air Sepsis Recent Fever Within 48 Hours Sepsis New/Unexplained Change in Mental Status Sepsis Action Taken by Nursing Laboratory Data Result diagrams: 09/06/20 12:15 09/06/20 12:15 Lab Results 09/06/20 09/06/20 09/06/20 Range/Units 12:15 12:15 12:15 WBC 6.96 (4.8-10.8) K/uL RBC 3.46 L (4.7-6.1) M/uL Hgb 10.6 L (14.0-18.0) g/dL Hct 33.1 L (42-52) % MCV 95.7 (80-100) fL MCH 30.6 (25-34) pg MCHC 32.0 (32-36) g/dL RDW Std Deviation 49.6 H (36.4-46.3) fL RDW Coeff of Antonio 14.3 (11.5-14.5) % Plt Count 79 L (130-400) K/uL MPV 10.3 (7.4-10.4) fL Immature Gran % (Auto) 0.1 % Neut % (Auto) 77.6 % Lymph % (Auto) 12.8 % Broome % (Auto) 9.1 % Eos % (Auto) 0.3 % Baso % (Auto) 0.1 % Neut # (Auto) 5.40 (1.4-6.5) K/uL Lymph # (Auto) 0.89 L (1.2-3.4) K/uL Broome # (Auto) 0.63 H (0.11-0.59) K/uL Eos # (Auto) 0.02 (0-0.5) K/uL Baso # (Auto) 0.01 (0-0.2) K/uL Immature Gran # (Auto) 0.01 (0.00-0.02) K/uL Platelet Estimate Decreased L (Normal) PT 15.2 H (9.0-12.0) Seconds INR 1.5 H (0.9-1.1) APTT 28.5 (21.0-31.0) Seconds PTT Ratio 1.1 Sodium 140 (136-145) mmol/L Potassium 4.7 (3.5-5.1) mmol/L Chloride 110 H (98-107) mmol/L Carbon Dioxide 27 (21-32) mmol/L Anion Gap 3.0 (3-11) BUN 38 H (7-18) mg/dl Creatinine 1.28 (0.6-1.4) mg/dl Est Cr Clr Drug Dosing 42.0 ml/min Est GFR ( Amer) 58.3 ml/min Est GFR (Non-Af Amer) 50.3 ml/min BUN/Creatinine Ratio 29.3 H (10-20) Glucose 111 H (70-99) mg/dl Calcium 8.4 L (8.5-10.1) mg/dl Total Bilirubin 0.8 (0.2-1) mg/dl AST 19 (15-37) U/L ALT 18 (12-78) U/L Alkaline Phosphatase 48 (45-117) U/L Total Creatine Kinase 33 L (39-308) U/L Troponin I < 0.015 (0-0.045) ng/ml Total Protein 6.3 L (6.4-8.2) gm/dl Albumin 3.3 L (3.4-5.0) gm/dl Globulin 3.0 (2.5-4.0) gm/dl Albumin/Globulin Ratio 1.1 (0.9-2) Lipase 76 (73-393) U/L Urine Color Urine Appearance (Clear) Urine pH (4.5-7.5) Ur Specific Hague (1.000-1.030) Urine Protein (Negative) Urine Glucose (UA) (Negative) Urine Ketones (Negative) Urine Blood (Negative) Urine Nitrite (Negative) Urine Bilirubin (Negative) Urine Urobilinogen (Negative) Ur Leukocyte Esterase (Negative) Urine WBC (Auto) (0-5) /hpf Urine RBC (Auto) (0-4) /hpf U Hyaline Cast (Auto) (0-5) /lpf U Epithel Cells (Auto) (0-5) /lpf Urine Bacteria (Auto) (Negative) Urine Yeast Urine Sperm (None Prsent) COVID-19 Eval Order SARS-CoV-2 (PCR) (Negative) 09/06/20 09/06/20 09/06/20 Range/Units 15:34 15:34 16:15 WBC (4.8-10.8) K/uL RBC (4.7-6.1) M/uL Hgb (14.0-18.0) g/dL Hct (42-52) % MCV (80-100) fL MCH (25-34) pg MCHC (32-36) g/dL RDW Std Deviation (36.4-46.3) fL RDW Coeff of Antonio (11.5-14.5) % Plt Count (130-400) K/uL MPV (7.4-10.4) fL Immature Gran % (Auto) % Neut % (Auto) % Lymph % (Auto) % Broome % (Auto) % Eos % (Auto) % Baso % (Auto) % Neut # (Auto) (1.4-6.5) K/uL Lymph # (Auto) (1.2-3.4) K/uL Broome # (Auto) (0.11-0.59) K/uL Eos # (Auto) (0-0.5) K/uL Baso # (Auto) (0-0.2) K/uL Immature Gran # (Auto) (0.00-0.02) K/uL Platelet Estimate (Normal) PT (9.0-12.0) Seconds INR (0.9-1.1) APTT (21.0-31.0) Seconds PTT Ratio Sodium (136-145) mmol/L Potassium (3.5-5.1) mmol/L Chloride (98-107) mmol/L Carbon Dioxide (21-32) mmol/L Anion Gap (3-11) BUN (7-18) mg/dl Creatinine (0.6-1.4) mg/dl Est Cr Clr Drug Dosing ml/min Est GFR ( Amer) ml/min Est GFR (Non-Af Amer) ml/min BUN/Creatinine Ratio (10-20) Glucose (70-99) mg/dl Calcium (8.5-10.1) mg/dl Total Bilirubin (0.2-1) mg/dl AST (15-37) U/L ALT (12-78) U/L Alkaline Phosphatase (45-117) U/L Total Creatine Kinase (39-308) U/L Troponin I (0-0.045) ng/ml Total Protein (6.4-8.2) gm/dl Albumin (3.4-5.0) gm/dl Globulin (2.5-4.0) gm/dl Albumin/Globulin Ratio (0.9-2) Lipase (73-393) U/L Urine Color Dark Yellow Urine Appearance Clear (Clear) Urine pH 5.0 (4.5-7.5) Ur Specific Hague > 1.045 H (1.000-1.030) Urine Protein 1+ H (Negative) Urine Glucose (UA) Negative (Negative) Urine Ketones Trace H (Negative) Urine Blood 1+ H (Negative) Urine Nitrite Negative (Negative) Urine Bilirubin Negative (Negative) Urine Urobilinogen Negative (Negative) Ur Leukocyte Esterase Negative (Negative) Urine WBC (Auto) 5-10 H (0-5) /hpf Urine RBC (Auto) 0-4 (0-4) /hpf U Hyaline Cast (Auto) 10-30 H (0-5) /lpf U Epithel Cells (Auto) 10-20 H (0-5) /lpf Urine Bacteria (Auto) 1+ H (Negative) Urine Yeast Not Reportable Urine Sperm Present A (None Prsent) COVID-19 Eval Order Covid19 at [facility] SARS-CoV-2 (PCR) NEGATIVE (Negative) Administered Medications Sodium Chloride (Nss 1000ml) 1,000 mls @ 75 mls/hr IV .[id number] CANDACE Stop: 09/07/20 06:24 Last Admin: 09/06/20 17:18 Dose: 75 mls/hr Documented by: [id number] Discontinued Medications Sodium Chloride (Nss 1000ml) 1,000 mls @ 999 mls/hr IV .[id number] ONE Stop: 09/06/20 15:16 Last Infusion: 09/06/20 15:58 Dose: 0 mls/hr Documented by: [id number] Admin: 09/06/20 14:58 Dose: 999 mls/hr Documented by: [id number] Ioversol (Optiray 320 125ml) 121 ml IV ONCE ONE Stop: 09/06/20 15:14 Last Admin: 09/06/20 15:14 Dose: 121 ml Documented by: [id number] Ketorolac Tromethamine (Ketorolac Tromethamine 15 Mg/Ml Vial) 10 mg IV NOW ONE Stop: 09/06/20 12:17 Last Admin: 09/06/20 12:24 Dose: 10 mg Documented by: [id number] Imaging Data Radiologist's Impression: Chest X-Ray 09/06/20 12:05 SINGLE VIEW CHEST CLINICAL HISTORY: Atypical chest pain. FINDINGS: An AP, portable, upright chest radiograph is compared to study dated 05/20/[address] dated 04/13/2019. The examination is degraded by portable technique, apical lordotic positioning, and patient rotation. There is aneurysmal dilatation of the ascending thoracic aorta with an aortic stent graft in place. This is unchanged from previous. The heart is enlarged. The pulmonary vasculature is noncongested. There is a layering right pleural effusion with associated right basilar consolidation. This is increased from previous. The left lung appears clear. No pneumothorax is seen. The skeletal structures are osteopenic. The bony thorax is grossly intact. IMPRESSION: 1. A layering right pleural effusion with associated right basilar consolidation has increased in size as compared to 05/20/2020. 2. Aneurysmal dilatation of the thoracic aorta status post stent graft repair. This is similar to previous. 3. Cardiomegaly without radiographic evidence of congestive failure. ACT 112: Negative or not required by law.' Electronically signed by: Chase Art M.D. 09/06/2020 2:35 PM Femur X-Ray 09/06/20 12:05 XR femur LT 2V routine HISTORY: 84 years-old Male l leg pain pain of the left femur COMPARISON: 07/28/2007 TECHNIQUE: 2 views of the left femur FINDINGS: Cortical thickening of the proximal femoral diaphysis compatible with healed fracture deformity. Progressive marginal spurring of the greater trochanter with adjacent dystrophic calcifications. Moderate left hip osteoarthritis has progressed from comparison. No acute fracture, dislocation or avascular necrosis. Degenerative changes of the imaged lower lumbar spine with osteoarthritis of the knee. Arterial calcifications. Moderate left knee joint effusion.. Soft tissue prominence of the anterior mid thigh. IMPRESSION: 1. Moderate left hip osteoarthritis without acute fracture or dislocation. 2. Healed chronic fracture deformity of the proximal femoral shaft. 3. Moderate left knee joint effusion with soft tissue prominence of the anterior thigh. ACT 112: Negative or not required by law. The above report was generated using voice recognition software. It may contain grammatical, syntax or spelling errors. Electronically signed by: Andres Lyon M.D. 09/06/2020 2:21 PM Venous Doppler Study 09/06/20 12:05 LEFT LOWER EXTREMITY VENOUS DOPPLER HISTORY: Left leg pain and swelling. COMPARISON STUDY: None. FINDINGS: There is thrombus identified within the proximal left superficial femoral vein which has progressed. This suggests acute or chronic thrombus. There is linear echogenic stranding within the left popliteal vein consistent with chronic thrombus. This is similar to the prior study. Calf vessels were not well visualized. IMPRESSION: 1. Acute on chronic DVT within the proximal left superficial femoral vein. 2. No change in the chronic left popliteal DVT. ACT 112: Negative or not required by law. Electronically signed by: Jonathan Rosenthal M.D. 09/06/2020 2:01 PM Chest CTA 09/06/20 14:16 CT ANGIOGRAM OF THE CHEST CLINICAL HISTORY: Hypotension. Deep venous thrombosis. COMPARISON STUDY: Chest CT dated 04/13/2019. TECHNIQUE: Following the IV administration of 121 cc of Optiray 320, CT angiogram of the chest was performed from the upper abdomen to the thoracic inlet utilizing the pulmonary embolus protocol. Images are reviewed in the axial, sagittal, and coronal planes. 3-D MIPS images are created and assessed. IV contrast was administered without complication. A dose lowering technique was utilized adhering to the principles of ALARA. CT DOSE: 438.01 mGy.cm FINDINGS: Thyroid: Imaged portions of the thyroid gland are normal in size and attenuation. Thoracic aorta: Postoperative change is seen at the aortic root. Aneurysmal dilatation of the thoracic aorta is similar to previous with a stent graft in place extending from the descending thoracic aorta to the diaphragmatic hiatus. The thoracic aorta is not well opacified. The residual aneurysm sac measures up to 7.8 cm in the proximal descending thoracic aorta. The descending thoracic aorta measures up to 5.9 cm at the hiatus. Postoperative change is suggested involving the arch vessels appear patent. Pulmonary vasculature: The main pulmonary arteries appear mildly dilated suggesting pulmonary artery hypertension. There are no filling defects identified in main, lobar, or segmental pulmonary branches typical for acute pulmonary embolus. Trace chronic thrombus is seen within segmental and subsegmental branches of the right lower lobe pulmonary artery. Heart: The patient is status post midline sternotomy. The heart is normal in size and without pericardial effusion. The coronary arteries are densely calcified. Foci of parenchymal scarring/atelectasis are present at both lung bases, right greater than left. No airspace consolidation is seen typical for pneumonia. Lungs and pleural spaces: Calcified pleural plaques are seen bilaterally. A thick-walled loculated pleural collection at the anterior right lung base with internal complexity seen on image #119 is unchanged. This measures 10.2 x 3.6 cm in axial dimension.. Mediastinum: There is no mediastinal lymphadenopathy. Carmen: Clear. Axillae: There is no axillary lymphadenopathy. Upper abdomen: A 16 mm left lobe cyst is unchanged. Cysts in the upper pole of the left kidney measure up to 16mm. Skeletal structures: The skeletal structures are osteopenic. The skeletal structures are osteopenic. Spondylotic change is seen throughout the thoracic spine. No lytic or blastic bony lesions are seen. Arthritic change is noted in the shoulders. There are healed right-sided rib fractures. IMPRESSION: 1. There is no evidence of acute pulmonary embolus in the main, lobar, or segmental pulmonary arteries. 2. Trace chronic pulmonary embolus is seen within segmental and subsegmental branches of the right lower lobe pulmonary artery. 3. Again seen is postoperative change involving the thoracic aorta with a stent graft in place. The residual aneurysm sac measures up to 7.8 cm in diameter and this is similar to previous. 4. A loculated and minimally complex pleural collection at the anterior right lung base is unchanged from previous. The sterility of this collection cannot be assessed by imaging. 5. There is no airspace consolidation typical for pneumonia. 6. 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 7. Additional findings as above. ACT 112: Negative or not required by law. Electronically signed by: Chase Art M.D. 09/06/2020 3:46 PM Discharge Plan Visit Data Chief Complaint: Leg Injury/Pain Stated Complaint: LEG PAIN ED Provider: Morales Rojas Discharge Problem: DVT (deep venous thrombosis), Acute hypotension, High serum chloride Forms Stand Alone Forms: My [facility] [employer] Prescriptions Prescriptions: No Action multivitamin Tablet 1 tab PO QAM RF: 0 pravastatin [Pravachol] 40 mg tablet 80 mg PO HS RF: 0 folic acid 1 mg tablet 1 mg PO QAM RF: 0 metoprolol tartrate 100 mg tablet 50 mg PO BID RF: 0 sennosides [senna] 8.6 mg tablet 8.6 mg PO BID PRN (Reason: Constipation) RF: 0 aspirin [Aspirin Low Dose] 81 mg Tablet,Delayed Release (Dr/Ec) 81 mg PO QAM RF: 0 lisinopril 20 mg tablet 20 mg PO QAM RF: 0 Vitron-C 65 mg iron- 125 mg Tablet,Delayed Release (Dr/Ec) 1 tab PO DAILY RF: 0 Discharge Problem: DVT (deep venous thrombosis) Qualifiers: DVT location: lower extremity Affected thrombotic vein of extremity: unspecified vein of extremity Chronicity: acute Laterality: unspecified late rality Qualified Code(s): I82.409 - Acute embolism and thrombosis of unspecified deep veins of unspecified lower extremity
[2020-09-06] MEDS ORDERED: KETOROLAC TROMETHAMINE 15 MG/ML VIAL IV ONE (12:16)
[2020-09-06 12:48] LABS: INR 1.5 (0.9-1.1); Partial Thromboplastin Ratio 1.1; Partial Thromboplastin Time 28.5 Seconds (21.0-31.0); Prothrombin Time 15.2 Seconds (9.0-12.0)
[2020-09-06 12:51] LABS: Alanine Aminotransferase 18 U/L (12-78); Albumin Level 3.3 gm/dl (3.4-5.0); Aspartate Aminotransferase 19 U/L (15-37); BUN Creatinine Ratio 29.3 (10-20); Basophils # (auto) 0.01 K/uL (0-0.2); Basophils % (auto) 0.1 %; Blood Urea Nitrogen 38 mg/dl (7-18); Calcium 8.4 mg/dl (8.5-10.1); Carbon Dioxide 27 mmol/L (21-32); Chloride 110 mmol/L (98-107); Eosinophils # (auto) 0.02 K/uL (0-0.5); Eosinophils % (auto) 0.3 %; Est GFR (African American) 58.3 ml/min; Est GFR (Non-African American) 50.3 ml/min; Glucose 111 mg/dl (70-99); Hematocrit (blood only) 33.1 % (42-52); Hemoglobin 10.6 g/dL (14.0-18.0); Immature Granulocytes # (auto) 0.01 K/uL (0.00-0.02); Immature Granulocytes % (auto) 0.1 %; Lipase 76 U/L (73-393); Lymphocytes # (auto) 0.89 K/uL (1.2-3.4); Lymphocytes % (auto) 12.8 %; Mean Corpuscular Hemoglobin 30.6 pg (25-34); Mean Corpuscular Volume 95.7 fL (80-100); Mean Platelet Volume 10.3 fL (7.4-10.4); Monocytes # (auto) 0.63 K/uL (0.11-0.59); Monocytes % (auto) 9.1 %; Neutrophils % (auto) 77.6 %; Platelet Count 79 K/uL (130-400); Platelet Estimate Decreased (Normal); Potassium 4.7 mmol/L (3.5-5.1); RDW Coefficient of Variation 14.3 % (11.5-14.5); RDW Standard Deviation 49.6 fL (36.4-46.3); Red Blood Count 3.46 M/uL (4.7-6.1); Sodium 140 mmol/L (136-145); White Blood Count 6.96 K/uL (4.8-10.8)
[2020-09-06 12:57] LABS: Albumin Globulin Ratio 1.1 (0.9-2); Alkaline Phosphatase 48 U/L (45-117); Bilirubin,Total 0.8 mg/dl (0.2-1); Creatine Kinase 33 U/L (39-308); Total Protein 6.3 gm/dl (6.4-8.2); Troponin I < 0.015 ng/ml (0-0.045)
--- NOTE | 2020-09-06 14:03 | Ultrasound Report ---
LEFT LOWER EXTREMITY VENOUS DOPPLER HISTORY: Left leg pain and swelling. COMPARISON STUDY: None. FINDINGS: There is thrombus identified within the proximal left superficial femoral vein which has pr ogressed. This suggests acute or chronic thrombus. There is linear echogenic stranding within the lef t popliteal vein consistent with chronic thrombus. This is similar to the prior study. Calf vessels w ere not well visualized. IMPRESSION: 1. Acute on chronic DVT within the proximal left superficial femoral vein. 2. No change in the chronic left popliteal DVT. ACT 112: Negative or not required by law. Electronically signed by: Jonathan Rosenthal M.D. 09/06/2020 2:01 PM
[2020-09-06] MEDS ORDERED: SODIUM CHLORIDE 0.9% 1000ML 1,000 ML IV ONE (14:16)
--- NOTE | 2020-09-06 14:22 | XRay Report ---
XR femur LT 2V routine HISTORY: 84 years-old Male l leg pain pain of the left femur COMPARISON: 07/28/2007 TECHNIQUE: 2 views of the left femur FINDINGS: Cortical thickening of the proximal femoral diaphysis compatible with healed fracture deformity. Prog ressive marginal spurring of the greater trochanter with adjacent dystrophic calcifications. Moderate left hip osteoarthritis has progressed from comparison. No acute fracture, dislocation or avascular necrosis. Degenerative changes of the imaged lower lumbar spine with osteoarthritis of the knee. Bianka rial calcifications. Moderate left knee joint effusion.. Soft tissue prominence of the anterior mid t high. IMPRESSION: 1. Moderate left hip osteoarthritis without acute fracture or dislocation. 2. Healed chronic fracture deformity of the proximal femoral shaft. 3. Moderate left knee joint effusion with soft tissue prominence of the anterior thigh. ACT 112: Negative or not required by law. The above report was generated using voice recognition software. It may contain grammatical, syntax o r spelling errors. Electronically signed by: Andres Lyon M.D. 09/06/2020 2:21 PM
--- NOTE | 2020-09-06 14:36 | XRay Report ---
SINGLE VIEW CHEST CLINICAL HISTORY: Atypical chest pain. FINDINGS: An AP, portable, upright chest radiograph is compared to study dated 05/20/2020 and correlat ed with CT dated 04/13/2019. The examination is degraded by portable technique, apical lordotic positi oning, and patient rotation. There is aneurysmal dilatation of the ascending thoracic aorta with an a ortic stent graft in place. This is unchanged from previous. The heart is enlarged. The pulmonary vas culature is noncongested. There is a layering right pleural effusion with associated right basilar co nsolidation. This is increased from previous. The left lung appears clear. No pneumothorax is seen. T he skeletal structures are osteopenic. The bony thorax is grossly intact. IMPRESSION: 1. A layering right pleural effusion with associated right basilar consolidation has increased in siz e as compared to 05/20/2020. 2. Aneurysmal dilatation of the thoracic aorta status post stent graft repair. This is similar to pre vious. 3. Cardiomegaly without radiographic evidence of congestive failure. ACT 112: Negative or not required by law.' Electronically signed by: Chase Art M.D. 09/06/2020 2:35 PM
[2020-09-06] MEDS ORDERED: OPTIRAY 320 125ml IV ONE (15:13)
--- NOTE | 2020-09-06 15:47 | CT Scan Report ---
CT ANGIOGRAM OF THE CHEST CLINICAL HISTORY: Hypotension. Deep venous thrombosis. COMPARISON STUDY: Chest CT dated 04/13/2019. TECHNIQUE: Following the IV administration of 121 cc of Optiray 320, CT angiogram of the chest was pe rformed from the upper abdomen to the thoracic inlet utilizing the pulmonary embolus protocol. Images are reviewed in the axial, sagittal, and coronal planes. 3-D MIPS images are created and assessed. I V contrast was administered without complication. A dose lowering technique was utilized adhering to the principles of ALARA. CT DOSE: 438.01 mGy.cm FINDINGS: Thyroid: Imaged portions of the thyroid gland are normal in size and attenuation. Thoracic aorta: Postoperative change is seen at the aortic root. Aneurysmal dilatation of the thoraci c aorta is similar to previous with a stent graft in place extending from the descending thoracic aor ta to the diaphragmatic hiatus. The thoracic aorta is not well opacified. The residual aneurysm sac m easures up to 7.8 cm in the proximal descending thoracic aorta. The descending thoracic aorta measure s up to 5.9 cm at the hiatus. Postoperative change is suggested involving the arch vessels appear pat ent. Pulmonary vasculature: The main pulmonary arteries appear mildly dilated suggesting pulmonary artery hypertension. There are no filling defects identified in main, lobar, or segmental pulmonary branches typical for acute pulmonary embolus. Trace chronic thrombus is seen within segmental and subsegmenta l branches of the right lower lobe pulmonary artery. Heart: The patient is status post midline sternotomy. The heart is normal in size and without pericar dial effusion. The coronary arteries are densely calcified. Foci of parenchymal scarring/atelectasis are present at both lung bases, right greater than left. No airspace consolidation is seen typical fo r pneumonia. Lungs and pleural spaces: Calcified pleural plaques are seen bilaterally. A thick-walled loculated pl eural collection at the anterior right lung base with internal complexity seen on image #119 is uncha nged. This measures 10.2 x 3.6 cm in axial dimension.. Mediastinum: There is no mediastinal lymphadenopathy. Carmen: Clear. Axillae: There is no axillary lymphadenopathy. Upper abdomen: A 16 mm left lobe cyst is unchanged. Cysts in the upper pole of the left kidney measur e up to 16mm. Skeletal structures: The skeletal structures are osteopenic. The skeletal structures are osteopenic. Spondylotic change is seen throughout the thoracic spine. No lytic or blastic bony lesions are seen. Arthritic change is noted in the shoulders. There are healed right-sided rib fractures. IMPRESSION: 1. There is no evidence of acute pulmonary embolus in the main, lobar, or segmental pulmonary arterie s. 2. Trace chronic pulmonary embolus is seen within segmental and subsegmental branches of the right lo wer lobe pulmonary artery. 3. Again seen is postoperative change involving the thoracic aorta with a stent graft in place. The r esidual aneurysm sac measures up to 7.8 cm in diameter and this is similar to previous. 4. A loculated and minimally complex pleural collection at the anterior right lung base is unchanged from previous. The sterility of this collection cannot be assessed by imaging. 5. There is no airspace consolidation typical for pneumonia. 6. 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 7. Additional findings as above. ACT 112: Negative or not required by law. Electronically signed by: Chase Art M.D. 09/06/2020 3:46 PM
--- NOTE | 2020-09-06 16:37 | History & Physical Report ---
Date of Service September 06, 2020 Assessment & Plan (1) DVT (deep venous thrombosis): This is an 84-year-old male who has significant past medical history of recurrent left lower extremity DVT, PE, thoracoaortic aneurysm s/p endovascular repair, hx of bleeding with epistaxis and LLE hematoma now anticoagulation contraindicated, IVCF in place, HTN, HLD, BPH who presents to ED 2/2 to LLE pain and swelling x 1 day. Pt with recurrent left lower extremity superficial femoral vein DVT. Coumadin discontinued 2016 secondary to recurrent epistaxis. Patient hospitalized [facility] April 2019 secondary to recurrent left lower extremity DVT, placed on IV heparin and developed a spontaneous left thigh hematoma requiring 3 units of PRBC. Heparin discontinued and patient underwent IVC filter placement which is currently in place. He presents today with acute swelling and pain to left lower extremity. Ultrasound reveals acute on chronic left superficial femoral DVT, chronic left popliteal DVT. Case was discussed with vascular given patient's recurrent DVT, IVC filter in p lace and spontaneous bleeding. He also has noted elevated INR 1.5 and thrombocytopenia at 79. Given risk of bleeding and anticoagulation currently contraindicated in favor of IVC filter in place. Admit to PCU Formal vascular consult placed Continue baby aspirin Obtain nonvascular ultrasound of left lower extremity in a.m. to eval for hematoma Percocet every 4 hours as needed pain Will need PT OT eval's prior to discharge (2) Hypotension: in setting of hx of HTN Patient blood pressure systolically on the lower side Responded to IV fluid resuscitation, so far received 1,250 mL Continue at 75 cc/h for additional liter Hold lisinopril, continue metoprolol with parameters Nonobstructive CAD on asa, statin, metorpolol and statin as outpt no chest pain/sob (3) Chronic anemia: Hemoglobin 10.6 and 33.1 today, hemoglobin 13.6 and 08/09/2020 Repeat H&H at 10 PM given hypotension Recently had anemia panel which was unremarkable Follows with hematology oncology secondary to anemia, bleeding and recurrent clots Negative work-up for bleeding diatheses, compound heterozygous MTHFR mutation - felt not contributory to recurrent clots per heme-onc note Monitor H&H closely Thrombocytopenia chronic, plt 79 currently on asa monitor plt ct Elevated INR unknown etiology, repeat in a.m. (4) History of ascending aortic replacement: History of L-CCA to L-SCA bypass followed by [facility], Dr. Boswell and Dr Foster later performed ascending aortic replacement and bypass today innominate and L CCA. 01/12/2020 Underwent placement of Medtronic Valient thoraic aortic stent graft extension, extending down to celiac artery by Dr. Boswell. (5) At risk for bleeding: Contraindications to anticoagulation with recent epistaxis, right-sided pleural hematoma, and spontaneous large left thigh hematoma in the setting of heparin infusion. DVT ppx: contraindicated FULL CODE PCP: Aurelio Pt was seen and examined in collaboration with Dr. Interiano, please see addendum History of Present Illness Chief Complaint: Left lower extremity pain x1 day. Primary Care Provider: Benjie Carey MD This is an 84-year-old male who has significant past medical history of recurrent left lower extremity DVT, PE, thoracoaortic aneurysm s/p endovascular repair, hx of bleeding with epistaxis and LLE hematoma now anticoagulation contraindicated, IVCF in place, HTN, HLD, BPH who presents to ED 2/2 to LLE pain and swelling x 1 day. Pain started gradually yesterday and continued to get worse. Pain mostly located in her left thigh. He is unable to walk due to severity of pain. If at rest pain is improved. He has not tried anything [id number] for pain. He denies any noted redness. He was seen and evaluated by PCP 2/2 to pain and he was referred to ED. while in clinic his blood pressures systolically were in the 90s. He states that his cardiothoracic surgeon would like his blood pressure on the lower side, particularly less than 130. He denies f/c/s, dizziness, lightheaded, chest pain, sob at rest, hemoptysis, URI sx, n/v/d, melena, abdominal pain, dysuria, increased freq/urg with urination. He does have microscopic hematuria for which he is following urology. In ED he was found to have acute on chronic LLE Superficial femoral thrombosis. He also has chronic LLE popliteal DVT. While in ED his SBP was in the 80-90s which improved with IVF. He also received 250ml IVF while en route. Allergies Allergy/AdvReac Type Severity Reaction Status Date / Time amoxicillin AdvReac Unknown UNKNOWN Verified 09/06/20 14:59 clavulanic acid AdvReac Unknown UNKNOWN Verified 09/06/20 14:59 Home Medications Medication Instructions Recorded Confirmed Type folic acid 1 mg PO QAM 01/17/18 09/06/20 History multivitamin 1 tab PO QAM 01/17/18 09/06/20 History pravastatin [Pravachol] 80 mg PO HS 01/17/18 09/06/20 History aspirin [Aspirin Low Dose] 81 mg PO QAM 05/20/20 09/06/20 History metoprolol tartrate 50 mg PO BID 05/20/20 09/06/20 History sennosides [senna] 8.6 mg PO BID PRN 05/20/20 09/06/20 History iron,carbonyl-vitamin C [Vitron-C] 1 tab PO DAILY 09/06/20 09/06/20 History lisinopril 20 mg PO QAM 09/06/20 09/06/20 History Past Med/Surg History Medical History BPH (benign prostatic hyperplasia) Depression DJD (degenerative joint disease) DVT (deep venous thrombosis) History of temporal arteritis Hyperlipidemia Hypertension Mild reactive airways disease Osteoporosis Surgical History History of carpal tunnel surgery Hx of ascending aortic replacement On 06/10/17 at [facility] [place] Dr. Boswell Hx of repair of dissecting thoracic aortic aneurysm, Keven type B "Left common carotid artery to left subclavian artery Dacron bypass graft 06/23/[address] Boswell Repair thoracic aortic aneurysm with aortic dissection using Medtronic Valiant thoracic aortic stent graft covering left subclavian artery and distal Medtronic Valiant thoracic aortic extension placement x2, -Main body graft: [id number]; Two distal extensions measuring 46 x 200 and 46 x 150, Amplanz plug of the left subclavian 06/24/[address] 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 Boswell" S/P eye surgery S/P knee surgery Family History Father Stroke Hypertension Heart disease Sister Cancer Kidney Social History Smoking Status: Never smoker Tobacco Type: Cigars Cigarettes Per Day: Patient reports; Second Hand Exposure: No; Hx Alcohol Use: No Hx Substance Use: No Preferred Language: Gibraltarian Communication Ability: Effective Nuclear Spectroscopist Required: No Beliefs That Will Affect Care: None marital status: / Current Living Situation: Alone Current Living Situation Comment: patient stated he has home health current occupational status: retired Feels Safe at Home: Yes Assistive Devices: Walker Review of Systems Review of Systems: All systems reviewed & are unremarkable except as noted in HPI & below Physical Exam Physical Exam: Constitutional: WD/WN, elderly, male, vitals as above, NAD, sitting up in bed, pleasant, conversing easily Head: Normocephalic, Atraumatic Eyes: PERRL, conjunctivae normal, anicteric sclerae ENMT: external ear and nose normal, oropharynx normal Neck: trachea midline, no thyromegaly normal visual inspection Respiratory: normal respiratory effort, lungs clear to auscultation, no wheeze, rales, rhonchi. Normal insp/exp effort, no accessory muscle use Cardiovascular: RRR, harsh 3/6 EMILY at RUSB, left lower extremity is 1 pretibial edema, significant nonpitting thigh edema, pain to palpation anterior thigh, +warmth, no redness, chronic venous stasis changes b/l, negative homans. Vessels: no JVD or carotid bruit Chest: Sternal incision noted, normal inspection of chest Abdomen: normal bowel sounds, soft, nontender, no hepatosplenomegaly Musculoskeletal: no cyanosis or clubbing, AROM x 4 Skin: no rashes, warm and dry normal turgor Neurologic: PERRL, EOMI, accommodation nl, no face palsy, no dysarthria CN's II-XI intact bilaterally and moves all extremities Psychiatric: A+Ox3, euthymic affect Lymphatic: no cervical or axillary lymphadenopathy : deferred Results & Data Results & Data ([facility]) Vital Signs (Past 12 Hours) Vital Signs Temp Pulse Resp BP BP Pulse Ox 09/06/20 15:30 18 106/70 96 09/06/20 11:43 70 23 92/63 L 09/06/20 11:35 36.5 C 71 17 92/63 L 93 Diagnostic Findings Chest X-Ray 09/06/20 12:05 SINGLE VIEW CHEST CLINICAL HISTORY: Atypical chest pain. FINDINGS: An AP, portable, upright chest radiograph is compared to study dated 05/20/[address] dated 04/13/2019. The examination is degraded by portable technique, apical lordotic positioning, and patient rotation. There is aneurysmal dilatation of the ascending thoracic aorta with an aortic stent graft in place. This is unchanged from previous. The heart is enlarged. The pulmonary vasculature is noncongested. There is a layering right pleural effusion with associated right basilar consolidation. This is increased from previous. The left lung appears clear. No pneumothorax is seen. The skeletal structures are osteopenic. The bony thorax is grossly intact. IMPRESSION: 1. A layering right pleural effusion with associated right basilar consolidation has increased in size as compared to 05/20/2020. 2. Aneurysmal dilatation of the thoracic aorta status post stent graft repair. This is similar to previous. 3. Cardiomegaly without radiographic evidence of congestive failure. ACT 112: Negative or not required by law.' Electronically signed by: Chase Art M.D. 09/06/2020 2:35 PM Femur X-Ray 09/06/20 12:05 XR femur LT 2V routine HISTORY: 84 years-old Male l leg pain pain of the left femur COMPARISON: 07/28/2007 TECHNIQUE: 2 views of the left femur FINDINGS: Cortical thickening of the proximal femoral diaphysis compatible with healed fracture deformity. Progressive marginal spurring of the greater trochanter with adjacent dystrophic calcifications. Moderate left hip osteoarthritis has progressed from comparison. No acute fracture, dislocation or avascular necrosis. Degenerative changes of the imaged lower lumbar spine with osteoarthritis of the knee. Arterial calcifications. Moderate left knee joint effusion.. Soft tissue prominence of the anterior mid thigh. IMPRESSION: 1. Moderate left hip osteoarthritis without acute fracture or dislocation. 2. Healed chronic fracture deformity of the proximal femoral shaft. 3. Moderate left knee joint effusion with soft tissue prominence of the anterior thigh. ACT 112: Negative or not required by law. The above report was generated using voice recognition software. It may contain grammatical, syntax or spelling errors. Electronically signed by: Andres Lyon M.D. 09/06/2020 2:21 PM Venous Doppler Study 09/06/20 12:05 LEFT LOWER EXTREMITY VENOUS DOPPLER HISTORY: Left leg pain and swelling. COMPARISON STUDY: None. FINDINGS: There is thrombus identified within the proximal left superficial femoral vein which has progressed. This suggests acute or chronic thrombus. There is linear echogenic stranding within the left popliteal vein consistent with chronic thrombus. This is similar to the prior study. Calf vessels were not well visualized. IMPRESSION: 1. Acute on chronic DVT within the proximal left superficial femoral vein. 2. No change in the chronic left popliteal DVT. ACT 112: Negative or not required by law. Electronically signed by: Jonathan Rosenthal M.D. 09/06/2020 2:01 PM Chest CTA 09/06/20 14:16 CT ANGIOGRAM OF THE CHEST CLINICAL HISTORY: Hypotension. Deep venous thrombosis. COMPARISON STUDY: Chest CT dated 04/13/2019. TECHNIQUE: Following the IV administration of 121 cc of Optiray 320, CT angiogram of the chest was performed from the upper abdomen to the thoracic inlet utilizing the pulmonary embolus protocol. Images are reviewed in the axial, sagittal, and coronal planes. 3-D MIPS images are created and assessed. IV contrast was administered without complication. A dose lowering technique was utilized adhering to the principles of ALARA. CT DOSE: 438.01 mGy.cm FINDINGS: Thyroid: Imaged portions of the thyroid gland are normal in size and attenuation. Thoracic aorta: Postoperative change is seen at the aortic root. Aneurysmal dilatation of the thoracic aorta is similar to previous with a stent graft in place extending from the descending thoracic aorta to the diaphragmatic hiatus. The thoracic aorta is not well opacified. The residual aneurysm sac measures up to 7.8 cm in the proximal descending thoracic aorta. The descending thoracic aorta measures up to 5.9 cm at the hiatus. Postoperative change is suggested involving the arch vessels appear patent. Pulmonary vasculature: The main pulmonary arteries appear mildly dilated suggesting pulmonary artery hypertension. There are no filling defects identified in main, lobar, or segmental pulmonary branches typical for acute pulmonary embolus. Trace chronic thrombus is seen within segmental and subsegmental branches of the right lower lobe pulmonary artery. Heart: The patient is status post midline sternotomy. The heart is normal in size and without pericardial effusion. The coronary arteries are densely calcified. Foci of parenchymal scarring/atelectasis are present at both lung bases, right greater than left. No airspace consolidation is seen typical for pneumonia. Lungs and pleural spaces: Calcified pleural plaques are seen bilaterally. A thick-walled loculated pleural collection at the anterior right lung base with internal complexity seen on image #119 is unchanged. This measures 10.2 x 3.6 cm in axial dimension.. Mediastinum: There is no mediastinal lymphadenopathy. Carmen: Clear. Axillae: There is no axillary lymphadenopathy. Upper abdomen: A 16 mm left lobe cyst is unchanged. Cysts in the upper pole of the left kidney measure up to 16mm. Skeletal structures: The skeletal structures are osteopenic. The skeletal structures are osteopenic. Spondylotic change is seen throughout the thoracic spine. No lytic or blastic bony lesions are seen. Arthritic change is noted in the shoulders. There are healed right-sided rib fractures. IMPRESSION: 1. There is no evidence of acute pulmonary embolus in the main, lobar, or segmental pulmonary arteries. 2. Trace chronic pulmonary embolus is seen within segmental and subsegmental branches of the right lower lobe pulmonary artery. 3. Again seen is postoperative change involving the thoracic aorta with a stent graft in place. The residual aneurysm sac measures up to 7.8 cm in diameter and this is similar to previous. 4. A loculated and minimally complex pleural collection at the anterior right lung base is unchanged from previous. The sterility of this collection cannot be assessed by imaging. 5. There is no airspace consolidation typical for pneumonia. 6. 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 7. Additional findings as above. ACT 112: Negative or not required by law. Electronically signed by: Chase Art M.D. 09/06/2020 3:46 PM Medications Administered Medication List Discontinued Medications Sodium Chloride (Nss 1000ml) 1,000 mls @ 999 mls/hr IV .Q1H1M ONE Stop: 09/06/20 15:16 Last Admin: 09/06/20 14:58 Dose: 999 mls/hr Documented by: [id number] Ioversol (Optiray 320 125ml) 121 ml IV ONCE ONE Stop: 09/06/20 15:14 Last Admin: 09/06/20 15:14 Dose: 121 ml Documented by: [id number] Ketorolac Tromethamine (Ketorolac Tromethamine 15 Mg/Ml Vial) 10 mg IV NOW ONE Stop: 09/06/20 12:17 Last Admin: 09/06/20 12:24 Dose: 10 mg Documented by: [id number] ECG Rate (beats per minute): 69 Rhythm: normal sinus Findings: + LAFB and + prolonged QT (qtc 467ms) COVID-19 Results Results COVID-19 Adm Lab Results: RBC 3.46 M/uL (4.7-6.1) L 09/06/20 WBC 6.96 K/uL (4.8-10.8) 09/06/20 Hgb 10.6 g/dL (14.0-18.0) L 09/06/20 Hct 33.1 % (42-52) L 09/06/20 Plt Count 79 K/uL (130-400) L 09/06/20 Neutrophils (%) (Auto) 77.6 % 09/06/20 Lymphocytes (%) (Auto) 12.8 % 09/06/20 Monocytes # (Auto) 0.63 K/uL (0.11-0.59) H 09/06/20 Eosinophils # (Auto) 0.02 K/uL (0-0.5) 09/06/20 Immature Granulocyte % (Auto) 0.1 % 09/06/20 Neutrophils # (Auto) 5.40 K/uL (1.4-6.5) 09/06/20 Lymphocytes # (Auto) 0.89 K/uL (1.2-3.4) L 09/06/20 Monocytes # (Auto) 0.63 K/uL (0.11-0.59) H 09/06/20 Eosinophils # (Auto) 0.02 K/uL (0-0.5) 09/06/20 Basophils # (Auto) 0.01 K/uL (0-0.2) 09/06/20 Immature Granulocyte # (Auto) 0.01 K/uL (0.00-0.02) 09/06/20 Na 140 mmol/L (136-145) 09/06/20 K 4.7 mmol/L (3.5-5.1) 09/06/20 Cl 110 mmol/L (98-107) H 09/06/20 CO2 27 mmol/L (21-32) 09/06/20 Anion Gap 3.0 (3-11) 09/06/20 BUN 38 mg/dl (7-18) H 09/06/20 Creatinine 1.28 mg/dl (0.6-1.4) 09/06/20 BUN/Creatinine Ratio 29.3 (10-20) H 09/06/20 Glucose Level 111 mg/dl (70-99) H 09/06/20 Ca 8.4 mg/dl (8.5-10.1) L 09/06/20 Total Bilirubin 0.8 mg/dl (0.2-1) 09/06/20 AST/SGOT 19 U/L (15-37) 09/06/20 ALT/SGPT 18 U/L (12-78) 09/06/20 Alkaline Phosphatase 48 U/L (45-117) 09/06/20 Total Protein 6.3 gm/dl (6.4-8.2) L 09/06/20 Albumin 3.3 gm/dl (3.4-5.0) L 09/06/20 Globulin 3.0 gm/dl (2.5-4.0) 09/06/20 Albumin/Globulin Ratio 1.1 (0.9-2) 09/06/20 Total CK 33 U/L (39-308) L 09/06/20 Troponin I < 0.015 ng/ml (0-0.045) 09/06/20 PTT 28.5 Seconds (21.0-31.0) 09/06/20 INR 1.5 (0.9-1.1) H 09/06/20 COVID-19 PCR NEGATIVE (Negative) 09/06/20 Chest X-Ray 09/06/20 Supervising Physician Co-Signing Physician Notes Patient is an 84-year-old male with history of DVT, PE, thoracoaortic aneurysm S/P repair, H/O MTHFR mutation, H/O epistaxis, continence hematoma requiring blood transfusions, microscopic hematuria, S/P IVC Filter and other medical problems presents with history of worsening left lower extremity swelling associated with pain since 1 day duration. Patient had difficulty with ambulation secondary to the pain. Pain is worse with any movement. Denies any trauma. No known history of fever, chills, chest pain, dyspnea, dizziness, nausea, abdominal pain. He admits to have dark-colored stool secondary to iron tablets but denies any other obvious bleeding source currently. Please review HPI for complete details of presentation. CTA showed loculated right lung base pleural collection unchanged from prior imaging. Venous Doppler showed Acute on chronic deep vein thrombosis within the proximal left superficial femoral vein. On exam patient is moderately built and nourished, no apparent distress, normocephalic atraumatic, EOMI, lungs-decreased breath sounds, clear to auscultation, S1-S2,+ murmur,+ pedal edema, abdomen soft, nontender, normal bowel sounds, left lower extremity swollen, no erythema, tender with palpation, alert, awake, oriented, grossly no focal deficits. Patient is admitted for management of acute on chronic DVT, ambulatory dysfunction. Noted chronic thrombocytopenia, elevated INR 1.5. Given history of multiple spontaneous bleeding requiring blood transfusions, case was discussed with vascular surgery and recommended no anticoagulation for now. Appreciate input. Pain control. We will repeat ultrasound in the morning. Noted drop in hemoglobin from prior outpatient work-up. Will obtain CT abdomen for completeness to rule out any other source of bleeding. Vascular surgery consulted for further input. Needs PT OT evaluation when appropriate. Monitor H&H. Hold lisinopril due to relatively low blood pressure. Will give IV fluids to help with blood pressure. Continue aspirin. I personally reviewed the record. Patient is interviewed and examined at bedside. Patient's care is coordinated with Kayli Moore PA-C. Please refer to the documentation above for details of patient's presentation and for discussion of other issues. (1) Hypotension Hypotension type: unspecified hypotension type Qualified Code(s): I95.9 - Hypotension, unspecified
[2020-09-06 16:38] LABS: Appearance Urine Clear (Clear); Bilirubin Urine Negative (Negative); Blood Urine 1+ (Negative); Color Urine Dark Yellow; Glucose Urine UA Negative (Negative); Ketones Urine Trace (Negative); Leukocyte Esterase Urine Negative (Negative); Nitrite Urine Negative (Negative); Protein Urine 1+ (Negative); Specific Gravity Urine > 1.045 (1.000-1.030); Urobilinogen Urine Negative (Negative)
[2020-09-06 16:53] LABS: Bacteria Urine Automated 1+ (Negative); Sperm Urine Present (None Prsent)
[2020-09-06 16:54] LABS: RBC Urine Automated 0-4 /hpf (0-4)
[2020-09-06] MEDS ORDERED: SODIUM CHLORIDE 0.9% 1000ML 1,000 ML IV SCH (17:05)
[2020-09-06] MEDS ORDERED: SODIUM CHLORIDE 0.9% 1000ML 250 ML IV STA (17:57)
[2020-09-06] MEDS ORDERED: SODIUM CHLORIDE 0.9% 1000ML 250 ML IV ONE (17:59)
[2020-09-06] MEDS ORDERED: ONDANSETRON INJ 2 MG/ML 2 ML VIAL IV PRN (18:48)
[2020-09-06] MEDS ORDERED: SENNA 8.6 MG TAB PO PRN (18:48)
[2020-09-06] MEDS ORDERED: oxyCODONE/ACETAMINOPHEN 5mg/325mg TAB PO PRN (18:48)
[2020-09-06] MEDS ORDERED: POLYETHYLENE (MIRALAX) 17 GM PACK PO PRN (18:48)
[2020-09-06] MEDS ORDERED: MAGNESIUM HYDROXIDE SUSP 30 ML UDC PO PRN (18:48)
[2020-09-06] MEDS ORDERED: ALUMINUM/MAGNESIUM SUSP 30 ML UDC PO PRN (18:48)
--- NOTE | 2020-09-06 19:07 | CT Scan Report ---
CT SCAN OF THE ABDOMEN AND PELVIS WITHOUT CONTRAST CLINICAL HISTORY: hypotension, r/o bleed COMPARISON STUDY: March 24, 2018 TECHNIQUE: CT scan of the abdomen and pelvis was performed from the lung bases to the proximal femurs . Images are reviewed in the axial, sagittal, and coronal planes. IV contrast was not administered fo r this examination. A dose lowering technique was utilized adhering to the principles of ALARA. CT DOSE: 342.79 mGy.cm FINDINGS: Lower chest: Interval development of loculated, 10 x 3 cm hypoattenuating collection within right inf erior anterior lateral pleura with enhancing wall which is incompletely evaluated on this nondedicate d exam.. Redemonstration of pleural thickening and calcifications within inferior posterior right hem ithorax. Mild atelectasis is seen at dependent portions of the right lower lobe. Redemonstration of compressive atelectasis within left lower lobe adjacent to dilated and tortuous ao rta. Liver: The unenhanced liver is normal in size, contour, and attenuation. There is no intrahepatic samira iary ductal dilatation. Stable hypoattenuating lesion is again seen within left lobe of the liver yulia suring 2.0 cm in size. Gallbladder: Unremarkable. Spleen: Normal in size and attenuation. Pancreas: No acute abnormalities Adrenal glands: Unremarkable. Kidneys: No hydronephrosis is seen. Excreted contrast is seen within bilateral renal pelvises and wit hin nondilated ureters. A few hypoattenuating lesions are seen within bilateral renal cortical cysts likely representing small cysts, largest is measuring 1.6 cm in diameter and seen within left kidney. Bowel: Stomach is slightly dilated and filled with gas and ingested material. Bowel loops are nondila vikki. Appendix is not well seen. Peritoneum: There is no intraperitoneal free air or abdominal ascites. Vasculature: Tortuous and dilated abdominal aorta is seen with partial visualized stent within lower thoracic and upper abdominal portion of aorta. Diameter of infrarenal aortic aneurysm is similar to p rior study in 2019 measuring approximately 4.6 x 3.4 cm (173). Evaluation of aorta is limited due t o lack of IV contrast. Incidental findings of a retroaortic left renal vein is seen. Interval placement of IVC filter. Adenopathy: None. Pelvic viscera: Enlarged prostate gland. Evaluation of pelvic region is limited due to beam hardening artifact from excreted contrast within the urinary bladder. Skeletal structures: Osteopenia. Prominent S-shaped thoracolumbar scoliosis associated with severe de generative changes of the spine. IMPRESSION: 1. No definite area of bleeding is seen however evaluation is limited due to lack of IV contrast. 2. Interval development of loculated collection within inferior anterior lateral pleural. For furthe r details please see report of CT of the chest performed at the same time. 3. Nondilated loops of bowel. 4. The rest of findings as above. ACT 112: Negative or not required by law. The above report was generated using voice recognition software. It may contain grammatical, syntax o r spelling errors. Electronically signed by: Laly Trevino DO 09/06/2020 7:06 PM
[2020-09-06 19:10] LABS: Hematocrit (blood only) 28.4 % (42-52); Hemoglobin 8.8 g/dL (14.0-18.0)
[2020-09-06] MEDS ORDERED: SODIUM CHLORIDE 0.9% 250 ML IV PRN (19:44)
[2020-09-06] MEDS: POLYETHYLENE (MIRALAX) 17 GM PACK PO SCH (20:44)
[2020-09-06] MEDS: METOPROLOL TARTRATE 50 MG TAB PO SCH (20:45)
[2020-09-06] MEDS: PRAVASTATIN SOD 40 MG TAB PO SCH (20:46)
[2020-09-06 22:39] LABS: Hematocrit (blood only) 28.1 % (42-52); Hemoglobin 8.9 g/dL (14.0-18.0)
--- NOTE | 2020-09-07 00:43 | Hospitalist Progress Note ---
Date of Service September 07, 2020 Assessment & Plan Admission and Anticipated Discharge Date Admission Date: September 06, 2020 Subjective Left thigh hematoma on ultrasound. Hb 8.9. holding aspirin. Consulting orthopedics in am. Follow labs in am. Results & Data Results & Data ([facility]) Vital Signs (Past 12 Hours) Vital Signs Temp Pulse Pulse Resp BP BP Pulse Ox 09/06/20 23:33 37.0 C 75 20 102/63 95 09/06/20 19:43 36.3 C L 76 24 101/68 97 09/06/20 18:54 36.6 C 83 19 88/53 L 95 09/06/20 18:48 36.6 C 82 19 88/53 L 97 09/06/20 18:09 83 18 92/64 L 96 09/06/20 16:39 70 18 95/62 L 96 09/06/20 15:30 18 106/70 96 Pulse Ox 09/06/20 23:33 09/06/20 19:43 09/06/20 18:54 09/06/20 18:48 95 09/06/20 18:09 09/06/20 16:39 09/06/20 15:30
--- NOTE | 2020-09-07 06:06 | Electrocardiogram Report ---
Test Reason : Blood Pressure : / mmHG Vent. Rate : 069 BPM Atrial Rate : 069 BPM P-R Int : 156 ms QRS Dur : 078 ms QT Int : 436 ms P-R-T Axes : 009 -45 057 degrees QTc Int : 467 ms Normal sinus rhythm Left anterior fascicular block Abnormal ECG When compared with ECG of 20-MAY-2020 05:52, QRS axis Shifted left Confirmed by Dereje Campo ([id number]) on 09/07/2020 6:05:57 AM Referred By: Confirmed By:Dereje Campo
[2020-09-07 06:24] LABS: Hematocrit (blood only) 25.7 % (42-52); Hemoglobin 8.2 g/dL (14.0-18.0); Mean Corpuscular Hemoglobin 30.9 pg (25-34); Mean Corpuscular Hgb Conc 31.9 g/dL (32-36); RDW Coefficient of Variation 14.5 % (11.5-14.5); Red Blood Count 2.65 M/uL (4.7-6.1); White Blood Count 5.63 K/uL (4.8-10.8)
[2020-09-07 06:27] LABS: Mean Platelet Volume 9.9 fL (7.4-10.4); Platelet Count 70 K/uL (130-400)
[2020-09-07 06:33] LABS: INR 1.4 (0.9-1.1)
[2020-09-07 07:05] LABS: Albumin Level 2.7 gm/dl (3.4-5.0); BUN Creatinine Ratio 31.1 (10-20); Calcium 7.4 mg/dl (8.5-10.1); Creatinine Clr Calc Pharmacy 34.9 ml/min; Est GFR (African American) 53.7 ml/min; Est GFR (Non-African American) 46.4 ml/min; Magnesium 2.2 mg/dl (1.8-2.4); Potassium 4.3 mmol/L (3.5-5.1)
[2020-09-07 07:09] LABS: Albumin Globulin Ratio 1.1 (0.9-2); Bilirubin,Total 0.5 mg/dl (0.2-1); Globulin 2.4 gm/dl (2.5-4.0); Total Protein 5.1 gm/dl (6.4-8.2)
[2020-09-07] MEDS: METOPROLOL TARTRATE 50 MG TAB PO SCH ×2 (07:23→19:58)
--- NOTE | 2020-09-07 07:38 | Ultrasound Report ---
US extremity non-vascular ltd CLINICAL HISTORY: r/o L thigh hematoma. Left thigh swelling. COMPARISON STUDY: None. FINDINGS: There appear to be 2 separate intramuscular complex fluid collections measuring 6.3 x 5.0 x 1.4 cm and 7.0 x 2.2 x 0.8 cm within the left anterior and lateral thigh. No color flow identified a t these locations. Therefore, these favor hematomas. IMPRESSION: There are 2 separate intramuscular complex fluid collections within the left thigh as de scribed above. These favor intramuscular hematomas. ACT 112: Negative or not required by law. Electronically signed by: Jonathan Rosenthal M.D. 09/07/2020 7:36 AM
[2020-09-07] MEDS: FOLIC ACID 1 MG TAB PO SCH (08:36)
[2020-09-07] MEDS: MULTIVITAMIN TAB PO SCH (08:36)
[2020-09-07] MEDS ORDERED: ASPIRIN 81 MG ECTAB PO SCH (09:00)
[2020-09-07] MEDS ORDERED: NON-FORMULARY MEDICATION (Iron,Carbonyl-Vitamin C [Vitron-C] 65 mg iron- 125 mg Tablet,Del PO SCH (09:00)
[2020-09-07] MEDS: SODIUM CHLORIDE 0.65% NA SOLN 45 ML (OCEAN) SCH (09:35)
--- NOTE | 2020-09-07 11:14 | Orthopedic Consultation ---
Date of Consultation September 07, 2020 Assessment & Plan (1) Hematoma of left thigh: Continue ice packs and elevation for now. Continue limited ambulation from bed to bedside commode. If patient continues to improve as he has overnight, we can likely begin PT and OT protocols tomorrow. I have discussed the case with Dr. Davis who will be available to see the patient later this evening versus tomorrow. We will continue to monitor the size of his thigh. No surgical plans for evacuation at this time. Supervising Physician Co-Signing Physician Notes Patient seen and examined, agree with above assessment plan. History of Present Illness Reason for Consultation: Left thigh hematoma Attending Physician: Abigail Alston MD History of Present Illness Patient is an 84-year-old white male with a significant past medical history of DVT left lower extremity, pulmonary embolus, hypercoagulable state (MTHFR) no longer taking Coumadin with IVC filter placement, osteoarthritis, pericarditis, pericardial effusion, dyslipidemia, type B thoracoabdominal aortic aneurysm, status post TEVAR covering left subclavian and left carotid to SCA bypass and left subclavian Amplatz plug May 2016, hypertension, hyperlipidemia, BPH, history of epistaxis, depression, history of temporal arteritis, osteoporosis who was admitted to the hospital yesterday secondary to left lower extremity pain with inability to ambulate. Patient states that he really feels this began somewhere around Thursday of this week but really had not paid attention to it. He denies injury at this time. No falls or bumping into things. As the week progressed, he began noticing increased swelling and pain in his left thigh. He went to see his primary care physician yesterday. He was then referred to the emergency room from there. The patient states that he was able to ambulate in with some discomfort but by the time he was ambulating out of the doctor's office, the pain continued to increase and he was having a great difficulty ambulating. He states that his primary care doctor's office called the ambulance and he was brought to the emergency room here. Initial x-rays of the left femur show degenerative changes in the hip with a previous history of proximal femur fracture with malformation but complete healing. Vascular ultrasound was then performed later on and found 2 separate intramuscular fluid collections representing hematoma 6 x 5 x 1 cm and 7 x 2 x 0.8 cm within the left anterior and lateral thigh. We have been asked to see him for his hematoma. Currently he is sitting up in bed awake and alert. He has a large ice pack over pretty much most of the thigh down to the knee. He is alert and oriented and appears comfortable. He is very conversant and pleasant. He currently states that his pain control is much better than yesterday. He denies any other symptoms prior to his hematomas developing and or swelling. Denies fevers, chills, etc. Allergies Allergy/AdvReac Type Severity Reaction Status Date / Time amoxicillin AdvReac Unknown UNKNOWN Verified 09/06/20 14:59 clavulanic acid AdvReac Unknown UNKNOWN Verified 09/06/20 14:59 Home Medications Medication Instructions Recorded Confirmed Type folic acid 1 mg PO QAM 01/17/18 09/06/20 History multivitamin 1 tab PO QAM 01/17/18 09/06/20 History pravastatin [Pravachol] 80 mg PO HS 01/17/18 09/06/20 History aspirin [Aspirin Low Dose] 81 mg PO QAM 05/20/20 09/06/20 History metoprolol tartrate 50 mg PO BID 05/20/20 09/06/20 History sennosides [senna] 8.6 mg PO BID PRN 05/20/20 09/06/20 History Miralax 1 packet PO HS 09/06/20 09/06/20 History iron,carbonyl-vitamin C [Vitron-C] 1 tab PO DAILY 09/06/20 09/06/20 History lisinopril 20 mg PO QAM 09/06/20 09/06/20 History Patient History Medical History BPH (benign prostatic hyperplasia) Depression DJD (degenerative joint disease) DVT (deep venous thrombosis) History of temporal arteritis Hyperlipidemia Hypertension Mild reactive airways disease Osteoporosis Surgical History History of carpal tunnel surgery Hx of [place] [facility] [place] Hx of repair of dissecting thoracic aortic aneurysm, Jayess type B "Left common carotid artery to left subclavian artery Dacron bypass graft 06/23/[address] Boswell Repair thoracic aortic aneurysm with aortic dissection using Medtronic Valiant thoracic aortic stent graft covering left subclavian artery and distal Medtronic Valiant thoracic aortic extension placement x2, -Main body graft: [id number]; Two distal extensions measuring 46 x 200 and 46 x 150, Amplanz plug of the left subclavian 06/24/[address] Boswell, Pseudoaneurysm injection of the left brachial artery 06/27/[address] Boswell" S/P eye surgery S/P knee surgery Family History Father Stroke Hypertension Heart disease Sister Cancer Kidney Social History Smoking Status: Former smoker Tobacco Type: Cigars Cigarettes Per Day: Patient reports; Smoking End Date: 2019; Second Hand Exposure: No; Hx Alcohol Use: No Hx Substance Use: No Preferred Language: Belarusian Communication Ability: Effective [employer] Required: No Beliefs That Will Affect Care: None marital status: / Current Living Situation: Alone Current Living Situation Comment: patient stated he has home health current occupational status: retired Other Information That Helps Us Care for You: No Feels Safe at Home: Yes Safety Concerns: Feels Safe At This Time Assistive Devices: Cane Review of Systems Review of Systems: All systems reviewed & are unremarkable except as noted in HPI & below Physical Exam Physical Exam: On examination, the patient again is sitting up in bed awake and alert. Oriented x3, no acute distress, pleasant cooperative. Looking at his left lower extremity, the large ice pack is removed and reveals moderate, diffuse swelling of the anterior and lateral thigh that goes from the groin down to the knee. No overt erythema is noted at this time. I am able to palpate the areas which are mildly tender on palpation at this time. Swelling is somewhat firm at this time. Patient does not seem to have exquisite tenderness on palpation. Moderate swelling around the left knee which on palpation is nontender. There is no erythema and or heat around the left knee. He has the left lower extremity elevated on 1 pillow. I can take him through gentle range of motion of the left lower extremity at this time without discomfort. Hip flexion and extension does not seem to bother him. He has no pain with abduction and or adduction, internal or external rotation. I am able to take his left knee through gentle range of motion without any discomfort at this time. He has strong dorsiflexion and plantarflexion ability of the left ankle. He is unable to do his own straight leg raise at this time. However, he is able to take his knee through gentle range of motion and do a heel slide with a little help. Axial loading does not bring a painful response. He denies any decrease sensation at the ankle or foot. He does have decreased sensation over the left anterior/lateral thigh however he has had his ice pack on for quite some time at this point. He has no gross motor loss at this time. He does have some sensory loss over the lateral and anterior thigh of the left lower extremity likely secondary to use of ice packs. Results & Data ([facility]) Vital Signs (Past 12 Hours) Vital Signs Temp Pulse Pulse Pulse Resp BP Pulse Ox 09/07/20 10:50 36.7 C 84 19 85/52 L 98 09/07/20 07:39 88 09/07/20 06:52 36.9 C 89 14 87/64 L 95 09/07/20 04:15 92/60 L 09/07/20 04:10 36.8 C 81 16 96 09/06/20 23:33 37.0 C 75 20 102/63 95 Diagnostic Findings Patient: BOBBI GIBBONS Date: 09/06/20MR#: [id number]: [address]Acct ID:[id number]: [facility]: [facility] Zip: [place], [place] [address]Lha: 84Location: 2ESex: MRoom/Bed: Q759-7Dhk Phy: Alexandru Interiano MDDiagnosis: ACUTE ON CHRONIC LLE DVTPri Phy: Benjie Carey MDService Date: 09/06/20Fam Phy:Interpreting Phy: [facility] Phy: Alexandru Interiano MD Ordering Phy: Kayli Moore PA-C cc: ~ extremity non-vascular ltd CLINICAL HISTORY: r/o L thigh hematoma. Left thigh swelling. COMPARISON STUDY: None. FINDINGS: There appear to be 2 separate intramuscular complex fluid collections measuring 6.3 x 5.0 x 1.4 cm and 7.0 x 2.2 x 0.8 cm within the left anterior and lateral thigh. No color flow identified at these locations. Therefore, these favor hematomas. IMPRESSION: There are 2 separate intramuscular complex fluid collections within the left thigh as described above. These favor intramuscular hematomas. (1) Hematoma of left thigh Encounter type: initial encounter Qualified Code(s): S70.12XA - Contusion of left thigh, initial encounter
--- NOTE | 2020-09-07 13:42 | Hospitalist Progress Note ---
Date of Service September 07, 2020 Assessment & Plan (1) Hematoma of left thigh: Sudden pain involving the left lower extremity especially left thigh Noted to have spontaneous complex fluid collections measuring 6.3 x 5.0 x 1.4 cm and 7.0 x 2.2 x 0.8 cm within the left anterior and lateral thigh. Appreciate Ortho input and recommendation Will hold aspirin for now and apply cold compression, pain medications as needed Monitor H&H We will get PT and OT evaluation when pain is reasonably controlled (2) DVT (deep venous thrombosis): Has chronic DVT and new superficial femoral thrombosis likely secondary to thrombophlebitis This is an 84-year-old male who has significant past medical history of recurrent left lower extremity DVT, PE, thoracoaortic aneurysm s/p endovascular repair, hx of bleeding with epistaxis and LLE hematoma now anticoagulation c ontraindicated, IVCF in place, HTN, HLD, BPH who presents to ED 2/2 to LLE pain and swelling x 1 day. Pt with recurrent left lower extremity superficial femoral vein DVT. Coumadin discontinued 2016 secondary to recurrent epistaxis. Patient hospitalized [facility] April 2019 secondary to recurrent left lower extremity DVT, placed on IV heparin and developed a spontaneous left thigh hematoma requiring 3 units of PRBC. Heparin discontinued and patient underwent IVC filter placement which is currently in place. Ultrasound reveals acute on chronic left superficial femoral DVT, chronic left popliteal DVT. Case was discussed with vascular given patient's recurrent DVT, IVC filter in place and spontaneous bleeding. Discussed with vascular surgery and mentioned that since clot is superficial there will not do anything with it and the consult was discontinued He also has noted elevated INR 1.5 and thrombocytopenia at 79. 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, statin, metorpolol and statin as outpt no chest pain/sob (4) Chronic anemia: Hemoglobin 10.6 and 33.1 today, hemoglobin 13.6 and 08/09/2020 Repeat H&H at 10 PM given hypotension Recently had anemia panel which was unremarkable Follows with hematology oncology secondary to anemia, bleeding and recurrent clots Negative work-up for bleeding diatheses, compound heterozygous MTHFR mutation - felt not contributory to recurrent clots per heme-onc note His hemoglobin maintained more than 8 since April of this year Thrombocytopenia chronic, plt 79 currently on asa monitor plt ct Elevated INR unknown etiology, repeat in a.m. (5) History of ascending aortic replacement: History of L-CCA to L-SCA bypass followed by TEVAR, Dr. Boswell and Dr Foster later performed ascending aortic replacement and bypass today innominate and L CCA. 01/12/2020 Underwent placement of Medtronic Valient thoraic aortic stent graft extension, extending down to celiac artery by Dr. Boswell. CTA did not show any increase in the diameter of aorta and no change compared with prior test (6) At risk for bleeding: Contraindications to anticoagulation with recent epistaxis, right-sided pleural hematoma, and spontaneous large left thigh hematoma in the setting of heparin infusion. DVT ppx: contraindicated FULL CODE PCP: Aurelio (7) MTHFR gene mutation: Hypercoagulable state and was on Coumadin before Which was stopped due to epistaxis and spontaneous bleeding Status post IVC filter placement in 2019 Chronic DVT and has been on baby aspirin Admission and Anticipated Discharge Date Admission Date: September 06, 2020 Subjective 09/07/2020 The patient was seen and examined in telemetry unit He complains to pain in the left thigh which has been going on since and came out all on his sudden without any history of trauma and/or twisting Still complains of pain in the left thigh Denies any palpitation, shortness of breath, chest pain, abdominal pain nausea and or vomiting Review of Systems Review of Systems: All systems reviewed and are unremarkable except as noted below Musculoskeletal: + swelling (Left thigh with tenderness and pain with any movement of the left lower extremity) Physical Exam Physical Exam: Lying in bed with anxiety Constitutional: well developed, well nourished and + ill appearing Eyes: PERRL, conjunctivae normal, anicteric sclerae ENMT: external ear and nose normal, oropharynx normal Neck: trachea midline, no thyromegaly Respiratory: no respiratory distress Auscultation: lungs clear to auscultat ion bilaterally Cardiovascular: Rate/Rhythm: regular rate and regular rhythm Heart Sounds: no murmur Extremities: no edema Gastrointestinal (Abdomen): Inspection/Auscultation: normal bowel sounds; abdomen not distended Percussion/Palpation: abdomen soft; abdomen nontender Musculoskeletal: Extremities: extremities normal to inspection (Left lower extremity due to pain and swelling of the thigh) Neurologic: Alert, awake and oriented x3 Lymphatic: no cervical or axillary lymphadenopathy Results & Data Results & Data ([facility]) Vital Signs (Past 12 Hours) Vital Signs Temp Pulse Pulse Pulse Resp BP Pulse Ox 09/07/20 10:50 36.7 C 84 19 85/52 L 98 09/07/20 07:39 88 09/07/20 06:52 36.9 C 89 14 87/64 L 95 09/07/20 04:15 92/60 L 09/07/20 04:10 36.8 C 81 16 96 Laboratory Results Short CBC 09/06/20 09/06/20 09/07/20 Range/Units 19:00 22:25 06:09 WBC 5.63 (4.8-10.8) K/uL Hgb 8.8 L 8.9 L 8.2 L (14.0-18.0) g/dL Hct 28.4 L 28.1 L 25.7 L (42-52) % Plt Count 70 L (130-400) K/uL BMP 09/07/20 06:09 Sodium 142 Potassium 4.3 Chloride 113 H Carbon Dioxide 26 BUN 43 H Creatinine 1.37 Glucose 105 H Calcium 7.4 L Liver Function 09/07/20 Range/Units 06:09 Total Bilirubin 0.5 (0.2-1) mg/dl AST 14 L (15-37) U/L ALT 14 (12-78) U/L Alkaline Phosphatase 39 L (45-117) U/L Albumin 2.7 L (3.4-5.0) gm/dl Urine 09/06/20 Range/Units 16:15 Urine Color Dark Yellow Urine Appearance Clear (Clear) Urine pH 5.0 (4.5-7.5) Ur Specific [place] > 1.045 H (1.000-1.030) Urine Protein 1+ H (Negative) Urine Glucose (UA) Negative (Negative) Medications Administered Current Inpatient Medications Acetaminophen (Acetaminophen 325 Mg Tab) 650 mg PO Q4H PRN PRN Reason: Pain or Fever Stop: 10/06/20 18:47 Al Hydrox/Mg Hydrox/Simethicone (Aluminum/Magnesium Susp 30 Ml Udc) 15 ml PO Q4H PRN PRN Reason: Dyspepsia Stop: 10/06/20 18:47 Aspirin (Aspirin 81 Mg Ectab) 81 mg PO [facility] Stop: 10/07/20 08:59 Folic Acid (Folic Acid 1 Mg Tab) [facility] [place] Stop: 10/07/20 08:59 Last Admin: 09/07/20 08:36 Dose: 1 mg Documented by: Magnesium Hydroxide (Magnesium Hydroxide Susp 30 Ml Udc) 30 ml PO Q12H PRN PRN Reason: Constipation Stop: 10/06/20 18:47 Metoprolol Tartrate (Metoprolol Tartrate 50 Mg Tab) 50 mg PO BID [facility] Stop: 10/06/20 20:59 Last Admin: 09/07/20 07:23 Dose: Not Given Documented by: Multivitamins (Multivitamin Tab) 1 tab PO [facility] Stop: 10/07/20 08:59 Last Admin: 09/07/20 08:36 Dose: 1 tab Documented by: Ondansetron HCl (Ondansetron Inj 2 Mg/Ml 2 Ml Vial) 4 mg IV Q6H PRN PRN Reason: Nausea Stop: 10/06/20 18:47 Oxycodone/Acetaminophen (Oxycodone/Acetaminophen 5mg/325mg Tab) 1 tab PO Q4H PRN PRN Reason: Pain Stop: 09/20/20 18:47 Polyethylene Glycol (Polyethylene (Miralax) 17 Gm Pack) 17 gm PO DAILY PRN PRN Reason: Constipation Stop: 10/06/20 18:47 Polyethylene Glycol (Polyethylene (Miralax) 17 Gm Pack) 17 gm PO [facility] Stop: 10/06/20 20:59 Last Admin: 09/06/20 20:44 Dose: 17 gm Documented by: Pravastatin Sodium (Pravastatin Sod 40 Mg Tab) 80 mg PO [facility] Stop: 10/06/20 20:59 Last Admin: 09/06/20 20:46 Dose: 80 mg Documented by: Sennosides (Senna 8.6 Mg Tab) 8.6 mg PO BID PRN PRN Reason: Constipation Stop: 10/06/20 18:47 Sodium Chloride (Sodium Chloride 0.65% Na Soln 45 Ml ([place])) 1 sprays NA [facility] Stop: 10/07/20 08:59 Last Admin: 09/07/20 09:35 Dose: 1 sprays Documented by: (1) Hypotension Hypotension type: unspecified hypotension type Qualified Code(s): I95.9 - Hypotension, unspecified (2) Hematoma of left thigh Encounter type: initial encounter Qualified Code(s): S70.12XA - Contusion of left thigh, initial encounter
[2020-09-07] MEDS: POLYETHYLENE (MIRALAX) 17 GM PACK PO SCH (20:01)
[2020-09-07] MEDS: PRAVASTATIN SOD 40 MG TAB PO SCH (20:01)
[2020-09-08 07:18] LABS: Hemoglobin 6.5 g/dL (14.0-18.0); Mean Corpuscular Hemoglobin 31.3 pg (25-34); Mean Corpuscular Hgb Conc 32.5 g/dL (32-36); Mean Corpuscular Volume 96.2 fL (80-100); Mean Platelet Volume 10.5 fL (7.4-10.4); Platelet Count 79 K/uL (130-400); RDW Coefficient of Variation 14.6 % (11.5-14.5); RDW Standard Deviation 50.1 fL (36.4-46.3); Red Blood Count 2.08 M/uL (4.7-6.1); White Blood Count 6.09 K/uL (4.8-10.8)
[2020-09-08 07:27] LABS: BUN Creatinine Ratio 28.5 (10-20); Calcium 7.4 mg/dl (8.5-10.1); Creatinine Clr Calc Pharmacy 30.1 ml/min; Est GFR (Non-African American) 34.5 ml/min; Magnesium 2.1 mg/dl (1.8-2.4); Potassium 4.3 mmol/L (3.5-5.1)
[2020-09-08 07:31] LABS: Basophils # (auto) 0.02 K/uL (0-0.2); Basophils % (auto) 0.3 %; Eosinophils # (auto) 0.08 K/uL (0-0.5); Eosinophils % (auto) 1.3 %; Immature Granulocytes # (auto) 0.04 K/uL (0.00-0.02); Immature Granulocytes % (auto) 0.7 %; Lymphocytes # (auto) 1.36 K/uL (1.2-3.4); Lymphocytes % (auto) 22.3 %; Monocytes # (auto) 0.78 K/uL (0.11-0.59); Monocytes % (auto) 12.8 %; Neutrophils # (auto) 3.81 K/uL (1.4-6.5); Neutrophils % (auto) 62.6 %; RBC Morphology Unremarkable
[2020-09-08] MEDS ORDERED: SODIUM CHLORIDE 0.9% 250 ML IV PRN (08:48)
[2020-09-08] MEDS: METOPROLOL TARTRATE 50 MG TAB PO SCH ×2 (08:49→21:17)
[2020-09-08] MEDS: FOLIC ACID 1 MG TAB PO SCH (08:49)
[2020-09-08] MEDS: SODIUM CHLORIDE 0.65% NA SOLN 45 ML (OCEAN) SCH (08:49)
[2020-09-08] MEDS: MULTIVITAMIN TAB PO SCH (08:49)
--- NOTE | 2020-09-08 08:57 | Orthopedic Progress Note ---
Date of Service September 08, 2020 Assessment & Plan (1) Hematoma of left thigh: Continue ice packs and elevation. Continue limited ambulation from bed to bedside commode. Pain at rest minimal. Markedly improved from admission, no significant improvement since yesterday, states does not feel worse. Hemoglobin dropped to 6.5 this morning, transfuse per medicine. We will continue to monitor the size of his thigh. No overt signs of compartment syndrome. No surgical plans for evacuation at this time. Will have Dr. Davis evaluate patient today. Admission and Anticipated Discharge Date Admission Date: September 06, 2020 Supervising Physician Co-Signing Physician Notes Patient seen and examined agree with above assessment and plan, patient denies pain at this time, patient's left lower extremity is neurovascular and sensory intact, anterior left lateral thigh tenderness to palpation, firm but compressible compartments. Gentle passive range of motion flexion extension of the knee only elicited a mild degree of pain, not out of proportion. Continue with conservative treatments at this time, ice, only gentle range of motion exercises, limit weightbearing and activity on left lower extremity. Subjective Patient resting in bed comfortably. No acute issues overnight. States feels better with ice on. No worsening from yesterday, states feels about the same however significantly improved from admission. No other complaints. Denies chest pain, sob, dizziness, n/v/d. Has been up to bedside commode. States minimal pain with WB on affected leg. Review of Systems Review of Systems: All systems reviewed & are unremarkable except as noted in Subjective Constitutional: as per Subjective / HPI Physical Exam Physical Exam: Left thigh-diffuse swelling left thigh, mild to moderate tenderness anterior and medial aspect of upper thigh, no tenderness laterally. Thigh is somewhat firm but not significantly tender. No overt signs of compartment syndrome. No pain into calf or lower leg. Swelling extends to knee, may have effusion as well. No erythema or ecchymosis. Sensation and n/v status intact. Constitutional: well developed and well nourished; no acute distress Results & Data ([facility]) Vital Signs (Past 12 Hours) Vital Signs Temp Pulse Pulse Resp BP Pulse Ox 09/08/20 07:36 36.8 C 111 H 18 100/60 92 09/08/20 05:03 92/60 L 09/08/20 04:00 36.6 C 93 H 18 72/50 L 94 09/07/20 23:00 36.6 C 94 H 15 93/45 L 98 09/07/20 22:20 77 (1) Hematoma of left thigh Encounter type: initial encounter Qualified Code(s): S70.12XA - Contusion of left thigh, initial encounter
--- NOTE | 2020-09-08 11:31 | Hospitalist Progress Note ---
Date of Service September 08, 2020 Assessment & Plan (1) Hematoma of left thigh: Sudden pain involving the left lower extremity especially left thigh Noted to have spontaneous complex fluid collections measuring 6.3 x 5.0 x 1.4 cm and 7.0 x 2.2 x 0.8 cm within the left anterior and lateral thigh. Appreciate Ortho input and recommendation Will hold aspirin for now and apply cold compression, pain medications as needed Pain in the left thigh has improved and swelling seems to be improved to Hemoglobin dropped down to 6.5 We will give 2 unit of blood transfusion today Acute blood loss anemia Spontaneous bleeding in the left thigh with history of spontaneous bleeding in the past which required transfusion Hemoglobin dropped to 6.5 and he will get 2 units of packed red cell today Aspirin is on hold and is not getting any pharmacologic anticoagulation (2) DVT (deep venous thrombosis): Has chronic DVT and new superficial femoral thrombosis likely secondary to thrombophlebitis This is an 84-year-old male who has significant past medical history of recurrent left lower extremity DVT, PE, thoracoaortic aneurysm s/p endovascular repair, hx of bleeding with epistaxis and LLE hematoma now anticoagulation contraindicated, IVCF in place, HTN, HLD, BPH who presents to ED 2/2 to LLE pain and swelling x 1 day. Pt with recurrent left lower extremity superficial femoral vein DVT. Coumadin discontinued 2016 secondary to recurrent epistaxis. Patient hospitalized [facility] April 2019 secondary to recurrent left lower extremity DVT, placed on IV heparin and developed a spontaneous left thigh hematoma requiring 3 units of PRBC. Heparin discontinued and patient underwent IVC filter placement which is currently in place. Ultrasound reveals acute on chronic left superficial femoral DVT, chronic left popliteal DVT. Case was discussed with vascular given patient's recurrent DVT, IVC filter in place and spontaneous bleeding. Discussed with vascular surgery and mentioned that since clot is superficial there will not do anything with it and the consult was discontinued He also has noted elevated INR 1.5 and thrombocytopenia at 79. 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, statin, metorpolol and statin as outpt no chest pain/sob (4) Chronic anemia: Hemoglobin 10.6 and 33.1 today, hemoglobin 13.6 and 08/09/2020 Repeat H&H at 10 PM given hypotension Recently had anemia panel which was unremarkable Follows with hematology oncology secondary to anemia, bleeding and recurrent clots Negative work-up for bleeding diatheses, compound heterozygous MTHFR mutation - felt not contributory to recurrent clots per heme-onc note His hemoglobin maintained more than 8 since April of this year Thrombocytopenia chronic, plt 79 currently on asa monitor plt ct-79 on 09/08/2020 Elevated INR unknown etiology, repeat in a.m. (5) History of ascending aortic replacement: History of L-CCA to L-SCA bypass followed by [facility], Dr. Boswell and Dr Foster later performed ascending aortic replacement and bypass today innominate and L CCA. 01/12/2020 Underwent placement of Medtronic Valient thoraic aortic stent graft extension, extending down to celiac artery by Dr. Boswell. CTA did not show any increase in the diameter of aorta and no change compared with prior test (6) At risk for bleeding: Contraindications to anticoagulation with recent epistaxis, right-sided pleural hematoma, and spontaneous large left thigh hematoma in the setting of heparin infusion. DVT ppx: contraindicated FULL CODE PCP: Aurelio (7) MTHFR gene mutation: Hypercoagulable state and was on Coumadin before Which was stopped due to epistaxis and spontaneous bleeding Status post IVC filter placement in 2019 Chronic DVT and has been on baby aspirin Admission and Anticipated Discharge Date Admission Date: September 06, 2020 Subjective 09/07/2020 The patient was seen and examined in telemetry unit He complains to pain in the left thigh which has been going on since and came out all on his sudden without any history of trauma and/or twisting Still complains of pain in the left thigh Denies any palpitation, shortness of breath, chest pain, abdominal pain nausea and or vomiting 09/08/2020 The patient was seen and examined in telemetry unit His pain in the left thigh has improved but hemoglobin dropped to 6.5 this morning He denies any other symptoms of chest pain, palpitation, shortness of breath, any numbness or tingling involving the left lower extremity Review of Systems Review of Systems: All systems reviewed and are unremarkable except as noted below Musculoskeletal: + swelling (Left thigh with tenderness and pain with any movement of the left lower extremity) Physical Exam Physical Exam: Lying in bed with anxiety Constitutional: well developed, well nourished and + ill appearing Eyes: PERRL, conjunctivae normal, anicteric sclerae ENMT: external ear and nose normal, oropharynx normal Neck: trachea midline, no thyromegaly Respiratory: no respiratory distress Auscultation: lungs clear to auscultation bilaterally Cardiovascular: Rate/Rhythm: regular rate and regular rhythm Heart Sounds: no murmur Extremities: no edema Gastrointestinal (Abdomen): Inspection/Auscultation: normal bowel sounds; abdomen not distended Percussion/Palpation: abdomen soft; abdomen nontender Musculoskeletal: Extremities: extremities normal to inspection (Left lower extremity due to pain and swelling of the thigh) Neurologic: Alert, awake and oriented x3. No focal sensory and/or motor deficit Lymphatic: no cervical or axillary lymphadenopathy Results & Data Results & Data ([facility]) Vital Signs (Past 12 Hours) Vital Signs Temp Pulse Resp BP Pulse Ox 09/08/20 10:55 36.8 C 90 19 85/52 L 97 09/08/20 07:36 36.8 C 111 H 18 100/60 92 09/08/20 05:03 92/60 L 09/08/20 04:00 36.6 C 93 H 18 72/50 L 94 Laboratory Results Short CBC 09/08/20 Range/Units 06:22 WBC 6.09 (4.8-10.8) K/uL Hgb 6.5 L* (14.0-18.0) g/dL Hct 20.0 L* (42-52) % Plt Count 79 L (130-400) K/uL BMP 09/08/20 06:22 Sodium 141 Potassium 4.3 Chloride 111 H Carbon Dioxide 24 BUN 50 H Creatinine 1.75 H D Glucose 113 H Calcium 7.4 L Medications Administered Current Inpatient Medications Acetaminophen (Acetaminophen 325 Mg Tab) 650 mg PO Q4H PRN PRN Reason: Pain or Fever Stop: 10/06/20 18:47 Al Hydrox/Mg Hydrox/Simethicone (Aluminum/Magnesium Susp 30 Ml Udc) 15 ml PO Q4H PRN PRN Reason: Dyspepsia Stop: 10/06/20 18:47 Aspirin (Aspirin 81 Mg Ectab) 81 mg PO QAM [facility] Stop: 10/07/20 08:59 Folic Acid (Folic Acid 1 Mg Tab) 1 mg PO QAM [facility] Stop: 10/07/20 08:59 Last Admin: 09/08/20 08:49 Dose: 1 mg Documented by: Sodium Chloride (Nss) 250 mls @ 15 mls/hr IV .[id number] PRN PRN Reason: For Transfusion Stop: 09/08/20 18:48 Magnesium Hydroxide (Magnesium Hydroxide Susp 30 Ml Udc) 30 ml PO Q12H PRN PRN Reason: Constipation Stop: 10/06/20 18:47 Metoprolol Tartrate (Metoprolol Tartrate 50 Mg Tab) 50 mg PO BID [facility] Stop: 10/06/20 20:59 Last Admin: 09/08/20 08:49 Dose: 50 mg Documented by: Multivitamins (Multivitamin Tab) [facility] [place] Stop: 10/07/20 08:59 Last Admin: 09/08/20 08:49 Dose: 1 tab Documented by: Ondansetron HCl (Ondansetron Inj 2 Mg/Ml 2 Ml Vial) 4 mg IV Q6H PRN PRN Reason: Nausea Stop: 10/06/20 18:47 Oxycodone/Acetaminophen (Oxycodone/Acetaminophen 5mg/325mg Tab) 1 tab PO Q4H PRN PRN Reason: Pain Stop: 09/20/20 18:47 Polyethylene Glycol (Polyethylene (Miralax) 17 Gm Pack) 17 gm PO DAILY PRN PRN Reason: Constipation Stop: 10/06/20 18:47 Polyethylene Glycol (Polyethylene (Miralax) 17 Gm Pack) 17 gm PO [facility] Stop: 10/06/20 20:59 Last Admin: 09/07/20 20:01 Dose: 17 gm Documented by: Pravastatin Sodium (Pravastatin Sod 40 Mg Tab) 80 mg PO [facility] Stop: 10/06/20 20:59 Last Admin: 09/07/20 20:01 Dose: 80 mg Documented by: Sennosides (Senna 8.6 Mg Tab) 8.6 mg PO BID PRN PRN Reason: Constipation Stop: 10/06/20 18:47 Sodium Chloride (Sodium Chloride 0.65% Na Soln 45 Ml ([place])) 1 sprays [facility] [place] Stop: 10/07/20 08:59 Last Admin: 09/08/20 08:49 Dose: 1 sprays Documented by: (1) Hematoma of left thigh Encounter type: initial encounter Qualified Code(s): S70.12XA - Contusion of left thigh, initial encounter (2) Hypotension Hypotension type: unspecified hypotension type Qualified Code(s): I95.9 - Hypotension, unspecified
[2020-09-08] MEDS: POLYETHYLENE (MIRALAX) 17 GM PACK PO SCH (21:17)
[2020-09-08] MEDS: PRAVASTATIN SOD 40 MG TAB PO SCH (21:17)
[2020-09-09 07:08] LABS: BUN Creatinine Ratio 34.7 (10-20); Calcium 7.2 mg/dl (8.5-10.1); Creatinine Clr Calc Pharmacy 36.8 ml/min; Est GFR (African American) 51.5 ml/min; Est GFR (Non-African American) 44.4 ml/min; Potassium 4.6 mmol/L (3.5-5.1)
[2020-09-09 07:14] LABS: Basophils # (auto) 0.02 K/uL (0-0.2); Basophils % (auto) 0.3 %; Echinocytes 1+; Eosinophils # (auto) 0.09 K/uL (0-0.5); Eosinophils % (auto) 1.4 %; Hemoglobin 7.5 g/dL (14.0-18.0); Immature Granulocytes # (auto) 0.05 K/uL (0.00-0.02); Immature Granulocytes % (auto) 0.8 %; Lymphocytes # (auto) 1.01 K/uL (1.2-3.4); Lymphocytes % (auto) 15.3 %; Mean Corpuscular Hemoglobin 30.4 pg (25-34); Mean Corpuscular Hgb Conc 32.6 g/dL (32-36); Mean Corpuscular Volume 93.1 fL (80-100); Mean Platelet Volume 10.2 fL (7.4-10.4); Monocytes # (auto) 0.85 K/uL (0.11-0.59); Monocytes % (auto) 12.9 %; Neutrophils # (auto) 4.57 K/uL (1.4-6.5); Neutrophils % (auto) 69.3 %; Nucleated RBC # (auto) 0.04 K/uL (0-0); Nucleated RBC % (auto) 0.6 %; Platelet Count 74 K/uL (130-400); RDW Coefficient of Variation 16.3 % (11.5-14.5); RDW Standard Deviation 54.9 fL (36.4-46.3); Red Blood Count 2.47 M/uL (4.7-6.1); White Blood Count 6.59 K/uL (4.8-10.8)
--- NOTE | 2020-09-09 07:51 | Orthopedic Progress Note ---
Date of Service September 09, 2020 Assessment & Plan (1) Hematoma of left thigh: Continue ice packs and elevation. Continue limited ambulation from bed to bedside commode. Pain at rest minimal. Markedly improved from admission, no significant improvement since yesterday, states does not feel worse. Hemoglobin dropped to 7.5 this morning, transfuse per medicine. Did get 2 units yesterday We will continue to monitor the size of his thigh. No overt signs of compartment syndrome. No surgical plans for evacuation at this time. Admission and Anticipated Discharge Date Admission Date: September 06, 2020 Supervising Physician Co-Signing Physician Notes Agree with above assessment plan, continue to monitor, symptoms improving. Subjective Patient feeling well today. Frustrated with his mobility but has improved pain from yesterday. No other complaints. Denies chest pain, sob, dizziness, n/v/d., Review of Systems Review of Systems: All systems reviewed & are unremarkable except as noted in Subjective Physical Exam Physical Exam: Left thigh-diffuse swelling left thigh, mild to moderate tenderness anterior and medial aspect of upper thigh, no tenderness laterally. Thigh is somewhat firm but not significantly tender. Compartments compressible. No overt signs of compartment syndrome. No pain into calf or lower leg. Swelling extends to knee, may have effusion as well. No erythema or ecchymosis. Sensation and n/v status intact. Constitutional: well developed and well nourished; no acute distress Results & Data ([facility]) Vital Signs (Past 12 Hours) Vital Signs Temp Pulse Pulse Pulse Resp BP Pulse Ox 09/09/20 04:22 36.4 C 90 24 104/64 95 09/08/20 23:59 36.7 C 76 19 93/57 L 95 09/08/20 22:20 77 09/08/20 21:11 36.9 C 72 20 92/57 L 96 (1) Hematoma of left thigh Encounter type: initial encounter Qualified Code(s): S70.12XA - Contusion of left thigh, initial encounter
[2020-09-09] MEDS: METOPROLOL TARTRATE 50 MG TAB PO SCH ×2 (08:53→20:03)
[2020-09-09] MEDS: MULTIVITAMIN TAB PO SCH (08:54)
[2020-09-09] MEDS: FOLIC ACID 1 MG TAB PO SCH (08:54)
--- NOTE | 2020-09-09 11:46 | Hospitalist Progress Note ---
Date of Service September 09, 2020 Assessment & Plan (1) Hematoma of left thigh: Sudden pain involving the left lower extremity especially left thigh Noted to have spontaneous complex fluid collections measuring 6.3 x 5.0 x 1.4 cm and 7.0 x 2.2 x 0.8 cm within the left anterior and lateral thigh. Appreciate Ortho input and recommendation Will hold aspirin for now and apply cold compression, pain medications as needed Pain in the left thigh has improved and swelling seems to be improved to Hemoglobin dropped down to 6.5 Received 2 unit of packed red cell on 09/08/2020-hemoglobin is 7.5 on 09/09/2020- we will monitor CBC Pain in the left thigh is better but has developed swelling of the scrotum with bruising likely secondary to spreading of hemorrhage through the fascia-we will observe Advised to use ice pack and also keep the legs elevated while in bed Acute blood loss anemia Spontaneous bleeding in the left thigh with history of spontaneous bleeding in the past which required transfusion Hemoglobin dropped to 6.5 and he will get 2 units of packed red cell today Aspirin is on hold and is not getting any pharmacologic anticoagulation We will monitor hemoglobin and may need more blood transfusion (2) DVT (deep venous thrombosis): Has chronic DVT and new superficial femoral thrombosis likely secondary to thrombophlebitis This is an 84-year-old male who has significant past medical history of recurrent left lower extremity DVT, PE, thoracoaortic aneurysm s/p endovascular repair, hx of bleeding with epistaxis and LLE hematoma now anticoagulation contraindicated, IVCF in place, HTN, HLD, BPH who presents to ED 2/2 to LLE pain and swelling x 1 day. Pt with recurrent left lower extremity superficial femoral vein DVT. Coumadin discontinued 2016 secondary to recurrent epistaxis. Patient hospitalized [facility] April 2019 secondary to recurrent left lower extremity DVT, placed on IV heparin and developed a spontaneous left thigh hematoma requiring 3 units of PRBC. Heparin discontinued and patient underwent IVC filter placement which is currently in place. Ultrasound reveals acute on chronic left superficial femoral DVT, chronic left popliteal DVT. Case was discussed with vascular given patient's recurrent DVT, IVC filter in place and spontaneous bleeding. Discussed with vascular surgery and mentioned that since clot is superficial there will not do anything with it and the consult was discontinued He also has noted elevated INR 1.5 and thrombocytopenia at 79. 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, statin, metorpolol and statin as outpt no chest pain/sob (4) Chronic anemia: Hemoglobin 10.6 and 33.1 today, hemoglobin 13.6 and 08/09/2020 Repeat H&H at 10 PM given hypotension Recently had anemia panel which was unremarkable Follows with hematology oncology secondary to anemia, bleeding and recurrent clots Negative work-up for bleeding diatheses, compound heterozygous MTHFR mutation - felt not contributory to recurrent clots per heme-onc note His hemoglobin maintained more than 8 since April of this year Thrombocytopenia chronic, plt 79 currently on asa monitor plt ct-79 on 09/08/2020 Elevated INR unknown etiology, repeat in a.m. (5) History of ascending aortic replacement: History of L-CCA to L-SCA bypass followed by [facility], Dr. Boswell and Dr Foster later performed ascending aortic replacement and bypass today innominate and L CCA. 01/12/2020 Underwent placement of Medtronic Valient thoraic aortic stent graft extension, extending down to celiac artery by Dr. Boswell. CTA did not show any increase in the diameter of aorta and no change compared with prior test (6) At risk for bleeding: Contraindications to anticoagulation with recent epistaxis, right-sided pleural hematoma, and spontaneous large left thigh hematoma in the setting of heparin infusion. DVT ppx: contraindicated FULL CODE PCP: Aurelio (7) MTHFR gene mutation: Hypercoagulable state and was on Coumadin before Which was stopped due to epistaxis and spontaneous bleeding Status post IVC filter placement in 2019 Chronic DVT and has been on baby aspirin which is on hold now Admission and Anticipated Discharge Date Admission Date: September 06, 2020 Subjective 09/07/2020 The patient was seen and examined in telemetry unit He complains to pain in the left thigh which has been going on since and came out all on his sudden without any history of trauma and/or twisting Still complains of pain in the left thigh Denies any palpitation, shortness of breath, chest pain, abdominal pain nausea and or vomiting 09/08/2020 The patient was seen and examined in telemetry unit His pain in the left thigh has improved but hemoglobin dropped to 6.5 this morning He denies any other symptoms of chest pain, palpitation, shortness of breath, any numbness or tingling involving the left lower extremity 09/09/2020 The patient was seen and examined in telemetry unit He has been out of bed on a chair and symptomatically much better He complained to have swelling and bruising involving the scrotum which he noticed this morning Denies any pain in the thigh and/or in the scrotum Denies any shortness of breath, palpitation or chest pain Review of Systems Review of Systems: All systems reviewed and are unremarkable except as noted below Genitourinary: + scrotal swelling (Scrotal swelling with bruising likely secondary to spreading of hemorrhage through the fascia) Musculoskeletal: + swelling (Left thigh with tenderness and pain with any movement of the left lower extremity) Physical Exam Physical Exam: Sitting on a chair with anxiety and depression Constitutional: well developed, well nourished and + ill appearing Eyes: PERRL, conjunctivae normal, anicteric sclerae ENMT: external ear and nose normal, oropharynx normal Neck: trachea midline, no thyromegaly Respiratory: no respiratory distress Auscultation: lungs clear to auscultation bilaterally Cardiovascular: Rate/Rhythm: regular rate and regular rhythm Heart Sounds: no murmur Extremities: no edema Gastrointestinal (Abdomen): Inspection/Auscultation: normal bowel sounds; abdomen not distended Percussion/Palpation: abdomen soft; abdomen nontender Musculoskeletal: Extremities: extremities normal to inspection (Left lower extremity due to pain and swelling of the thigh) Neurologic: Alert, awake and oriented x3 Genitourinary: + scrotal swelling (Swelling with bruising) Lymphatic: no cervical or axillary lymphadenopathy Results & Data Results & Data ([facility]) Vital Signs (Past 12 Hours) Vital Signs Temp Pulse Resp BP Pulse Ox 09/09/20 07:57 36.9 C 93 H 20 93/51 L 92 09/09/20 04:22 36.4 C 90 24 104/64 95 09/08/20 23:59 36.7 C 76 19 93/57 L 95 Laboratory Results Short CBC 09/09/20 Range/Units 06:35 WBC 6.59 (4.8-10.8) K/uL Hgb 7.5 L (14.0-18.0) g/dL Hct 23.0 L (42-52) % Plt Count 74 L (130-400) K/uL BMP 09/09/20 06:35 Sodium 139 Potassium 4.6 Chloride 111 H Carbon Dioxide 26 BUN 49 H Creatinine 1.42 H D Glucose 125 H Calcium 7.2 L Medications Administered Current Inpatient Medications Acetaminophen (Acetaminophen 325 Mg Tab) 650 mg PO Q4H PRN PRN Reason: Pain or Fever Stop: 10/06/20 18:47 Al Hydrox/Mg Hydrox/Simethicone (Aluminum/Magnesium Susp 30 Ml Udc) 15 ml PO Q4H PRN PRN Reason: Dyspepsia Stop: 10/06/20 18:47 Aspirin (Aspirin 81 Mg Ectab) 81 mg PO [facility] Stop: 10/07/20 08:59 Folic Acid (Folic Acid 1 Mg Tab) [facility] [place] Stop: 10/07/20 08:59 Last Admin: 09/09/20 08:54 Dose: 1 mg Documented by: Magnesium Hydroxide (Magnesium Hydroxide Susp 30 Ml Udc) 30 ml PO Q12H PRN PRN Reason: Constipation Stop: 10/06/20 18:47 Metoprolol Tartrate (Metoprolol Tartrate 50 Mg Tab) 50 mg PO BID [facility] Stop: 10/06/20 20:59 Last Admin: 09/09/20 08:53 Dose: 50 mg Documented by: Multivitamins (Multivitamin Tab) 1 tab PO [facility] Stop: 10/07/20 08:59 Last Admin: 09/09/20 08:54 Dose: 1 tab Documented by: Ondansetron HCl (Ondansetron Inj 2 Mg/Ml 2 Ml Vial) 4 mg IV Q6H PRN PRN Reason: Nausea Stop: 10/06/20 18:47 Oxycodone/Acetaminophen (Oxycodone/Acetaminophen 5mg/325mg Tab) 1 tab PO Q4H PRN PRN Reason: Pain Stop: 09/20/20 18:47 Polyethylene Glycol (Polyethylene (Miralax) 17 Gm Pack) 17 gm PO DAILY PRN PRN Reason: Constipation Stop: 10/06/20 18:47 Polyethylene Glycol (Polyethylene (Miralax) 17 Gm Pack) 17 gm PO [facility] Stop: 10/06/20 20:59 Last Admin: 09/08/20 21:17 Dose: 17 gm Documented by: Pravastatin Sodium (Pravastatin Sod 40 Mg Tab) 80 mg PO HS [facility] Stop: 10/06/20 20:59 Last Admin: 09/08/20 21:17 Dose: 80 mg Documented by: Sennosides (Senna 8.6 Mg Tab) 8.6 mg PO BID PRN PRN Reason: Constipation Stop: 10/06/20 18:47 Sodium Chloride (Sodium Chloride 0.65% Na Soln 45 Ml ([place])) 1 sprays NA QAM [facility] Stop: 10/07/20 08:59 Last Admin: 09/08/20 08:49 Dose: 1 sprays Documented by: (1) Hematoma of left thigh Encounter type: initial encounter Qualified Code(s): S70.12XA - Contusion of left thigh, initial encounter (2) Hypotension Hypotension type: unspecified hypotension type Qualified Code(s): I95.9 - Hypotension, unspecified
[2020-09-09] MEDS: SODIUM CHLORIDE 0.65% NA SOLN 45 ML (OCEAN) SCH (13:16)
[2020-09-09] MEDS: PRAVASTATIN SOD 40 MG TAB PO SCH (20:03)
[2020-09-09] MEDS: POLYETHYLENE (MIRALAX) 17 GM PACK PO SCH (20:03)
[2020-09-10 08:34] LABS: Hemoglobin 6.5 g/dL (14.0-18.0); Mean Corpuscular Hemoglobin 30.4 pg (25-34); Mean Corpuscular Hgb Conc 32.5 g/dL (32-36); Mean Corpuscular Volume 93.5 fL (80-100); Mean Platelet Volume 9.6 fL (7.4-10.4); Nucleated RBC # (auto) 0.04 K/uL (0-0); Nucleated RBC % (auto) 0.8 %; Platelet Count 85 K/uL (130-400); RDW Coefficient of Variation 16.3 % (11.5-14.5); RDW Standard Deviation 53.3 fL (36.4-46.3); Red Blood Count 2.14 M/uL (4.7-6.1); White Blood Count 5.93 K/uL (4.8-10.8)
[2020-09-10] MEDS ORDERED: SODIUM CHLORIDE 0.9% 250 ML IV PRN (08:37)
[2020-09-10 08:54] LABS: Basophils # (auto) 0.01 K/uL (0-0.2); Basophils % (auto) 0.2 %; Eosinophils # (auto) 0.08 K/uL (0-0.5); Eosinophils % (auto) 1.3 %; Immature Granulocytes # (auto) 0.04 K/uL (0.00-0.02); Immature Granulocytes % (auto) 0.7 %; Lymphocytes # (auto) 0.98 K/uL (1.2-3.4); Lymphocytes % (auto) 16.5 %; Monocytes # (auto) 0.43 K/uL (0.11-0.59); Monocytes % (auto) 7.3 %; Neutrophils # (auto) 4.39 K/uL (1.4-6.5); Polychromasia 1+
[2020-09-10 09:02] LABS: BUN Creatinine Ratio 37.9 (10-20); Calcium 7.6 mg/dl (8.5-10.1); Creatinine Clr Calc Pharmacy 36.5 ml/min; Est GFR (African American) 51.5 ml/min; Est GFR (Non-African American) 44.4 ml/min; Potassium 4.2 mmol/L (3.5-5.1)
[2020-09-10] MEDS: ACETAMINOPHEN 325 MG TAB PO PRN (09:30)
[2020-09-10] MEDS: FOLIC ACID 1 MG TAB PO SCH (09:31)
[2020-09-10] MEDS: MULTIVITAMIN TAB PO SCH (09:31)
[2020-09-10] MEDS: METOPROLOL TARTRATE 50 MG TAB PO SCH ×2 (09:31→22:37)
[2020-09-10] MEDS: SODIUM CHLORIDE 0.65% NA SOLN 45 ML (OCEAN) SCH (10:16)
[2020-09-10] MEDS ORDERED: FUROSEMIDE 40 MG in SYRINGE 0 ML IV ONE (10:30)
--- NOTE | 2020-09-10 13:11 | Hospitalist Progress Note ---
Date of Service September 10, 2020 Assessment & Plan (1) Hematoma of left thigh: Sudden pain involving the left lower extremity especially left thigh Noted to have spontaneous complex fluid collections measuring 6.3 x 5.0 x 1.4 cm and 7.0 x 2.2 x 0.8 cm within the left anterior and lateral thigh. Appreciate Ortho input and recommendation Will hold aspirin for now and apply cold compression, pain medications as needed Pain in the left thigh has improved and swelling seems to be improved to Hemoglobin dropped down to 6.5 Received 2 unit of packed red cell on 09/08/2020-hemoglobin is 7.5 on 09/09/2020- we will monitor CBC Pain in the left thigh is better but has developed swelling of the scrotum with bruising likely secondary to spreading of hemorrhage through the fascia-we will observe Advised to use ice pack and also keep the legs elevated while in bed Left thigh hematoma seems to be improving but increasing swelling and discoloration of the scrotum and penis with difficulty in voiding Will ask for vascular surgery evaluation as per recommendation from Ortho Acute blood loss anemia Spontaneous bleeding in the left thigh with history of spontaneous bleeding in the past which required transfusion Hemoglobin dropped to 6.5 and he will get 2 units of packed red cell today Aspirin is on hold and is not getting any pharmacologic anticoagulation Hemoglobin has dropped to 6.5-we will give 2 units of packed red cell blood again today (2) DVT (deep venous thrombosis): Has chronic DVT and new superficial femoral thrombosis likely secondary to thrombophlebitis This is an 84-year-old male who has significant past medical history of recurrent left lower extremity DVT, PE, thoracoaortic aneurysm s/p endovascular repair, hx of bleeding with epistaxis and LLE hematoma now anticoagulation contraindicated, IVCF in place, HTN, HLD, BPH who presents to ED 2/2 to LLE pain and swelling x 1 day. Pt with recurrent left lower extremity superficial femoral vein DVT. Coumadin discontinued 2016 secondary to recurrent epistaxis. Patient hospitalized [facility] April 2019 secondary to recurrent left lower extremity DVT, placed on IV heparin and developed a spontaneous left thigh hematoma requiring 3 units of PRBC. Heparin discontinued and patient underwent IVC filter placement which is currently in place. Ultrasound reveals acute on chronic left superficial femoral DVT, chronic left popliteal DVT. Case was discussed with vascular given patient's recurrent DVT, IVC filter in place and spontaneous bleeding. Discussed with vascular surgery and mentioned that since clot is superficial there will not do anything with it and the consult was discontinued He also has noted elevated INR 1.5 and thrombocytopenia at 79. (3) Hypotension: in setting of hx of HTN Patient blood pressure systolically on the lower side Responded to IV fluid resuscitation, so far received 1,250 mL Continue at 75 cc/h for additional liter Hold lisinopril, continue metoprolol with parameters Blood pressure remains on the lower side at systolic 85/48 Nonobstructive CAD on asa, statin, metorpolol and statin as outpt no chest pain/sob (4) Chronic anemia: Hemoglobin 10.6 and 33.1 today, hemoglobin 13.6 and 08/09/2020 Repeat H&H at 10 PM given hypotension Recently had anemia panel which was unremarkable Follows with hematology oncology secondary to anemia, bleeding and recurrent clots Negative work-up for bleeding diatheses, compound heterozygous MTHFR mutation - felt not contributory to recurrent clots per heme-onc note Hemoglobin has been dropping with ongoing bleeding Thrombocytopenia chronic, plt 79 currently on asa monitor plt ct-79 on 09/08/2020 Elevated INR unknown etiology, (5) History of ascending aortic replacement: History of L-CCA to L-SCA bypass followed by [facility], Dr. Boswell and Dr Foster later performed ascending aortic replacement and bypass today innominate and L CCA. 01/12/2020 Underwent placement of Medtronic Valient thoraic aortic stent graft extension, extending down to celiac artery by Dr. Boswell. CTA did not show any increase in the diameter of aorta and no change compared with prior test (6) At risk for bleeding: Contraindications to anticoagulation with recent epistaxis, right-sided pleural hematoma, and spontaneous large left thigh hematoma in the setting of heparin infusion. DVT ppx: contraindicated FULL CODE PCP: Aurelio (7) MTHFR gene mutation: Hypercoagulable state and was on Coumadin before Which was stopped due to epistaxis and spontaneous bleeding Status post IVC filter placement in 2019 Chronic DVT and has been on baby aspirin which is on hold now Admission and Anticipated Discharge Date Admission Date: September 06, 2020 Subjective 09/07/2020 The patient was seen and examined in telemetry unit He complains to pain in the left thigh which has been going on since and came out all on his sudden without any history of trauma and/or twisting Still complains of pain in the left thigh Denies any palpitation, shortness of breath, chest pain, abdominal pain nausea and or vomiting 09/08/2020 The patient was seen and examined in telemetry unit His pain in the left thigh has improved but hemoglobin dropped to 6.5 this morning He denies any other symptoms of chest pain, palpitation, shortness of breath, any numbness or tingling involving the left lower extremity 09/09/2020 The patient was seen and examined in telemetry unit He has been out of bed on a chair and symptomatically much better He complained to have swelling and bruising involving the scrotum which he noticed this morning Denies any pain in the thigh and/or in the scrotum Denies any shortness of breath, palpitation or chest pain 09/10/2020 The patient was seen and examined in telemetry unit His condition has been worse with increasing swelling and bruising involving the scrotum and penis Has been having some problem with voiding Denies any pain in the leg, no fever and/or chills, abdominal pain,nausea and or vomiting Review of Systems Review of Systems: All systems reviewed and are unremarkable except as noted below Genitourinary: + scrotal swelling (Scrotal swelling with bruising likely secondary to spreading of hemorrhage through the fascia) Musculoskeletal: + swelling (Left thigh with tenderness and pain with any movement of the left lower extremity) Physical Exam Physical Exam: Lying in bed very anxious about his condition Constitutional: well developed, well nourished and + ill appearing Eyes: PERRL, conjunctivae normal, anicteric sclerae ENMT: external ear and nose normal, oropharynx normal Neck: trachea midline, no thyromegaly Respiratory: no respiratory distress Auscultation: lungs clear to auscultation bilaterally Cardiovascular: Rate/Rhythm: regular rate and regular rhythm Heart Sounds: no murmur Extremities: no edema Gastrointestinal (Abdomen): Inspection/Auscultation: normal bowel sounds; abdomen not distended Percussion/Palpation: abdomen soft; abdomen nontender Musculoskeletal: Extremities: extremities normal to inspection (Left lower extremity due to pain and swelling of the thigh) Neurologic: Alert, awake and oriented x3. Generally weak Genitourinary: + scrotal swelling (Considerable scrotal and penile swelling with bruising) Lymphatic: no cervical or axillary lymphadenopathy Results & Data Results & Data ([facility]) Vital Signs (Past 12 Hours) Vital Signs Temp Pulse Pulse Pulse Resp BP BP 09/10/20 12:50 36.9 C 65 85/48 L 09/10/20 11:42 36.8 C 73 20 91/58 L 09/10/20 07:20 36.5 C 93 H 18 97/59 L 09/10/20 02:33 36.7 C 101 H 23 100/59 L Pulse Ox 09/10/20 12:50 09/10/20 11:42 97 09/10/20 07:20 96 09/10/20 02:33 99 Laboratory Results Short CBC 09/10/20 Range/Units 08:17 WBC 5.93 (4.8-10.8) K/uL Hgb 6.5 L* (14.0-18.0) g/dL Hct 20.0 L* (42-52) % Plt Count 85 L (130-400) K/uL BMP 09/10/20 08:17 Sodium 141 Potassium 4.2 Chloride 110 H Carbon Dioxide 23 BUN 54 H Creatinine 1.42 H Glucose 168 H Calcium 7.6 L Medications Administered Current Inpatient Medications Acetaminophen (Acetaminophen 325 Mg Tab) 650 mg PO Q4H PRN PRN Reason: Pain or Fever Stop: 10/06/20 18:47 Last Admin: 09/10/20 09:30 Dose: 650 mg Documented by: Al Hydrox/Mg Hydrox/Simethicone (Aluminum/Magnesium Susp 30 Ml Udc) 15 ml PO Q4H PRN PRN Reason: Dyspepsia Stop: 10/06/20 18:47 Aspirin (Aspirin 81 Mg Ectab) [facility] Stop: 10/07/20 08:59 Folic Acid (Folic Acid 1 Mg Tab) [facility] Stop: 10/07/20 08:59 Last Admin: 09/10/20 09:31 Dose: 1 mg Documented by: Sodium Chloride (Nss) 250 mls @ 15 mls/hr IV .[id number] PRN PRN Reason: For Transfusion Stop: 09/10/20 18:37 Magnesium Hydroxide (Magnesium Hydroxide Susp 30 Ml Udc) 30 ml PO Q12H PRN PRN Reason: Constipation Stop: 10/06/20 18:47 Metoprolol Tartrate (Metoprolol Tartrate 50 Mg Tab) 50 mg PO BID [facility] Stop: 10/06/20 20:59 Last Admin: 09/10/20 09:31 Dose: 50 mg Documented by: Multivitamins (Multivitamin Tab) 1 tab PO QAM [facility] Stop: 10/07/20 08:59 Last Admin: 09/10/20 09:31 Dose: 1 tab Documented by: Ondansetron HCl (Ondansetron Inj 2 Mg/Ml 2 Ml Vial) 4 mg IV Q6H PRN PRN Reason: Nausea Stop: 10/06/20 18:47 Oxycodone/Acetaminophen (Oxycodone/Acetaminophen 5mg/325mg Tab) 1 tab PO Q4H PRN PRN Reason: Pain Stop: 09/20/20 18:47 Polyethylene Glycol (Polyethylene (Miralax) 17 Gm Pack) 17 gm PO DAILY PRN PRN Reason: Constipation Stop: 10/06/20 18:47 Polyethylene Glycol (Polyethylene (Miralax) 17 Gm Pack) 17 gm PO [facility] Stop: 10/06/20 20:59 Last Admin: 09/09/20 20:03 Dose: Not Given Documented by: Pravastatin Sodium (Pravastatin Sod 40 Mg Tab) 80 mg PO HS [facility] Stop: 10/06/20 20:59 Last Admin: 09/09/20 20:03 Dose: 80 mg Documented by: Sennosides (Senna 8.6 Mg Tab) 8.6 mg PO BID PRN PRN Reason: Constipation Stop: 10/06/20 18:47 Sodium Chloride (Sodium Chloride 0.65% Na Soln 45 Ml ([place])) 1 sprays NA [facility] Stop: 10/07/20 08:59 Last Admin: 09/10/20 10:16 Dose: Not Given Documented by: (1) Hematoma of left thigh Encounter type: initial encounter Qualified Code(s): S70.12XA - Contusion of left thigh, initial encounter (2) Hypotension Hypotension type: unspecified hypotension type Qualified Code(s): I95.9 - Hypotension, unspecified
--- NOTE | 2020-09-10 16:14 | Orthopedic Progress Note ---
Date of Service September 10, 2020 Assessment & Plan (1) Hematoma of left thigh: Continue ice packs and elevation. Continue limited ambulation from bed to bedside commode. Pain at rest minimal. Markedly improved from admission, no significant improvement since yesterday, states does not feel worse. Hemoglobin continues to drop, 6.5 today. Agree with vascular consultation for further evaluation and treatment. We will continue to monitor the size of his thigh. No overt signs of compartment syndrome. No surgical plans for evacuation at this time. Admission and Anticipated Discharge Date Admission Date: September 06, 2020 Subjective Patient seen eating breakfast, pain well controlled, no acute issues overnight, has no pain at rest. Review of Systems Review of Systems: All systems reviewed & are unremarkable except as noted in HPI & below Constitutional: as per Subjective / HPI Physical Exam Physical Exam: Left lower leg, + edema grossly, thigh compartment exam unchanged, compressible but tender, tolerates gentle passive ROM of the knee. Constitutional: WD/WN, vitals as above Results & Data ([facility]) Vital Signs (Past 12 Hours) Vital Signs Temp Pulse Pulse Resp BP BP Pulse Ox 09/10/20 15:30 36.7 C 69 108/65 09/10/20 14:35 36.6 C 68 108/62 09/10/20 14:11 78 09/10/20 14:00 36.6 C 66 18 99/69 L 93 09/10/20 13:30 36.8 C 66 97/56 L 09/10/20 13:15 36.8 C 64 94/49 L 09/10/20 12:50 36.9 C 65 85/48 L 09/10/20 11:42 36.8 C 73 20 91/58 L 97 09/10/20 07:20 36.5 C 93 H 18 97/59 L 96 Laboratory Results 09/10/20 09/10/20 09/10/20 Range/Units 09:31 08:17 08:17 WBC 5.93 (4.8-10.8) K/uL RBC 2.14 L (4.7-6.1) M/uL Hgb 6.5 L* (14.0-18.0) g/dL Hct 20.0 L* (42-52) % MCV 93.5 (80-100) fL MCH 30.4 (25-34) pg MCHC 32.5 (32-36) g/dL RDW Std Deviation 53.3 H (36.4-46.3) fL RDW Coeff of Antonio 16.3 H (11.5-14.5) % Plt Count 85 L (130-400) K/uL MPV 9.6 (7.4-10.4) fL Immature Gran % (Auto) 0.7 % Neut % (Auto) 74.0 % Lymph % (Auto) 16.5 % [place] % (Auto) 7.3 % Eos % (Auto) 1.3 % Baso % (Auto) 0.2 % Neut # (Auto) 4.39 (1.4-6.5) K/uL Lymph # (Auto) 0.98 L (1.2-3.4) K/uL [place] # (Auto) 0.43 (0.11-0.59) K/uL Eos # (Auto) 0.08 (0-0.5) K/uL Baso # (Auto) 0.01 (0-0.2) K/uL Immature Gran # (Auto) 0.04 H (0.00-0.02) K/uL Absolute Nucleated RBC 0.04 H (0-0) K/uL Nucleated RBC % (auto) 0.8 % Polychromasia 1+ Sodium 141 (136-145) mmol/L Potassium 4.2 (3.5-5.1) mmol/L Chloride 110 H (98-107) mmol/L Carbon Dioxide 23 (21-32) mmol/L Anion Gap 7.0 (3-11) BUN 54 H (7-18) mg/dl Creatinine 1.42 H (0.6-1.4) mg/dl Est Cr Clr Drug Dosing 36.5 ml/min Est GFR ( Amer) 51.5 ml/min Est GFR (Non-Af Amer) 44.4 ml/min BUN/Creatinine Ratio 37.9 H (10-20) Glucose 168 H (70-99) mg/dl Calcium 7.6 L (8.5-10.1) mg/dl Blood Type AB Positive Antibody Screen NEGATIVE Crossmatch See Detail (1) Hematoma of left thigh Encounter type: initial encounter Qualified Code(s): S70.12XA - Contusion of left thigh, initial encounter
[2020-09-10] MEDS ORDERED: OPTIRAY 320 125ml IV ONE (16:46)
--- NOTE | 2020-09-10 17:49 | CT Scan Report ---
CT ryan bermudez nemesio CLINICAL HISTORY: Thigh bleeding with hematoma. COMPARISON STUDY: CTA of the abdomen and pelvis March 24, 2018. CT of the abdomen and pelvis September 16, 2020. TECHNIQUE: Initially, unenhanced axial images of the abdomen and pelvis were obtained. Arterial phase images of the abdomen and pelvis and both lower extremities were then obtained following intravenous injection of 120 cc of Optiray 320 IV. Sagittal and coronal reconstructed reviewed as well as shawna l intensity projections on an independent 3-D workstation. Automated exposure control was utilized fo r the study. A dose lowering technique was utilized adhering to the principles of ALARA. FINDINGS: Aneurysmal dilatation of the thoracic aorta is partially imaged on this exam. Visualized po rtions are unchanged. Caliber of the distal descending thoracic aorta is 7.2 cm. A loculated right pl eural effusion remains unchanged. This is partially imaged on this examination. Aortic stent grafts a re partially imaged on this examination. Intraluminal hypodense material suggestive of thrombus along the left lateral aspect of the inferior aspect of the stent graft at the level of the diaphragmatic hiatus is noted. This is increased since CT of December 16, 2019. There may be a small adjacent endole ak. There is no evidence for rupture. Mild dilatation of the abdominal aorta is unchanged. Note is ma de of a small amount of left retroperitoneal hemorrhage which is new since CT of September 16, 2020. Left thigh and groin infiltration has increased. There are multiple intramuscular hematomas within the lef t adductor musculature as well as the left rectus femoris. These are difficult to measure on this exa mination. Overall, there is a moderate amount of intramuscular hemorrhage. There is no active extrava sation. No pseudoaneurysm is identified. Moderate multifocal stenoses of the left calf vessels are no vikki although are suboptimally assessed on this examination due to suboptimal opacification. Right low er extremity arterial system is suboptimally assessed as the scanner out ran the bolus. There is mode rate atherosclerotic plaque within the lower extremities. Scrotal edema is present. IVC filters in pl liam. No pneumatosis, free air or portal venous gas is present. A few hepatic cysts are noted. The spleen, adrenal glands and pancreas are unremarkable. There are several renal cysts. There is no hydronephros is. No evidence for a bowel obstruction. A Mas balloon is present within the bladder. There is gas within the bladder. IMPRESSION: 1. Multiple intramuscular hematomas within the left adductor musculature and left quadriceps, predomi nantly within the rectus femoris with adjacent hemorrhage. Overall, moderate amount of intramuscular hemorrhage. No active extravasation. No pseudoaneurysm. Small amount of left retroperitoneal hemorrha ge. 2. Partially visualized thoracic aortic aneurysm. Suspected thrombus along the left inferior aspect o f the stent graft at the level of the diaphragmatic hiatus with possible adjacent endoleak. No ruptur e. 3. Suboptimal evaluation the bilateral lower extremities given study timing. Moderate atherosclerotic plaque. 4. Scrotal edema. ACT 112: Negative or not required by law. Electronically signed by: Dima Reyez M.D. 09/10/2020 5:48 PM
[2020-09-10] MEDS: POLYETHYLENE (MIRALAX) 17 GM PACK PO SCH (22:37)
[2020-09-10] MEDS: PRAVASTATIN SOD 40 MG TAB PO SCH (22:38)
[2020-09-11 07:07] LABS: Hematocrit (blood only) 25.6 % (42-52); Hemoglobin 8.3 g/dL (14.0-18.0); Mean Corpuscular Hemoglobin 30.2 pg (25-34); Mean Corpuscular Hgb Conc 32.4 g/dL (32-36); Mean Corpuscular Volume 93.1 fL (80-100); Mean Platelet Volume 10.4 fL (7.4-10.4); Nucleated RBC # (auto) 0.07 K/uL (0-0); Nucleated RBC % (auto) 1.2 %; Platelet Count 94 K/uL (130-400); RDW Coefficient of Variation 16.8 % (11.5-14.5); RDW Standard Deviation 53.6 fL (36.4-46.3); Red Blood Count 2.75 M/uL (4.7-6.1); White Blood Count 5.95 K/uL (4.8-10.8)
[2020-09-11 07:18] LABS: INR 1.1 (0.9-1.1); Prothrombin Time 11.4 Seconds (9.0-12.0)
[2020-09-11 07:32] LABS: Basophils # (auto) 0.03 K/uL (0-0.2); Basophils % (auto) 0.5 %; Eosinophils # (auto) 0.11 K/uL (0-0.5); Eosinophils % (auto) 1.8 %; Immature Granulocytes # (auto) 0.03 K/uL (0.00-0.02); Immature Granulocytes % (auto) 0.5 %; Lymphocytes # (auto) 0.94 K/uL (1.2-3.4); Lymphocytes % (auto) 15.8 %; Monocytes # (auto) 0.72 K/uL (0.11-0.59); Monocytes % (auto) 12.1 %; Neutrophils # (auto) 4.12 K/uL (1.4-6.5); Neutrophils % (auto) 69.3 %; Polychromasia 1+
[2020-09-11 07:46] LABS: Albumin Level 2.8 gm/dl (3.4-5.0); BUN Creatinine Ratio 37.4 (10-20); Calcium 7.7 mg/dl (8.5-10.1); Est GFR (African American) 55.7 ml/min; Est GFR (Non-African American) 48.1 ml/min; Magnesium 2.5 mg/dl (1.8-2.4); Potassium 4.2 mmol/L (3.5-5.1)
[2020-09-11 07:48] LABS: Bilirubin,Total 1.6 mg/dl (0.2-1); Globulin 2.8 gm/dl (2.5-4.0); Phosphorus 2.9 mg/dl (2.5-4.9); Total Protein 5.6 gm/dl (6.4-8.2)
[2020-09-11] MEDS: MULTIVITAMIN TAB PO SCH (08:55)
[2020-09-11] MEDS: METOPROLOL TARTRATE 50 MG TAB PO SCH ×2 (08:55→20:44)
[2020-09-11] MEDS: FOLIC ACID 1 MG TAB PO SCH (08:56)
[2020-09-11] MEDS: SODIUM CHLORIDE 0.65% NA SOLN 45 ML (OCEAN) SCH (08:56)
--- NOTE | 2020-09-11 10:28 | Consultation ---
Date of Consultation September 11, 2020 Assessment & Plan (1) Hematoma of left thigh: Pt with hematoma of L thigh and no active extravasation of contrast on CTA. No indications or opportunity for vascular surgery embolization at this time. Pt to follow with [facility] vascular surgery as scheduled for TAA repair. Please call if needed. Encounter type: initial encounter Qualified Code(s): S70.12XA - Contusion of left thigh, initial encounter History of Present Illness Reason for Consultation: LLE thigh hematoma/bleeding Attending Physician: Abigail Alston MD History of Present Illness 84 yo m with multiple medical problems, including hx DVT, HTN, hyperlipidemia, hx thoracic aortic dissection endovascular repair and L sided carotid-subclavian BPG, hx subsequent thoracic repair extensions, admitted with acute anemia d/t L thigh hematoma, seen in consultation today for same. Pt follows with vascular surgery at [place] with Dr Boswell. Pt states no known injury/trauma/recent surgery to L thigh. Hx of L femur repair in 1959, and states has had vascular access in L femoral artery, but nothing recently. Admits heaviness in L thigh which makes ambulation difficult. Admits fatigue. Denies MILLARD, fever, recent illness, chest pain, SOB, abd pain, N/V, rest pain, claudication, other complaints. CTA demonstrates no active extravasation or definitive source of bleeding. Allergies Allergy/AdvReac Type Severity Reaction Status Date / Time amoxicillin AdvReac Unknown UNKNOWN Verified 09/06/20 14:59 clavulanic acid AdvReac Unknown UNKNOWN Verified 09/06/20 14:59 Home Medications Medication Instructions Recorded Confirmed Type folic acid 1 mg PO QAM 01/17/18 09/06/20 History multivitamin 1 tab PO QAM 01/17/18 09/06/20 History pravastatin [Pravachol] 80 mg PO HS 01/17/18 09/06/20 History aspirin [Aspirin Low Dose] 81 mg PO QAM 05/20/20 09/06/20 History metoprolol tartrate 50 mg PO BID 05/20/20 09/06/20 History sennosides [senna] 8.6 mg PO BID PRN 05/20/20 09/06/20 History Miralax 1 packet PO HS 09/06/20 09/06/20 History iron,carbonyl-vitamin C [Vitron-C] 1 tab PO DAILY 09/06/20 09/06/20 History lisinopril 20 mg PO QAM 09/06/20 09/06/20 History Patient History Medical History BPH (benign prostatic hyperplasia) Depression DJD (degenerative joint disease) DVT (deep venous thrombosis) History of temporal arteritis Hyperlipidemia Hypertension Mild reactive airways disease Osteoporosis Surgical History History of carpal tunnel surgery Hx of ascending aortic replacement On 06/10/17 at [facility] [place] [facility] Dr. Boswell Hx of repair of dissecting thoracic aortic aneurysm, [place] type B "Left common carotid artery to left subclavian artery Dacron bypass graft 06/23/[address] Boswell Repair thoracic aortic aneurysm with aortic dissection using Medtronic Valiant thoracic aortic stent graft covering left subclavian artery and distal Medtronic Valiant thoracic aortic extension placement x2, -Main body graft: [id number]; Two distal extensions measuring 46 x 200 and 46 x 150, Amplanz plug of the left subclavian 06/24/[address] Boswell, Pseudoaneurysm injection of the left brachial artery 06/27/[address] Boswell" S/P eye surgery S/P knee surgery Family History Father Stroke Hypertension Heart disease Sister Cancer Kidney Social History Smoking Status: Former smoker Tobacco Type: Cigars Cigarettes Per Day: Patient reports; Smoking End Date: 2019; Second Hand Exposure: No; Hx Alcohol Use: No Hx Substance Use: No Preferred Language: Faroese Communication Ability: Effective Climatology Professor Required: No Beliefs That Will Affect Care: None marital status: / Current Living Situation: Alone Current Living Situation Comment: patient stated he has home health current occupational status: retired Other Information That Helps Us Care for You: No Feels Safe at Home: Yes Safety Concerns: Feels Safe At This Time Assistive Devices: None Review of Systems Review of Systems: All systems reviewed & are unremarkable except as noted in HPI & below Physical Exam Constitutional: WD/WN, vitals as above healthy appearing ENMT: Ears: no hearing impairment Neck: trachea midline Respiratory: normal respiratory effort, lungs clear to auscultation Auscultation: + diminished lung sounds Cardiovascular: Rate/Rhythm: regular rate and regular rhythm Vessels: posterior tibial pulses present, dorsalis pedis pulses present and radial pulses present; + abnormal peripheral pulses Extremities: normal capillary refill and + edema (LLE +4, RLE +2) Gastrointestinal (Abdomen): normal bowel sounds, soft, nontender, no hepatosplenomegaly Musculoskeletal: Extremities: strength 5/5 throughout; + extremities abnormal to inspection (LLE edema, hematoma) Skin: no rashes, warm and dry Neurologic: moves all extremities; no focal motor deficits and not confused Psychiatric: A+Ox3, euthymic affect Results & Data ([facility]) Vital Signs (Past 12 Hours) Vital Signs Temp Pulse Pulse Resp BP BP Pulse Ox 09/11/20 07:48 36.8 C 87 19 111/74 96 09/11/20 05:15 78 09/10/20 23:46 36.4 C L 75 20 90/61 L 95 09/10/20 22:33 36.9 C 76 18 99/60 L 96
--- NOTE | 2020-09-11 14:32 | Hospitalist Progress Note ---
Date of Service September 11, 2020 Assessment & Plan (1) Hematoma of left thigh: Sudden pain involving the left lower extremity especially left thigh Noted to have spontaneous complex fluid collections measuring 6.3 x 5.0 x 1.4 cm and 7.0 x 2.2 x 0.8 cm within the left anterior and lateral thigh. Appreciate Ortho input and recommendation Will hold aspirin for now and apply cold compression, pain medications as needed Pain in the left thigh has improved and swelling seems to be improved to Hemoglobin dropped down to 6.5 Received 2 unit of packed red cell on 09/08/2020-hemoglobin is 7.5 on 09/09/2020- we will monitor CBC Pain in the left thigh is better but has developed swelling of the scrotum with bruising likely secondary to spreading of hemorrhage through the fascia-we will observe Advised to use ice pack and also keep the legs elevated while in bed Left thigh hematoma seems to be improving but increasing swelling and discoloration of the scrotum and penis with difficulty in voiding Left thigh pain is improved but scrotal swelling is worse with increasing bruising CTA of the abdomen did show multiple areas of intramuscular bleeding Appreciate vascular surgery input-no intervention needed and advised to have appointment with the vascular surgery in [place] as an outpatient Discussed with Dr. Boswell, vascular surgery in [place]-no further recommendation Acute blood loss anemia Spontaneous bleeding in the left thigh with history of spontaneous bleeding in the past which required transfusion Hemoglobin dropped to 6.5 and he will get 2 units of packed red cell today Aspirin is on hold and is not getting any pharmacologic anticoagulation Hemoglobin has dropped to 6.5-we will give 2 units of packed red cell blood again today Hemoglobin is 8.5 today and the patient has been feeling much better (2) DVT (deep venous thrombosis): Has chronic DVT and new superficial femoral thrombosis likely secondary to thrombophlebitis This is an 84-year-old male who has significant past medical history of recurrent left lower extremity DVT, PE, thoracoaortic aneurysm s/p endovascular repair, hx of bleeding with epistaxis and LLE hematoma now anticoagulation contraindicated, IVCF in place, HTN, HLD, BPH who presents to ED 2/2 to LLE pain and swelling x 1 day. Pt with recurrent left lower extremity superficial femoral vein DVT. Coumadin discontinued 2016 secondary to recurrent epistaxis. Patient hospitalized [facility] April 2019 secondary to recurrent left lower extremity DVT, placed on IV heparin and developed a spontaneous left thigh hematoma requiring 3 units of PRBC. Heparin discontinued and patient underwent IVC filter placement which is currently in place. Ultrasound reveals acute on chronic left superficial femoral DVT, chronic left popliteal DVT. Case was discussed with vascular given patient's recurrent DVT, IVC filter in place and spontaneous bleeding. Discussed with vascular surgery and mentioned that since clot is superficial there will not do anything with it and the consult was discontinued He also has noted elevated INR 1.5 and thrombocytopenia at 79. His PT/INR is normal as of 09/11/2020 Discussed with websphere administrator/oncologist Dr. Rojas He has some sort of coagulopathy but outpatient work-up remained unremarkable and is heterozygous for MTHFR Will get platelet function studies and further recommendation The patient may be going home in a day or 2 if the hemoglobin remains stable (3) Hypotension: in setting of hx of HTN Patient blood pressure systolically on the lower side Responded to IV fluid resuscitation, so far received 1,250 mL Continue at 75 cc/h for additional liter Hold lisinopril, continue metoprolol with parameters Blood pressure remains on the lower side at systolic 85/48 Nonobstructive CAD on asa, statin, metorpolol and statin as outpt no chest pain/sob (4) Chronic anemia: Hemoglobin 10.6 and 33.1 today, hemoglobin 13.6 and 08/09/2020 Repeat H&H at 10 PM given hypotension Recently had anemia panel which was unremarkable Follows with hematology oncology secondary to anemia, bleeding and recurrent clots Negative work-up for bleeding diatheses, compound heterozygous MTHFR mutation - felt not contributory to recurrent clots per heme-onc note Hemoglobin has been dropping with ongoing bleeding Thrombocytopenia chronic, plt 79 currently on asa monitor plt ct-79 on 09/08/2020 Elevated INR unknown etiology, (5) History of ascending aortic replacement: History of L-CCA to L-SCA bypass followed by [facility], Dr. Boswell and Dr Foster later performed ascending aortic replacement and bypass today innominate and L CCA. 01/12/2020 Underwent placement of Medtronic Valient thoraic aortic stent graft extension, extending down to celiac artery by Dr. Boswell. CTA did not show any increase in the diameter of aorta and no change compared with prior test (6) At risk for bleeding: Contraindications to anticoagulation with recent epistaxis, right-sided pleural hematoma, and spontaneous large left thigh hematoma in the setting of heparin infusion. DVT ppx: contraindicated FULL CODE PCP: Aurelio (7) MTHFR gene mutation: Hypercoagulable state and was on Coumadin before Which was stopped due to epistaxis and spontaneous bleeding Status post IVC filter placement in 2019 Chronic DVT and has been on baby aspirin which is on hold now Discussed with Dr. Rojas as above-platelet function studies have been sent Likely be discharged without aspirin Admission and Anticipated Discharge Date Admission Date: September 06, 2020 Subjective 09/07/2020 The patient was seen and examined in telemetry unit He complains to pain in the left thigh which has been going on since and came out all on his sudden without any history of trauma and/or twisting Still complains of pain in the left thigh Denies any palpitation, shortness of breath, chest pain, abdominal pain nausea and or vomiting 09/08/2020 The patient was seen and examined in telemetry unit His pain in the left thigh has improved but hemoglobin dropped to 6.5 this morning He denies any other symptoms of chest pain, palpitation, shortness of breath, any numbness or tingling involving the left lower extremity 09/09/2020 The patient was seen and examined in telemetry unit He has been out of bed on a chair and symptomatically much better He complained to have swelling and bruising involving the scrotum which he noticed this morning Denies any pain in the thigh and/or in the scrotum Denies any shortness of breath, palpitation or chest pain 09/10/2020 The patient was seen and examined in telemetry unit His condition has been worse with increasing swelling and bruising involving the scrotum and penis Has been having some problem with voiding Denies any pain in the leg, no fever and/or chills, abdominal pain,nausea and or vomiting 09/11/2020 The patient was seen and examined in telemetry unit He has been feeling better but the swelling of the scrotum is worse with increasing discoloration His left thigh pain has improved He received 2 units of blood transfusion yesterday and the hemoglobin is more than 8 today Review of Systems Review of Systems: All systems reviewed and are unremarkable except as noted below Genitourinary: + scrotal swelling (Scrotal swelling with bruising likely secondary to spreading of hemorrhage through the fascia) Musculoskeletal: + swelling (Left thigh with tenderness and pain with any movement of the left lower extremity) Physical Exam Physical Exam: Lying in bed very anxious about his condition Constitutional: well developed, well nourished and + ill appearing Eyes: PERRL, conjunctivae normal, anicteric sclerae ENMT: external ear and nose normal, oropharynx normal Neck: trachea midline, no thyromegaly Respiratory: no respiratory distress Auscultation: lungs clear to auscultation bilaterally Cardiovascular: Rate/Rhythm: regular rate and regular rhythm Heart Sounds: no murmur Extremities: no edema Gastrointestinal (Abdomen): Inspection/Auscultation: normal bowel sounds; abdomen not distended Percussion/Palpation: abdomen soft; abdomen nontender Musculoskeletal: Extremities: extremities normal to inspection (Left lower extremity due to pain and swelling of the thigh) Genitourinary: + scrotal swelling (Considerable scrotal and penile swelling with bruising) Lymphatic: no cervical or axillary lymphadenopathy Results & Data Results & Data ([facility]) Vital Signs (Past 12 Hours) Vital Signs Temp Pulse Pulse Resp BP BP Pulse Ox 09/11/20 11:42 36.9 C 73 20 107/65 96 09/11/20 08:00 79 09/11/20 07:48 36.8 C 87 19 111/74 96 09/11/20 05:15 78 Laboratory Results Short CBC 09/11/20 Range/Units 06:41 WBC 5.95 (4.8-10.8) K/uL Hgb 8.3 L (14.0-18.0) g/dL Hct 25.6 L (42-52) % Plt Count 94 L (130-400) K/uL BMP 09/11/20 06:41 Sodium 142 Potassium 4.2 Chloride 112 H Carbon Dioxide 27 BUN 50 H Creatinine 1.33 Glucose 101 H Calcium 7.7 L Liver Function 09/11/20 Range/Units 06:41 Total Bilirubin 1.6 H (0.2-1) mg/dl AST 22 (15-37) U/L ALT 15 (12-78) U/L Alkaline Phosphatase 45 (45-117) U/L Albumin 2.8 L (3.4-5.0) gm/dl Medications Administered Current Inpatient Medications Acetaminophen (Acetaminophen 325 Mg Tab) 650 mg PO Q4H PRN PRN Reason: Pain or Fever Stop: 10/06/20 18:47 Last Admin: 09/10/20 09:30 Dose: 650 mg Documented by: Al Hydrox/Mg Hydrox/Simethicone (Aluminum/Magnesium Susp 30 Ml Udc) 15 ml PO Q4H PRN PRN Reason: Dyspepsia Stop: 10/06/20 18:47 Aspirin (Aspirin 81 Mg Ectab) 81 mg PO [facility] Stop: 10/07/20 08:59 Folic Acid (Folic Acid 1 Mg Tab) [facility] Stop: 10/07/20 08:59 Last Admin: 09/11/20 08:56 Dose: 1 mg Documented by: Magnesium Hydroxide (Magnesium Hydroxide Susp 30 Ml Udc) 30 ml PO Q12H PRN PRN Reason: Constipation Stop: 10/06/20 18:47 Metoprolol Tartrate (Metoprolol Tartrate 50 Mg Tab) 50 mg PO BID [facility] Stop: 10/06/20 20:59 Last Admin: 09/11/20 08:55 Dose: 50 mg Documented by: Multivitamins (Multivitamin Tab) 1 tab PO [facility] Stop: 10/07/20 08:59 Last Admin: 09/11/20 08:55 Dose: 1 tab Documented by: Ondansetron HCl (Ondansetron Inj 2 Mg/Ml 2 Ml Vial) 4 mg IV Q6H PRN PRN Reason: Nausea Stop: 10/06/20 18:47 Oxycodone/Acetaminophen (Oxycodone/Acetaminophen 5mg/325mg Tab) 1 tab PO Q4H PRN PRN Reason: Pain Stop: 09/20/20 18:47 Polyethylene Glycol (Polyethylene (Miralax) 17 Gm Pack) 17 gm PO DAILY PRN PRN Reason: Constipation Stop: 10/06/20 18:47 Polyethylene Glycol (Polyethylene (Miralax) 17 Gm Pack) 17 gm PO [facility] Stop: 10/06/20 20:59 Last Admin: 09/10/20 22:37 Dose: Not Given Documented by: Pravastatin Sodium (Pravastatin Sod 40 Mg Tab) 80 mg PO [facility] Stop: 10/06/20 20:59 Last Admin: 09/10/20 22:38 Dose: 80 mg Documented by: Sennosides (Senna 8.6 Mg Tab) 8.6 mg PO BID PRN PRN Reason: Constipation Stop: 10/06/20 18:47 Sodium Chloride (Sodium Chloride 0.65% Na Soln 45 Ml ([place])) 1 sprays NA QAM [facility] Stop: 10/07/20 08:59 Last Admin: 09/11/20 08:56 Dose: 1 sprays Documented by: (1) Hematoma of left thigh Encounter type: initial encounter Qualified Code(s): S70.12XA - Contusion of left thigh, initial encounter (2) Hypotension Hypotension type: unspecified hypotension type Qualified Code(s): I95.9 - Hypotension, unspecified
[2020-09-11] MEDS: POLYETHYLENE (MIRALAX) 17 GM PACK PO SCH (20:44)
[2020-09-11] MEDS: PRAVASTATIN SOD 40 MG TAB PO SCH (20:46)
[2020-09-12 06:37] LABS: Basophils # (auto) 0.01 K/uL (0-0.2); Basophils % (auto) 0.2 %; Eosinophils # (auto) 0.12 K/uL (0-0.5); Eosinophils % (auto) 2.3 %; Hematocrit (blood only) 24.3 % (42-52); Immature Granulocytes # (auto) 0.03 K/uL (0.00-0.02); Immature Granulocytes % (auto) 0.6 %; Lymphocytes # (auto) 0.78 K/uL (1.2-3.4); Lymphocytes % (auto) 14.7 %; Mean Corpuscular Hemoglobin 30.8 pg (25-34); Mean Corpuscular Hgb Conc 32.9 g/dL (32-36); Mean Corpuscular Volume 93.5 fL (80-100); Mean Platelet Volume 9.3 fL (7.4-10.4); Monocytes # (auto) 0.66 K/uL (0.11-0.59); Monocytes % (auto) 12.4 %; Neutrophils # (auto) 3.72 K/uL (1.4-6.5); Neutrophils % (auto) 69.8 %; Platelet Count 100 K/uL (130-400); RDW Coefficient of Variation 17.8 % (11.5-14.5); RDW Standard Deviation 53.7 fL (36.4-46.3); White Blood Count 5.32 K/uL (4.8-10.8)
[2020-09-12 07:17] LABS: BUN Creatinine Ratio 42.7 (10-20); Calcium 7.8 mg/dl (8.5-10.1); Creatinine Clr Calc Pharmacy 49.1 ml/min; Est GFR (African American) 72.5 ml/min; Est GFR (Non-African American) 62.5 ml/min; Potassium 3.9 mmol/L (3.5-5.1)
[2020-09-12] MEDS: FOLIC ACID 1 MG TAB PO SCH (08:51)
[2020-09-12] MEDS: MULTIVITAMIN TAB PO SCH (08:51)
[2020-09-12] MEDS: METOPROLOL TARTRATE 50 MG TAB PO SCH ×2 (08:51→19:44)
[2020-09-12] MEDS: SODIUM CHLORIDE 0.65% NA SOLN 45 ML (OCEAN) SCH (08:52)
[2020-09-12] MEDS ORDERED: LOPERAMIDE HCL 2 MG CAP PO PRN (11:29)
[2020-09-12] MEDS ORDERED: FUROSEMIDE 20 MG in SYRINGE 0 ML IV ONE (12:00)
--- NOTE | 2020-09-12 17:12 | Hospitalist Progress Note ---
Date of Service September 12, 2020 Assessment & Plan (1) Hematoma of left thigh: Plan: s/p 4 units pRBC Hg stable Lasix 20mg IV ordered monitor continue pain control platelet function test: normal INR 1.4 --> 1.[address] Rojas continue PT/OT eval (2) DVT (deep venous thrombosis): Plan: history of IVC filter placement (3) Hypotension: Plan: resolved (4) Chronic anemia: Plan: management per #1 (5) History of ascending aortic replacement: Plan: no cardiac symptoms (6) At risk for bleeding: (7) MTHFR gene mutation: Plan: patient declines referral to Rehab will optimize mobility anticipate d/c home with home health services when medically stable plan of care discussed with patient in detail and at length all questions answered he is understanding, agreeable, comfortable with the plan of care Admission and Anticipated Discharge Date Admission Date: September 06, 2020 Subjective ff up for leg hematoma etc seen resting in bed, not in distress reports significant tenderness on the left hip, buttock area no problems voiding no chest pain, dyspnea, palpitations, dizziness no other symptoms Review of Systems Review of Systems: all noted and reviewed except above Physical Exam Physical Exam: General- oriented x 3, not in distress, speaks in sentences with no effort or accessory muscle use Eyes- anicteric Neck- no JVD Lungs- clear breath sounds bilaterally, no rales/wheezes Heart- normal rate, regular rhythm; no murmurs Abdomen- normal bowel sounds, nondistended, soft, nontender Extremities- left LE: (+) significant edema, and moderate tenderness, no erythema/warmth right LE: no pretibial edema, no calf tenderness Neuro- alert, oriented x 3; no gross focal neurologic deficits Skin- warm & dry Results & Data Results & Data ([facility]) Vital Signs (Past 12 Hours) Vital Signs Temp Pulse Pulse Resp BP Pulse Ox 09/12/20 15:31 87 09/12/20 14:57 37.0 C 100 H 18 102/65 98 09/12/20 12:02 37.2 C 93 H 18 101/64 97 09/12/20 08:00 76 09/12/20 07:33 36.7 C 79 18 95/59 L 97 Laboratory Results all noted and reviewed including below (1) Hematoma of left thigh Encounter type: initial encounter Qualified Code(s): S70.12XA - Contusion of left thigh, initial encounter (2) Hypotension Hypotension type: unspecified hypotension type Qualified Code(s): I95.9 - Hypotension, unspecified
[2020-09-12] MEDS: POLYETHYLENE (MIRALAX) 17 GM PACK PO SCH (19:45)
[2020-09-12] MEDS: PRAVASTATIN SOD 40 MG TAB PO SCH (19:45)
[2020-09-13] MEDS: METOPROLOL TARTRATE 50 MG TAB PO SCH ×2 (08:53→19:50)
[2020-09-13] MEDS: FOLIC ACID 1 MG TAB PO SCH (08:53)
[2020-09-13] MEDS: MULTIVITAMIN TAB PO SCH (08:53)
[2020-09-13] MEDS: SODIUM CHLORIDE 0.65% NA SOLN 45 ML (OCEAN) SCH (08:53)
[2020-09-13 09:26] LABS: BUN Creatinine Ratio 35.7 (10-20); Creatinine Clr Calc Pharmacy 41.2 ml/min; Est GFR (African American) 59.5 ml/min; Est GFR (Non-African American) 51.3 ml/min; Potassium 3.8 mmol/L (3.5-5.1)
[2020-09-13 10:05] LABS: Basophils # (auto) 0.02 K/uL (0-0.2); Basophils % (auto) 0.3 %; Eosinophils # (auto) 0.09 K/uL (0-0.5); Eosinophils % (auto) 1.5 %; Hematocrit (blood only) 26.5 % (42-52); Hemoglobin 8.6 g/dL (14.0-18.0); Immature Granulocytes # (auto) 0.03 K/uL (0.00-0.02); Immature Granulocytes % (auto) 0.5 %; Lymphocytes # (auto) 0.83 K/uL (1.2-3.4); Lymphocytes % (auto) 14.1 %; Mean Corpuscular Hemoglobin 30.9 pg (25-34); Mean Corpuscular Hgb Conc 32.5 g/dL (32-36); Mean Corpuscular Volume 95.3 fL (80-100); Mean Platelet Volume 9.7 fL (7.4-10.4); Monocytes # (auto) 0.58 K/uL (0.11-0.59); Monocytes % (auto) 9.9 %; Neutrophils # (auto) 4.33 K/uL (1.4-6.5); Neutrophils % (auto) 73.7 %; Platelet Count 146 K/uL (130-400); RDW Coefficient of Variation 18.5 % (11.5-14.5); RDW Standard Deviation 53.7 fL (36.4-46.3); Red Blood Count 2.78 M/uL (4.7-6.1); White Blood Count 5.88 K/uL (4.8-10.8)
--- NOTE | 2020-09-13 12:09 | Ultrasound Report ---
US venous doppler LE LT CLINICAL HISTORY: Left leg swelling COMPARISON STUDY: 09/06/2020 FINDINGS: Grayscale, color-flow, Doppler spectral waveform analysis was performed. No thrombus is visualized in the common femoral vein. There is nonocclusive thrombus within the super ficial femoral and popliteal vein. There was suboptimal visualization of the calf veins. IMPRESSION: 1. Persistent nonocclusive thrombus within the proximal superficial femoral vein and popliteal vein. The popliteal vein thrombus appears somewhat more extensive than on the prior study. ACT 112: Negative or not required by law. Electronically signed by: Raoul Carr M.D. 09/13/2020 12:07 PM
[2020-09-13] MEDS: FUROSEMIDE 20 MG in SYRINGE 0 ML IV SCH ×2 (12:27→19:49)
--- NOTE | 2020-09-13 16:25 | Hospitalist Progress Note ---
Date of Service September 13, 2020 Assessment & Plan (1) Hematoma of left thigh: Plan: s/p 4 units pRBC Hg stable so far, 8.6 Patient still has significant left lower extremity edema, still has good pulse Repeat left lower extremity venous ultrasound: Mild progression of the acute DVT Lasix 20 mg IV twice daily ordered, warm compress Elevate the leg Monitor closely Reached out to Ortho, requesting for follow-up visit platelet function test: normal INR 1.4 --> 1.[address] film technician Dr. Rojas, who follows patient as an outpatient We will order factor VII level continue PT/OT eval (2) DVT (deep venous thrombosis): Plan: history of IVC filter placement Repeat venous ultrasound of left lower extremity showing possible mild progression of the acute DVT in the superficial femoral and popliteal veins Anticoagulation contraindicated secondary to spontaneous left leg hematoma Continue to monitor, supportive care (3) Hypotension: Plan: resolved (4) Chronic anemia: Plan: management per #1 (5) History of ascending aortic replacement: Plan: no cardiac symptoms (6) At risk for bleeding: (7) MTHFR gene mutation: Plan: patient declines referral to Rehab will optimize mobility anticipate d/c home with home health services when medically stable plan of care discussed with patient in detail and at length all questions answered he is understanding, agreeable, comfortable with the plan of care Admission and Anticipated Discharge Date Admission Date: September 06, 2020 Subjective Follow-up for leg hematoma-spontaneous, etc. Seen resting in bed, comfortable, not in distress States left lower extremity still has significant tenderness, unable to move much due to pain Denies shortness of breath, chest pain, dizziness, nausea vomiting Diarrhea has resolved No other symptoms Review of Systems Review of Systems: All noted, are negative except for above Physical Exam Physical Exam: General- oriented x 3, not in distress, speaks in sentences with no effort or accessory muscle use Eyes- anicteric Neck- no JVD Lungs- clear breath sounds bilaterally, no rales/wheezes Heart- normal rate, regular rhythm; no murmurs Abdomen- normal bowel sounds, nondistended, soft, nontender Positive for mild ecchymosis on the suprapubic area, with mild edema Positive moderate scrotal edema-the same as yesterday Extremities- Positive for moderate left lower extremity edema, with some tenderness, no warmth or erythema, yellow tinge noted Right lower extremity: No pretibial edema, no calf tenderness Neuro- alert, oriented x 3; no gross focal neurologic deficits Skin- warm & dry Results & Data Results & Data ([facility]) Vital Signs (Past 12 Hours) Vital Signs Temp Pulse Pulse Resp BP Pulse Ox 09/13/20 15:34 36.7 C 84 18 100/70 97 09/13/20 15:15 97 H 09/13/20 12:24 105/73 09/13/20 11:09 36.6 C 80 22 90/56 L 92 09/13/20 08:00 71 09/13/20 07:57 36.6 C 90 18 95/65 L 95 all noted and reviewed including below (1) Hematoma of left thigh Encounter type: initial encounter Qualified Code(s): S70.12XA - Contusion of left thigh, initial encounter (2) Hypotension Hypotension type: unspecified hypotension type Qualified Code(s): I95.9 - Hypotension, unspecified
[2020-09-13] MEDS: POLYETHYLENE (MIRALAX) 17 GM PACK PO SCH (19:50)
[2020-09-13] MEDS: PRAVASTATIN SOD 40 MG TAB PO SCH (19:50)
[2020-09-14 07:43] LABS: Basophils # (auto) 0.01 K/uL (0-0.2); Basophils % (auto) 0.2 %; Eosinophils # (auto) 0.13 K/uL (0-0.5); Eosinophils % (auto) 2.6 %; Hematocrit (blood only) 23.7 % (42-52); Hemoglobin 7.5 g/dL (14.0-18.0); Immature Granulocytes # (auto) 0.03 K/uL (0.00-0.02); Immature Granulocytes % (auto) 0.6 %; Lymphocytes % (auto) 14.1 %; Mean Corpuscular Hgb Conc 31.6 g/dL (32-36); Mean Corpuscular Volume 97.9 fL (80-100); Mean Platelet Volume 9.3 fL (7.4-10.4); Monocytes # (auto) 0.66 K/uL (0.11-0.59); Monocytes % (auto) 13.3 %; Neutrophils # (auto) 3.44 K/uL (1.4-6.5); Neutrophils % (auto) 69.2 %; Platelet Count 140 K/uL (130-400); RDW Coefficient of Variation 18.5 % (11.5-14.5); RDW Standard Deviation 56.6 fL (36.4-46.3); Red Blood Count 2.42 M/uL (4.7-6.1); White Blood Count 4.97 K/uL (4.8-10.8)
[2020-09-14 08:14] LABS: BUN Creatinine Ratio 43.4 (10-20); Calcium 7.9 mg/dl (8.5-10.1); Creatinine Clr Calc Pharmacy 50.2 ml/min; Est GFR (African American) 74.1 ml/min; Potassium 3.8 mmol/L (3.5-5.1)
[2020-09-14 08:23] LABS: Polychromasia 2+
[2020-09-14] MEDS: FUROSEMIDE 20 MG in SYRINGE 0 ML IV SCH ×2 (09:29→20:50)
[2020-09-14] MEDS: SODIUM CHLORIDE 0.65% NA SOLN 45 ML (OCEAN) SCH (09:30)
[2020-09-14] MEDS: MULTIVITAMIN TAB PO SCH (09:30)
[2020-09-14] MEDS: FOLIC ACID 1 MG TAB PO SCH (09:30)
[2020-09-14] MEDS: METOPROLOL TARTRATE 50 MG TAB PO SCH ×2 (09:30→20:51)
--- NOTE | 2020-09-14 13:40 | CT Scan Report ---
ABDOMEN AND PELVIS CT WITHOUT CONTRAST CT DOSE: HISTORY: lower abdomen edema, scrotal edema TECHNIQUE: Multiaxial CT images of the abdomen and pelvis were performed without contrast. A dose lo wering technique was utilized adhering to the principles of ALARA. COMPARISON STUDY: CT angiogram abdominal aorta with a lower extremity runoff 09/10/2020. FINDINGS: Stable chronic loculated right lower anterior pleural effusion measuring 10 cm. Right basil ar pleural thickening and calcified pleural plaques are also unchanged. Right mediastinal shift is al so unchanged. There are poststernotomy changes. Linear densities at the right lung base favor scarrin g. No pneumoperitoneum. No pneumatosis. Scoliosis and advanced degenerative changes within the thorac olumbar spine. Left lateral abdominal wall subcutaneous edema, unchanged. There is moderate body wall edema within the pelvis, unchanged. The patient's left groin intramuscular hematoma in left thigh in tramuscular hematomas are better present in the same day femur CT. Small intramuscular hematoma withi n the left iliopsoas muscle remains stable. Small left posterior retroperitoneal hematoma has improve d. An IVC filter is again noted. A left retroaortic renal vein remains unchanged. Stable hepatic and renal hypodense lesions. These are incompletely characterized on this noncontrast study but favor cys ts. No hydronephrosis. The unenhanced pancreas and adrenal glands unremarkable. The gallbladder is co ntracted. Mild nodular contour to the liver suggestive of cirrhosis. No retroperitoneal lymphadenopat hy. The prostate gland remains enlarged. The bladder is decompressed by Mas catheter. No bowel wall thickening or obstruction. Normal appendix. Dilated and tortuous distal thoracic and abdominal aorta remains unchanged. Redemonstration of the stent graft within the distal thoracic aorta. The visualiz ed portion of the distal thoracic aorta measures up to 7 cm in diameter. This is similar to the prior study. Mild aneurysmal dilatation of the abdominal aorta measuring up to 3.7 cm is also unchanged. T hickened rind of increased density surrounding the distal thoracic aorta stent graft is also stable. IMPRESSION: 1. Small left retroperitoneal hematoma has improved in the interval. 2. The left groin/thigh intramuscular hematomas are partially imaged on this study and are better augustine reciated on the same day left femur CT. 3. No bowel wall thickening or obstruction. 4. No change in the thoracic and abdominal aortic aneurysm status post stent graft repair of the desc ending thoracic aortic aneurysm. 5. Additional stable findings as described above. ACT 112: Negative or not required by law. Electronically signed by: Jonathan Rosenthal M.D. 09/14/2020 1:38 PM
--- NOTE | 2020-09-14 14:02 | CT Scan Report ---
CT femur LT wo con HISTORY: 84 years-old Male persistent leg edema, ff up hematoma acute pain and swelling of the left lower leg COMPARISON: CT abdomen and pelvis of same day TECHNIQUE: Multiple axial CT images of the left femur were obtained without the use of IV contrast. A dose lowering technique was used consistent with the principals of LATRICIA. FINDINGS: No intramuscular hematoma of the mid medial aspect of the left thigh measures up to approximately 4.1 x 6.0 x 15.7 cm with hemorrhage extension into the left inguinal distribution. Hemorrhage predominan tly involves the vastus intermedius and vastus medialis. No hemorrhage has mildly improved from juany rison. Diffuse subcutaneous edema. Mild to moderate left hip osteoarthritis. Corticated ossifications adjacent to the greater trochanter . Cortical thickening of the mid femoral diaphysis suggests healed fracture deformity. Arterial calci fications. Posterior arthritis of the left knee. No acute fracture or dislocation. Heterogeneous enha ncement of the enlarged prostate. Mas catheter in place. IMPRESSION: 1. No acute fracture. 2. Intramuscular hematomas of the left thigh redemonstrated and have mildly decreased in size from co mparison. ACT 112: Negative or not required by law. The above report was generated using voice recognition software. It may contain grammatical, syntax o r spelling errors. Electronically signed by: Andres Lyon M.D. 09/14/2020 2:01 PM
[2020-09-14 15:34] LABS: Hematocrit (blood only) 24.3 % (42-52); Hemoglobin 7.8 g/dL (14.0-18.0)
--- NOTE | 2020-09-14 17:40 | Hospitalist Progress Note ---
Date of Service September 14, 2020 Assessment & Plan (1) Hematoma of left thigh: Plan: s/p 4 units pRBC Hg 7.8, monitor closely Patient still has significant left lower extremity edema, still has good pulse Repeat left lower extremity venous ultrasound: Mild progression of the acute DVT CT left lower extremity: Improving size of hematoma Lasix 20 mg IV twice daily ordered, warm compress Elevate the leg Monitor closely Reached out to Ortho, requesting for follow-up visit platelet function test: normal INR 1.4 --> 1.1 Discussed with vice president of software development Dr. Rojas, who follows patient as an outpatient Ordered factor VII level: Pending continue PT/OT eval (2) DVT (deep venous thrombosis): Plan: history of IVC filter placement Repeat venous ultrasound of left lower extremity showing possible mild progression of the acute DVT in the superficial femoral and popliteal veins Anticoagulation contraindicated secondary to spontaneous left leg hematoma Continue to monitor, supportive care (3) Hypotension: Plan: resolved (4) Chronic anemia: Plan: management per #1 (5) History of ascending aortic replacement: Plan: no cardiac symptoms (6) At risk for bleeding: (7) MTHFR gene mutation: Plan: patient declines referral to Rehab will optimize mobility anticipate d/c home with home health services when medically stable plan of care discussed with patient in detail and at length all questions answered he is understanding, agreeable, comfortable with the plan of care Admission and Anticipated Discharge Date Admission Date: September 06, 2020 Subjective Follow-up for left leg hematoma, acute DVT, etc. Seen sitting up in bed, comfortable, not in distress States left lower extremity still about the same as yesterday Limited mobility secondary to left lower extremity edema No headache, dizziness, chest pain, shortness of breath, abdominal pain No other symptoms Review of Systems Review of Systems: All negative except for above Physical Exam Physical Exam: General- oriented x 3, not in distress, speaks in sentences with no effort or accessory muscle use Eyes- anicteric Neck- no JVD Lungs- clear breath sounds bilaterally, no crackles, no wheezing Heart- normal rate, regular rhythm; no murmurs Abdomen- normal bowel sounds, nondistended, soft, nontender Edema on the lower abdomen improving, scrotal edema also improving Extremities- Positive significant left thigh edema, no warmth or erythema, positive moderate tenderness Yellow tinge noted Right lower extremity: No pretibial edema, no calf tenderness Neuro- alert, oriented x 3; no gross focal neurologic deficits Skin- warm & dry Results & Data Results & Data ([facility]) Vital Signs (Past 12 Hours) Vital Signs Temp Pulse Pulse Resp BP Pulse Ox 09/14/20 17:09 37.0 C 80 18 119/54 L 98 09/14/20 16:54 71 09/14/20 12:00 36.9 C 69 18 136/69 98 09/14/20 08:45 76 09/14/20 08:00 36.8 C 76 20 126/66 all noted and reviewed including below (1) Hematoma of left thigh Encounter type: initial encounter Qualified Code(s): S70.12XA - Contusion of left thigh, initial encounter (2) Hypotension Hypotension type: unspecified hypotension type Qualified Code(s): I95.9 - Hypotension, unspecified
[2020-09-14] MEDS: POLYETHYLENE (MIRALAX) 17 GM PACK PO SCH (20:51)
[2020-09-14] MEDS: PRAVASTATIN SOD 40 MG TAB PO SCH (20:52)
--- NOTE | 2020-09-15 06:35 | Orthopedic Progress Note ---
Date of Service September 15, 2020 Assessment & Plan (1) Hematoma of left thigh: Plan: CT Femur reviewed showing mild decrease in size from prior studies will continue ice packs and elevation. Continue limited ambulation from bed to bedside commode. at this point, will recommend continuation of conservative measures, surgical evacuation not recommended or indicated at this time. He can f/u with Dr Davis in 2-3 weeks for recheck. Admission and Anticipated Discharge Date Admission Date: September 06, 2020 Subjective pain in the thigh about the same as yesterday, states maybe slightly better Review of Systems Constitutional: as per Subjective / HPI Physical Exam Physical Exam: Left lower leg, + edema grossly, tenderness noted anterior and lateral thigh, compressible but tender, tolerates gentle passive ROM of the knee. DP palpable Results & Data ([facility]) Vital Signs (Past 12 Hours) Vital Signs Temp Pulse Resp BP Pulse Ox 09/15/20 03:47 36.8 C 78 19 110/67 97 09/14/20 23:58 36.9 C 77 17 93/56 L 96 09/14/20 19:52 36.7 C 79 18 91/[address] L [address] femur LT wo con HISTORY: 84 years-old Male persistent leg edema, ff up hematoma acute pain and swelling of the left lower leg COMPARISON: CT abdomen and pelvis of same day TECHNIQUE: Multiple axial CT images of the left femur were obtained without the use of IV contrast. A dose lowering technique was used consistent with the principals of [place]. FINDINGS: No intramuscular hematoma of the mid medial aspect of the left thigh measures up to approximately 4.1 x 6.0 x 15.7 cm with hemorrhage extension into the left inguinal distribution. Hemorrhage predominantly involves the vastus intermedius and vastus medialis. No hemorrhage has mildly improved from comparison. Diffuse subcutaneous edema. Mild to moderate left hip osteoarthritis. Corticated ossifications adjacent to the greater trochanter. Cortical thickening of the mid femoral diaphysis suggests healed fracture deformity. Arterial calcifications. Posterior arthritis of the left knee. No acute fracture or dislocation. Heterogeneous enhancement of the enlarged prostate. Mas catheter in place. IMPRESSION: 1. No acute fracture. 2. Intramuscular hematomas of the left thigh redemonstrated and have mildly decreased in size from comparison. (1) Hematoma of left thigh Encounter type: initial encounter Qualified Code(s): S70.12XA - Contusion of left thigh, initial encounter
[2020-09-15] MEDS: METOPROLOL TARTRATE 50 MG TAB PO SCH ×2 (08:19→20:22)
[2020-09-15] MEDS: MULTIVITAMIN TAB PO SCH (08:19)
[2020-09-15] MEDS: SODIUM CHLORIDE 0.65% NA SOLN 45 ML (OCEAN) SCH (08:19)
[2020-09-15] MEDS: FOLIC ACID 1 MG TAB PO SCH (08:19)
[2020-09-15 08:32] LABS: Basophils # (auto) 0.01 K/uL (0-0.2); Basophils % (auto) 0.2 %; Hematocrit (blood only) 25.7 % (42-52); Hemoglobin 8.1 g/dL (14.0-18.0); Immature Granulocytes # (auto) 0.02 K/uL (0.00-0.02); Immature Granulocytes % (auto) 0.4 %; Lymphocytes # (auto) 0.63 K/uL (1.2-3.4); Lymphocytes % (auto) 12.7 %; Mean Corpuscular Hemoglobin 30.7 pg (25-34); Mean Corpuscular Hgb Conc 31.5 g/dL (32-36); Mean Corpuscular Volume 97.3 fL (80-100); Mean Platelet Volume 9.5 fL (7.4-10.4); Monocytes # (auto) 0.42 K/uL (0.11-0.59); Monocytes % (auto) 8.5 %; Neutrophils # (auto) 3.77 K/uL (1.4-6.5); Neutrophils % (auto) 76.2 %; Platelet Count 160 K/uL (130-400); RDW Coefficient of Variation 18.6 % (11.5-14.5); RDW Standard Deviation 58.5 fL (36.4-46.3); Red Blood Count 2.64 M/uL (4.7-6.1); White Blood Count 4.95 K/uL (4.8-10.8)
[2020-09-15] MEDS: FUROSEMIDE 20 MG in SYRINGE 0 ML IV SCH ×2 (08:37→20:21)
[2020-09-15 09:07] LABS: BUN Creatinine Ratio 40.3 (10-20); Calcium 7.9 mg/dl (8.5-10.1); Creatinine Clr Calc Pharmacy 49.7 ml/min; Est GFR (African American) 73.3 ml/min; Est GFR (Non-African American) 63.2 ml/min; Potassium 3.7 mmol/L (3.5-5.1)
[2020-09-15] MEDS: ACETAMINOPHEN 500 MG TAB PO SCH ×2 (17:15→20:21)
--- NOTE | 2020-09-15 17:20 | Hospitalist Progress Note ---
Date of Service September 15, 2020 Assessment & Plan (1) Hematoma of left thigh: Plan: s/p 4 units pRBC Hg 8.1, monitor closely Patient still has significant left lower extremity edema, still has good pulse Repeat left lower extremity venous ultrasound: Mild progression of the acute DVT CT left lower extremity: Improving size of hematoma Lasix 20 mg IV twice daily ordered, warm compress Elevate the leg Monitor closely -- add Tylenol TID to hopefully aid in the edema/inflammation, mostly from DVT albumin 2.8, no indication for albumin IV platelet function test: normal INR 1.4 --> 1.1 [address] elephant keeper Dr. Rojas, who follows patient as an outpatient Ordered factor VII level: Pending continue PT/OT eval (2) DVT (deep venous thrombosis): Plan: history of IVC filter placement Repeat venous ultrasound of left lower extremity showing possible mild progression of the acute DVT in the superficial femoral and popliteal veins Anticoagulation contraindicated secondary to spontaneous left leg hematoma Continue to monitor, supportive care (3) Hypotension: Plan: resolved (4) Chronic anemia: Plan: management per #1 (5) History of ascending aortic replacement: Plan: no cardiac symptoms (6) At risk for bleeding: (7) MTHFR gene mutation: Plan: patient declines referral to Rehab will optimize mobility anticipate d/c home with home health services when medically stable plan of care discussed with patient in detail and at length all questions answered he is understanding, agreeable, comfortable with the plan of care Admission and Anticipated Discharge Date Admission Date: September 06, 2020 Subjective ff up for acute DVT seen resting in chair, comfortable states his LLE is about the same as yesterday somewhat less tender, but still as swollen, able to mobilize slightly better but still very limited no other symptoms Review of Systems Review of Systems: all noted, negative except above Physical Exam Physical Exam: General- oriented x 3, not in distress, speaks in sentences with no effort or accessory muscle use Eyes- anicteric Neck- no JVD Lungs- clear breath sounds bilaterally, no rales/wheezes Heart- normal rate, regular rhythm; no murmurs Abdomen- normal bowel sounds, nondistended, soft, nontender Extremities- Left lower extremity with significant edema, no pretibial edema, no calf tenderness Neuro- alert, oriented x 3; no gross focal neurologic deficits Skin- warm & dry Results & Data Results & Data ([facility]) Vital Signs (Past 12 Hours) Vital Signs Temp Pulse Resp BP Pulse Ox 09/15/20 16:00 36.9 C 88 18 115/70 98 09/15/20 12:19 36.9 C 71 20 109/78 100 09/15/20 08:24 98/54 L (1) Hematoma of left thigh Encounter type: initial encounter Qualified Code(s): S70.12XA - Contusion of left thigh, initial encounter (2) Hypotension Hypotension type: unspecified hypotension type Qualified Code(s): I95.9 - Hypotension, unspecified
[2020-09-15] MEDS: POLYETHYLENE (MIRALAX) 17 GM PACK PO SCH (20:22)
[2020-09-15] MEDS: PRAVASTATIN SOD 40 MG TAB PO SCH (20:23)
[2020-09-16 07:10] LABS: Folate (Folic Acid) > 20.00 ng/ml (>5.38); Vitamin B12 629 pg/ml (193-986)
[2020-09-16 09:41] LABS: BUN Creatinine Ratio 38.9 (10-20); Calcium 7.9 mg/dl (8.5-10.1); Creatinine Clr Calc Pharmacy 46.3 ml/min; Est GFR (African American) 67.1 ml/min; Est GFR (Non-African American) 57.9 ml/min; Potassium 3.8 mmol/L (3.5-5.1)
[2020-09-16] MEDS: ACETAMINOPHEN 500 MG TAB PO SCH ×3 (09:44→21:40)
[2020-09-16] MEDS: FOLIC ACID 1 MG TAB PO SCH (09:44)
[2020-09-16] MEDS: METOPROLOL TARTRATE 50 MG TAB PO SCH ×2 (09:45→21:44)
[2020-09-16] MEDS: SODIUM CHLORIDE 0.65% NA SOLN 45 ML (OCEAN) SCH (09:45)
[2020-09-16] MEDS: MULTIVITAMIN TAB PO SCH (09:45)
--- NOTE | 2020-09-16 14:35 | Hospitalist Progress Note ---
Date of Service September 16, 2020 Assessment & Plan (1) Hematoma of left thigh: Plan: s/p 4 units pRBC Hg 8.1, monitor closely Patient still has significant left lower extremity edema, still has good pulse Repeat left lower extremity venous ultrasound: Mild progression of the acute DVT CT left lower extremity: Improving size of hematoma Lasix 20 mg IV twice daily ordered, warm compress Elevate the leg Monitor closely -- added Tylenol TID to hopefully aid in the edema/inflammation, mostly from DVT albumin 2.8, no indication for albumin IV -- slightly improved today monitor platelet function test: normal INR 1.4 --> 1.1 Discussed with electric meter inspector Dr. Rojas, who follows patient as an outpatient Ordered factor VII level: Pending continue PT/OT eval (2) DVT (deep venous thrombosis): Plan: history of IVC filter placement Repeat venous ultrasound of left lower extremity showing possible mild progression of the acute DVT in the superficial femoral and popliteal veins Anticoagulation contraindicated secondary to spontaneous left leg hematoma Continue to monitor, supportive care (3) Hypotension: Plan: resolved (4) Chronic anemia: Plan: management per #1 (5) History of ascending aortic replacement: Plan: no cardiac symptoms (6) At risk for bleeding: (7) MTHFR gene mutation: Plan: patient declines referral to Rehab will optimize mobility anticipate d/c home with home health services when medically stable plan of care discussed with patient in detail and at length all questions answered he is understanding, agreeable, comfortable with the plan of care Admission and Anticipated Discharge Date Admission Date: September 06, 2020 Subjective ff up for acute DVT etc seen resting in bed, comfortable not in distress feels Left lower ext swelling and discomfort is about the same minimal ambulation in the room no other symptoms Review of Systems Review of Systems: all noted and negative except above Physical Exam Physical Exam: General- oriented x 3, not in distress, speaks in sentences with no effort or accessory muscle use Eyes- anicteric Neck- no JVD Lungs- clear BS BL no rales Heart- normal rate, regular rhythm; no murmurs Abdomen- normal bowel sounds, nondistended, soft edema over lower abdomen- much improved scrotal and penile edema- improving Extremities- L LE: edema at least 20% improved, mild tenderness, no erythema R LE: essentially normal Neuro- alert, oriented x 3; no gross focal neurologic deficits Skin- warm & dry Results & Data Results & Data ([facility]) Vital Signs (Past 12 Hours) Vital Signs Temp Pulse Resp BP Pulse Ox 09/16/20 12:00 36.8 C 70 18 108/59 L 98 09/16/20 08:00 37.0 C 121 H 20 114/63 95 09/16/20 04:00 36.8 C 75 19 101/58 L 98 all noted and reviewed including below (1) Hematoma of left thigh Encounter type: initial encounter Qualified Code(s): S70.12XA - Contusion of left thigh, initial encounter (2) Hypotension Hypotension type: unspecified hypotension type Qualified Code(s): I95.9 - Hypotension, unspecified
[2020-09-16] MEDS: POLYETHYLENE (MIRALAX) 17 GM PACK PO SCH (21:41)
[2020-09-16] MEDS: PRAVASTATIN SOD 40 MG TAB PO SCH (21:42)
[2020-09-17] MEDS: ACETAMINOPHEN 500 MG TAB PO SCH ×3 (06:06→19:22)
[2020-09-17] MEDS: FOLIC ACID 1 MG TAB PO SCH (07:44)
[2020-09-17] MEDS: MULTIVITAMIN TAB PO SCH (07:44)
[2020-09-17] MEDS: METOPROLOL TARTRATE 50 MG TAB PO SCH ×2 (07:44→19:23)
[2020-09-17] MEDS: SODIUM CHLORIDE 0.65% NA SOLN 45 ML (OCEAN) SCH (07:45)
[2020-09-17] MEDS ORDERED: BENZOCAINE 20% (ORAJEL) 11.9 GM TUBE MT PRN (17:34)
--- NOTE | 2020-09-17 17:42 | Hospitalist Progress Note ---
Date of Service September 17, 2020 Assessment & Plan (1) Hematoma of left thigh: Plan: s/p 4 units pRBC Hg 8.1, monitor closely Patient still has significant left lower extremity edema, still has good pulse Repeat left lower extremity venous ultrasound: Mild progression of the acute DVT CT left lower extremity: Improving size of hematoma Lasix 20 mg IV twice daily ordered, warm compress Elevate the leg Monitor closely -- added Tylenol TID to hopefully aid in the edema/inflammation, mostly from DVT albumin 2.8, no indication for albumin IV --Left lower extremity edema seems to be improving slightly, daily Continue scheduled Tylenol, leg elevation Remove Mas catheter today PT OT evaluation, may need inpatient rehab platelet function test: normal INR 1.4 --> 1.1 Discussed with import/export freight forwarder Dr. Rojas, who follows patient as an outpatient Ordered factor VII level: Pending continue PT/OT eval (2) DVT (deep venous thrombosis): Plan: history of IVC filter placement Repeat venous ultrasound of left lower extremity showing possible mild progression of the acute DVT in the superficial femoral and popliteal veins Anticoagulation contraindicated secondary to spontaneous left leg hematoma Continue to monitor, supportive care (3) Hypotension: Plan: resolved (4) Chronic anemia: Plan: management per #1 (5) History of ascending aortic replacement: Plan: no cardiac symptoms (6) At risk for bleeding: (7) MTHFR gene mutation: Plan: patient declines referral to Rehab will optimize mobility anticipate d/c home with home health services when medically stable plan of care discussed with patient in detail and at length all questions answered he is understanding, agreeable, comfortable with the plan of care Admission and Anticipated Discharge Date Admission Date: September 06, 2020 Subjective Follow-up for left lower extremity DVT,, hematoma, etc. Seen resting in recliner, not in distress States leg discomfort is slightly better today Ambulated with a walker in the room with physical therapy No fevers or chills, shortness of breath, chest pain, dizziness, nausea No other symptom Review of Systems Review of Systems: All noted negative except for above Physical Exam Physical Exam: General- oriented x 3, not in distress, speaks in sentences with no effort or accessory muscle use Eyes- anicteric Neck- no JVD Lungs- clear BS bilaterally Heart- normal rate, regular rhythm; no murmurs Abdomen- normal bowel sounds, nondistended, soft, nontender Scrotal and penile edema, about the same Extremities- Left lower extremity edema seems to be improving slightly, tenderness also improving, no erythema no pretibial edema, no calf tenderness Neuro- alert, oriented x 3; no gross focal neurologic deficits Skin- warm & dry Results & Data Results & Data ([facility]) Vital Signs (Past 12 Hours) Vital Signs Temp Pulse Pulse Resp BP Pulse Ox 09/17/20 16:31 82 09/17/20 15:53 36.9 C 86 19 91/64 L 96 09/17/20 11:34 36.9 C 89 18 101/64 96 09/17/20 07:18 37.0 C 85 18 95/60 L 96 09/17/20 06:02 36.5 C 92 H 20 119/68 95 all noted and reviewed including below (1) Hematoma of left thigh Encounter type: initial encounter Qualified Code(s): S70.12XA - Contusion of left thigh, initial encounter (2) Hypotension Hypotension type: unspecified hypotension type Qualified Code(s): I95.9 - Hypotension, unspecified
[2020-09-17] MEDS: POLYETHYLENE (MIRALAX) 17 GM PACK PO SCH (19:22)
[2020-09-17] MEDS: PRAVASTATIN SOD 40 MG TAB PO SCH (19:23)
[2020-09-18] MEDS: ACETAMINOPHEN 500 MG TAB PO SCH ×3 (06:30→19:38)
[2020-09-18] MEDS: FOLIC ACID 1 MG TAB PO SCH (08:25)
[2020-09-18] MEDS: METOPROLOL TARTRATE 50 MG TAB PO SCH ×2 (08:25→19:37)
[2020-09-18] MEDS: MULTIVITAMIN TAB PO SCH (08:25)
[2020-09-18] MEDS: SODIUM CHLORIDE 0.65% NA SOLN 45 ML (OCEAN) SCH (08:25)
[2020-09-18] MEDS: ACETAMINOPHEN 325 MG TAB PO PRN ×2 (14:15→19:36)
--- NOTE | 2020-09-18 18:20 | Hospitalist Progress Note ---
Date of Service September 18, 2020 Assessment & Plan (1) Hematoma of left thigh: Plan: Spontaneous Left Leg Intramuscular Hematoma with Acute DVT s/p 4 units pRBC Hg 8.1, stable for a few days patient's L lower ext edema very slow to improve, secondary to hematoma, and acute DVT Repeat left lower extremity venous ultrasound: Mild progression of the acute DVT CT left lower extremity: Decreasing size of hematoma Lasix 20 mg IV twice daily given initially warm compress given, leg elevated Tylenol TID to hopefully aid in the edema/inflammation--> seems to be helping --Left lower extremity edema seems to be improving slowly, daily Continue scheduled Tylenol, leg elevation Removed Mas catheter PT OT evaluation: recommending Rehab, patient agreeable, awaiting acceptance Discussed with special education resource teacher Dr. Rojas, who follows patient as an outpatient platelet function test: normal INR 1.4 --> 1.1 Ordered factor VII level:normal -- recommend HOLDING Aspirin until ff up with Dr. 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 Repeat venous ultrasound of left lower extremity showing possible mild pro gression of the acute DVT in the superficial femoral and popliteal veins Anticoagulation contraindicated secondary to spontaneous left leg hematoma Continue to monitor, supportive care as above (3) Hypotension: Plan: resolved (4) Chronic anemia: Plan: management per #1 (5) History of ascending aortic replacement: Plan: no cardiac symptoms (6) At risk for bleeding: (7) MTHFR gene mutation: Plan: manager of case on board d/c to Rehab when accepted plan of care discussed with patient in detail and at length all questions answered he is understanding, agreeable, comfortable with the plan of care Admission and Anticipated Discharge Date Admission Date: September 06, 2020 Subjective ff up for spontaneous left leg hematoma, acute DVT, etc. seen resting in bed, comfortable not in distress states left leg discomfort improving able to ambulate in the halls with walker, just feels left leg heaviness no other symptoms Review of Systems Review of Systems: all noted and negative except for above Physical Exam Physical Exam: General- oriented x 3, not in distress, speaks in sentences with no effort or accessory muscle use Eyes- anicteric Neck- no JVD Lungs- clear breath sounds bilaterally Heart- normal rate, regular rhythm; no murmurs Abdomen- normal bowel sounds, nondistended, soft, nontender scrotal and penile edema: improving Extremities- Left lower ext: (+) moderate edema- improving, (+) yellowish tinge, no erythema/warmth/tenderness Neuro- alert, oriented x 3; no gross focal neurologic deficits Skin- warm & dry Results & Data Results & Data ([facility]) Vital Signs (Past 12 Hours) Vital Signs Temp Pulse Resp BP Pulse Ox 09/18/20 15:58 37.4 C 77 18 121/72 94 09/18/20 08:26 107/70 09/18/20 07:15 37.0 C 84 18 100/67 95 (1) Hematoma of left thigh Encounter type: initial encounter Qualified Code(s): S70.12XA - Contusion of left thigh, initial encounter (2) Hypotension Hypotension type: unspecified hypotension type Qualified Code(s): I95.9 - Hypotension, unspecified
[2020-09-18] MEDS: POLYETHYLENE (MIRALAX) 17 GM PACK PO SCH (19:37)
[2020-09-18] MEDS: PRAVASTATIN SOD 40 MG TAB PO SCH (19:37)
[2020-09-19] MEDS: ACETAMINOPHEN 500 MG TAB PO SCH ×3 (05:27→21:40)
[2020-09-19] MEDS: FOLIC ACID 1 MG TAB PO SCH (08:52)
[2020-09-19] MEDS: METOPROLOL TARTRATE 50 MG TAB PO SCH ×2 (08:52→20:33)
[2020-09-19] MEDS: MULTIVITAMIN TAB PO SCH (08:52)
[2020-09-19] MEDS: SODIUM CHLORIDE 0.65% NA SOLN 45 ML (OCEAN) SCH (08:54)
[2020-09-19 12:34] LABS: Hematocrit (blood only) 28.6 % (42-52); Hemoglobin 8.7 g/dL (14.0-18.0)
[2020-09-19 13:10] LABS: Creatinine Clr Calc Pharmacy 54.9 ml/min; Est GFR (African American) 82.6 ml/min; Est GFR (Non-African American) 71.3 ml/min; Potassium 4.7 mmol/L (3.5-5.1)
[2020-09-19] MEDS ORDERED: traMADol HCL 50 MG TABLET PO PRN (20:08)
[2020-09-19] MEDS: POLYETHYLENE (MIRALAX) 17 GM PACK PO SCH (20:27)
[2020-09-19] MEDS: PRAVASTATIN SOD 40 MG TAB PO SCH (20:33)
[2020-09-19] MEDS: ACETAMINOPHEN 325 MG TAB PO PRN (21:17)
[2020-09-20] MEDS: ACETAMINOPHEN 500 MG TAB PO SCH ×2 (05:36→15:03)
[2020-09-20] MEDS: SODIUM CHLORIDE 0.65% NA SOLN 45 ML (OCEAN) SCH (08:26)
[2020-09-20] MEDS: MULTIVITAMIN TAB PO SCH (08:34)
[2020-09-20] MEDS: FOLIC ACID 1 MG TAB PO SCH (08:34)
[2020-09-20] MEDS: METOPROLOL TARTRATE 50 MG TAB PO SCH (08:35)
--- NOTE | 2020-09-20 09:35 | Hospitalist Progress Note ---
Date of Service September 19, 2020 Assessment & Plan (1) Hematoma of left thigh: Plan: Spontaneous Left Leg Intramuscular Hematoma with Acute DVT s/p 4 units pRBC Current Hg 8.7, stable for several days patient's L lower ext edema very slow to improve, secondary to hematoma, and acute DVT Repeat left lower extremity venous ultrasound: Mild progression of the acute DVT CT left lower extremity: Decreasing size of hematoma Lasix 20 mg IV twice daily given initially warm compress given, leg elevated Tylenol TID to hopefully aid in the edema/inflammation--> seems to be helping --Left lower extremity edema seems to be improving slowly, daily Continue scheduled Tylenol, leg elevation Removed Mas catheter PT OT evaluation: recommending Rehab, patient agreeable, awaiting acceptance Discussed with site leader Dr. Rojas, who follows patient as an outpatient platelet function test: normal INR 1.4 --> 1.1 Ordered factor VII level:normal -- recommend HOLDING Aspirin until ff up with Dr. 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 Repeat venous ultrasound of left lower extremity showing possible mild progression of the acute DVT in the superficial femoral and popliteal veins Anticoagulation contraindicated secondary to spontaneous left leg hematoma Continue to monitor, supportive care as above (3) Hypotension: Plan: resolved (4) Chronic anemia: Plan: management per #1 (5) History of ascending aortic replacement: Plan: no cardiac symptoms (6) At risk for bleeding: (7) MTHFR gene mutation: Plan: immigration case worker on board d/c to Rehab when accepted plan of care discussed with patient in detail and at length all questions answered he is understanding, agreeable, comfortable with the plan of care Admission and Anticipated Discharge Date Admission Date: September 06, 2020 Subjective Patient seen in follow up for spontaneous left leg hematoma, acute DVT, etc. seen resting in bed, comfortable not in distress states left leg discomfort improving able to ambulate in the halls with walker, just feels left leg heaviness no other symptoms No fevers, chills, chest pain, shortness of breath, abdominal pain, nausea or vomiting Review of Systems Review of Systems: all noted and negative except for above Physical Exam Physical Exam: General- oriented x 3, not in distress, speaks in sentences with no effort or accessory muscle use Eyes- anicteric Neck- no JVD Lungs- clear breath sounds bilaterally Heart- normal rate, regular rhythm; no murmurs Abdomen- normal bowel sounds, nondistended, soft, nontender scrotal and penile edema: improving Extremities- Left lower ext: (+) moderate edema- improving, (+) yellowish tinge, no erythema/warmth/tenderness Neuro- alert, oriented x 3; no gross focal neurologic deficits Skin- warm & dry Results & Data Results & Data ([facility]) Vital Signs (Past 12 Hours) Vital Signs Temp Pulse Resp BP Pulse Ox 09/19/20 22:07 36.4 C L 70 16 101/65 94 Laboratory Results 09/19/20 09/19/20 Range/Units 12:21 12:21 Hgb 8.7 L (14.0-18.0) g/dL Hct 28.6 L (42-52) % Sodium 140 (136-145) mmol/L Potassium 4.7 (3.5-5.1) mmol/L Chloride 111 H (98-107) mmol/L Carbon Dioxide 26 (21-32) mmol/L Anion Gap 3.0 (3-11) BUN 37 H (7-18) mg/dl Creatinine 0.96 (0.6-1.4) mg/dl Est Cr Clr Drug Dosing 54.9 ml/min Est GFR ( Amer) 82.6 ml/min Est GFR (Non-Af Amer) 71.3 ml/min BUN/Creatinine Ratio 39.0 H (10-20) Glucose 109 H (70-99) mg/dl Calcium 8.0 L (8.5-10.1) mg/dl Medications Administered Current Inpatient Medications Acetaminophen (Acetaminophen 500 Mg Tab) 500 mg PO Q8H [facility] Stop: 10/15/20 13:59 Last Admin: 09/20/20 05:36 Dose: 500 mg Documented by: Al Hydrox/Mg Hydrox/Simethicone (Aluminum/Magnesium Susp 30 Ml Udc) 15 ml PO Q4H PRN PRN Reason: Dyspepsia Stop: 10/06/20 18:47 Benzocaine (Benzocaine 20% (Orajel) 11.9 Gm Tube) 1 appln MT BID PRN PRN Reason: Pain Stop: 10/17/20 17:33 Folic Acid (Folic Acid 1 Mg Tab) 1 mg PO QAM [facility] Stop: 10/07/20 08:59 Last Admin: 09/20/20 08:34 Dose: 1 mg Documented by: Loperamide HCl (Loperamide Hcl 2 Mg Cap) 2 mg PO UD PRN PRN Reason: Diarrhea Stop: 10/12/20 11:28 Magnesium Hydroxide (Magnesium Hydroxide Susp 30 Ml Udc) 30 ml PO Q12H PRN PRN Reason: Constipation Stop: 10/06/20 18:47 Metoprolol Tartrate (Metoprolol Tartrate 50 Mg Tab) 50 mg PO BID [facility] Stop: 10/06/20 20:59 Last Admin: 09/20/20 08:35 Dose: Not Given Documented by: Multivitamins (Multivitamin Tab) 1 tab PO QAM [facility] Stop: 10/07/20 08:59 Last Admin: 09/20/20 08:34 Dose: 1 tab Documented by: Ondansetron HCl (Ondansetron Inj 2 Mg/Ml 2 Ml Vial) 4 mg IV Q6H PRN PRN Reason: Nausea Stop: 10/06/20 18:47 Oxycodone/Acetaminophen (Oxycodone/Acetaminophen 5mg/325mg Tab) 1 tab PO Q4H PRN PRN Reason: Pain Stop: 09/20/20 18:47 Polyethylene Glycol (Polyethylene (Miralax) 17 Gm Pack) 17 gm PO DAILY PRN PRN Reason: Constipation Stop: 10/06/20 18:47 Polyethylene Glycol (Polyethylene (Miralax) 17 Gm Pack) 17 gm PO HS [facility] Stop: 10/06/20 20:59 Last Admin: 09/19/20 20:27 Dose: Not Given Documented by: Pravastatin Sodium (Pravastatin Sod 40 Mg Tab) 80 mg PO [facility] Stop: 10/06/20 20:59 Last Admin: 09/19/20 20:33 Dose: 80 mg Documented by: Sennosides (Senna 8.6 Mg Tab) 8.6 mg PO BID PRN PRN Reason: Constipation Stop: 10/06/20 18:47 Sodium Chloride (Sodium Chloride 0.65% Na Soln 45 Ml ([place])) 1 sprays NA QAM [facility] Stop: 10/07/20 08:59 Last Admin: 09/20/20 08:26 Dose: 1 sprays Documented by: (1) Hematoma of left thigh Encounter type: initial encounter Qualified Code(s): S70.12XA - Contusion of left thigh, initial encounter (2) Hypotension Hypotension type: unspecified hypotension type Qualified Code(s): I95.9 - Hypotension, unspecified
--- NOTE | 2020-09-20 09:47 | Hospitalist Progress Note ---
Date of Service September 20, 2020 Assessment & Plan (1) Hematoma of left thigh: Plan: Spontaneous Left Leg Intramuscular Hematoma with Acute DVT s/p 4 units pRBC Current Hg 8.7, stable for several days patient's L lower ext edema very slow to improve, secondary to hematoma, and acute DVT Repeat left lower extremity venous ultrasound: Mild progression of the acute DVT CT left lower extremity: Decreasing size of hematoma Lasix 20 mg IV twice daily given initially warm compress given, leg elevated Tylenol TID to hopefully aid in the edema/inflammation--> seems to be helping --Left lower extremity edema seems to be improving slowly, daily Continue scheduled Tylenol, leg elevation Removed Mas catheter PT OT evaluation: recommending Rehab, patient agreeable, awaiting acceptance Discussed with tour escort Dr. Rojas, who follows patient as an outpatient platelet function test: normal INR 1.4 --> 1.1 Ordered factor VII level:normal -- recommend HOLDING Aspirin until follow up with Dr. Rojas in 2 weeks (2) DVT (deep venous thrombosis): Plan: history of IVC filter placement due to hematoma after heparin in 2019 Repeat venous ultrasound of left lower extremity showing possible mild progression of the acute DVT in the superficial femoral and popliteal veins Anticoagulation contraindicated secondary to spontaneous left leg hematoma Continue to monitor, supportive care as above (3) Hypotension: Plan: resolved (4) Chronic anemia: Plan: management per #1 (5) History of ascending aortic replacement: Plan: no cardiac symptoms (6) At risk for bleeding: (7) MTHFR gene mutation: Plan: spring encaser on board d/c to Rehab today plan of care discussed with patient in detail and at length all questions answered he is understanding, agreeable, comfortable with the plan of care Admission and Anticipated Discharge Date Admission Date: September 06, 2020 Subjective Patient seen in follow up for spontaneous left leg hematoma, acute DVT, etc. seen resting in chair, legs elevated, comfortable not in distress states left leg discomfort improving able to ambulate in the halls with walker, just feels left leg heaviness no other symptoms No fevers, chills, chest pain, shortness of breath, abdominal pain, nausea or vomiting Review of Systems Review of Systems: all noted and negative except for above Physical Exam Physical Exam: General- oriented x 3, not in distress, speaks in sentences with no effort or accessory muscle use Eyes- anicteric Neck- no JVD Lungs- clear breath sounds bilaterally Heart- normal rate, regular rhythm; no murmurs Abdomen- normal bowel sounds, nondistended, soft, nontender scrotal and penile edema: improving Extremities- Left lower ext: (+) moderate edema- improving, (+) yellowish tinge, no erythema/warmth/tenderness Neuro- alert, oriented x 3; no gross focal neurologic deficits Skin- warm & dry Results & Data Results & Data ([facility]) Vital Signs (Past 12 Hours) Vital Signs Temp Pulse Resp BP Pulse Ox 09/20/20 07:33 36.7 C 69 18 107/66 93 09/19/20 22:07 36.4 C L 70 16 101/65 94 Medications Administered Current Inpatient Medications Acetaminophen (Acetaminophen 500 Mg Tab) 500 mg PO Q8H [facility] Stop: 10/15/20 13:59 Last Admin: 09/20/20 05:36 Dose: 500 mg Documented by: Al Hydrox/Mg Hydrox/Simethicone (Aluminum/Magnesium Susp 30 Ml Udc) 15 ml PO Q4H PRN PRN Reason: Dyspepsia Stop: 10/06/20 18:47 Benzocaine (Benzocaine 20% (Orajel) 11.9 Gm Tube) 1 appln MT BID PRN PRN Reason: Pain Stop: 10/17/20 17:33 Folic Acid (Folic Acid 1 Mg Tab) 1 mg PO QAM [facility] Stop: 10/07/20 08:59 Last Admin: 09/20/20 08:34 Dose: 1 mg Documented by: Loperamide HCl (Loperamide Hcl 2 Mg Cap) 2 mg PO UD PRN PRN Reason: Diarrhea Stop: 10/12/20 11:28 Magnesium Hydroxide (Magnesium Hydroxide Susp 30 Ml Udc) 30 ml PO Q12H PRN PRN Reason: Constipation Stop: 10/06/20 18:47 Metoprolol Tartrate (Metoprolol Tartrate 50 Mg Tab) 50 mg PO BID [facility] Stop: 10/06/20 20:59 Last Admin: 09/20/20 08:35 Dose: Not Given Documented by: Multivitamins (Multivitamin Tab) 1 tab PO QAM [facility] Stop: 10/07/20 08:59 Last Admin: 09/20/20 08:34 Dose: 1 tab Documented by: Ondansetron HCl (Ondansetron Inj 2 Mg/Ml 2 Ml Vial) 4 mg IV Q6H PRN PRN Reason: Nausea Stop: 10/06/20 18:47 Oxycodone/Acetaminophen (Oxycodone/Acetaminophen 5mg/325mg Tab) 1 tab PO Q4H PRN PRN Reason: Pain Stop: 09/20/20 18:47 Polyethylene Glycol (Polyethylene (Miralax) 17 Gm Pack) 17 gm PO DAILY PRN PRN Reason: Constipation Stop: 10/06/20 18:47 Polyethylene Glycol (Polyethylene (Miralax) 17 Gm Pack) 17 gm PO [facility] Stop: 10/06/20 20:59 Last Admin: 09/19/20 20:27 Dose: Not Given Documented by: Pravastatin Sodium (Pravastatin Sod 40 Mg Tab) 80 mg PO [facility] Stop: 10/06/20 20:59 Last Admin: 09/19/20 20:33 Dose: 80 mg Documented by: Sennosides (Senna 8.6 Mg Tab) 8.6 mg PO BID PRN PRN Reason: Constipation Stop: 10/06/20 18:47 Sodium Chloride (Sodium Chloride 0.65% Na Soln 45 Ml ([place])) 1 sprays NA QAM [facility] Stop: 10/07/20 08:59 Last Admin: 09/20/20 08:26 Dose: 1 sprays Documented by: (1) Hematoma of left thigh Encounter type: initial encounter Qualified Code(s): S70.12XA - Contusion of left thigh, initial encounter (2) Hypotension Hypotension type: unspecified hypotension type Qualified Code(s): I95.9 - Hypotension, unspecified
--- NOTE | 2020-09-20 13:33 | Discharge Summary ---
Date of Service September 20, 2020 Admission HPI Per Admitting Provider This is an 84-year-old male who has significant past medical history of recurrent left lower extremity DVT, PE, thoracoaortic aneurysm s/p endovascular repair, hx of bleeding with epistaxis and LLE hematoma now anticoagulation contraindicated, IVCF in place, HTN, HLD, BPH who presents to ED 2/2 to LLE pain and swelling x 1 day. Pain started gradually yesterday and continued to get worse. Pain mostly located in her left thigh. He is unable to walk due to severity of pain. If at rest pain is improved. He has not tried anything [id number] for pain. He denies any noted redness. He was seen and evaluated by PCP 2/2 to pain and he was referred to ED. while in clinic his blood pressures systolically were in the 90s. He states that his cardiothoracic surgeon would like his blood pressure on the lower side, particularly less than 130. He denies f/c/s, dizziness, lightheaded, chest pain, sob at rest, hemoptysis, URI sx, n/v/d, melena, abdominal pain, dysuria, increased freq/urg with urination. He does have microscopic hematuria for which he is following urology. In ED he was found to have acute on chronic LLE Superficial femoral thrombosis. He also has chronic LLE popliteal DVT. While in ED his SBP was in the 80-90s which improved with IVF. He also received 250ml IVF while en route. Admission Exam Per Admitting Provider Constitutional: WD/WN, elderly, male, vitals as above, NAD, sitting up in bed, pleasant, conversing easily Head: Normocephalic, Atraumatic Eyes: PERRL, conjunctivae normal, anicteric sclerae ENMT: external ear and nose normal, oropharynx normal Neck: trachea midline, no thyromegaly normal visual inspection Respiratory: normal respiratory effort, lungs clear to auscultation, no wheeze, rales, rhonchi. Normal insp/exp effort, no accessory muscle use Cardiovascular: RRR, harsh 3/6 EMILY at RUSB, left lower extremity is 1 pretibial edema, significant nonpitting thigh edema, pain to palpation anterior thigh, +warmth, no redness, chronic venous stasis changes b/l, negative homans. Vessels: no JVD or carotid bruit Chest: Sternal incision noted, normal inspection of chest Abdomen: normal bowel sounds, soft, nontender, no hepatosplenomegaly Musculoskeletal: no cyanosis or clubbing, AROM x 4 Skin: no rashes, warm and dry normal turgor Neurologic: PERRL, EOMI, accommodation nl, no face palsy, no dysarthria CN's II-XI intact bilaterally and moves all extremities Psychiatric: A+Ox3, euthymic affect Lymphatic: no cervical or axillary lymphadenopathy : deferred Principal Diagnosis Acute left lower extremity DVT Spontaneous intramuscular hematoma left thigh Discharge Exam General- oriented x 3, not in distress, speaks in sentences with no effort or accessory muscle use Eyes- anicteric Neck- no JVD Lungs- clear breath sounds bilaterally Heart- normal rate, regular rhythm; no murmurs Abdomen- normal bowel sounds, nondistended, soft, nontender scrotal and penile edema: improving Extremities- Left lower ext: (+) moderate edema- improving, (+) yellowish tinge, no erythema/warmth/tenderness Neuro- alert, oriented x 3; no gross focal neurologic deficits Skin- warm & dry Discharge Data Allergies Allergy/AdvReac Type Severity Reaction Status Date / Time amoxicillin AdvReac Unknown UNKNOWN Verified 09/06/20 14:59 clavulanic acid AdvReac Unknown UNKNOWN Verified 09/06/20 14:59 Consultations 09/06/20 16:03 ED Decision to Admit Stat 09/07/20 08:00 Consult Orthopedic Surgery Routine 09/10/20 12:30 Consult Vascular Surgery Routine Ordered Studies 09/06/20 12:05 US venous doppler LE LT Stat IMPRESSION: 1. Acute on chronic DVT within the proximal left superficial femoral vein. 2. No change in the chronic left popliteal DVT. 09/06/20 14:16 CT angio chest PE protocol Stat IMPRESSION: 1. There is no evidence of acute pulmonary embolus in the main, lobar, or segmental pulmonary arteries. 2. Trace chronic pulmonary embolus is seen within segmental and subsegmental branches of the right lower lobe pulmonary artery. 3. Again seen is postoperative change involving the thoracic aorta with a stent graft in place. The residual aneurysm sac measures up to 7.8 cm in diameter and this is similar to previous. 4. A loculated and minimally complex pleural collection at the anterior right lung base is unchanged from previous. The sterility of this collection cannot be assessed by imaging. 5. There is no airspace consolidation typical for pneumonia. 6. 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 7. Additional findings as above. 09/06/20 17:59 CT abd pelvis wo con Stat IMPRESSION: 1. No definite area of bleeding is seen however evaluation is limited due to lack of IV contrast. 2. Interval development of loculated collection within inferior anterior lateral pleural. For further details please see report of CT of the chest performed at the same time. 3. Nondilated loops of bowel. 4. The rest of findings as above. 09/06/20 19:48 US extremity non-vascular ltd Urgent IMPRESSION: There are 2 separate intramuscular complex fluid collections within the left thigh as described above. These favor intramuscular hematomas. 09/10/20 13:41 CT ang AA [facility] w inc wo ifdon Urgent IMPRESSION: 1. Multiple intramuscular hematomas within the left adductor musculature and left quadriceps, predominantly within the rectus femoris with adjacent hemorrhage. Overall, moderate amount of intramuscular hemorrhage. No active extravasation. No pseudoaneurysm. Small amount of left retroperitoneal hemorrhage. 2. Partially visualized thoracic aortic aneurysm. Suspected thrombus along the left inferior aspect of the stent graft at the level of the diaphragmatic hiatus with possible adjacent endoleak. No rupture. 3. Suboptimal evaluation the bilateral lower extremities given study timing. Moderate atherosclerotic plaque. 4. Scrotal edema. 09/13/20 10:53 US venous doppler LE LT Routine IMPRESSION: 1. Persistent nonocclusive thrombus within the proximal superficial femoral vein and popliteal vein. The popliteal vein thrombus appears somewhat more extensive than on the prior study. 09/14/20 11:02 CT abd pelvis wo con Routine IMPRESSION: 1. Small left retroperitoneal hematoma has improved in the interval. 2. The left groin/thigh intramuscular hematomas are partially imaged on this study and are better appreciated on the same day left femur CT. 3. No bowel wall thickening or obstruction. 4. No change in the thoracic and abdominal aortic aneurysm status post stent graft repair of the descending thoracic aortic aneurysm. 5. Additional stable findings as described above. CT femur LT wo con Routine IMPRESSION: 1. No acute fracture. 2. Intramuscular hematomas of the left thigh redemonstrated and have mildly decreased in size from comparison. Hospital Course (1) Hematoma of left thigh: Spontaneous Left Leg Intramuscular Hematoma with Acute DVT s/p 4 units pRBC Current Hg 8.7, stable for several days patient's L lower ext edema very slow to improve, secondary to hematoma, and acute DVT Repeat left lower extremity venous ultrasound: Mild progression of the acute DVT CT left lower extremity: Decreasing size of hematoma Lasix 20 mg IV twice daily given initially warm compress given, leg elevated Tylenol TID to hopefully aid in the edema/inflammation--> seems to be helping --Left lower extremity edema seems to be improving slowly, daily Continue scheduled Tylenol, leg elevation Removed Mas catheter PT OT evaluation: recommending Rehab, patient agreeable, awaiting acceptance Discussed with press room supervisor Dr. Rojas, who follows patient as an outpatient platelet function test: normal INR 1.4 --> 1.1 Ordered factor VII level:normal -- recommend HOLDING Aspirin until follow up with Dr. Rojas in 2 weeks (2) DVT (deep venous thrombosis): history of IVC filter placement due to hematoma after heparin in 2019 Repeat venous ultrasound of left lower extremity showing possible mild progression of the acute DVT in the superficial femoral and popliteal veins Anticoagulation contraindicated secondary to spontaneous left leg hematoma Continue to monitor, supportive care as above (3) Hypotension: resolved (4) Chronic anemia: management per #1 (5) History of ascending aortic replacement: no cardiac symptoms (6) At risk for bleeding: (7) MTHFR gene mutation: comp field case manager on board d/c to Rehab today plan of care discussed with patient in detail and at length all questions answered he is understanding, agreeable, comfortable with the plan of care Total Time Total Time Spent Total Time Spent (In Minutes): 35 Discharge Plan Discharge Items Patient Disposition: Transfer Inpatient Rehab Fac Reason For Visit: ACUTE ON CHRONIC LLE DVT Discharge Diagnosis: Acute left lower extremity DVT Spontaneous intramuscular hematoma left thigh Activity: As commented below Activity Comment: Per PT and OT recommendations Lifting: Wait until after follow-up appointment Exercise/Sports: Wait until after follow-up appointment Driving/Machine Use: Wait until after follow-up appointment with PCP Non-emergency contact: Primary Care Provider Call non-emergency contact if: you have any medication questions, your symptoms worsen, your pain is not controlled, your pain is worsening, your pain is unusual for you, your pain is concerning for you and you have a fever Follow-up/Referrals: Benjie Carey MD [Primary Care Provider] - ( ) Santi Rojas MD [Surgeon] - Diet: Heart Healthy Addtl Attending Provider Instructions: Continue leg and scrotal elevation, warm / cold compress, Tylenol 3 times daily. Monitor left lower extremity closely. [facility] Santi Ro[facility]. Please follow-up with Dr. Santi Rojas in 2 weeks. You should also follow-up with your PCP within 1 to 2 weeks after you leave the rehab. Follow-up with vascular surgery, Dr. Boswell, as previously scheduled. Pending Studies at Discharge: No Stand-Alone Forms: My [facility] Skilled Items Patient informed of condition?: Yes DNR: No Discharge Level of Care: Acute rehab Communicable Disease: No Discharge Prognosis: Improving Lines: None Urinary Catheter: No Medications and DC Order Prescriptions: New acetaminophen [Tylenol Extra Strength] 500 mg Tablet 500 mg PO Q8H 7 Days Qty: 21 RF: 0 [place]ri[place] 20 % Gel 1 applic MT BID PRN (Reason: mouth irritation) Qty: 28.4 RF: 0 sodium chloride [Saline Mist] 0.65 % Aerosol,[place] 1 spray NA QAM Qty: 30 RF: 0 Continued multivitamin Tablet 1 tab PO QAM RF: 0 pravastatin [Pravachol] 40 mg tablet 80 mg PO HS RF: 0 folic acid 1 mg tablet 1 mg PO QAM RF: 0 metoprolol tartrate 100 mg tablet 50 mg PO BID RF: 0 sennosides [senna] 8.6 mg tablet 8.6 mg PO BID PRN (Reason: Constipation) RF: 0 Vitron-C 65 mg iron- 125 mg Tablet,Delayed Release (Dr/Ec) 1 tab PO DAILY RF: 0 Miralax 1 packet PO HS RF: 0 Discontinued aspirin [Aspirin Low Dose] 81 mg Tablet,Delayed Release (Dr/Ec) 81 mg PO QAM RF: 0 lisinopril 20 mg tablet 20 mg PO QAM RF: 0 Discharge Orders: Discharge Order (Routine); Ordered 09/20/20 Ordered By: Mihai Sky Admission Data Admit Date/Time: 09/06/20 16:46 Attending Provider: Mihai Sky Admit Provider: Alexandru Interiano Primary Care Provider: Benjie Carey Other Providers: [facility] ; Ranjit Mcduffie ; Alexandru Interiano ; Nasim Badillo ; [place] Dugan ; Shannan Ramirez ; Shannan Silva at [place] ; [place],[facility] ; Dereck Don.
== END 2020-09-20 16:09 | DRG 300 ==
LOC: ED 11:28 → 2E 16:46 → SUATTDRO 16:46 → 2E 18:40 → 3N 09-17 23:50